=== PATIENT | female | born 1955 | race Caucasian/White ===

== ENCOUNTER 2024-04-09 08:43 | Outpatient (AMB) | payer OTHER, SELFPAY ==
--- NOTE | 2024-04-09 08:50 | A.OFFPC_ITS ---
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 Is last menstrual period known: No Post menopausal: No Patient : No Allergies No Known Allergies Allergy (Verified 04/09/24 09:08) Medication List - Last Reconciled 04/09/24 by Ghazala Vallecillo CNP No Known Home Meds Tobacco use date assessed: 04/09/24 Fall risk assessment: 1 Fall in past year Last assessed Fall Risk: 04/09/24 Dental Screening Dental Screen Date: 04/09/24 Did you have a dental visit in the last 12 months?: Yes Did you have a dental problem in the last 6 months where you did not have access to dental care?: No Was dental information given to patient?: Patient has dentist HPI HPI Comments History of Present Illness Details 68-year-old female presents to establish care. Prior PCP? - [facility] Last office visit/CPE/labs - About a year ago Acute issue(s) - HTN: currently not on medications. Was on different antihypertensives that caused adverse reactions, including nausea and sweating. She was on HCTZ until 2023. She has been mainlining a low sodium diet. She checks her blood pressure at routinely and average in the 130s/80s. She declines antihypertensives at this time. - Sleep apnea, not on CPAP: diagnosed a year ago at [facility]. However, she was never contacted for CPAP machine as planned. - Heartburn: Takes herbal gum with signi ficant relief; declines PPI. - Dysphagia and esophagitis which she at tributes to radiation treatment in 2012 for stage 3 turmor of right tonsil. She is followed by Dr. Urbina, ENT at [facility] recommended GI follow-up. She is not currently followed by Gastroenterology. - Intermittent right ear pain due to rec urring right ear infection with scar tissues. Followed by ENT. - [place] both ears, right worst than left. Does not wear hearing aid due to high risk of ear infection with hearing aids. Followed by ENT. 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 Does not vape. Drinks 2-3 b eers weekly. Denies recreational drug use - Has been making healthy dietary choice s. Exercises routinely. Generally sleep well Health maintenance - Last eye exam was a year ago. She is due for an eye exam and will schedule an appointment. She will sign a release for her PCP to obtain her eye record - Last dental visit was a week ago. She gets dental cleaning every 6 months - Last tetanus vaccine was in 2019. [address] not available a this time - She notes that she is up-to-date on e shingles and pneumonia vaccines - She notes that she is up-to-date on e influenza vaccine - Last mammogram was over a year ago. Ma mmogram ordered - Last colonoscopy was in 2018 at [facility]. Will request and review record and update colonoscopy as needed - Last pap smear test was at [facility] 10 years ago: Normal. Referred to [facility] cia agent for a pap smear test - Last dexa scan was 2 years. Dexa scan ordered Specialists - Dr. Urbina, ENT at [facility] Medical History (Updated 04/09/24 @ 12:23 by Ghazala Vallecillo CNP) Tonsillar tumor Cleft palate Neuropathy Shingles Hiatal hernia Acid reflux Osteoporosis High blood pressure Sinusitis Surgical History (Updated 04/09/24 @ 09:11 by Milagro Julian) History of salpingectomy Family History (Updated 04/09/24 @ 09:07 by Milagro Julian) Brother Alcohol abuse FH: mental illness Mother High cholesterol Diabetes Cervical cancer Father Diabetes Cardiovascular disease Paternal Grandmother Diabetes Sister Thyroid disorder Maternal Grandfather Stomach cancer Social History Housing: House Patient Tobacco Use Status: Never used Tobacco e-Cigarette/Vaping Use: Never Used Second Hand Smoke Exposure: No service: No Current occupational status: retired Cognitive needs: No Hearing needs: Yes Vision needs: Yes Questionnaire PHQ-9 Over the last 2 weeks, how often have you been bothered by any of the following problems? 1. Little interest or pleasure in doing things: not at all 2. Feeling down, depressed, or hopeless: not at all 3. Trouble falling or staying asleep, or sleeping too much: several days 4. Feeling tired or having little energy: several days 5. Poor appetite or overeating: not at all 6. Feeling bad about yourself - or that you are a failure or have let yourself or your family down: not at all 7. Trouble concentrating on things, such as reading the newspaper or watching television: not at all 8. Moving or speaking so slowly that other people could have noticed. Or the opposite - being so fidgety or restless that you have been moving around a lot more than usual: not at all 9. Thoughts that you would be better off or of hurting yourself in some way: not at all Total score: 2 Depression Screening Interpretation: Negative Depression Screening Done: Yes 03999 - PHQ-9 Billing: Yes Source: Developed by Drs. Josep Rodas, Keiry Abarca, Fernando Lincoln and colleagues, with an educational caprice from [employer] Thrive Questionnaire Date Thrive assessed: 04/09/24 I am a: Patient What is your living situation today?: I have a steady place to live Within the past 12 months, did the food you bought not last and you didn't have the money to get more?: Never true Within the past 12 months, did you worry whether your food would run out before you got money to buy more?: Never true Do you have trouble paying for medicines?: No Do you have trouble getting transportation to medical appointments?: No Do you have trouble paying your heating and electricity bill?: No Do you have trouble taking care of your child, family member or friend?: No Do you have trouble with day-to-day activities such as bathing, preparing meals, shopping, managing finances, etc.?: No Are you currently unemployed and looking for a job?: No Are you interested in more education?: No Please select the resources that you would like help with: None Currently or been in a relationship where the following occur: No concerns reported THRIVE Score: 0 AUDIT C Alcohol Use Questionnaire (AUDIT-C) 1. How often do you have a drink containing alcohol?: Monthly or less 2. How many drinks containing alcohol do you have on a typical day when you are drinking?: 1 or 2 3. How often do you have six or more drinks on one occasion?: Never Total Score: 1 Score Reviewed/Action Taken: Yes PASTOR-7 AMB Questionnaire PASTOR-7 Date PASTOR - 7 assessed: 04/09/24 Feeling nervous, anxious, or on edge: 0 = Not at all Not being able to stop or control worryin = Not at all Worrying too much about different things: 0 = Not at all Trouble relaxin = Not at all Being so restless that it is hard to sit still: 0 = Not at all Becoming easily annoyed or irritable: 0 = Not at all Feeling afraid as if something awful might happen: 0 = Not at all Total PASTOR-7 score (0-4 normal; 5-9 mild; 10-14 moderate; 15-21 severe): 0 Source: Developed by Drs. Josep Rodas, Keiry Abarca, Fernando Lincoln and colleagues, with an educational caprice from [employer] PASTOR-7 Assessment Billing PASTOR-7 Assessment Tool: PASTOR-7 Assessment 76696 Review of Systems Const Details: Denies chills, Denies fatigue, Denies fever(s), Denies headache(s) and Denies weakness HEENT Reports [place], Reports dysphagia, Denies change in vision, Denies dizziness, Denies headache(s), Denies nasal congestion, Denies sinus pain, Denies sinus pressure and Denies sore throat Card Denies chest pain, Denies lightheadedness, Denies dyspnea and Denies other (palpitations) Resp Denies cough, Denies dyspnea and Denies wheezing GI Denies abdominal pain, Denies melena, Denies hematochezia, Denies change in bowel habits, Denies dyspepsia and Denies nausea Denies hematuria and Denies dysuria Musc Denies abnormal gait, Denies myalgias, Denies arthralgias, Denies numbness and Denies tingling Skin/Breast Denies rash, Denies unusual bruising and Denies wounds Neuro Denies abnormal gait, Denies dizziness, Denies headache(s), Denies memory loss, Denies numbness, Denies Sensory deficit (Neuro), Denies tingling and Denies weakness Psych Denies anxiety, Denies depression and Denies memory loss Endo Denies cold intolerance, Denies fatigue, Denies heat intolerance, Denies polydipsia and Denies polyuria Mehdi/Lymph Denies easy bleeding and Denies easy bruising Aller/Immun Denies wheezing Physical exam (Primary Care) Vital Signs: Last Vital Signs Temp 97.9 F 04/09/24 08:57 Pulse 86 04/09/24 08:57 Resp 16 04/09/24 08:57 BP 130/90 H 04/09/24 09:20 Pulse Ox 97 04/09/24 08:57 Oxygen Delivery Method Room Air 04/09/24 08:57 BMI result Body Mass Index 31.4 Tobacco/Smoking Status: Tobacco use Status Tobacco use date assessed 04/09/24 04/09/24 08:57 Patient Tobacco Use Status Never used Tobacco 04/09/24 08:57 e-Cigarette/Vaping Use Never Used 04/09/24 08:57 PHQ-9: PHQ-9 Score PHQ-9: Total score 2 04/09/24 12:07 Depression Screening Interpretation: Negative Thrive Assessment: Date of Thrive Assessment Date Thrive assessed 04/09/24 04/09/24 08:53 Currently or been in a relationship where the following occur: No concerns reported Const Other: General: no acute distress, well developed, alert and awake Nutritional Appearance: well nourished Orientation/consciousness: patient oriented x3 HENMT Head: Yes normocephalic and Yes atraumatic Ears: hearing grossly normal bilaterally and TM's normal bilaterally General nose exam: Normal external nose present and Normal nares present Mouth: Normal oral and palatal mucosa present and moist mucous membranes Teeth and gingiva: dentition normal Throat: Yes oropharynx normal. Uvula not present Eyes Pupils: Equal, round and reactive pupils present and Pupil accommodation reflex normal EOM: EOMs intact bilaterally Neck Neck: Yes normal visual inspection, Yes no lymphadenopathy and Yes trachea midline Thyroid: Thyroid normal Carotids: no bruits Lymphatic: no lymphadenopathy noted Chest Chest palpation & inspection: normal inspection of the chest Resp Effort & Inspection: normal respiratory effort Auscultation: clear to auscultation bilaterally Cardio Rate: regular rate Rhythm: regular rhythm Heart sounds: S1 normal heart sound present, S2 normal heart sound present, no gallops, no murmurs and no rubs Bruits: no abdominal aortic bruits and no carotid bruits GI Palpation (GI): No Abdominal aortic bruit present, Soft to palpation, nontender, No hepatosplenomegaly present and No Rebound tenderness present Auscultation: normal bowel sounds General: Yes no CVA tenderness Back/Spine/Pelvis Back: no CVA tenderness Cervical Spine: cervical ROM normal and No Cervical spine tenderness Thoracic/Lumbar Spine: thoraco-lumbar ROM normal, No pain with thoraco-lumbar ROM, No thoracic spinal tenderness and No lumbar spinal tenderness Skin General: warm and dry. Normal skin color. Normal skin turgor Lesions: no lesions Rashes: no rashes Trauma: no lacerations or abrasions Wounds: no wounds Nails: normal Neuro General: patient oriented x3, gait normal and CN's II-XI intact bilaterally Cranial nerves: Yes Equal, round and reactive pupils present Cognition (Neuro): normal cognition Gait exam (Neuro): Normal gait present Motor exam (neuro): 5/5 motor strength present throughout Sensory Exam: No Sensory deficit (Neuro) Deep tendon reflexes (DTR's): Right patellar reflex intensity grade: 2+ and Left patellar reflex intensity grade: 2+ Extrem General: Yes normal to inspection, No edema and No calf tenderness Psych Appearance: grossly normal Affect: normal affect Attitude: cooperative Thought process: Normal thought process present Coding Level of Care Code New Pt Level 3 (93517) New Pt Prev Care >65yr (08331) Diagnoses Normal physical examination, routine Z00.00 High blood pressure I10 Osteoporosis M81.0 Acid reflux K21.9 Dysphagia R13.10 Esophagitis K20.90 Hiatal hernia K44.9 Pap smear for cervical cancer screening Z12.4 Breast cancer screening by mammogram Z12.31 Sleep apnea G47.30 Hard of hearing H91.90 Obesity (BMI 30-39.9) E66.9 Laboratory tests ordered as part of a complete physical exam (CPE) Z00.00 Additional Codes PASTOR-7 Assessment Billing - PASTOR-7 Assessment Tool: PASTOR-7 Assessment 06246 ([id number]) PHQ-9 - 05816 - PHQ-9 Billing: Yes ([id number]) Assessment & Plan Assessment & Plan (1) Normal physical examination, routine: Code(s): Z00.00 - Encounter for general adult medical examination without abnormal findings Category: Medical Plan: No significant functional limitation noted. Advised to get fasting lab work done and follow-up for hypertension and labs review in a month. Return sooner with symptoms or concerns. Verbalized understanding and agreed with treatment plan. (2) High blood pressure: Code(s): I10 - Essential (primary) hypertension Category: Medical Plan: Resting blood pressure is 130/90, above goal of less than 140/90. She experience significant adverse reactions to different antihypertensives. Last time she was on antihypertensives/HCTZ was in the summer of 2023. She has been maintaining low-sodium diet and exercising routinely. She has also been monitoring her blood pressure routinely with average readings 130s/80s. She does not want to start antihypertensive medication at this time and will continue with lifestyle changes. Low-sodium diet and routine exercise encouraged. Follow-up in 1 month or sooner with symptoms or concerns. Verbalized understanding and agreed with treatment plan. (3) Osteoporosis: Code(s): M81.0 - Age-related osteoporosis without current pathological fracture Category: Medical Plan: Last dexa scan was 2 years. Dexa scan ordered. (4) Acid reflux: Code(s): K21.9 - Gastro-esophageal reflux disease without esophagitis Category: Medical Plan: She takes herbal gum with significant relief. Declines PPI. Healthy diet encouraged. Follow-up as needed. (5) Dysphagia: Code(s): R13.10 - Dysphagia, unspecified Category: Medical Plan: Dysphagia and esophagitis related to radiation treatment in 2012 for stage 3 turmor of right tonsil. She also has history of hiatal hernia. She is followed by Dr. rUbina, ENT at [facility] recommended GI follow-up. She is not currently followed by Gastroenterology. Continue follow-up with ENT as planned. Referred to [facility] gastroenterology. (6) Esophagitis: Code(s): K20.90 - Esophagitis, unspecified without bleeding Category: Medical Plan: Plan as above. (7) Hiatal hernia: Code(s): K44.9 - Diaphragmatic hernia without obstruction or gangrene Category: Medical Plan: Plan as above. (8) Pap smear for cervical cancer screening: Code(s): Z12.4 - Encounter for screening for malignant neoplasm of cervix Category: Medical Plan: Last pap smear test was at [facility] 10 years ago: Normal. Referred to [facility] cia agent for a pap smear test. (9) Breast cancer screening by mammogram: Code(s): Z12.31 - Encounter for screening mammogram for malignant neoplasm of breast Category: Medical Plan: Last mammogram was over a year ago. Mammogram ordered, (10) Sleep apnea: Code(s): G47.30 - Sleep apnea, unspecified Category: Medical Plan: Seep apnea, not on CPAP: diagnosed a year ago at [facility]. However, she was never contacted for CPAP machine as planned. Referred to [facility] sleep medicine. (11) Hard of hearing: Code(s): H91.90 - Unspecified hearing loss, unspecified ear Category: Medical Plan: [place] both ears, right worst than left. Does not wear hearing aid due to high risk of ear infection with hearing aids. Followed by ENT. (12) Obesity (BMI 30-39.9): Code(s): E66.9 - Obesity, unspecified Category: Medical Plan: She currently weighs 166 lb, BMI is 31.4. Healthy diet and routine exercise encouraged. 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 Verbalized understanding and agreed with the plan. (13) Laboratory tests ordered as part of a complete physical exam (CPE): Code(s): Z00.00 - Encounter for general adult medical examination without abnormal findings Category: Medical Plan: Fasting labs ordered as part of a complete physical exam. Advised to fast for at least 10 hours before getting labs drawn. May drink water Verbalized understanding and agreed with treatment plan. Orders: Orders XR DEXA axial skeleton Today M81.0 - Age-related osteoporosis without current pathological fracture Comprehensive [place]. Panel Fast Today Z00.00 - Encounter for general adult medical examination without abnormal findings Lipid Panel Today Z00.00 - Encounter for general adult medical examination without abnormal findings UA CC w/rflx Micro + Cult Today Z00.00 - Encounter for general adult medical examination without abnormal findings MM screening mammo BI Today Z12.31 - Encounter for screening mammogram for malignant neoplasm of breast Complete Blood Count Auto Diff Today Z00.00 - Encounter for general adult medical examination without abnormal findings TSH reflex Free T4 Today Z00.00 - Encounter for general adult medical ex amination without abnormal findings Microalbumin, Random (w Creat) Today Z00.00 - Encounter for general adult medical examination without abnormal findings Vitamin D 25-OH Total Today Z00.00 - Encounter for general adult medical examination without abnormal findings Referrals Sleep Medicine Referral G47.30 - Sleep apnea, unspecified [employer]IT[employer] Referral Z12.4 - Encounter for screening for malignant neoplasm of cervix Gastroenterology Referral K20.90 - Esophagitis, unspecified without bleeding, K44.9 - Diaphragmatic hernia without obstruction or gangrene, R13.10 - Dysphagia, unspecified Patient Instructions: Fasting labs ordered as part of a complete physical exam. Advised to fast for at least 10 hours before getting labs drawn. May drink water Verbalized understanding and agreed with treatment plan.
[2024-04-09 08:57] VITALS: BP 134/93; PULSE 86; RESP 16; TEMP 36.6; O2SAT 97; BMI 31.4
--- OUTSIDE RECORDS SUMMARY | 2024-04-09 09:16 | XMS_ITS | Data Portability ---
Author Organization [place] - [facility], Allergy Address [address] [place] [address] Care Team Providers Care Laundry Housekeeper Name Role Phone ARIADNA ALEMAN Primary Care Provider Assessment Encounter Date Assessment Date Assessment LastModified by Organization Details LastModified Time 12/04/2023 12/04/2023 No evidence of disease on examination today. Fiberoptic examination of nasopharynx, hypopharynx and larynx was stable. Patient does have left TM perforation with some granulation tissue and significant retraction of the right TM. She feels like she is having allergy flareup. She also has history of esophageal dysmotility, hiatal hernia and reflux. Instead of taking calcium carbonate tablets have suggested reflux Gourmet after meals and at bedtime for 1 month. She will contact me after that to discuss her progress. Cancer surveillance in 6 months was recommended. [email or web address] Not available 12/04/2023 10:26:36 03/05/2024 03/05/2024 68-year-old female presents for evaluation of sinus infection. On examination she does have thick purulent discharge with congested mucosa. Recommended an extended course of antibiotic. Offered oral steroid but she declined. Will continue Flonase. History of squamous cell carcinoma of the tonsil in 2013. Continues routine surveillance and has an appointment in May with Dr. Hendricks. If she has any persistent sinus symptoms will call for sooner evaluation. Otherwise follow-up as scheduled. Not available 03/05/2024 09:55:29 Plan of Treatment Reminders Order Date Submit Date Provider Last Modified By Organization Details Last Modified Time Details Appointments Establish ed 30 2024 03:00P Ventura RHODES MD Not available Not available Not available Lab TSH + free T4, serum 2023 024 FLOWOOD [facility] (Centralized Electronic Ordering - All Locations), Patient Can Go To The Location Of Their Choice, [address] 12/05/2023 08:18:28 Referral None recorded. Procedures None recorded. Surgeries None recorded. Imaging None recorded. Medication Orders doxycycli ne hyclate 100 mg tablet 2024 025 [email or web address] [id number], [address] [place], [address], 03/05/2024 09:56:03 ciproflox acin 0.3 %-dexamet hasone 0.1 % ear drops,rola pension 2023 025 [id number], [address] [place], [address], 03/05/2024 09:08:13 Patient TargetsNo targets recorded. Patient InstructionsNo instructions recorded. Reason for Referral None Reported. Results Created Date Observation Date Name Description Value Unit Range Abnormal Flag Note LastModifiedBy Organization Detail LastModifiedTime 12/04/1912/05/2023 TSH+F REE T4 TSH 3.880 uIU/m L 0.450- 4.500 normal Not Available [facility] ([facility]) [address] [place], [address], 12/05/2023 08:18:27 12/04/19 24 12/05/2023 TSH+F REE T4 T4,free(dire ct) 1.25 NG/dL 0.82-1 .77 normal Not Available [facility] ([facility]) [address] [place], [address], 12/05/2023 08:18:27 Result Notes None recorded. Problems Name Problem SNOMED Code Status Onset Date Resolution Date Notes Provider Name and Address Organization Details Recorded Time Impacted cerumen in right ear 05270992609 65299 Active 2022 Impacted cerumen, right ear; Note: Date Diagnose d: 10/31/20 23 1:16 PM (H61.21) Not Available [facility] 4 02:42:54 Acute recurren t sialoade nitis 15256022105 30224 Active 2022 Acute recurren t sialoade nitis; Note: Date Diagnose d: 06/20/2022 1:26 PM (K11.22) Not Available [facility] 4 02:42:49 Neck pain 75089375 Active 2014 Other disorder s of cervical region: Cervical eitan; Note: Date Diagnose d: 5 4:18 PM (723.1) ; Start Date : 09/11/19 15 Cervi calgia; Note: Date Diagnose d: 5 3:18 PM (M54.2) [mapped from ICD9 code: 723.1] Not Available [facility] 4 02:42:45 Oral cyst 87936228157 25646 Active 2018 Other cysts of oral region, not elsewher e classifi ed; Note: Date Diagnose d: 06/20/2018 2:59 PM (K09.8) Not Available [facility] 4 02:42:50 Chronic rhinitis 35725366 Active 2015 Chronic rhinitis ; Note: Date Diagnose d: 04/17/2015 3:09 PM (J31.0) Not Available [facility] 4 02:42:51 Conducti ve hearing loss, bilatera l 485959797 Active 2014 Conducti ve hearing loss, bilatera l; Note: Date Diagnose d: 5 5:06 PM (389.06) Not Available [facility] 4 02:42:49 Headache 37396260 Active 2018 Headache , unspecif ied; Note: Changed from R51 to R51.9 (08/13/19 10:51 AM) , Date Diagnose d: 03/21/2018 12:03 PM (R51) Not Available [facility] 4 02:42:50 Pain of right temporom andibula r joint 07756967603 963282 Active 2017 Arthralg ia of right temporom andibula r joint; Note: Date Diagnose d: 03/16/2017 3:31 PM (M26.621 ) Not Available [facility] 4 02:42:52 History of malignan t neoplasm of pharynx 02499797624 107 Active 2014 Personal history of malignan t neoplasm : Other and unspecif ied oral cavity and pharynx; Note: Date Diagnose d: 5 5:06 PM (V10.02) Not Available [facility] 4 02:42:45 Bilatera l disorder of Eustachi an tubes 28963824245 76024 Active 2018 Other specifie d disorder s of Eustachi an tube, bilatera l; Note: Date Diagnose d: 09/21/2018 1:53 PM (H69.83) Not Available [facility] 4 02:42:51 Otorrhea of bilatera l ears 64138980310 92699 Active 2020 Otorrhea , bilatera l; Note: Date Diagnose d: 12/31/19 21 3:10 PM (H92.13) Not Available [facility] 4 02:42:48 Orophary ngeal dysphagi a 01001325 Active 2022 Dysphagi a, orophary ngeal phase; Note: Date Diagnose d: 3 12:23 PM (R13.12) Not Available [facility] 4 02:42:54 Otalgia of right ear 9878629554 Active 2017 Otalgia, right ear; Note: Date Diagnose d: 03/16/2017 3:31 PM (H92.01) Not Available [facility] 4 02:42:48 Spasm 93655745 Active 2022 Cramp and spasm; Note: Date Diagnose d: 3 12:47 PM (R25.2) Not Available [facility] 4 02:42:55 Total perforat ion of bilatera l tympanic membrane s 20339032486 93585 Active 2018 Total perforat ions of tympanic membrane , bilatera l; Note: Date Diagnose d: 09/21/2018 1:53 PM (H72.823 ) Not Available [facility] 4 02:42:47 History of malignan t neoplasm of oral cavity 241943008 Active 2014 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, oral cavity, and pharynx; Note: Date Diagnose d: 5 3:18 PM (Z85.818 ) [mapped from ICD9 code: V10.02] Not Available [facility] 4 02:42:46 Acute upper respirat ory infectio n 49994735 Active 2018 Acute upper respirat ory infectio n, unspecif ied; Note: Date Diagnose d: 06/20/2018 2:59 PM (J06.9) Not Available [facility] 4 02:42:54 Mixed conducti ve and sensorin eural hearing loss, bilatera l 446141830 Active 2014 Mixed HL, bilatera l; Note: Date Diagnose d: 5 4:52 PM (389.22) ; Start Date : 09/11/19 15 Mixed conducti ve and sensorin eural hearing loss, bilatera l; Note: Date Diagnose d: 5 3:18 PM (H90.6) [mapped from ICD9 code: 389.22] Not Available [facility] 4 02:42:50 Acute sialoade nitis 367339272 Active 2017 Acute sialoade nitis; Location : left Not e: Changed from K11.2 to K11.21 ( 9 12:00 PM) , Date Diagnose d: 8 11:32 AM (K11.2) Not Available [facility] 4 02:42:45 Disturba nce of salivary secretio n 18506594 Active 2018 Xerostom ia; Note: Date Diagnose d: 06/20/2018 3:00 PM (K11.7) Not Available [facility] 4 02:42:53 Posterio r rhinorrh ea 00161874 Active 2017 Postnasa l drip; Note: Date Diagnose d: 8 2:30 PM (R09.82) Not Available [facility] 4 02:42:51 Disorder of right tympanic membrane 90841910613 15420 Active 2018 Other specifie d disorder s of tympanic membrane , right ear; Note: Date Diagnose d: 06/20/2018 3:01 PM (H73.891 ) Not Available [facility] 4 02:42:49 Bilatera l temporom andibula r joint pain 53858339349 410959 Active 2017 Arthralg ia of bilatera l temporom andibula r joint; Note: Date Diagnose d: 8 2:30 PM (M26.623 ) Not Available [facility] 4 02:42:52 Pharynge al dysphagi a 88652150059 105 Active 2022 Dysphagi a, pharynge al phase; Note: Date Diagnose d: 06/20/2022 1:26 PM (R13.13) Not Available [facility] 4 02:42:55 Otorrhea of right ear 40845654805 35056 Active 2021 Otorrhea , right ear; Note: Date Diagnose d: 03/18/2021 2:44 PM (H92.11) Not Available [facility] 4 02:42:51 Chronic nasophar yngitis 95481738 Active 2014 Nasophar yngitis, chronic; Note: Date Diagnose d: 5 5:06 PM (472.2) ; Start Date : 03/05/19 15 Chron ic nasophar yngitis; Note: Date Diagnose d: 5 3:18 PM (J31.1) [mapped from ICD9 code: 472.2] Not Available [facility] 4 02:42:54 Central perforat ion of left tympanic membrane 44723755369 68166 Active 2021 Central perforat ion of tympanic membrane , left ear; Note: Date Diagnose d: 06/21/2021 9:07 AM (H72.02) Not Available [facility] 4 02:42:45 Perforat ion of left tympanic membrane 40821687568 25921 Active 2017 Unspecif ied perforat ion of tympanic membrane , left ear; Note: Date Diagnose d: 8 1:49 PM (H72.92) Not Available [facility] 4 02:42:52 Otorrhea of left ear 27233756628 37494 Completed 202009/15/2023 Otorrhea , left ear; Note: Date Diagnose d: 1 2:55 PM (H92.12) Otorrh ea, left ear; Note: Date Diagnose d: 01/01/20 15 2:47 PM (H92.12) ; Start Date : 01/01/20 Not Available [facility] 4 02:42:46 Acute maxillar y sinusiti s 75134163 Active 2023 Acute maxillar y sinusiti s, unspecif ied; Note: Date Diagnose d: 4 1:35 PM (J01.00) Not Available [facility] 4 02:42:53 Gastroes ophageal reflux disease without esophagi tis 734468167 Active 2023 AMY CARREON MD [address] [place] [address],[place] [address], [place], [address] , [facility] 4 10:25:31 Acute myringit is of left ear 47137218533 07600 Active 2023 AMY CARREON MD [address] [place] [address],[place] [address], [place], [address] , [facility] 4 10:27:39 Problem Notes None recorded. Procedures Surgical History Date Name Laterality Status Provider Name and Address Organization Details Recorded Time 12/04/19 Fiberoptic Laryngoscopy (Comprehensive) completed AMY HENDRICKS MD [address] [place] [address],[address], [address], [facility] 12/04/2023 10:27:59 repair of cleft lip completed AMY HENDRICKS MD [address] [place] [address],[place] [address], [place], [address], [facility] 12/03/2023 20:05:01 repair of cleft palate completed AMY HENDRICKS MD [address] [address], [place], [address], [facility] 12/03/2023 20:05:13 Imaging Results None recorded. Procedure Notes None recorded. Medical Equipment None Reported. Allergies Allergen ID Allergen Name Allergen Category Reaction Reaction Severity Criticality Documentation Date Start Date Code Code System Note Provider Name and Address Organization Details Recorded Time 893204 tree and shrub pollen environme nt,medica tion eye redness Not available Not available 03/05/20242009 56612 UNK Mari cisse [facility] 09:07:54 Medications Name Sig Start Date Stop Date Status Note LastModified by Organization Details LastModified Time clotrimaz ole 10 mg yonas 1 yonas five times a day 12/30 completed Medicati on ID: [id number] D uration Value: 7 Brand Name: clotrima zole Sen d Method: E-Prescr ibed Sub s Allowed: subs OK Medic ationGen ericName : clotrima zole Not Available Not Available Not Available Augmentin 875 mg-125 mg tablet 1 tablet by mouth 12/03 completed Medicati on ID: [id number] D uration Value: 10 Prescri bed By Name: CHARITO Leon nd Name: Augmenti n Send Method: E-Prescr ibed Sub s Allowed: subs OK Speci al Instruct ion: 1 po bid for 10 days Med icationG enericNa me: Augmenti n Not Available Not Available Not Available hydralazi ne 10 mg tablet TAKE 1 TABLET BY MOUTH FOUR TIMES A DAY 12/03 completed Not Available Not Available Not Available nystatin 100,000 unit/mL oral suspensio n TAKE 5 ML BY MOUTH 4 TIMES A DAY 12/03 completed Not Available Not Available Not Available prednison e 10 mg tablet TAKE 3 TABS ORALLY DAILY FOR 3 DAYS, THEN 2 TABS DAILY FOR 3 DAYS, THEN 1 TAB DAILY FOR 6 DAYS 12/03 completed Not Available Not Available Not Available doxycycli ne hyclate 100 mg capsule TAKE 1 CAPSULE BY MOUTH TWICE A DAY FOR 2 WEEKS 12/03 completed Not Available Not Available Not Available valsartan 80 mg tablet 10/11 completed Medicati on ID: [id number] B rand Name: heathersarta n Send Method: E-Prescr ibed Sub s Allowed: subs OK Speci al Instruct ion: TAKE 1 TABLET BY MOUTH EVERYDAY AT BEDTIME Medicati onGeneri cName: valsarta n Not Available Not Available Not Available nifedipin e ER 30 mg tablet,ex tended release TAKE 1 TABLET BY MOUTH EVERY DAY 12/03 completed Not Available Not Available Not Available doxycycli ne monohydra te 100 mg tablet 01/25 completed Medicati on ID: [id number] D uration Value: 7 Reason: () Brand Name: doxycycl ine monohydr ate Send Method: E-Prescr ibed Sub s Allowed: subs OK Medic ationGen ericName : doxycycl ine monohydr ate Not Available Not Available Not Available spironola ctone 25 mg tablet TAKE 1 TABLET BY MOUTH EVERY MORNING AND 2 TABLETS EVERY EVENING 12/03 completed Not Available Not Available Not Available ofloxacin 0.3 % ear drops USE 5 DROP OTIC TWICE A DAY BOTH EARS 12/03 completed Not Available Not Available Not Available amoxicill in 875 mg tablet 03/05 completed Not Available Not Available Not Available doxycycli ne monohydra te 100 mg capsule 1 capsule by mouth twice a day 10/11 completed Medicati on ID: [id number] D uration Value: 10 Prescri bed By Name: Danuta Martínez nd Name: doxycycl ine monohydr ate Send Method: E-Prescr ibed Sub s Allowed: subs OK Medic ationGen ericName : doxycycl ine monohydr ate Not Available Not Available Not Available clotrimaz ole 1 % topical solution 12/03 completed Medicati on ID: [id number] D uration Value: 14 Brand Name: denise [place] Method: E-Prescr ibed Sub s Allowed: subs OK Speci al Instruct ion: 5 drops to the affected ear twice a day X 14 days [facility] me: clotrima zole Not Available Not Available Not Available amoxicill in 250 mg capsule TAKE 1 CAPSULE BY MOUTH THREE TIMES A DAY 12/03 completed Not Available Not Available Not Available Ativan 0.5 mg tablet 1 tablet by mouth 12/03 completed Medicati on ID: [id number] D uration Value: 1 Prescri bed By Name: Danuta Martínez nd Name: Ativan S end Method: E-Prescr ibed Sub s Allowed: subs OK Speci al Instruct ion: take prior to imaging. .may repeat in 30 min if no improvem ent Medi cationGe nericNam e: Ativan Not Available Not Available Not Available fluticaso ne propionat e 50 mcg/actua tion nasal spray,rola pension 2 puff into both nostrils 2016 active Medicati on ID: [id number] D uration Value: 120 Prescri bed By Name: Danuta Martínez nd Name: fluticas one Send Method: E-Prescr ibed Sub s Allowed: subs OK Medic ationGen ericName : fluticas one Not Available Not Available Not Available doxycycli ne hyclate 100 mg tablet TAKE 1 TABLET BY MOUTH TWICE A DAY FOR 14 DAYS active Not Available Not Available No t Available naproxen 500 mg tablet 10/11 completed Medicati on ID: [id number] Br and Name: naproxen Send Method: E-Prescr ibed Sub s Allowed: subs OK Medic ationGen ericName : naproxen Not Available Not Available Not Available tobramyci n 0.3 %-dexamet hasone 0.1 % eye drops,rola pension INSTILL 4 DROPS IN THE LEFT EAR TWICE A DAY FOR 7 DAYS 12/03 completed Not Available Not Available Not Available ciproflox acin 0.3 %-dexamet hasone 0.1 % ear drops,rola pension INSTILL 4 DROP INTO LEFT EAR TWICE A DAY DIRECTED FOR 7 DAYS 03/05 completed Not Available Not Available Not Available Vitamin D 2015 active Medicati on ID: [id number] B rand Name: Vitamin D Send Method: E-Prescr ibed Sub s Allowed: subs OK Medic ationGen ericName : Vitamin D Not Available Not Available Not Available melatonin 10 mg tablet 12/03 completed Medicati on ID: [id number] Br and Name: surya bettencourt Send Method: E-Prescr ibed Sub s Allowed: subs OK Medic ationGen ericName : melatoni n Not Available Not Available Not Available Vitals Date Recorded Body height Body mass index (BMI) Body weight Provider Name and Address Organization Details Last Updated DateTime 12/04/2023 154.94 cm 30.8 kg/m2 29277.56 g Catrachita Bridges [place] - [facility] 12/04/2023 10:11:21 Date Recorded Body height Body weight Provider Name and Address Organization Details Last Updated DateTime 03/05/2024 154.94 cm 42582.56 g Mari Garcia [place] - [facility] 03/05/2024 09:07:36 Social History None recorded. Functional Status None recorded. Mental Status None recorded. Family History Nothing Reported. Medical History Condition Response Allergies/Hayfever Y Heart Problems N Anxiety N Tonsil Infections N Emphysema N Migraines N Thyroid Problems N Glaucoma N Depression N COPD N Developmental Delay N Nasal or Sinus Problems Y Anemia N Immune System Disorder N Anesthesia Complications N Heart Attack ([place]) N Other Skin Condition N Diabetes N Rhinitis N Bleeding Disorder N Food Allergy N Arthritis Y Hearing Loss Y Hyperlipidemia N Cancer Y Stroke N Dementia N Nasal polyps N Asthma N Sleep Disorder N GERD/Reflux Y High Cholesterol N Liver Disease N Headaches Y Fibromyalgia N Hypertension Y Speech Delay N Kidney Disease N Gynecological HistoryNo gynecological history recorded. Obstetrics History GPAL:G 0 P 0 0 0 0 Past Encounters Encounter ID Performer Location Encounter Start Date Encounter Closed Date Diagnosis/Indication Diagnosis SNOMED-CT Code Diagnosis ICD10 Code Diagnosis Note [id number] AMY CARREON MD [facility] [address] [place] [address] 12/04/2023 09:56:12 12/04/2023 10:39:47 History of malignant neoplasm of digestive organ [id number] 3346610 Z85.00 Gastroesop hageal reflux disease without esophagitis 265201752 K21.9 Consider GI eval. She will discuss with PCP Central pe rforation of left tympanic membrane 9301645302 182766 H72.02 Acute myri ngitis of left ear 8442627468 912048 H73.002 [id number] AMY CARREON MD [facility] [address] [place] [address] 03/05/2024 09:02:35 03/05/2024 09:35:07 Acute maxillary sinusitis 17283557 J01.00 Health Concerns Section Related Observation LastModified by Organization Detai ls LastModified Time None Recorded Concern Status LastModified by Organization Details LastModified Time None Recorded Advance Directives Directive None Recorded Payers Encounter Date Sequence Insurance Name Policy Number Policy Cervantes Covered Member ID Cervantes Member ID Guarantor Name 12/04/2023 1 [facility] (MEDICARE REPLACEMENT/ ADVANTAGE - PPO) [id number] 1 Rashida Owusu [place] [id number] Rashida Whitmore 03/05/2024 1 [facility] (MEDICARE REPLACEMENT/ ADVANTAGE - PPO) [id number] Rashida G G [place] [id number] Rashida Owusu [place] Notes Date Note Type Note Provider Name and Address Organization Details Recorded Time 12/04/2023 text/html 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 Completed therapy {{ 2013#}}T2N1M0 right tonsilHx of ETD with cleft lip and palate as child. Mild allergy sx and right ear discomfort with left otorrheaOff balance for a couple of weeks {{Denies* Notes}} weight loss, {{Denies Notes*}} sore throat only in the AM, {{Denies Notes*}} ear pain, {{Denies* Notes}} voice change {{Presently Presen tly not*}} smoking cigarettes. If smoking, {{1/4, 1/2, 1}} ppd {{Presently* Prese ntly not}} drinking alcohol 2 beer per week Last imaging {{6* 12}} months ago. Chest CT negative History of esophageal dysmotility and reflux with globus sensation. Still getting reflux with bending over. Taking TUMS every other day AMY HENDRICKS MD [address], [address], [place] - [facility] 12/04/2023 10:33:22 03/05/2024 text/html 68-year-old reid chau presents for reevaluation of sinus infection. She was recently treated for a sinus infection at the beginning of the year with Augmentin for 10 days. She felt better for about 2 weeks but symptoms returned. Currently having frontal facial pain and pressure and thick discolored drainage with nasal congestion. She has seasonal allergies and takes Flonase daily. Did trial Afrin as recommended but it did not relieve symptoms. AMY HENDRICKS MD [address],[facility] [address], [place], [address], [facility] - [facility] 03/05/2024 12:20:10 OBGyn Episode No OBEpisode recorded.
--- OUTSIDE RECORDS SUMMARY | 2024-04-09 09:16 | XMS_ITS | Clinical Summary ---
Author Organization [facility] Address [address] [place] [address] Care Team Providers Care Electroplater Helper Name Role Phone Jonny Llanes MD Primary Care Provider + Allergies No known active allergies Medications Medication Sig Dispensed Refills Start Date End Date Status Multiple Vitamin (MULTI VITAMIN PO) Take by mouth. 0 Ac tive Echtzay-Bbjgpbbgm-Vamb min D (CALCIUM 500 PO) Take by mouth. 0 Active aspirin EC 81 MG tablet Take 81 mg by mouth daily. 0 Active cholecalciferol (VITAMIN D3) 1000 UNITS tablet Take 1,000 Units by mouth daily. 0 Active fluticasone (FLONASE) 50 MCG/ACT nasal spray spray/apply 1 spray in each nostril daily. 0 Active Probiotic Product (PROBIOTIC DAILY PO) Take by mouth daily. 0 Active Clotrimazole (MYCELEX) 10 MG yonsa Take 10 mg by mouth 5 (five) times a day. 0 Active Hydrocodone-Ibuprofen (IBUDONE PO) Take by mouth. 0 Active MELATONIN ER PO Take by mouth. 0 Activ e ibuprofen (ADVIL,MOTRIN) 200 MG tablet Take 200 mg by mouth every 6 (six) hours as needed for pain. 0 Active nystatin (MYCOSTATIN) 346602 UNIT/ML suspension Take 5 mL (500,000 Units total) by mouth 4 (four) times a day. 200 mL 0 03/06/2018 Active Active Problems Problem Noted Date Diagnosed Date Head and neck cancer 11/30/2016 Family History Medical History Relation Name Comments Cancer Sister thyroid Relation Name Status Comments Sister Social History Tobacco Use Types Packs/Day Years Used Date Smoking Tobacco: Former Smokeless Tobacco: Never Alcohol Use Standard Drinks/Week Comments Yes 0 (1 standard drink = 0.6 oz pur e alcohol) 1 a week Sex and Gender Information Value Date Recorded Sex Assigned at Not on file Gender Identity Not on file Sexual Orientation Not on file Last Filed Vital Signs Vital Sign Reading Time Taken Comments Blood Pressure 150/89 09/25/2018 2:04 PM EDT Pulse 67 09/25/2018 2:04 PM EDT Temperature 37.4 ??C (99.3 ??F) 03/27/2018 2:30 PM ES T Respiratory Rate - - Oxygen Saturation - - Inhaled Oxygen Concentration - - Weight 68 kg (150 lb) 09/25/2018 2:04 PM EDT Height 154.9 cm (5' 1 ) 09/25/2018 2:04 PM EDT Body Mass Index 28.34 09/25/2018 2:04 PM EDT Plan of Treatment Health Maintenance Due Date Last Done Comments Hepatitis C Screening 1955 COVID-19 Vaccine (#1) 1961 Pneumococcal Vaccine (1 of 2 - PCV) 1962 Depression Screening 1968 Preventative Health Evaluation 1974 Shingrix-Zoster Vaccine (1 of 2) 07/20/1975 Colon Cancer Screening (Colonoscopy) 2001 Breast Cancer Screening (Mammogram) 2006 Fall Risk Assessment 2021 Osteoporosis Screening (DEXA Scan) 2021 Influenza Vaccine (#1) 2023 11/02/2017 DTap / Tdap / Td (2 - Td or Tdap) 03/23/2028 019 RSV Adult > 60+ Yrs or Pregn ant (1 - 1-dose 75+ series) 07/20/2031 Hepatitis B Vaccines Aged Out No long er eligible based on patient's age to complete this topic RSV Ped < 20 months Aged Out No longe r eligible based on patient's age to complete this topic Care Teams Electroplater Helper Relationship Specialty Start Date End Date Jonny Llanes MD [address] [place] [address] PCP - General Otolaryngology 10/02/18
[2024-04-09 09:20] VITALS: BP 130/90
== END 2024-04-09 09:52 | disposition home or self-care (01) ==
PROVIDERS: PCP Nurse Practitioner Family; Visit Provider Nurse Practitioner Family
DX: Z00.00 Encounter for general adult medical examination without abnormal findings (principal); I10 Essential (primary) hypertension; E66.9 Obesity, unspecified; Z68.31 Body mass index [BMI] 31.0-31.9, adult; M81.0 Age-related osteoporosis without current pathological fracture; K21.9 Gastro-esophageal reflux disease without esophagitis; R13.10 Dysphagia, unspecified; K20.90 Esophagitis, unspecified without bleeding; K44.9 Diaphragmatic hernia without obstruction or gangrene; Z12.31 Encounter for screening mammogram for malignant neoplasm of breast; G47.30 Sleep apnea, unspecified; H91.93 Unspecified hearing loss, bilateral

== ENCOUNTER → 2024-04-09 08:43 | Outpatient (BNVA) | payer OTHER, SELFPAY | PROVIDERS: PCP Nurse Practitioner Family; Visit Provider Nurse Practitioner Family | DX: Z00.00 Encounter for general adult medical examination without abnormal findings (principal); I10 Essential (primary) hypertension; M81.0 Age-related osteoporosis without current pathological fracture; K21.9 Gastro-esophageal reflux disease without esophagitis; R13.10 Dysphagia, unspecified; K20.90 Esophagitis, unspecified without bleeding; K44.9 Diaphragmatic hernia without obstruction or gangrene; G47.30 Sleep apnea, unspecified; H91.93 Unspecified hearing loss, bilateral; E66.9 Obesity, unspecified; Z68.31 Body mass index [BMI] 31.0-31.9, adult | CPT/HCPCS: 96127 ==

== ENCOUNTER 2024-04-10 07:40 | Outpatient (REF) | payer OTHER, SELFPAY ==
--- OUTSIDE RECORDS SUMMARY | 2024-04-10 07:45 | XMS_ITS | Clinical Summary ---
Author Organization [facility] Address [address] [place] [address] Care Team Providers Care Technical Director Name Role Phone Jonny Llanes MD Primary Care Provider + Allergies No known active allergies Medications Medication Sig Dispensed Refills Start Date End Date Status Multiple Vitamin (MULTI VITAMIN PO) Take by mouth. 0 Ac tive Lflwcup-Ykpsuprdo-Lkwe min D (CALCIUM 500 PO) Take by [...] daily. 0 Active Clotrimazole (MYCELEX) 10 MG yonas Take 10 mg by mouth 5 (five) times a day. 0 Active Hydrocodone-Ibuprofen (IBUDONE PO) Take by mouth. 0 Active MELATONIN ER PO Take by mouth. 0 Activ e ibuprofen (ADVIL,MOTRIN) 200 MG tablet Take 200 mg by mouth every 6 (six) hours as needed for pain. 0 Active nystatin (MYCOSTATIN) 988422 UNIT/ML suspension Take 5 mL (500,000 Units [...] age to complete this topic Care Teams Technical Director Relationship Specialty Start Date End Date Jonny Llanes MD [address] [place] [address] PCP - General Otolaryngology 10/02/18
[2024-04-10 11:10] LABS: MANUAL DIFF FLAG NO
[2024-04-10 11:15] LABS: Appearance Urine Clear; Color Urine Yellow; Glucose Urine UA Negative (Negative); Leukocyte Esterase Urine Negative (Negative); Nitrite Urine Negative (Negative); UMIC TRIGGER UACC YES; Urine Blood Moderate (2+) (Negative); Urine Ketones Negative (Negative); Urine Protein Negative (Neg-Trace)
[2024-04-10 11:18] LABS: Bacteria Urine None Seen (None Seen); Basophils Percent Auto 0.9 % (0-2); Eosinophils Absolute Auto 0.2 X10*3/uL (0.0-0.4); Eosinophils Percent Auto 4.4 % (0-4); Hematocrit 43.2 % (37.0-47.0); Hemoglobin 14.1 g/dl (12.0-16.0); Hyaline Casts Urine 0-2 /LPF (0-2); Imm Gran Abs Auto 0.02 X10*3/uL (0.00-0.03); Imm Gran Pct Auto 0.4 % (0.0-0.4); Lymphocytes Absolute Auto 1.3 X10*3/uL (1.2-4.9); Lymphocytes Percent Auto 27.8 % (20-40); Mean Corpuscular HGB Conc 32.6 g/dl (31.0-35.0); Mean Corpuscular Hemoglobin 30.5 pg (27.0-33.0); Mean Corpuscular Volume 93.3 fL (80.0-98.0); Monocytes Absolute Auto 0.4 X10*3/uL (0.1-1.2); Monocytes Percent Auto 9.4 % (2-11); Neutrophils Absolute Auto 2.6 x10*3/uL (2.0-8.3); Neutrophils Percent Auto 57.1 % (45-73); Platelet Count 203 X10*3/uL (160-400); Red Blood Count 4.63 X10*6/uL (4.20-5.50); Red Cell Distribution Width 12.4 % (11.0-16.0); Squamous Epithelial Cell Urine 0-2 /HPF (0-2); WBC Urine 0-5 /HPF (0-5); White Blood Count 4.6 X10*3/uL (4.8-10.8)
[2024-04-10 11:33] LABS: Alanine Aminotransferase 24 U/L (0-31); Alkaline Phosphatase 123 U/L (39-117); Anion Gap 12 (12-20); Aspartate Amino Transferase 24 U/L (5-31); Bilirubin Total 0.7 mg/dL (0.0-1.0); Blood Urea Nitrogen 12 mg/dL (9-16); Calcium 9.1 mg/dL (8.4-10.2); Carbon Dioxide 28 mmol/L (22-29); Chloride 105 mmol/L (96-108); Cholesterol 182 mg/dL (<200); Estimated Glomerular Filt Rate > 60; Glucose Fasting 87 mg/dL (60-99); HDL Cholesterol 73 mg/dL (>40); LDL Cholesterol Calculated 92 mg/dL (<100); Sodium 141 mmol/L (135-145); Total Protein 7.3 g/dL (6.5-8.0); Triglycerides 85 mg/dL (<150)
[2024-04-10 11:43] LABS: Creatinine Urine 127.89 mg/dL; Microalbum/Creatinine Ratio Ur 10.1 ug/mg cr (<30)
[2024-04-10 12:18] LABS: Vitamin D 25-OH Total 38.9 ng/mL (>30)
== END 2024-04-10 07:41 | disposition home or self-care (01) ==
LOC: HO.WFDLDS 07:40
PROVIDERS: Visit Provider Nurse Practitioner Family
DX: Z00.00 Encounter for general adult medical examination without abnormal findings (principal)
CPT/HCPCS: 36415; 80053; 80061; 81001; 82043; 82306; 82570; 84443; 85025

== ENCOUNTER 2024-04-26 12:58 | Outpatient (AMB) | payer OTHER, SELFPAY ==
--- NOTE | 2024-04-26 12:59 | A.OFFVIS_ITS ---
Vital Signs 04/26/24 13:00 Height 5 ft 1 in Weight 164 lb 4 oz BMI 31.0 BP 130/88 Blood Pressure Location Lt brachial Position Sitting Pulse 94 Pulse Source Pulse Oximeter Pulse Oximetry (%) 96 Oxygen Delivery Method Room Air Intake Visit Reasons: INP-ALICIA Intake Note: Inpatient referral for sleep apnea.Sleep apnea, not on CPAP: diagnosed a year ago at [facility]. However, she was never contacted for CPAP machine as planned. Patient referred by Ghazala Vallecillo. Allergies No Known Allergies Allergy (Verified 04/26/24 13:06) HPI Comments Details: 68 year old visit for sleep apnea evaluation. 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 She had an evaluation at [facility] diagnosed with mild sleep apnea, and could not tolerate the mask. Her mouth gets dried and she has to wake up several times a night for sips of water then she feels exhausted most days after breakfast, moves sluggishly. She is has chronic Ear infections and sees ENT, Dr. Ruvalcaba every 6 months, her l. ear bleeds d/t perforated ear drum, and r. one gets infected but tympanostomy tubes aren't an option for her. She has headaches only when she goes to the dentist or with temperature and weat her changes. She does vestibular PT as she notices tremors and numbness in her RUE and RLE with gait imbalance and dizziness. She has seasonal allergies uses flonase and ear drops with steroids as needed. She will f/u with GI for a hiatal hernia, has dysphagia and does PT/OT for esophageal strengthening exercise. She has Gerd and takes Reflux Gourmet Sucralafate. BP is high in the morning and normalizes at around 9-10am. She has osteopenia and joint pain in her metacarpal joints digits 2-3-4-5, bilaterally, will complete DEXA next month. She is doing cardio and weight training 2 x a week. Her diet is mainly soups, and soft foods. \ Her memory is stable, mood is generally good. She is not a smoker, and doesn't drink alcohol. [facility] Medical History Tonsillar tumor Cleft palate Neuropathy Shingles Hiatal hernia Acid reflux Osteoporosis High blood pressure Sinusitis Surgical History History of salpingectomy Family History Brother Alcohol abuse FH: mental illness Mother High cholesterol Diabetes Cervical cancer Father Diabetes Cardiovascular disease Paternal Grandmother Diabetes Sister Thyroid disorder Maternal Grandfather Stomach cancer Social History Housing: House Patient Tobacco Use Status: Never used Tobacco e-Cigarette/Vaping Use: Never Used Second Hand Smoke Exposure: No service: No Current occupational status: retired Cognitive needs: No Hearing needs: Yes Vision needs: Yes Physical Exam Vital Signs: Last Vital Signs Pulse 94 04/26/24 13:00 BP 130/88 04/26/24 13:00 Pulse Ox 96 04/26/24 13:00 Oxygen Delivery Method Room Air 04/26/24 13:00 BMI result Body Mass Index 31.0 Const General: cooperative, comfortable and no acute distress Orientation/consciousness: patient oriented x3 HEENT Face and sinus: Yes normal facial exam and Yes face symmetric Teeth and gingiva: other (Mallamti score of 2) Eyes Pupils: Equal, round and reactive pupils present Neck Neck: Yes full ROM and Yes supple Resp Effort & Inspection: normal respiratory effort and able to speak in complete sentences Neuro General: patient oriented x3 and moves all extremities Cranial nerves: Yes CN's II-XII intact bilaterally, Yes Facial sensation intact/muscles of mastication intact, Yes Equal, round and reactive pupils present, Yes Normal accommodation reflex present, Yes Bilaterally intact EOM present, Yes Normal facial strength present, Yes Midline tongue present, Yes Ability to bilaterally rotate head present and Yes Ability to bilaterally elevate shoulders present Gait exam (Neuro): Normal gait present Motor exam (neuro): 5/5 motor strength present throughout, Normal motor muscle tone present throughout and Tremors during motor activity present (RUE / r hand and head) Deep tendon reflexes (DTR's): Right triceps reflex intensity grade: 2+, Left triceps reflex intensity grade: 2+, Rt Biceps (C5, C6): 2+, Left biceps reflex intensity grade: 2+, Right brachioradialis reflex intensity grade: 2+, Left brachioradialis reflex intensity grade: 2+, Right patellar reflex intensity grade: 2+ and Left patellar reflex intensity grade: 2+ Psych Appearance: grossly normal Thought process: Normal thought process present Thought content: Normal thought content present Assessment & Plan Assessment & Plan (1) Fatigue due to sleep pattern disturbance: Code(s): R53.83 - Other fatigue; G47.9 - Sleep disorder, unspecified Category: Medical (2) Loud snoring: Code(s): R06.83 - Snoring Category: Medical (3) Tremor of right hand: Code(s): R25.1 - Tremor, unspecified Category: Medical (4) Benign head tremor: Code(s): G25.0 - Essential tremor Category: Medical Plan HST Fatigue and sleep disturbances Labs to r/o nutritional deficiencies. Tremors Magnesium 400mg PO daily at bedtime and B6 200 mg PO at bedtime Snoring, using a mouth guard and dental referral for somnoguard, nose strips as needed or taping of the mouth. BP monitor and f/u with PCP Orders: Orders RT home sleep study Today G47.19 - Other hypersomnia Patient Instructions: Sleep Hygiene: Sleep in a dark room, no devices in bed, temperatures should be 68 degrees or below. Limit fluids 2-4 hours prior to bed. Gentle night time yoga, and play soft music or may diffuse essential oils. Glucosamine, chondritin, Bone Broth, Vitamin D with K2, Turmeric, Magnesium and B6 along with Dexa f/u. Labs to f/u Ferritin, Iron, folate B12, Homocysteine as needed in the future, as her labs from Apr 10, 2024 look fine. Tremors will evaluate RUE and RLE and Head tremors at next visit. Will f/u in 3months. Coding Level of Care Code New Pt Level 4 (57585) Diagnoses Fatigue due to sleep pattern disturbance R53.83; G47.9 Loud snoring R06.83 Tremor of right hand R25.1 Benign head tremor G25.0 Time Spent (min) 45 Comment Evaluation Sleep Questionnaire Difficulty falling asleep: No Difficulty staying asleep?: Yes Number of arousals: 1-2 Snoring: Yes Witnessed apneas: No Gasping arousals: No Nocturia: No GERD: Yes Vivid dreams: No Acting out dreams: No Abnormal behavior in sleep: No Abnormal movements in sleep: No Morning headaches: No Excessive daytime sleepiness: Yes Daytime naps: Yes Restless legs: No Hallucinations: No Sleep paralysis: No Drop attacks: No Sleep Study: No CPAP: No
[2024-04-26 13:00] VITALS: BP 130/88; PULSE 94; O2SAT 96; BMI 31.0
--- OUTSIDE RECORDS SUMMARY | 2024-04-26 14:31 | XMS_ITS | Data Portability ---
Author Organization [place] - [facility], Allergy Address [address] [place] [address] Care Team Providers Care Chemical Production Technician Name Role Phone ARIADNA ALEMAN Primary Care [...] for sooner evaluation. Otherwise follow-up as scheduled. [email or web address] Not available 03/05/2024 09:55:29 Plan of Treatment Reminders Order Date Submit Date Provider Last Modified By Organization Details Last Modified Time Details Appointments Establish ed 30 2024 03:00P Ventura RHODES MD Not available Not available Not available Lab TSH + free T4, serum 2023 024 [facility] (Centralized Electronic Ordering - All Locations), Patient Can Go To The Location Of Their Choice, [address] 12/05/2023 08:18:28 Referral None recorded. Procedures None recorded. Surgeries None recorded. Imaging None recorded. Medication Orders doxycycli ne hyclate 100 mg tablet 2024 025 [email or web address] [id number], [address] [place], [address], 03/05/2024 09:56:03 ciproflox acin 0.3 %-dexamet hasone 0.1 % ear drops,rola pension 2023 025 [id number], [address] [place], [address], 03/05/2024 09:08:13 Patient TargetsNo targets recorded. Patient InstructionsNo instructions recorded. Reason for Referral None Reported. Results Created Date Observation Date Name Description Value Unit Range Abnormal Flag Note LastModifiedBy Organization Detail LastModifiedTime 12/04/1912/05/2023 TSH+F REE T4 TSH 3.880 uIU/m L 0.450- 4.500 normal Not Available [facility] ([facility]) [address] [place], [address], 12/05/2023 08:18:27 12/04/19 24 12/05/2023 TSH+F REE T4 T4,free(dire ct) 1.25 NG/dL 0.82-1 .77 normal Not Available [facility] ([facility]) [address] [place], [address], 12/05/2023 08:18:27 Result Notes None recorded. Problems Name Problem SNOMED Code Status Onset Date Resolution Date Notes Provider Name and Address Organization Details Recorded Time Impacted cerumen in right ear 88697385481 23708 Active 2022 Impacted cerumen, right ear; Note: Date Diagnose d: 10/31/20 23 1:16 PM (H61.21) Not Available [facility] 4 02:42:54 Acute recurren t sialoade nitis 48096745847 66213 Active 2022 Acute recurren t sialoade nitis; Note: Date Diagnose d: 06/20/2022 1:26 PM (K11.22) Not Available [facility] 4 02:42:49 Neck pain 68680178 Active 2014 Other disorder s of cervical region: Cervical eitan; Note: Date Diagnose d: 5 4:18 PM (723.1) ; Start Date : 09/11/19 15 Cervi calgia; Note: Date Diagnose d: 5 3:18 PM (M54.2) [mapped from ICD9 code: 723.1] Not Available [facility] 4 02:42:45 Oral cyst 85528381892 12126 Active 2018 Other cysts of oral region, not elsewher e classifi ed; Note: Date Diagnose d: 06/20/2018 2:59 PM (K09.8) Not Available [facility] 4 02:42:50 Chronic rhinitis 76851700 Active 2015 Chronic rhinitis ; Note: Date Diagnose d: 04/17/2015 3:09 PM (J31.0) Not Available [facility] 4 02:42:51 Conducti ve hearing loss, bilatera l 836021854 Active 2014 Conducti ve hearing loss, bilatera l; Note: Date Diagnose d: 5 5:06 PM (389.06) Not Available [facility] 4 02:42:49 Headache 51613193 Active 2018 Headache , unspecif ied; Note: Changed from R51 to R51.9 (08/13/19 10:51 AM) , Date Diagnose d: 03/21/2018 12:03 PM (R51) Not Available [facility] 4 02:42:50 Pain of right temporom andibula r joint 82154274368 030040 Active 2017 Arthralg ia of right temporom andibula r joint; Note: Date Diagnose d: 03/16/2017 3:31 PM (M26.621 ) Not Available [facility] 4 02:42:52 History of malignan t neoplasm of pharynx 55952676744 107 Active 2014 Personal history of malignan t neoplasm : Other and unspecif ied oral cavity and pharynx; Note: Date Diagnose d: 5 5:06 PM (V10.02) Not Available [facility] 4 02:42:45 Bilatera l disorder of Eustachi an tubes 52245795910 81357 Active 2018 Other specifie d disorder s of Eustachi an tube, bilatera l; Note: Date Diagnose d: 09/21/2018 1:53 PM (H69.83) Not Available [facility] 4 02:42:51 Otorrhea of bilatera l ears 21299446905 06451 Active 2020 Otorrhea , bilatera l; Note: Date Diagnose d: 12/31/19 21 3:10 PM (H92.13) Not Available [facility] 4 02:42:48 Orophary ngeal dysphagi a 24092105 Active 2022 Dysphagi a, orophary ngeal phase; Note: Date Diagnose d: 3 12:23 PM (R13.12) Not Available [facility] 4 02:42:54 Otalgia of right ear 2605006163 Active 2017 Otalgia, right ear; Note: Date Diagnose d: 03/16/2017 3:31 PM (H92.01) Not Available [facility] 4 02:42:48 Spasm 19923463 Active 2022 Cramp and spasm; Note: Date Diagnose d: 3 12:47 PM (R25.2) Not Available [facility] 4 02:42:55 Total perforat ion of bilatera l tympanic membrane s 07473298917 98591 Active 2018 Total perforat ions of tympanic membrane , bilatera l; Note: Date Diagnose d: 09/21/2018 1:53 PM (H72.823 ) Not Available [facility] 4 02:42:47 History of malignan t neoplasm of oral cavity 841903231 Active 2014 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, oral cavity, and pharynx; Note: Date Diagnose d: 5 3:18 PM (Z85.818 ) [mapped from ICD9 code: V10.02] Not Available [facility] 4 02:42:46 Acute upper respirat ory infectio n 81091895 Active 2018 Acute upper respirat ory infectio n, unspecif ied; Note: Date Diagnose d: 06/20/2018 2:59 PM (J06.9) Not Available [facility] 4 02:42:54 Mixed conducti ve and sensorin eural hearing loss, bilatera l 898411751 Active 2014 Mixed HL, bilatera l; Note: Date Diagnose d: 5 4:52 PM (389.22) ; Start Date : 09/11/19 15 Mixed conducti ve and sensorin eural hearing loss, bilatera l; Note: Date Diagnose d: 5 3:18 PM (H90.6) [mapped from ICD9 code: 389.22] Not Available [facility] 4 02:42:50 Acute sialoade nitis 765963264 Active 2017 Acute sialoade nitis; Location : left Not e: Changed from K11.2 to K11.21 ( 9 12:00 PM) , Date Diagnose d: 8 11:32 AM (K11.2) Not Available [facility] 4 02:42:45 Disturba nce of salivary secretio n 00135354 Active 2018 Xerostom ia; Note: Date Diagnose d: 06/20/2018 3:00 PM (K11.7) Not Available [facility] 4 02:42:53 Posterio r rhinorrh ea 12459626 Active 2017 Postnasa l drip; Note: Date Diagnose d: 8 2:30 PM (R09.82) Not Available [facility] 4 02:42:51 Disorder of right tympanic membrane 87539704640 68238 Active 2018 Other specifie d disorder s of tympanic membrane , right ear; Note: Date Diagnose d: 06/20/2018 3:01 PM (H73.891 ) Not Available [facility] 4 02:42:49 Bilatera l temporom andibula r joint pain 02206191947 787410 Active 2017 Arthralg ia of bilatera l temporom andibula r joint; Note: Date Diagnose d: 8 2:30 PM (M26.623 ) Not Available [facility] 4 02:42:52 Pharynge al dysphagi a 38899789315 105 Active 2022 Dysphagi a, pharynge al phase; Note: Date Diagnose d: 06/20/2022 1:26 PM (R13.13) Not Available [facility] 4 02:42:55 Otorrhea of right ear 51662669633 76067 Active 2021 Otorrhea , right ear; Note: Date Diagnose d: 03/18/2021 2:44 PM (H92.11) Not Available [facility] 4 02:42:51 Chronic nasophar yngitis 58805743 Active 2014 Nasophar yngitis, chronic; Note: Date Diagnose d: 5 5:06 PM (472.2) ; Start Date : 03/05/19 15 Chron ic nasophar yngitis; Note: Date Diagnose d: 5 3:18 PM (J31.1) [mapped from ICD9 code: 472.2] Not Available [facility] 4 02:42:54 Central perforat ion of left tympanic membrane 96042402799 50019 Active 2021 Central perforat ion of tympanic membrane , left ear; Note: Date Diagnose d: 06/21/2021 9:07 AM (H72.02) Not Available [facility] 4 02:42:45 Perforat ion of left tympanic membrane 50961272849 74393 Active 2017 Unspecif ied perforat ion of tympanic membrane , left ear; Note: Date Diagnose d: 8 1:49 PM (H72.92) Not Available [facility] 4 02:42:52 Otorrhea of left ear 73154919554 22776 Completed 202009/15/2023 Otorrhea , left ear; Note: Date Diagnose d: 1 2:55 PM (H92.12) Otorrh ea, left ear; Note: Date Diagnose d: 01/01/20 15 2:47 PM (H92.12) ; Start Date : 01/01/20 Not Available [facility] 4 02:[facility]46 Acute maxillar y sinusiti s 80936424 Active 2023 Acute maxillar y sinusiti s, unspecif ied; Note: Date Diagnose d: 4 1:35 PM (J01.00) Not Available [facility] 4 02:42:53 Gastroes ophageal reflux disease without esophagi tis 693866119 Active 2023 AMY CARREON MD [address] [place] [address],[place] [address], [place], [address] , [facility] 4 10:25:31 Acute myringit is of left ear 05140544142 45307 Active 2023 AMY CARREON MD [address] [place] [address],[place] [address], [place], [address] , [facility] 4 10:27:39 Problem Notes None recorded. Procedures Surgical History Date Name Laterality Status Provider Name and Address Organization Details Recorded Time 12/04/19 Fiberoptic Laryngoscopy (Comprehensive) completed AMY HENDRICKS MD [address] [place] [address],[address], [address], [facility] 12/04/2023 10:27:59 repair of cleft lip completed AMY HENDRICKS MD [address] [place] [address],[place] [address], [place], [address], [facility] 12/03/2023 20:05:01 repair of cleft palate completed AMY HENDRICKS MD [address] [address], [place], [address], [facility] 12/03/2023 20:05:13 Imaging Results None recorded. Procedure Notes None recorded. Medical Equipment None Reported. Allergies Allergen ID Allergen Name Allergen Category Reaction Reaction Severity Criticality Documentation Date Start Date Code Code System Note Provider Name and Address Organization Details Recorded Time 868162 tree and shrub pollen environme nt,medica tion eye redness Not available Not available 03/05/20242009 80569 UNK Mari cisse [facility] 09:07:54 Medications Name Sig Start Date Stop Date Status Note LastModified by Organization Details LastModified Time clotrimaz ole 10 mg yonas 1 yonas five times a day 12/30 completed Medicati on ID: [id number] D uration Value: 7 Brand Name: clotrima zole Sen d Method: E-Prescr ibed Sub s Allowed: subs OK Medic ationGen ericName : clotrima zole Not Available Not Available Not Available Augmentin 875 mg-125 mg tablet 1 tablet by mouth 12/03 completed Medicati on ID: [id number] D uration Value: 10 Prescri bed By [...] mg tablet 10/11 completed Medicati on ID: [id number] B rand Name: heathersarta n Send Method: [...] mg tablet 01/25 completed Medicati on ID: [id number] D uration Value: 7 Reason: () Brand [...] a day 10/11 completed Medicati on ID: [id number] D uration Value: 10 Prescri bed By Name: Danuta Martínez nd Name: doxycycl ine monohydr ate Send Method: E-Prescr ibed Sub s Allowed: subs OK Medic ationGen ericName : doxycycl ine monohydr ate Not Available Not Available Not Available clotrimaz ole 1 % topical solution 12/03 completed Medicati on ID: [id number] D uration Value: 14 Brand Name: denise cab[place]es Method: E-Prescr ibed Sub s Allowed: subs OK Speci al Instruct ion: 5 drops to the affected ear twice a day X 14 [facility] clotrima zole Not Available Not Available Not Available amoxicill in 250 mg capsule TAKE 1 CAPSULE BY MOUTH THREE TIMES A DAY 12/03 completed Not Available Not Available Not Available Ativan 0.5 mg tablet 1 tablet by mouth 12/03 completed Medicati on ID: [id number] D uration Value: 1 Prescri bed By [...] both nostrils 2016 active Medicati on ID: [id number] D uration Value: 120 Prescri bed By [...] mg tablet 10/11 completed Medicati on ID: [id number] Br and Name: naproxen Send Method: E-Prescr [...] Vitamin D 2015 active Medicati on ID: [id number] B rand Name: Vitamin D Send Method: E-Prescr ibed Sub s Allowed: subs OK Medic ationGen ericName : Vitamin D Not Available Not Available Not Available melatonin 10 mg tablet 12/03 completed Medicati on ID: [id number] Br and Name: surya bettencourt Send Method: E-Prescr ibed Sub s Allowed: subs OK Medic ationGen ericName : melatoni n Not Available Not Available Not Available Vitals Date Recorded Body height Body mass index (BMI) Body weight Provider Name and Address Organization Details Last Updated DateTime 12/04/2023 154.94 cm 30.8 kg/m2 81900.56 g Catrachita Bridges [place] - [facility] 12/04/2023 10:11:21 Date Recorded Body height Body weight Provider Name and Address Organization Details Last Updated DateTime 03/05/2024 154.94 cm 67345.56 g Mari Garcia [place] - [facility] 03/05/2024 09:07:36 Social History None recorded. Functional [...] Disorder N Anesthesia Complications N Heart Attack ([place]) N Other Skin Condition N Diabetes N [...] SNOMED-CT Code Diagnosis ICD10 Code Diagnosis Note [id number] AMY CARREON MD [facility] [address] [place] [address] 12/04/2023 09:56:12 12/04/2023 10:39:47 History of malignant neoplasm of digestive organ [id number] 6446600 Z85.00 Gastroesop hageal reflux disease without esophagitis 095955496 K21.9 Consider GI eval. She will discuss with PCP Central pe rforation of left tympanic membrane 2430229717 689986 H72.02 Acute myri ngitis of left ear 5628711714 188664 H73.002 [id number] AMY CARREON MD [facility] [address] [place] [address] 03/05/2024 09:02:35 03/05/2024 09:35:07 Acute maxillary sinusitis 99226865 J01.00 Health Concerns Section Related Observation LastModified by Organization Detai ls LastModified Time None Recorded Concern Status LastModified by Organization Details LastModified Time None Recorded Advance Directives Directive None Recorded Payers Encounter Date Sequence Insurance Name Policy Number Policy Cervantes Covered Member ID Cervantes Member ID Guarantor Name 12/04/2023 1 [facility] (MEDICARE REPLACEMENT/ ADVANTAGE - PPO) [id number] 1 Rashida Owusu Myranda [id number] Rashida Whitmore 03/05/2024 1 [facility] (MEDICARE REPLACEMENT/ ADVANTAGE - PPO) [id number] 1 Rashida G G [place] [id number] Rashida Owusu Myranda Notes Date Note Type Note Provider Name [...] every other day AMY HENDRICKS MD [address], [address], [place] - [facility] 12/04/2023 10:33:22 03/05/2024 text/html 68-year-old reid chau [...] not relieve symptoms. AMY HENDRICKS MD [address],[facility] [address], [place], [address], [facility] - [facility] 03/05/2024 12:20:10 OBGyn Episode No OBEpisode recorded.
--- OUTSIDE RECORDS SUMMARY | 2024-04-26 14:31 | XMS_ITS | Clinical Summary ---
Author Organization [facility] Address [address] [place] [address] Care Team Providers Care Budget Counselor Name Role Phone Community, Pcp Primary Care Provider Unavailabl e Allergies Active Allergy Reactions Severity Noted Date Comments Hydralazine 04/14/2023 Nifedipine Itching/Pruritus 04/14/2023 Medications Medication Sig Dispensed Refills Start Date End Date Status Multiple Vitamins-Minerals (MULTIVITAMIN OR) Take by mouth. 0 Act brett Diclofenac Sodium 1 % Gel Apply 2 g of 1% gel to affected area 4 times daily (maximum: 8 g per joint per day) 100 g 2 04/23/2019 Active Cholecalciferol (VITAMIN D3) 2000 units Tab Take 1 Tab by mouth daily. 30 Tab 2 04/24/2019 Active ibuprofen (ADVIL,MOTRIN) 400 MG tablet Take 1 tablet by mouth every 6 hours as needed for Pain. 30 tablet 0 05/26/2020 Active ofloxacin (FLOXIN) 0.3 % otic solution as needed. 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 H/O joint problems Anxiety Overview: Prozac (NOVA and nausea), celexa in past, cymbalta, ativan, remeon (confusion) Confusion Immunizations Name Administration Dates Next Due COVID-19 (Moderna) 02/04/2021,03/11/2020, 020 Influenza (> 6 Months) 03/28/2021,11/02/2017 PPD-RBMG 12/18/2019 PREVNAR 20 04/10/2023 Tdap 03/23/2018 Family History Medical History Relation Name Comments Bipolar Disorder Brother x2 Hypertension Father DM Diabetes Maternal Grandfather Rheumatoid Arthritis Maternal Grandmother Cholesterol Level Mother OA No Known Problems Paternal Grandfather Diabetes Paternal Grandmother Other Sister thyroid ca, OA Relation Name Status Comments Brother x2 Alive Father (Age 90) Maternal Grandfather Maternal Grandmother Mother Alive Paternal Grandfather Paternal Grandmother Sister Alive Social History Tobacco Use Types Packs/Day Years Used Date Smoking Tobacco: Former Cigarettes Smokeless Tobacco: Never Tobacco Cessation:Counseling Given: Not Answered Comments:quit 8 years ago Alcohol Use Standard Drinks/Week Comments Not Currently 0 (1 standard drink = 0.6 oz pur e alcohol) occ, 2/week Alcohol Habits Answer Date Recorded How often do you have a drink containing alcohol ? Monthly or less 04/10/2023 How many drinks containing a lcohol do you have on a typical day when you are drinking? 1 or 2 04/10/2023 How often do you have six or more drinks on one occasion? Never 04/10/2023 Social Isolation Answer Date Recorded In a typical week, how many times do you talk on the phone with family, friends, or neighbors? Three times a week 04/10/2023 How often do you get togethe r with friends or relatives? Three times a week 04/10/2023 How often do you attend [facility] or hoahaoism services? Not asked Do you belong to any clubs o r organizations such as anabaptist groups, unions, fraternal or athletic groups, or school groups? No 04/10/2023 How often do you attend meet ings of the clubs or organizations you belong to? Never 04/10/2023 Are you now , , , , never or living with a partner? 04/10/2023 Physical Activity Answer Date Recorded On average, how many days pe r week do you engage in moderate to strenuous exercise (like walking fast, running, jogging, dancing, swimming, biking, or other activities that cause a light or heavy sweat)? 3 days 04/10/2023 On average, how many minutes do you engage in exercise at this level? 40 min 04/10/2023 Stress Answer Date Recorded Do you feel stress - tense, restless, nervous, or anxious, or unable to sleep at night because your mind is troubled all the time - these days? To some extent 04/10/2023 Financial Resource Strain Answer Date R ecorded How hard is it for you to pa y for the very basics like food, housing, medical care, and heating? Not hard at all 04/10/2023 Intimate Partner Violence Answer Date R ecorded Within the last year, have y ou been afraid of your partner or ex-partner? No 04/10/2023 Within the last year, have y ou been humiliated or emotionally abused in other ways by your partner or ex-partner? No Within the last year, have y ou been kicked, hit, slapped, or otherwise physically hurt by your partner or ex-partner? No 04/10/2023 Within the last year, have y ou been raped or forced to have any kind of sexual activity by your partner or ex-partner? No 04/10/2023 Food Insecurity Answer Date Recorded Within the past 12 months, y ou worried that your food would run out before you got money to buy more. Never true 04/10/2023 Within the past 12 months, t he food you bought just didn't last and you didn't have money to get more. Never true 04/10/2023 Transportation Needs Answer Date Record ed In the past 12 months, has l ack of transportation kept you from medical appointments or from getting medications? No 03/17 In the past 12 months, has l ack of transportation kept you from meetings, work, or getting things needed for daily living? No 04/10/2023 Housing Stability Answer Date Recorded In the last 12 months, was t here a time when you were not able to pay the mortgage or rent on time? No 04/10/2023 In the last 12 months, how many places have you lived? Not asked In the last 12 months, was t here a time when you did not have a steady place to sleep or slept in a prison (including now)? No 04/10/2023 Sex Assigned at Date Recorded Female 05/24/2021 12:24 PM EDT Job Start Date Occupation Industry Not on file Not on file Not on file Last Filed Vital Signs Vital Sign Reading Time Taken Comments Blood Pressure 139/93 05/10/2023 9:15 AM EDT a Pulse 73 05/10/2023 9:15 AM EDT Temperature 36.4 ??C (97.6 ??F) 04/10/2023 11:[address] Respiratory Rate 12 08/20/2020 1:17 PM EDT Oxygen Saturation 97% 06/27/2018 9:58 AM EDT Inhaled Oxygen Concentration - - Weight 71.7 kg (158 lb) 06/22/2023 1:59 PM EDT Height 154.9 cm (5' 1 ) 06/22/2023 1:59 PM EDT Body Mass Index 29.85 06/22/2023 1:59 PM EDT Plan of Treatment Health Maintenance Due Date Last Done Comments SHINGLES VACCINE (1 of 2) 2006 COLON CANCER SCREENING 04/08/2021 2 (External Completion) BONE DENSITY SCREENING 2021 9, 08/31/2018, 03/01/2016 Covid-19 Vaccine (4 - 2022-2 4 season) 2023 02/04/2021, 03/11/2020, 02/12/2020 INFLUENZA (#1) 2023 03/28/2021, 10/15, 11/02/2017 (Completed) MAMMOGRAM 11/22/2023 11/21/2022, 0808/2021, 08/31/2018, Additional history exists BMI CHECK/ADVISE 02/14/2024 04/10/2023, (Completed), 04/19/2021, Additional history exists DTAP/TDAP/TD (2 - Td or Tdap) 03/23/2028 03/23/2018 CHOLESTEROL SCREENING 04/10/2028 04/10/2023 , 10/20/2021, 10/20/2021, Additional history exists HEPATITIS C SCREENING Completed 03/23/2018 PNEUMOCOCCAL VACCINE Completed 04/10/2023 Care Teams Budget Counselor Relationship Specialty Start Date End Date Community, Pcp PCP - General Internal Medicine 10/24/23
--- OUTSIDE RECORDS SUMMARY | 2024-04-26 14:31 | XMS_ITS | Encounter Summary ---
Author Organization [facility] Address [address] [place] [address] Care Team Providers Care Master Hearth Technician Name Role Phone Barak Blevins MD Primary Care Provider [phone] [phone] [facility], Pcp Primary Care Provider Unavailabl e Encounter Details Date Type Department Care Team Description 05/22/2021 Pt. Non Urgent Medic al Question Adult Medicine - [address] [address] Darwin Thornton PA-C [address] [place] [address] Social History Tobacco Use Types Packs/Day Years Used Date Smoking Tobacco: Former Cigarettes Smokeless Tobacco: Never Comments:quit 8 years ago Alcohol Use Standard [...] week 04/10/2023 How often do you attend [facility] or faith services? Not asked Do you belong to any clubs o r organizations such as methodist groups, unions, fraternal or athletic groups, or [...] place to sleep or slept in a halfway (including now)? No 04/10/2023 Sex Assigned at Date Recorded Female 05/24/2021 12:24 PM EDT Job Start Date Occupation Industry Not on file Not on file Not on file documented as of this encounter Miscellaneous Notes * Telephone Encounter - Lolis Rain M.A. - 05/24/2021 9:08 AM EDTFrom: Rashida Whitmore To: Ventura Thornton Sent: 05/22/2021 6:45 AM EDT Subject: joint pain worsens Hello I am experiencing all over joint pain with buzzing and tingling , numbness in my feet this has increased greatly in the last month. Could this be medication related? BP is 129/99 this AM Thank you Rashida Whitmore documented in this encounter Plan of Treatment Not on file documented as of this encounter Visit Diagnoses Not on filedocumented in this encounter Care Teams Master Hearth Technician Relationship Specialty Start Date End Date Barak Blevins MD [address] [place] [address] PCP - General Internal Medicine 07/15/20 10/23/23 [facility], Pcp [address] [place] [address] PCP - General Internal Medicine 10/24/23 documented as of this encounter
--- OUTSIDE RECORDS SUMMARY | 2024-04-26 14:31 | XMS_ITS | Encounter Summary ---
Author Organization [facility] Address [address] [place] [address] Care Team Providers Care Respiratory Care Assistant Name Role Phone Marilynn-Angelica Altamirano MD Primary Care Provider Unavailable Barak Blevins MD Primary Care Provider [phone] [phone] [facility], Pcp Primary Care Provider [facility] Reason for Visit * Reason Onset Date Comments TEST RESULTS 09/09/2018 Encounter Details Date Type Department Care Team Description 09/09/2018 Telephone Adult [facility] [address] [place] [address] Laly Miller PA-C [address] [place] [address] TEST RESULTS Social History Tobacco Use Types Packs/Day Years Used Date Smoking Tobacco: Former Cigarettes Smokeless Tobacco: Never Comments:quit 8 years ago Alcohol Habits Answer Date Recorded How often [...] week 04/10/2023 How often do you attend [facility] or rastafari services? Not asked Do you belong to any clubs o r organizations such as sikh groups, unions, fraternal or athletic groups, or [...] place to sleep or slept in a [facility] (including now)? No 04/10/2023 Sex Assigned at Date Recorded Female 05/24/2021 12:24 PM EDT Job Start Date Occupation Industry Not on file Not on file Not on file documented as of this encounter Miscellaneous Notes * Telephone Encounter - Marissa Arroyo M.A. - 09/09/2018 4:18 PM EDT Left voicemail asking to return call regarding message below. * Telephone Encounter - Marissa Arroyo M.A. - 09/09/2018 4:17 PM EDT ----- Message from Laly Miller PA-C sent at 09/07/2018 4:20 PM EDT ----- Please call patient with normal results documented in this encounter Plan of Treatment Not on file documented as of this encounter Visit Diagnoses Not on filedocumented in this encounter Care Teams Respiratory Care Assistant Relationship Specialty Start Date End Date Marilynn-Angelica Altamirano MD PCP - General Internal Medicine 01/19/1707/14/20 Barak Blevins MD [address] [place] [address] PCP - General Internal Medicine 07/15/20 10/23/23 [facility], [facility] [address] [place] [address] PCP - General Internal Medicine 10/24/23 documented as of this encounter
--- OUTSIDE RECORDS SUMMARY | 2024-04-26 14:31 | XMS_ITS | Encounter Summary ---
Author Organization [facility] Address [address] [place] [address] Care Team Providers Care Multimedia Specialist Name Role Phone Marilynn-Angelica Altamirano MD Primary Care Provider Unavailable Barak Blevins MD Primary Care Provider [phone] [phone] [facility], Pcp [facility] Encounter Details Date Type Department Care Team Description 03/06/2018 Funeral Director/Embalmer Report Medical Records [address] [place] [address] Gerry Monahan MD Social History Tobacco Use Types Packs/Day Years [...] week 04/10/2023 How often do you attend chur ch or temple services? Not asked Do you belong to any clubs o r organizations such as mosque groups, unions, fraternal or athletic groups, or [...] place to sleep or slept in a detention (including now)? No 04/10/2023 Sex Assigned at Date Recorded Female 05/24/2021 12:24 PM EDT Job Start Date Occupation Industry Not on file Not on file Not on file documented as of this encounter Plan of Treatment Not on file documented as of this encounter Visit Diagnoses Not on filedocumented in this encounter Care Teams Multimedia Specialist Relationship Specialty Start Date End Date Marilynn-Angelica Altamirano MD PCP - General Internal Medicine 01/19/1707/14/20 Barak Blevins MD [address] [place] [address] PCP - General Internal Medicine 07/15/20 10/23/23 [facility], [facility] [address] [place] [address] PCP - General Internal Medicine 10/24/23 documented as of this encounter
--- OUTSIDE RECORDS SUMMARY | 2024-04-26 14:31 | XMS_ITS | Encounter Summary ---
Author Organization [facility] Address [address] [place] [address] Care Team Providers Care Camera Person Name Role Phone Grabiel Cook Primary Care Provider Angelica Moran MD Primary Care Provider Unavailable Barak Blevins MD Primary Care Provider [phone] [phone] [facility], Pcp [facility] Care [facility] Encounter Details Date Type Department Care Team Description 04/12/2011 Hospital Medical Records [address] [place] [address] Ranjit Parham MD Social History Tobacco Use Types Packs/Day [...] week 04/10/2023 How often do you attend [facility] or lutheran services? Not asked Do you belong to any clubs o r organizations such as shinto groups, unions, fraternal or athletic groups, or [...] place to sleep or slept in a jail (including now)? No 04/10/2023 Sex Assigned at Date Recorded Female 05/24/2021 12:24 PM EDT Job Start Date Occupation Industry Not on file Not on file Not on file documented as of this encounter Plan of Treatment Not on file documented as of this encounter Visit Diagnoses Not on filedocumented in this encounter Care Teams Camera Person Relationship Specialty Start Date End Date Grabiel Cook PCP - General Internal Medicine 04/12/12 01/18/17 Angelica Estevez MD PCP - General Internal Medicine 01/19/1707/14/20 Barak Blevins MD [address] [place] [address] PCP - General Internal Medicine 07/15/20 10/23/23 [facility] [address] [place] [address] PCP - General Internal Medicine 10/24/23 documented as of this encounter
--- OUTSIDE RECORDS SUMMARY | 2024-04-26 14:31 | XMS_ITS | Encounter Summary ---
Author Organization [facility] Address [address] [place] [address] Care Team Providers Care Fur Finisher Name Role Phone Marilynn-Angelica Altamirano MD Primary Care Provider Unavailable Barak Blevins MD Primary Care Provider [phone] [facility], Pcp Primary Care [facility] Encounter Details Date Type Department Care Team Description 08/01/2018 Telephone Adult [facility] [address] [place] [address] Laly Miller PA-C [address] [place] [address] Social History Tobacco Use Types Packs/Day Years [...] week 04/10/2023 How often do you attend [facility] or congregational services? Not asked Do you belong to any clubs o r organizations such as muslim groups, unions, fraternal or athletic groups, or [...] place to sleep or slept in a [place] [facility] (including now)? No 04/10/2023 Sex Assigned at Date Recorded Female 05/24/2021 12:24 PM EDT Job Start Date Occupation Industry Not on file Not on file Not on file documented as of this encounter Miscellaneous Notes * Telephone Encounter - Arielle Pryor M.A. - 08/02/2018 9:26 AM EDT Pt called and advised of message below. * Telephone Encounter - Arielle Pryor M.A. - 08/01/2018 4:13 PM EDT Called and left message for pt to return call. * Telephone Encounter - Laly Miller PA-C - 08/01/2018 3:58 PM EDT Please call patietn and advise that thyroid was in normal range. Still waiting on results for BMP documented in this encounter Plan of Treatment Not on file documented as of this encounter Visit Diagnoses Not on filedocumented in this encounter Care Teams Fur Finisher Relationship Specialty Start Date End Date [place]ulk[place]-Angelica Altamirano MD PCP - General Internal Medicine 01/19/1707/14/20 Barak Blevins MD [address] [place] [address] PCP - General Internal Medicine 07/15/20 10/23/23 [facility], [facility] [address] [place] [address] PCP - General Internal Medicine 10/24/23 documented as of this encounter
--- OUTSIDE RECORDS SUMMARY | 2024-04-26 14:31 | XMS_ITS | Encounter Summary ---
Author Organization [facility] Address [address] [place] [address] Care Team Providers Care Salesperson [employer] Name Role Phone Barak Blevins MD Primary Care Provider [phone] [phone] [facility], Pcp Primary Care Provider Unavailabl e Encounter Details Date Type Department Care Team Description 07/12/2022 Pt. Non Urgent Medical Question Hypertension - [place] [address] [place] [address] Velma Okeefe, Pharm.D Social History Tobacco Use Types Packs/Day Years [...] often do you attend chur ch or confucianist services? Not asked Do you belong to any clubs o r organizations such as buddhist groups, unions, fraternal or athletic groups, or [...] place to sleep or slept in a care home (including now)? No 04/10/2023 Sex Assigned at Date Recorded Female 05/24/2021 12:24 PM EDT Job Start Date Occupation Industry Not on file Not on file Not on file COVID-19 Exposure Response Date Recorded In the last 10 days, have yo u been in contact with someone who was confirmed or suspected to have Coronavirus/COVID-19? No / Unsure 07/08/2022 9:49 AM EDT documented as of this encounter Plan of Treatment Not on file documented as of this encounter Visit Diagnoses Not on filedocumented in this encounter Care Teams Salesperson [employer] Relationship Specialty Start Date End Date Barak Blevins MD [address] [place] [address] PCP - General Internal Medicine 07/15/20 10/23/23 [facility], Pcp [address] [place] [address] PCP - General Internal Medicine 10/24/23 documented as of this encounter
--- OUTSIDE RECORDS SUMMARY | 2024-04-26 14:31 | XMS_ITS | Encounter Summary ---
Author Organization [facility] Address [address] [place] [address] Care Team Providers Care Lacrosse Player Name Role Phone Marilynn-Angelica Altamirano MD Primary Care Provider Unavailable Barak Blevins MD Primary Care Provider [phone] [facility], Pcp Primary Care Provider [facility] e Encounter Details Date Type Department Care Team Description 02/09/2017 Release of Information Medical Records [address] [place] [address] Abstract, Provider Social History Tobacco Use Types Packs/Day Years Used Date Smoking Tobacco: Former Alcohol Habits Answer Date Recorded How often [...] often do you attend chur ch or denominational services? Not asked Do you belong to any clubs o r organizations such as rastafari groups, unions, fraternal or athletic groups, or [...] place to sleep or slept in a senior care (including now)? No 04/10/2023 Sex Assigned at Date Recorded Female 05/24/2021 12:24 PM EDT Job Start Date Occupation Industry Not on file Not on file Not on file documented as of this encounter Plan of Treatment Not on file documented as of this encounter Visit Diagnoses Not on filedocumented in this encounter Care Teams Lacrosse Player Relationship Specialty Start Date End Date Marilynn-Angelica Altamirano MD PCP - General Internal Medicine 01/19/1707/14/20 Barak Blevins MD [address] [place] [address] PCP - General Internal Medicine 07/15/20 10/23/23 [facility], [address] [address] PCP - General Internal Medicine 10/24/23 documented as of this encounter
--- OUTSIDE RECORDS SUMMARY | 2024-04-26 14:31 | XMS_ITS | Encounter Summary ---
Author Organization [facility] Address [address] [place] [address] Care Team Providers Care Thermal Engineer Name Role Phone Marilynn-Angelica Altamirano MD Primary Care Provider Unavailable Barak Blevins MD Primary Care Provider [phone] [facility], Pcp Primary Care Provider [facility] e Reason for Visit * Reason Onset Date Comments Orders Call 06/07/2018 Encounter Details Date Type Department Care Team Description 06/07/2018 Telephone Adult [facility] [address] [place] [address] Layl Miller PA-C [address] [place] [address] Orders Call Social History Tobacco Use Types Packs/Day Years [...] week 04/10/2023 How often do you attend [facility] or advent services? Not asked Do you belong to any clubs o r organizations such as yarsanism groups, unions, fraternal or athletic groups, or [...] place to sleep or slept in a long term (including now)? No 04/10/2023 Sex Assigned at Date Recorded Female 05/24/2021 12:24 PM EDT Job Start Date Occupation Industry Not on file Not on file Not on file documented as of this encounter Miscellaneous Notes * Telephone Encounter - Laly Miller PA-C - 06/07/2018 10:02 AM EDT Signed will fax to [facility] * Telephone Encounter - Zo Smith - 06/07/2018 10:00 AM EDT Pt would like to have her Bone Density done at [facility]. Please place an external order. Thank you. documented in this encounter Plan of Treatment Not on file documented as of this encounter Visit Diagnoses Diagnosis Osteopenia, unspecified location- Primary documented in this encounter Care Teams Thermal Engineer Relationship Specialty Start Date End Date [place]-Angelica Altamirano MD PCP - General Internal Medicine 01/19/1707/14/20 Barak Blevins MD [address] [place] [address] PCP - General Internal Medicine 07/15/20 10/23/23 [facility], [facility] [address] [place] [address] PCP - General Internal Medicine 10/24/23 documented as of this encounter
--- OUTSIDE RECORDS SUMMARY | 2024-04-26 14:31 | XMS_ITS | Encounter Summary ---
Author Organization [facility] Address [address] [place] [address] Care Team Providers Care Gui Developer Name Role Phone Barak Blevins MD Primary Care Provider [phone] [phone] [facility], Pcp Primary Care Provider Unavailabl e Encounter Details Date Type Department Care Team Description 10/04/2021 Pt. Non Urgent Medic al Question Adult Medicine - [place] [address] [place] [address] Darwin Thornton PA-C [address] [place] [address] Social History Tobacco Use Types Packs/Day Years [...] week 04/10/2023 How often do you attend [facility] or restoration services? Not asked Do you belong to any clubs o r organizations such as faith groups, unions, fraternal or athletic groups, or [...] place to sleep or slept in a half-way (including now)? No 04/10/2023 Sex Assigned at Date Recorded Female 05/24/2021 12:24 PM EDT Job Start Date Occupation Industry Not on file Not on file Not on file documented as of this encounter Miscellaneous Notes * Telephone Encounter - Sophia Simms L.P.N. - 10/04/2021 12:58 PM EDT From: Rashida Whitmore To: Ventura Thornton Sent: 10/04/2021 12:17 PM EDT Subject: shingles Hello I was diagnosed wth shingles on Sat at [facility]. I have the rash on my nose but also right eye. There is a bag of fluid collecting under my right eye. It goes down with a cool cloth but comes right back. I also have much sensiticity to light. Do I need to be seen? or is there something else I can do currently taking valacy clovir 1gm 3x daily, tylenol prn. Thank you Rashida Whitmore documented in this encounter Plan of Treatment Not on file documented as of this encounter Visit Diagnoses Not on filedocumented in this encounter Care Teams Gui Developer Relationship Specialty Start Date End Date Barak Blevins MD [address] [place] [address] PCP - General Internal Medicine 07/15/20 10/23/23 [facility], Pcp [address] [place] [address] PCP - General Internal Medicine 10/24/23 documented as of this encounter
--- OUTSIDE RECORDS SUMMARY | 2024-04-26 14:31 | XMS_ITS | Clinical Summary ---
Author Organization [facility] Address [address] [place] [address] Care Team Providers Care Green Chainer Name Role Phone Jonny Llanes MD Primary Care Provider + Allergies No known active allergies Medications Medication Sig Dispensed Refills Start Date End Date Status Multiple Vitamin (MULTI VITAMIN PO) Take by mouth. 0 Ac tive Ltzjkeo-Hgymfcblw-Cusd min D (CALCIUM 500 PO) Take by [...] needed for pain. 0 Active nystatin (MYCOSTATIN) 539342 UNIT/ML suspension Take 5 mL (500,000 Units [...] age to complete this topic Care Teams Green Chainer Relationship Specialty Start Date End Date Jonny Llanes MD [address] [place] [address] PCP - General Otolaryngology 10/02/18
--- OUTSIDE RECORDS SUMMARY | 2024-04-26 14:31 | XMS_ITS | Encounter Summary ---
Author Organization [facility] Address [address] [place] [address] Care Team Providers Care Pie Filler Name Role Phone Barak Blevins MD Primary Care Provider [phone] [phone] [facility], Pcp Primary Care Provider Unavailabl e Encounter Details Date Type Department Care Team Description 07/02/2021 Orders Only Adult Medicine - [place] [address] [place] [address] Darwin Thornton PA-C [address] [place] [address] Hypokalemia (Primary Dx) Social History Tobacco Use Types Packs/Day Years [...] week 04/10/2023 How often do you attend [facility] or nondenominational services? Not asked Do you belong to any clubs o r organizations such as holiness groups, unions, fraternal or athletic groups, or [...] suspected to have Coronavirus/COVID-19? No / Unsure 07/01/2021 2:14 PM EDT documented as of this encounter Plan of Treatment Not on file documented as of this encounter Results * (ABNORMAL) RENAL FUNCTION PANEL (07/08/2021 3:15 PM EDT) Pathologist [facility] GLUCOSE 111(H) 70 - 100 mg/dL 07/08/2021 5:58 PM EDT [facility] Comment:Reference range appl icable to fasting specimens only Blood Urea Nitrogen 13 5 - 25 mg/dL 07/08/2021 5:58 PM EDT [facility] CREAT 0.60 0.5 - 1.1 mg/dL 07/08/2021 5:58 PM EDT [facility] GLOMERULAR FILTRATION RATE > 60 07/08/2021 5:58 PM EDT [facility] Comment: If patient is -Northern Irish, multiply result by 1.21 Chronic Kidney Disease: < 60 ml/min/1.73 square meters Kidney Failure: < 15 ml/min/1.73 square meters NA 137 135 - 145 mEq/L 07/08/2021 5:58 PM EDT [facility] K 3.7 3.5 - 5.5 mmol/L 07/08/2021 5:58 PM EDT [facility] CL 101 96 - 110 mmol/L 07/08/2021 5:58 PM EDT [facility] CARBON DIOXIDE (CO2) 29 21 - 32 mmol/L 07/08/2021 5:58 PM EDT [facility] ANION GAP 7 3 - 11 07/08/2021 5:58 PM EDT [facility] CALCIUM 9.1 8.5 - 10.5 mg/dL 07/08/2021 5:58 PM EDT [facility] Phosphorus 2.6 2.5 - 4.5 mg/dL 07/08/2021 5:58 PM EDT [facility] Albumin 3.7 3.2 - 5.0 G/dL 07/08/2021 5:58 PM EDT [facility] 07/08/2021 3:15 PM EDT 07/08/2021 3:15 PM EDT Narrative [facility] - 07/08/2021 5:58 PM EDT Release to patient->Immediate Darwin Thornton PA-C LAB Performing Organization Address City/State/[facility] Co de Phone Number [facility] documented in this encounter Visit Diagnoses Diagnosis Hypokalemia- Primary Hypopotassemia Hypokalemia Hypopotassemia documented in this encounter Care Teams Pie Filler Relationship Specialty Start Date End Date Barak Blevins MD [address] [place] [address] PCP - General Internal Medicine 07/15/20 10/23/23 [facility], Pcp [address] [place] [address] PCP - General Internal Medicine 10/24/23 documented as of this encounter
--- OUTSIDE RECORDS SUMMARY | 2024-04-26 14:31 | XMS_ITS | Encounter Summary ---
Author Organization [facility] Address [address] [place] [address] Care Team Providers Care Preparation Department Supervisor Name Role Phone Marilynn-Angelica Altamirano MD Primary Care Provider Unavailable Barak Blevins MD Primary Care Provider [phone] [phone] [facility], Pcp Primary Care Provider [facility] Reason for Visit * Reason Onset Date Comments TEST RESULTS 08/31/2018 Encounter Details Date Type Department Care Team Description 08/31/2018 Telephone Adult Medicine [facility] [address] [place] [address] Laly Miller PA-C [address] [place] [address] TEST RESULTS Social History Tobacco Use Types [...] week 04/10/2023 How often do you attend [facility] or sabianism services? Not asked Do you belong to any clubs o r organizations such as amish groups, unions, fraternal or athletic groups, or [...] place to sleep or slept in a snf (including now)? No 04/10/2023 Sex Assigned at Date Recorded Female 05/24/2021 12:24 PM EDT Job Start Date Occupation Industry Not on file Not on file Not on file documented as of this encounter Miscellaneous Notes * Telephone Encounter - Lolis Rain M.A. - 08/31/2018 4:27 PM EDT Called pt back, advised of message below. * Telephone Encounter - Alisa Lara - 08/31/2018 4:23 PM EDT Pateint returning call please advise * Telephone Encounter - Bladimir Kennedy M.A. - 08/31/2018 3:42 PM EDT Images from the original note were not included. CHARITO Denson [place] [facility] Floor Nurse ? Please call patient and advise bone density showed osteopenia Message left for patient to call office back. documented in this encounter Plan of Treatment Not on file documented as of this encounter Visit Diagnoses Not on filedocumented in this encounter Care Teams Preparation Department Supervisor Relationship Specialty Start Date End Date [place]-Angelica Altamirano MD PCP - General Internal Medicine 01/19/1707/14/20 Barak Blevins MD [address] [place] [address] PCP - General Internal Medicine 07/15/20 10/23/23 [facility], Pcp [address] [place] [address] PCP - General Internal Medicine 10/24/23 documented as of this encounter
--- OUTSIDE RECORDS SUMMARY | 2024-04-26 14:31 | XMS_ITS | Encounter Summary ---
Author Organization [facility] Address [address] [place] [address] Care Team Providers Care Child Care Associate Teacher Name Role Phone Barak Blevins MD Primary Care Provider [phone] [facility], Pcp Primary Care Provider Unavailabl e Reason for Visit * Reason Comments E-prescribe Rx Request Encounter Details Date Type Department Care Team Description 09/05/2020 Refill Adult Medicine [address] [address] Sobeida Sanders PA-C E-prescribe Rx Request Social History Tobacco Use Types Packs/Day Years [...] week 04/10/2023 How often do you attend [facility] or spiritism services? Not asked Do you belong to any clubs o r organizations such as buddhism groups, unions, fraternal or athletic groups, or [...] Exposure Response Date Recorded In the last month, have you been in contact with someone who was confirmed or suspected to have Coronavirus / COVID-19? No / Unsure 08/20/2020 1:11 PM EDT documented as of this encounter Miscellaneous Notes * Telephone Encounter - Sweta Mccarty - 09/07/2020 1:48 PM EDT Patient would like script to be: E-PRESCRIBED/FAXED TO PHARMACY WHEN WAS THE PATIENT'S LAST APPOINTMENT IN ADULT MEDICINE? 08/20/2020 WHEN WAS THE LAST TIME THE PATIENT SAW THEIR PCP? Same as above Does patient have an upcoming appointment? No-unable to reach [facility] to call for appointment due to refill request. Appt due 02/20/2021 (THE MEDICATION REQUESTED IS ON THE MED LIST ABOVE) All of the medications requested were on the CURRENT MEDS list Did you check the Pharmacy information above?: YES Patient wants: 30 -day supply Is this a mail order prescription request ? NO If the refill is from a FAXED refill request what is the RX # listed on the fax? N/A Patients current insurance carrier is: Payor: [employer] / Plan: PPO $25 [place] [id number] / ProductType: PPO [id number] documented in this encounter Plan of Treatment Not on file documented as of this encounter Visit Diagnoses Not on filedocumented in this encounter Care Teams Child Care Associate Teacher Relationship Specialty Start Date End Date Barak Blevins MD [address] [place] [address] PCP - General Internal Medicine 07/15/20 10/23/23 [facility], Pcp [address] [place] [address] PCP - General Internal Medicine 10/24/23 documented as of this encounter
--- OUTSIDE RECORDS SUMMARY | 2024-04-26 14:31 | XMS_ITS | Encounter Summary ---
Author Organization [facility] Address [address] [place] [address] Care Team Providers Care Key Operator Name Role Phone Barak Blevins MD Primary Care Provider [phone] [facility], Pcp Primary Care Provider Unavailabl e Encounter Details Date Type Department Care Team Description 09/15/2022 Orders Only Medical Records [address] [place] [address] Abstract, Provider Social History Tobacco Use Types [...] often do you attend chur ch or scientology services? Not asked Do you belong to [...] place to sleep or slept in a fci (including now)? No 04/10/2023 Sex Assigned at Date Recorded Female 05/24/2021 12:24 PM EDT Job Start Date Occupation Industry Not on file Not on file Not on file COVID-19 Exposure Response Date Recorded In the last 10 days, have yo u been in contact with someone who was confirmed or suspected to have Coronavirus/COVID-19? No / Unsure 08/26/2022 1:24 PM EDT documented as of this encounter Plan of Treatment Not on file documented as of this encounter Procedures Procedure Name Priority Date/Time Associated Diagnosis Comments OUTSIDE BARIUM SWALLOW Routine 09/15/2022 documented in this encounter Results * OUTSIDE BARIUM SWALLOW (09/15/2022) Provider Abstract RADIOLOGY documented in this encounter Visit Diagnoses Not on filedocumented in this encounter Care Teams Key Operator Relationship Specialty Start Date End Date Barak Blevins MD [address] [place] [address] PCP - General Internal Medicine 07/15/20 10/23/23 [facility], [facility] [address] [place] [address] PCP - General Internal Medicine 10/24/23 documented as of this encounter
--- OUTSIDE RECORDS SUMMARY | 2024-04-26 14:31 | XMS_ITS | Encounter Summary ---
Author Organization [facility] Address [address] [place] [address] Care Team Providers Care Official Court Reporter Name Role Phone Barak Blevins MD Primary Care Provider [phone] [facility], Pcp Primary Care Provider Unavailabl e Encounter Details Date Type Department Care Team Description 06/24/2022 Orders Only Adult Medicine - [place] [address] [place] [address] Darwin Thornton PA-C [address] [place] [address] Social History Tobacco Use Types Packs/Day Years [...] 04/10/2023 How often do you attend [facility] or amish services? Not asked Do you belong to any clubs o r organizations such as alevism groups, unions, fraternal or athletic groups, or [...] place to sleep or slept in a nursing home (including now)? No 04/10/2023 Sex Assigned at Date Recorded Female 05/24/2021 12:24 PM EDT Job Start Date Occupation Industry Not on file Not on file Not on file COVID-19 Exposure Response Date Recorded In the last 10 days, have yo u been in contact with someone who was confirmed or suspected to have Coronavirus/COVID-19? No / Unsure 06/23/2022 2:13 PM EDT documented as of this encounter Plan of Treatment Not on file documented as of this encounter Visit Diagnoses Not on filedocumented in this encounter Care Teams Official Court Reporter Relationship Specialty Start Date End Date Barak Blevins MD [address] [place] [address] PCP - General Internal Medicine 07/15/20 10/23/23 [facility], [place] [address] [place] [address] PCP - General Internal Medicine 10/24/23 documented as of this encounter
--- OUTSIDE RECORDS SUMMARY | 2024-04-26 14:32 | XMS_ITS | Encounter Summary ---
Author Organization [facility] Address [address] [place] [address] Care Team Providers Care Captain Fire Prevention [employer] Name Role Phone Barak Blevins MD Primary Care Provider [phone] [facility], Pcp Primary Care Provider Unavailabl e Encounter Details Date Type Department Care Team Description 11/02/2020 Pt. Non Urgent Medic al Question Adult Medicine - [address] [address] Sobeida Sanders PA-C Social History Tobacco Use Types Packs/Day Years [...] often do you attend chur ch or lutheran services? Not asked Do you belong to any clubs o r organizations such as christian groups, unions, fraternal or athletic groups, or [...] place to sleep or slept in a penitentiary (including now)? No 04/10/2023 Sex Assigned at Date Recorded Female 05/24/2021 12:24 PM EDT Job Start Date Occupation Industry Not on file Not on file Not on file documented as of this encounter Miscellaneous Notes * Telephone Encounter - Lolis Rain M.A. - 11/02/2020 8:52 AM EDTFrom: Rashida Whitmore To: Chaya Sanders Sent: 11/02/2020 6:18 AM EDT Subject: lisinopril Hi I am having some problems with taking 10 mg of Lisinopril and have gone back to 5 mg. Symptoms ongoing are fatigue, heartburn, and malaise. Is there another blood pressure med? Thank you Rashida Whitmore documented in this encounter Plan of Treatment Not on file documented as of this encounter Visit Diagnoses Not on filedocumented in this encounter Care Teams Captain Fire Prevention [employer] Relationship Specialty Start Date End Date Barak Blevins MD [address] [place] [address] PCP - General Internal Medicine 07/15/20 10/23/23 [facility], Pcp [address] [place] [address] PCP - General Internal Medicine 10/24/23 documented as of this encounter
== END 2024-04-26 14:06 | disposition home or self-care (01) ==
LOC: HO.HSMS 12:59
PROVIDERS: PCP Nurse Practitioner Family; Visit Provider Physician Assistant Medical
DX: R53.83 Other fatigue (principal); G47.9 Sleep disorder, unspecified; R06.83 Snoring; G25.0 Essential tremor
CPT/HCPCS: 99204

== ENCOUNTER → 2024-04-26 12:58 | Outpatient (BNVA) | payer OTHER, SELFPAY | PROVIDERS: PCP Nurse Practitioner Family; Visit Provider Physician Assistant Medical ==

== ENCOUNTER 2024-05-08 08:27 | Outpatient (AMB) | payer OTHER, SELFPAY ==
--- NOTE | 2024-05-08 08:32 | A.OFFPC_ITS ---
Vital Signs 05/08/24 08:36 05/08/24 08:50 Height 5 ft 1 in Weight 166 lb BMI 31.4 BP 154/94 H 160/100 H Blood Pressure Location Lt brachial Rt brachial Position Sitting Sitting Respiration 16 Pulse 71 76 Pulse Source Pulse Oximeter Auscultation Temp 97.9 F Temp Source Oral Pulse Oximetry (%) 95 Oxygen Delivery Method Room Air Intake Visit Reasons: 1 mos HTN, labs review Intake Note: patient here for follow up on HTN and lab review Fish Roe Processor Required: No Is last menstrual period known: No Post menopausal: No Patient : No Allergies No Known Allergies Allergy (Verified 05/08/24 08:46) Medication List - Last Reconciled 05/08/24 by Ghazala Vallecillo CNP magnesium oxide 400 mg PO DAILY MDD 400mg pyridoxine (vitamin B6) 50 mg PO DAILY MDD 50mg PO turmeric root extract (Curica Turmeric) 300 mg PO DAILY MDD 300mg Tobacco use date assessed: 05/08/24 Fall risk assessment: No Falls in past year Last assessed Fall Risk: 05/08/24 Dental Screening Dental Screen Date: 05/08/24 Did you have a dental visit in the last 12 months?: Yes Did you have a dental problem in the last 6 months where you did not have access to dental care?: No Was dental information given to patient?: Patient has dentist HPI HPI Comments History of Present Illness Details 68-year-old female presents for hyperten shannan and review of recent lab results. She notes that she has been making healthy lifestyle changes, including low- sodium diet. She reports generalized joint pain recently for 3 consecutive days but has resolved. She takes ibuprofen and apply diclofenac cream as needed. No acute symptoms at this time. [facility] Medical History Tonsillar tumor Cleft palate Neuropathy Shingles Hiatal hernia Acid reflux Osteoporosis High blood pressure Sinusitis Surgical History History of salpingectomy Family History Brother Alcohol abuse FH: mental illness Mother High cholesterol Diabetes Cervical cancer Father Diabetes Cardiovascular disease Paternal Grandmother Diabetes Sister Thyroid disorder Maternal Grandfather Stomach cancer Social History Housing: House Patient Tobacco Use Status: Never used Tobacco e-Cigarette/Vaping Use: Never Used Second Hand Smoke Exposure: No service: No Current occupational status: retired Cognitive needs: No Hearing needs: Yes Vision needs: Yes Questionnaire Thrive Questionnaire Date Thrive assessed: 04/02/24 I am a: Patient What is your living situation today?: I have a steady place to live Within the past 12 months, did the food you bought not last and you didn't have the money to get more?: Never true Within the past 12 months, did you worry whether your food would run out before you got money to buy more?: Never true Do you have trouble paying for medicines?: No Do you have trouble getting transportation to medical appointments?: No Do you have trouble paying your heating and electricity bill?: No Do you have trouble taking care of your child, family member or friend?: No Do you have trouble with day-to-day activities such as bathing, preparing meals, shopping, managing finances, etc.?: No Are you currently unemployed and looking for a job?: No Are you interested in more education?: No Please select the resources that you would like help with: None Currently or been in a relationship where the following occur: No concerns reported THRIVE Score: 0 PASTOR-7 AMB Questionnaire PASTOR-7 Date PASTOR - 7 assessed: 04/09/24 Source: Developed by Drs. Josep Rodas, Keiry Abarca, Fernando Lincoln and colleagues, with an educational caprice from [employer]. Review of Systems Const Details: Const Denies chills, Denies fatigue, Denies fever(s), Denies headache(s) and Denies weakness ENT Denies dizziness and Denies headache(s) Card Denies chest pain, Denies lightheadedness, Denies dyspnea and Denies other (Palpitations) Resp Denies cough, Denies dyspnea, Denies wheezing and Denies other ( shortness of breath) GI Denies abdominal pain, Denies melena, Denies hematochezia, Denies change in bowel habits, Denies dyspepsia and Denies nausea Denies hematuria and Denies dysuria Musc Denies abnormal gait, Denies myalgias, Denies arthralgias, Denies numbness and Denies tingling Skin/Breast Denies rash, Denies unusual bruising and Denies wounds Neuro Denies abnormal gait, Denies dizziness, Denies headache(s), Denies memory loss, Denies numbness, Denies Sensory deficit (Neuro), Denies tingling and Denies weakness Psych Denies anxiety, Denies depression, Denies memory loss Endo Denies cold intolerance, Denies fatigue, Denies heat intolerance, Denies polydipsia and Denies polyuria Aller/Immun Denies wheezing Physical exam (Primary Care) Vital Signs: Last Vital Signs Temp 97.9 F 05/08/24 08:36 Pulse 71 05/08/24 08:36 Resp 16 05/08/24 08:36 BP 154/94 H 05/08/24 08:36 Pulse Ox 95 05/08/24 08:36 Oxygen Delivery Method Room Air 05/08/24 08:36 BMI result Body Mass Index 31.4 Tobacco/Smoking Status: Tobacco use Status Tobacco use date assessed 05/08/24 05/08/24 08:41 Patient Tobacco Use Status Never used Tobacco 05/08/24 08:34 e-Cigarette/Vaping Use Never Used 05/08/24 08:34 Thrive Assessment: Date of Thrive Assessment Date Thrive assessed 04/02/24 05/08/24 08:34 Currently or been in a relationship where the following occur: No concerns reported Const Other: General: no acute distress and well developed Nutritional Appearance: well nourished Orientation/consciousness: patient oriented x3 HENMT Head: Yes normocephalic and Yes atraumatic Eyes General: appearance normal, both eyes and all related structures Pupils: Equal, round and reactive pupils present EOM: EOMs intact bilaterally Resp Effort & Inspection: normal respiratory effort Auscultation: clear to auscultation bilaterally Cardio Rate: regular rate Rhythm: regular rhythm Heart sounds: S1 normal heart sound present, S2 normal heart sound present, no gallops, no murmurs and no rubs GI Palpation (GI): No Abdominal aortic bruit present, Soft to palpation, nontender, No hepatosplenomegaly present and No Rebound tenderness present Auscultation: normal bowel sounds General: Yes no CVA tenderness Back/Spine/Pelvis Back: no CVA tenderness Cervical Spine: cervical ROM normal and No Cervical spine tenderness Thoracic/Lumbar Spine: thoraco-lumbar ROM normal, No pain with thoraco-lumbar ROM, No thoracic spinal tenderness and No lumbar spinal tenderness Extrem General: Yes normal to inspection, No edema and No calf tenderness Skin General: warm and dry. Normal skin color. Normal skin turgor Neuro General: patient oriented x3, gait normal and no focal neuro deficit Cranial nerves: Yes Equal, round and reactive pupils present Cognition (Neuro): normal cognition Gait exam (Neuro): Normal gait present Sensory Exam: No Sensory deficit (Neuro) Psych Appearance: grossly normal Affect: normal affect Attitude: cooperative Thought process: Normal thought process present Coding Level of Care Code Tele New Pt Level 4 (75667) Diagnoses High blood pressure I10 Generalized joint pain M25.50 Assessment & Plan Assessment & Plan (1) High blood pressure: Code(s): I10 - Essential (primary) hypertension Category: Medical Plan: Resting blood pressure is 160/100, above goal of less than 140/90. Will start lisinopril 20 mg daily; advised to take as prescribed. Instructed on the risks, benefits, and potential adverse reactions of the medication. Low-sodium diet encouraged. Follow-up in 2 weeks or sooner with symptoms or concerns. Verbalized understanding and agreed with treatment plan. (2) Generalized joint pain: Code(s): M25.50 - Pain in unspecified joint Category: Medical Plan: She experienced generalized joint pain recently for 3 consecutive days but has resolved. No acute symptoms at this time. May take ibuprofen and apply diclofenac cream as needed. Warm/cool compresses encouraged. Follow-up with worsening or new symptoms. Verbalized understanding and agreed with treatment plan. Medications: New lisinopril 20 mg PO DAILY 30 days 30 tabs 3RF Patient Instructions: Recent labs reviewed with the patient; unremarkable findings.
[2024-05-08 08:36] VITALS: BP 154/94; PULSE 71; RESP 16; TEMP 36.6; O2SAT 95; BMI 31.4
[2024-05-08 08:50] VITALS: BP 160/100; PULSE 76
== END 2024-05-08 08:59 | disposition home or self-care (01) ==
LOC: HO.HMCFM 08:28
PROVIDERS: PCP Nurse Practitioner Family; Visit Provider Nurse Practitioner Family
DX: I10 Essential (primary) hypertension (principal); M25.50 Pain in unspecified joint

== ENCOUNTER → 2024-05-08 08:27 | Outpatient (BNVA) | payer OTHER, SELFPAY | PROVIDERS: PCP Nurse Practitioner Family; Visit Provider Nurse Practitioner Family ==

== ENCOUNTER 2024-05-24 13:41 | Outpatient (AMB) | payer OTHER, SELFPAY ==
--- NOTE | 2024-05-24 13:44 | MHC.PC.OV ---
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 Is last menstrual period known: No Post menopausal: No Patient : No Allergies No Known Allergies Allergy (Verified 05/24/24 14:03) Medication List - Last Reconciled 05/24/24 by Ghazala Vallecillo CNP lisinopril 20 mg PO DAILY 30 days magnesium oxide 400 mg PO DAILY MDD 400mg pyridoxine (vitamin B6) 50 mg PO DAILY MDD 50mg PO turmeric root extract (Curica Turmeric) 300 mg PO DAILY MDD 300mg Tobacco use date assessed: 05/24/24 Fall risk assessment: No Falls in past year Last assessed Fall Risk: 05/24/24 Dental Screening Dental Screen Date: 05/24/24 Did you have a dental visit in the last 12 months?: Yes Did you have a dental problem in the last 6 months where you did not have access to dental care?: No Was dental information given to patient?: Patient has dentist HPI HPI Comments History of Present Illness Details 68-year-old female presents for hypertension follow-up. She admits to taking lisinopril as prescribed without adverse reactions. She has been making healthy dietary choices and exercising routinely. She offers no complaints and denies acute symptoms at this time. [facility] Medical History Tonsillar tumor Cleft palate Neuropathy Shingles Hiatal hernia Acid reflux Osteoporosis High blood pressure Sinusitis Surgical History History of salpingectomy Family History Brother Alcohol abuse FH: mental illness Mother High cholesterol Diabetes Cervical cancer Father Diabetes Cardiovascular disease Paternal Grandmother Diabetes Sister Thyroid disorder Maternal Grandfather Stomach cancer Social History Housing: House Patient Tobacco Use Status: Never used Tobacco e-Cigarette/Vaping Use: Never Used Second Hand Smoke Exposure: No Patient : No service: No Current occupational status: retired Cognitive needs: No Hearing needs: Yes Vision needs: Yes Questionnaire Thrive Questionnaire Date Thrive assessed: 04/02/24 I am a: Patient What is your living situation today?: I have a steady place to live Within the past 12 months, did the food you bought not last and you didn't have the money to get more?: Never true Within the past 12 months, did you worry whether your food would run out before you got money to buy more?: Never true Do you have trouble paying for medicines?: No Do you have trouble getting transportation to medical appointments?: No Do you have trouble paying your heating and electricity bill?: No Do you have trouble taking care of your child, family member or friend?: No Do you have trouble with day-to-day activities such as bathing, preparing meals, shopping, managing finances, etc.?: No Are you currently unemployed and looking for a job?: No Are you interested in more education?: No Please select the resources that you would like help with: None Currently or been in a relationship where the following occur: No concerns reported THRIVE Score: 0 PASTOR-7 AMB Questionnaire PASTOR-7 Date PASTOR - 7 assessed: 04/09/24 Source: Developed by Drs. Josep Rodas, Keiry Abarca, Fernando Lincoln and colleagues, with an educational caprice from [employer]. Review of Systems Const Details: Const Denies chills, Denies fatigue, Denies fever(s), Denies headache(s) and Denies weakness ENT Denies dizziness and Denies headache(s) Card Denies chest pain, Denies lightheadedness, Denies dyspnea and Denies other (Palpitations) Resp Denies cough, Denies dyspnea, Denies wheezing and Denies other ( shortness of breath) GI Denies abdominal pain, Denies melena, Denies hematochezia, Denies change in bowel habits, Denies dyspepsia and Denies nausea Denies hematuria and Denies dysuria Musc Denies abnormal gait, Denies myalgias, Denies arthralgias, Denies numbness and Denies tingling Skin/Breast Denies rash, Denies unusual bruising and Denies wounds Neuro Denies abnormal gait, Denies dizziness, Denies headache(s), Denies memory loss, Denies numbness, Denies Sensory deficit (Neuro), Denies tingling and Denies weakness Psych Denies anxiety, Denies depression, Denies memory loss Endo Denies cold intolerance, Denies fatigue, Denies heat intolerance, Denies polydipsia and Denies polyuria Aller/Immun Denies wheezing Physical exam (Primary Care) Vital Signs: Last Vital Signs Temp 97.8 F 05/24/24 13:49 Pulse 74 05/24/24 13:49 Resp 16 05/24/24 13:49 BP 153/85 H 05/24/24 13:49 Pulse Ox 99 05/24/24 13:49 Oxygen Delivery Method Room Air 05/24/24 13:49 BMI result Body Mass Index 31.2 Tobacco/Smoking Status: Tobacco use Status Tobacco use date assessed 05/24/24 05/24/24 13:53 Patient Tobacco Use Status Never used Tobacco 05/24/24 13:53 e-Cigarette/Vaping Use Never Used 05/24/24 13:53 Thrive Assessment: Date of Thrive Assessment Date Thrive assessed 04/02/24 05/24/24 13:53 Currently or been in a relationship where the following occur: No concerns reported Const Other: General: no acute distress and well developed Nutritional Appearance: well nourished Orientation/consciousness: patient oriented x3 HENMT Head: Yes normocephalic and Yes atraumatic Eyes General: appearance normal, both eyes and all related structures Pupils: Equal, round and reactive pupils present EOM: EOMs intact bilaterally Resp Effort & Inspection: normal respiratory effort Auscultation: clear to auscultation bilaterally Cardio Rate: regular rate Rhythm: regular rhythm Heart sounds: S1 normal heart sound present, S2 normal heart sound present, no gallops, no murmurs and no rubs GI Palpation (GI): No Abdominal aortic bruit present, Soft to palpation, nontender, No hepatosplenomegaly present and No Rebound tenderness present Auscultation: normal bowel sounds General: Yes no CVA tenderness Back/Spine/Pelvis Back: no CVA tenderness Cervical Spine: cervical ROM normal and No Cervical spine tenderness Thoracic/Lumbar Spine: thoraco-lumbar ROM normal, No pain with thoraco-lumbar ROM, No thoracic spinal tenderness and No lumbar spinal tenderness Extrem General: Yes normal to inspection, No edema and No calf tenderness Skin General: warm and dry. Normal skin color. Normal skin turgor Neuro General: patient oriented x3, gait normal and no focal neuro deficit Cranial nerves: Yes Equal, round and reactive pupils present Cognition (Neuro): normal cognition Gait exam (Neuro): Normal gait present Sensory Exam: No Sensory deficit (Neuro) Psych Appearance: grossly normal Affect: normal affect Attitude: cooperative Thought process: Normal thought process present Coding Level of Care Code Est Pt Level 3 (41359) Diagnoses High blood pressure I10 Assessment & Plan Assessment & Plan (1) High blood pressure: Code(s): I10 - Essential (primary) hypertension Category: Medical Plan: Resting blood pressure is 130/86, within goal of less than 140/90. Continue current treatment regimen. Follow-up in 1 month or sooner with symptoms or concerns. Verbalized understanding and agreed with treatment plan.
[2024-05-24 13:49] VITALS: BP 153/85; PULSE 74; RESP 16; TEMP 36.6; O2SAT 99; BMI 31.2
--- OUTSIDE RECORDS SUMMARY | 2024-05-24 14:00 | XMS_ITS | Data Portability ---
Author Organization [place] - [facility], Allergy Address [address] [place] [address] Care Team Providers Care Histology Assistant Name Role Phone ARIADNA ALEMAN Primary Care [...] TSH + free T4, serum 2023 024 [place] [facility] (Centralized Electronic Ordering - All Locations), Patient Can Go To The Location Of Their Choice, [address] 12/05/2023 08:18:28 Referral None recorded. Procedures None recorded. Surgeries None recorded. Imaging None recorded. Medication Orders doxycycli ne hyclate 100 mg tablet 2024 025 [id number] [id number], [address] [place], [address], 03/05/2024 09:56:03 ciproflox acin 0.3 %-dexamet hasone 0.1 % ear drops,rola pension 2023 025 [facility], [address] [place], [address], 03/05/2024 09:08:13 Patient TargetsNo targets recorded. Patient InstructionsNo instructions recorded. Reason for Referral None Reported. Results Created Date Observation Date Name Description Value Unit Range Abnormal Flag Note LastModifiedBy Organization Detail LastModifiedTime 12/04/1912/05/2023 TSH+F REE T4 TSH 3.880 uIU/m L 0.450- 4.500 normal Not Available [facility] ([facility]) [address] [place], [address], 12/05/2023 08:18:27 12/04/19 24 12/05/2023 TSH+F REE T4 T4,free(dire ct) 1.25 NG/dL 0.82-1 .77 normal Not Available [facility] ([facility]) [address] [place], [address], 12/05/2023 08:18:27 Result Notes None recorded. Problems Name Problem SNOMED Code Status Onset Date Resolution Date Notes Provider Name and Address Organization Details Recorded Time Impacted cerumen in right ear 15437107613 16138 Active 2022 Impacted cerumen, right ear; Note: Date Diagnose d: 10/31/20 23 1:16 PM (H61.21) Not Available [facility] 4 02:42:54 Acute recurren t sialoade nitis 05080452380 35350 Active 2022 Acute recurren t sialoade nitis; Note: Date Diagnose d: 06/20/2022 1:26 PM (K11.22) Not Available [facility] 4 02:42:49 Neck pain 15141794 Active 2014 Other disorder s of cervical region: Cervical eitan; Note: Date Diagnose d: 5 4:18 PM (723.1) ; Start Date : 09/11/19 15 Cervi calgia; Note: Date Diagnose d: 5 3:18 PM (M54.2) [mapped from ICD9 code: 723.1] Not Available [facility] 4 02:42:45 Oral cyst 86858607149 35461 Active 2018 Other cysts of oral region, not elsewher e classifi ed; Note: Date Diagnose d: 06/20/2018 2:59 PM (K09.8) Not Available [facility] 4 02:42:50 Chronic rhinitis 73471217 Active 2015 Chronic rhinitis ; Note: Date Diagnose d: 04/17/2015 3:09 PM (J31.0) Not Available [facility] 4 02:42:51 Conducti ve hearing loss, bilatera l 950330224 Active 2014 Conducti ve hearing loss, bilatera l; Note: Date Diagnose d: 5 5:06 PM (389.06) Not Available [facility] 4 02:42:49 Headache 52857819 Active 2018 Headache , unspecif ied; Note: Changed from R51 to R51.9 (08/13/19 10:51 AM) , Date Diagnose d: 03/21/2018 12:03 PM (R51) Not Available [facility] 4 02:42:50 Pain of right temporom andibula r joint 43762793245 505380 Active 2017 Arthralg ia of right temporom andibula r joint; Note: Date Diagnose d: 03/16/2017 3:31 PM (M26.621 ) Not Available [facility] 4 02:42:52 History of malignan t neoplasm of pharynx 25558354731 107 Active 2014 Personal history of malignan t neoplasm : Other and unspecif ied oral cavity and pharynx; Note: Date Diagnose d: 5 5:06 PM (V10.02) Not Available [facility] 4 02:42:45 Bilatera l disorder of Eustachi an tubes 94513142870 22580 Active 2018 Other specifie d disorder s of Eustachi an tube, bilatera l; Note: Date Diagnose d: 09/21/2018 1:53 PM (H69.83) Not Available [facility] 4 02:42:51 Otorrhea of bilatera l ears 91030546315 01771 Active 2020 Otorrhea , bilatera l; Note: Date Diagnose d: 12/31/19 21 3:10 PM (H92.13) Not Available [facility] 4 02:42:48 Orophary ngeal dysphagi a 56209644 Active 2022 Dysphagi a, orophary ngeal phase; Note: Date Diagnose d: 3 12:23 PM (R13.12) Not Available [facility] 4 02:42:54 Otalgia of right ear 6506873822 Active 2017 Otalgia, right ear; Note: Date Diagnose d: 03/16/2017 3:31 PM (H92.01) Not Available [facility] 4 02:42:48 Spasm 21864490 Active 2022 Cramp and spasm; Note: Date Diagnose d: 3 12:47 PM (R25.2) Not Available [facility] 4 02:42:55 Total perforat ion of bilatera l tympanic membrane s 73330774856 40649 Active 2018 Total perforat ions of tympanic membrane , bilatera l; Note: Date Diagnose d: 09/21/2018 1:53 PM (H72.823 ) Not Available [facility] 4 02:42:47 History of malignan t neoplasm of oral cavity 325323256 Active 2014 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, oral cavity, and pharynx; Note: Date Diagnose d: 5 3:18 PM (Z85.818 ) [mapped from ICD9 code: V10.02] Not Available [facility] 4 02:42:46 Acute upper respirat ory infectio n 48013352 Active 2018 Acute upper respirat ory infectio n, unspecif ied; Note: Date Diagnose d: 06/20/2018 2:59 PM (J06.9) Not Available [facility] 4 02:42:54 Mixed conducti ve and sensorin eural hearing loss, bilatera l 808899457 Active 2014 Mixed HL, bilatera l; Note: Date Diagnose d: 5 4:52 PM (389.22) ; Start Date : 09/11/19 15 Mixed conducti ve and sensorin eural hearing loss, bilatera l; Note: Date Diagnose d: 5 3:18 PM (H90.6) [mapped from ICD9 code: 389.22] Not Available [facility] 4 02:42:50 Acute sialoade nitis 610692609 Active 2017 Acute sialoade nitis; Location : left Not e: Changed from K11.2 to K11.21 ( 9 12:00 PM) , Date Diagnose d: 8 11:32 AM (K11.2) Not Available [facility] 4 02:42:45 Disturba nce of salivary secretio n 31164581 Active 2018 Xerostom ia; Note: Date Diagnose d: 06/20/2018 3:00 PM (K11.7) Not Available [facility] 4 02:42:53 Posterio r rhinorrh ea 29936643 Active 2017 Postnasa l drip; Note: Date Diagnose d: 8 2:30 PM (R09.82) Not Available [facility] 4 02:42:51 Disorder of right tympanic membrane 40689046691 84891 Active 2018 Other specifie d disorder s of tympanic membrane , right ear; Note: Date Diagnose d: 06/20/2018 3:01 PM (H73.891 ) Not Available [facility] 4 02:42:49 Bilatera l temporom andibula r joint pain 57947720882 245726 Active 2017 Arthralg ia of bilatera l temporom andibula r joint; Note: Date Diagnose d: 8 2:30 PM (M26.623 ) Not Available [facility] 4 02:42:52 Pharynge al dysphagi a 89820671404 105 Active 2022 Dysphagi a, pharynge al phase; Note: Date Diagnose d: 06/20/2022 1:26 PM (R13.13) Not Available [facility] 4 02:42:55 Otorrhea of right ear 93728843818 48988 Active 2021 Otorrhea , right ear; Note: Date Diagnose d: 03/18/2021 2:44 PM (H92.11) Not Available [facility] 4 02:42:51 Chronic nasophar yngitis 98685146 Active 2014 Nasophar yngitis, chronic; Note: Date Diagnose d: 5 5:06 PM (472.2) ; Start Date : 03/05/19 15 Chron ic nasophar yngitis; Note: Date Diagnose d: 5 3:18 PM (J31.1) [mapped from ICD9 code: 472.2] Not Available [facility] 4 02:42:54 Central perforat ion of left tympanic membrane 85921391036 98400 Active 2021 Central perforat ion of tympanic membrane , left ear; Note: Date Diagnose d: 06/21/2021 9:07 AM (H72.02) Not Available [facility] 4 02:42:45 Perforat ion of left tympanic membrane 74143864101 08040 Active 2017 Unspecif ied perforat ion of tympanic membrane , left ear; Note: Date Diagnose d: 8 1:49 PM (H72.92) Not Available [facility] 4 02:42:52 Otorrhea of left ear 21842210359 59572 Completed 202009/15/2023 Otorrhea , left ear; Note: Date Diagnose d: 1 2:55 PM (H92.12) Otorrh ea, left ear; Note: Date Diagnose d: 01/01/20 15 2:47 PM (H92.12) ; Start Date : 01/01/20 Not Available [facility] 4 02[facility]42[facility]46 Acute maxillar y sinusiti s 03873154 Active 2023 Acute maxillar y sinusiti s, unspecif ied; Note: Date Diagnose d: 4 1:35 PM (J01.00) Not Available [facility] 4 02:42:53 Gastroes ophageal reflux disease without esophagi tis 823524702 Active 2023 MAY CARREON MD [address] [place] [address],[place] [address], [place], [address] , [facility] 4 10:25:31 Acute myringit is of left ear 06847402259 67431 Active 2023 AMY CARREON MD [address] [place] [address],[place] [address], [place], [address] , [facility] 4 10:27:39 Problem Notes None recorded. Procedures Surgical History Date Name Laterality Status Provider Name and Address Organization Details Recorded Time 12/04/19 Fiberoptic Laryngoscopy (Comprehensive) completed AMY HENDRICKS MD [address] [place] [address],[address], [address], [facility] 12/04/2023 10:27:59 repair of cleft lip completed AMY HENDRICKS MD [address] [place] [address],[place] [address], [place], [address], [facility] 12/03/2023 20:05:01 repair of cleft palate completed AMY HENDRICKS MD [address] [address], [place], [address], [facility] 12/03/2023 20:05:13 Imaging Results None recorded. Procedure Notes None recorded. Medical Equipment None Reported. Allergies Allergen ID Allergen Name Allergen Category Reaction Reaction Severity Criticality Documentation Date Start Date Code Code System Note Provider Name and Address Organization Details Recorded Time 633647 tree and shrub pollen environme nt,medica tion eye redness Not available Not available 03/05/20242009 89386 UNK Mari cisse [facility] 09:07:54 Medications Name Sig Start Date Stop Date Status Note LastModified by Organization Details LastModified Time clotrimaz ole 10 mg yonas 1 yonas five times a day 12/30 completed Medicati on ID: [id number] D uration Value: 7 Brand Name: clotrima zole Sen d Method: E-Prescr ibed Sub s Allowed: subs OK Medic ationGen ericName : clotrima zole Not Available Not Available Not Available Augmentin 875 mg-125 mg tablet 1 tablet by mouth 12/03 completed Medicati on ID: 037292 D uration Value: 10 Prescri bed By [...] mg tablet 10/11 completed Medicati on ID: 937705 B rand Name: heathersarta n Send Method: [...] mg tablet 01/25 completed Medicati on ID: 643665 D uration Value: 7 Reason: () Brand [...] a day 10/11 completed Medicati on ID: 613454 D uration Value: 10 Prescri bed By Name: Danuta Martínez nd Name: doxycycl ine monohydr ate Send Method: E-Prescr ibed Sub s Allowed: subs OK Medic ationGen ericName : doxycycl ine monohydr ate Not Available Not Available Not Available clotrimaz ole 1 % topical solution 12/03 completed Medicati on ID: [id number] D uration Value: 14 Brand Name: denise cabrales Method: E-Prescr ibed Sub s Allowed: subs OK Speci al Instruct ion: 5 drops to the affected ear twice a day X 14 days [facility] me: clotrima zole Not Available Not Available Not Available amoxicill in 250 mg capsule TAKE 1 CAPSULE BY MOUTH THREE TIMES A DAY 12/03 completed Not Available Not Available Not Available Ativan 0.5 mg tablet 1 tablet by mouth 12/03 completed Medicati on ID: 209810 D uration Value: 1 Prescri bed By [...] both nostrils 2016 active Medicati on ID: 002366 D uration Value: 120 Prescri bed By [...] mg tablet 10/11 completed Medicati on ID: [id number] Br and Name: naproxen Send Method: E-Prescr [...] Vitamin D 2015 active Medicati on ID: 833958 B rand Name: Vitamin D Send Method: E-Prescr ibed Sub s Allowed: subs OK Medic ationGen ericName : Vitamin D Not Available Not Available Not Available melatonin 10 mg tablet 12/03 completed Medicati on ID: 22510 Br and Name: surya bettencourt Send Method: E-Prescr ibed Sub s Allowed: subs OK Medic ationGen ericName : melatoni n Not Available Not Available Not Available Vitals Date Recorded Body height Body mass index (BMI) Body weight Provider Name and Address Organization Details Last Updated DateTime 12/04/2023 154.94 cm 30.8 kg/m2 16062.56 g Catrachita Bridges [place] - [facility] 12/04/2023 10:11:21 Date Recorded Body height Body weight Provider Name and Address Organization Details Last Updated DateTime 03/05/2024 154.94 cm 58949.56 g Mari Garcia [place] - [facility] 03/05/2024 09:07:36 Social History None recorded. Functional Status None recorded. Mental Status None recorded. Family History Nothing Reported. Medical History Condition Response Allergies/Hayfever Y Heart Problems N Anxiety N Tonsil Infections N Emphysema N Migraines N Thyroid Problems N Depression N COPD N Developmental Delay N Glaucoma N Nasal or Sinus Problems Y Anemia N Immune System Disorder N Anesthesia Complications N Heart Attack (ID) N Other Skin Condition N Diabetes N Rhinitis N Bleeding Disorder N Food Allergy N Hearing Loss Y Arthritis Y Hyperlipidemia N Cancer Y Stroke N Dementia N Nasal polyps N Asthma N Sleep Disorder N High Cholesterol N GERD/Reflux Y Liver Disease N Headaches Y Fibromyalgia N Hypertension Y Speech Delay N Kidney Disease N Gynecological HistoryNo gynecological history recorded. Obstetrics History GPAL:G 0 P 0 0 0 0 Past Encounters Encounter ID Performer Location Encounter Start Date Encounter Closed Date Diagnosis/Indication Diagnosis SNOMED-CT Code Diagnosis ICD10 Code Diagnosis Note [id number] AMY CARREON MD [facility] [address] [place] [address] 12/04/2023 09:56:12 12/04/2023 10:39:47 History of malignant neoplasm of digestive organ 2396173608 3002631 Z85.00 Gastroesop hageal reflux disease without esophagitis 985371483 K21.9 Consider GI eval. She will discuss with PCP Central pe rforation of left tympanic membrane 4739831798 228340 H72.02 Acute myri ngitis of left ear 4623204548 941716 H73.002 [id number] AMY CARREON MD [facility] [address] [place] [address] 03/05/2024 09:02:35 03/05/2024 09:35:07 Acute maxillary sinusitis 82818840 J01.00 Health Concerns Section Related Observation LastModified by Organization Detai ls LastModified Time None Recorded Concern Status LastModified by Organization Details LastModified Time None Recorded Advance Directives Directive None Recorded Payers Encounter Date Sequence Insurance Name Policy Number Policy Cervantes Covered Member ID Cervantes Member ID Guarantor Name 12/04/2023 1 [facility] (MEDICARE REPLACEMENT/ ADVANTAGE - PPO) [id number] 1 Rashida Owusu Myranda [id number] Rashida Whitmore 03/05/2024 1 [facility] (MEDICARE REPLACEMENT/ ADVANTAGE - PPO) [id number] 1 Rashida G G Baird [id number] Rashida Owusu Myranda Notes Date Note Type [...] every other day AMY HENDRICKS MD [address], [address], [place] - [facility] 12/04/2023 10:33:22 03/05/2024 text/html 68-year-old reid [...] not relieve symptoms. AMY HENDRICKS MD [address],[facility] [address], [place], [address], [facility] - [facility] 03/05/2024 12:20:10 OBGyn Episode No OBEpisode recorded.
--- OUTSIDE RECORDS SUMMARY | 2024-05-24 14:01 | XMS_ITS | Clinical Summary ---
Author Organization [facility] Address [address] [place] [address] Care Team Providers Care Pattern Illustrator Name Role Phone Jonny Llanes MD Primary Care Provider + Allergies No known active allergies Medications Medication Sig Dispensed Refills Start Date End Date Status Multiple Vitamin (MULTI VITAMIN PO) Take by mouth. 0 Ac tive Totqxzr-Xgzvtwgss-Vgqz min D (CALCIUM 500 PO) Take by [...] needed for pain. 0 Active nystatin (MYCOSTATIN) 095352 UNIT/ML suspension Take 5 mL (500,000 Units [...] age to complete this topic Care Teams Pattern Illustrator Relationship Specialty Start Date End Date Jonny Llanes MD [address] [place] [address] PCP - General Otolaryngology 10/02/18
[2024-05-24 14:07] VITALS: BP 130/86
== END 2024-05-24 14:12 | disposition home or self-care (01) ==
LOC: HO.HMCFM 13:41
PROVIDERS: PCP Nurse Practitioner Family; Visit Provider Nurse Practitioner Family
DX: I10 Essential (primary) hypertension (principal)

== ENCOUNTER → 2024-05-24 13:41 | Outpatient (BNVA) | payer OTHER, SELFPAY | PROVIDERS: PCP Nurse Practitioner Family; Visit Provider Nurse Practitioner Family | DX: Z13.89 Encounter for screening for other disorder (principal) ==

== ENCOUNTER 2024-05-28 13:33 | Outpatient (REF) | payer OTHER, SELFPAY ==
--- NOTE | ~2024-05-28 | MM_ITS ---
EXAMINATION: DXA BONE DENSITY AXIAL HISTORY: M81.0 - Age-related osteoporosis without current pathological fracture TECHNIQUE: [employer] Dual energy absorptiometry (DEXA) of the lumbar spine, total left hip, and femoral neck was performed. COMPARISON: There are no prior studies for comparison. FINDINGS: The bone mineral density of the lumbar spine is 1.037 with a T-score of 1.1, and a Z-score of 2.5. This is indicative of normal bone mineral density. The bone mineral density of the left total hip is 0.850 with a T-score of -1.2, and a Z-score of -0.1. This is indicative of osteopenia. The bone mineral density of the left femoral neck is 0.751 with a T-score of -2.1, and a Z-score of -0.6. This is indicative of osteopenia. FRACTURE RISK: The FRAX index suggests a risk of major osteoporotic fracture of 11.5%, and of hip fracture 2.0%. MM/XR DEXA axial skeleton IMPRESSION: Based on bone mineral density, and according to World Health Organization (WHO) criteria, the diagnosis is consistent with osteopenia. All bone density values are in grams per centimeter squared (g/cm2). Statistically, 68% of repeat scans fall within 1 SD (+/- 0.010 g/cm2 for AP spine L1-L4) and 1 SD (+/- 0.012 g/cm2 for femur total) FRAX is a trademark of the [employer]'s [place] for Metabolic Bone Disease, a World Health Organization (WHO) Collaborating Center. Electronically signed by: Josep Rios MD 05/28/2024 02:51 PM EDT
--- OUTSIDE RECORDS SUMMARY | 2024-05-28 16:39 | XMS_ITS | Encounter Summary ---
Author Organization [facility] Address [address] [place] [address] Care Team Providers Care Hand Sander Name Role Phone Barak Blevins MD Primary Care Provider [phone] [facility], Pcp Primary Care Provider Unavailabl e Reason for Visit * Reason Comments E-prescribe Rx Request Encounter Details Date Type Department Care Team Description 09/05/2020 Refill Adult Medicine [address] [address] Sobeida Sanders PA-C E-prescribe Rx Request Social [...] do you attend [facility] or mu-ism services? Not asked Do you belong to any clubs o r organizations such as latter-day groups, unions, fraternal or athletic groups, or [...] have an upcoming appointment? No-unable to reach [facility] to call for appointment due to refill [...] Payor: CHOLO/NAYELY POS / Plan: PPO $25 [place] [id number] / ProductType: PPO [id number] documented in this encounter Plan of Treatment Not on file documented as of this encounter Visit Diagnoses Not on filedocumented in this encounter Care Teams Hand Sander Relationship Specialty Start Date End Date Barak Blevins MD [address] [place] [address] PCP - General Internal Medicine 07/15/20 10/23/23 [facility], Pcp [address] [place] [address] PCP - General Internal Medicine 10/24/23 documented as of this encounter
--- OUTSIDE RECORDS SUMMARY | 2024-05-28 16:39 | XMS_ITS | Encounter Summary ---
Author Organization [facility] Address [address] [place] [address] Care Team Providers Care Roping Tender Name Role Phone Marilynn-Angelica Altamirano MD Primary Care Provider Unavailable Barak Blevins MD Primary Care Provider [phone] [facility], Pcp [facility] Reason for Visit * Reason Onset Date Comments TEST RESULTS 08/31/2018 Encounter Details Date Type Department Care Team Description 08/31/2018 Telephone Adult Medicine [facility] [address] [place] [address] Laly Miller PA-C [address] [place] [address] TEST RESULTS Social History Tobacco Use Types [...] week 04/10/2023 How often do you attend [facility] or mormon services? Not asked Do you belong to any clubs o r organizations such as confucianism groups, unions, fraternal or athletic groups, or [...] original note were not included. CHARITO Denson [place] Adult [facility] Floor Nurse ? Please call patient and advise bone density showed osteopenia Message left for patient to call office back. documented in this encounter Plan of Treatment Not on file documented as of this encounter Visit Diagnoses Not on filedocumented in this encounter Care Teams Roping Tender Relationship Specialty Start Date End Date [place]-Angelica Altamirano MD PCP - General Internal Medicine 01/19/1707/14/20 Barak Blevins MD [address] [place] [address] PCP - General Internal Medicine 07/15/20 10/23/23 [facility], Pcp [address] [place] [address] PCP - General Internal Medicine 10/24/23 documented as of this encounter
--- OUTSIDE RECORDS SUMMARY | 2024-05-28 16:39 | XMS_ITS | Data Portability ---
Author Organization [place] - [facility], Allergy Address [address] [place] [address] Care Team Providers Care Starting Gate Driver Name Role Phone ARIADNA ALEMAN Primary Care [...] for sooner evaluation. Otherwise follow-up as scheduled. [email or web address] Not available 03/05/2024 09:55:29 Plan of Treatment Reminders Order Date Submit Date Provider Last Modified By Organization Details Last Modified Time Details Appointments Establish ed 30 2024 03:00P Ventura RHODES MD Not available Not available Not available Lab TSH + free T4, serum 2023 024 LATONIA [facility] (Centralized Electronic Ordering - All Locations), Patient Can Go To The Location Of Their Choice, [address] 12/05/2023 08:18:28 Referral None recorded. Procedures None recorded. Surgeries None recorded. Imaging None recorded. Medication Orders doxycycli ne hyclate 100 mg tablet 2024 025 [email or web address] [id number], [address] [place], [address], 03/05/2024 09:56:03 ciproflox acin 0.3 %-dexamet hasone 0.1 % ear drops,rola pension 2023 025 [id number], [address] [place], [address], 03/05/2024 09:08:13 Patient TargetsNo targets recorded. Patient InstructionsNo instructions recorded. Reason for Referral None Reported. Results Created Date Observation Date Name Description Value Unit Range Abnormal Flag Note LastModifiedBy Organization Detail LastModifiedTime 12/04/1912/05/2023 TSH+F REE T4 TSH 3.880 uIU/m L 0.450- 4.500 normal Not Available [facility] ([facility]) [address] [place], [address], 12/05/2023 08:18:27 12/04/19 24 12/05/2023 TSH+F REE T4 T4,free(dire ct) 1.25 NG/dL 0.82-1 .77 normal Not Available [facility] ([facility]) [address] [place], [address], 12/05/2023 08:18:27 Result Notes None recorded. Problems Name Problem SNOMED Code Status Onset Date Resolution Date Notes Provider Name and Address Organization Details Recorded Time Impacted cerumen in right ear 37890303859 57528 Active 2022 Impacted cerumen, right ear; Note: Date Diagnose d: 10/31/20 23 1:16 PM (H61.21) Not Available [facility] 4 02:42:54 Acute recurren t sialoade nitis 49843620939 82691 Active 2022 Acute recurren t sialoade nitis; Note: Date Diagnose d: 06/20/2022 1:26 PM (K11.22) Not Available [facility] 4 02:42:49 Neck pain 12001278 Active 2014 Other disorder s of cervical region: Cervical eitan; Note: Date Diagnose d: 5 4:18 PM (723.1) ; Start Date : 09/11/19 15 Cervi calgia; Note: Date Diagnose d: 5 3:18 PM (M54.2) [mapped from ICD9 code: 723.1] Not Available [facility] 4 02:42:45 Oral cyst 92099215388 77754 Active 2018 Other cysts of oral region, not elsewher e classifi ed; Note: Date Diagnose d: 06/20/2018 2:59 PM (K09.8) Not Available [facility] 4 02:42:50 Chronic rhinitis 00913220 Active 2015 Chronic rhinitis ; Note: Date Diagnose d: 04/17/2015 3:09 PM (J31.0) Not Available [facility] 4 02:42:51 Conducti ve hearing loss, bilatera l 031106222 Active 2014 Conducti ve hearing loss, bilatera l; Note: Date Diagnose d: 5 5:06 PM (389.06) Not Available [facility] 4 02:42:49 Headache 66298885 Active 2018 Headache , unspecif ied; Note: Changed from R51 to R51.9 (08/13/19 10:51 AM) , Date Diagnose d: 03/21/2018 12:03 PM (R51) Not Available [facility] 4 02:42:50 Pain of right temporom andibula r joint 31880261589 905040 Active 2017 Arthralg ia of right temporom andibula r joint; Note: Date Diagnose d: 03/16/2017 3:31 PM (M26.621 ) Not Available [facility] 4 02:42:52 History of malignan t neoplasm of pharynx 23445722811 107 Active 2014 Personal history of malignan t neoplasm : Other and unspecif ied oral cavity and pharynx; Note: Date Diagnose d: 5 5:06 PM (V10.02) Not Available [facility] 4 02:42:45 Bilatera l disorder of Eustachi an tubes 56717588348 84203 Active 2018 Other specifie d disorder s of Eustachi an tube, bilatera l; Note: Date Diagnose d: 09/21/2018 1:53 PM (H69.83) Not Available [facility] 4 02:42:51 Otorrhea of bilatera l ears 50630006774 06426 Active 2020 Otorrhea , bilatera l; Note: Date Diagnose d: 12/31/19 21 3:10 PM (H92.13) Not Available [facility] 4 02:42:48 Orophary ngeal dysphagi a 09358855 Active 2022 Dysphagi a, orophary ngeal phase; Note: Date Diagnose d: 3 12:23 PM (R13.12) Not Available [facility] 4 02:42:54 Otalgia of right ear 8160851143 Active 2017 Otalgia, right ear; Note: Date Diagnose d: 03/16/2017 3:31 PM (H92.01) Not Available [facility] 4 02:42:48 Spasm 13922089 Active 2022 Cramp and spasm; Note: Date Diagnose d: 3 12:47 PM (R25.2) Not Available [facility] 4 02:42:55 Total perforat ion of bilatera l tympanic membrane s 43745652825 89564 Active 2018 Total perforat ions of tympanic membrane , bilatera l; Note: Date Diagnose d: 09/21/2018 1:53 PM (H72.823 ) Not Available [facility] 4 02:42:47 History of malignan t neoplasm of oral cavity 903240191 Active 2014 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, oral cavity, and pharynx; Note: Date Diagnose d: 5 3:18 PM (Z85.818 ) [mapped from ICD9 code: V10.02] Not Available [facility] 4 02:42:46 Acute upper respirat ory infectio n 15480823 Active 2018 Acute upper respirat ory infectio n, unspecif ied; Note: Date Diagnose d: 06/20/2018 2:59 PM (J06.9) Not Available [facility] 4 02:42:54 Mixed conducti ve and sensorin eural hearing loss, bilatera l 796452744 Active 2014 Mixed HL, bilatera l; Note: Date Diagnose d: 5 4:52 PM (389.22) ; Start Date : 09/11/19 15 Mixed conducti ve and sensorin eural hearing loss, bilatera l; Note: Date Diagnose d: 5 3:18 PM (H90.6) [mapped from ICD9 code: 389.22] Not Available [facility] 4 02:42:50 Acute sialoade nitis 364117107 Active 2017 Acute sialoade nitis; Location : left Not e: Changed from K11.2 to K11.21 ( 9 12:00 PM) , Date Diagnose d: 8 11:32 AM (K11.2) Not Available [facility] 4 02:42:45 Disturba nce of salivary secretio n 52629843 Active 2018 Xerostom ia; Note: Date Diagnose d: 06/20/2018 3:00 PM (K11.7) Not Available [facility] 4 02:42:53 Posterio r rhinorrh ea 38477630 Active 2017 Postnasa l drip; Note: Date Diagnose d: 8 2:30 PM (R09.82) Not Available [facility] 4 02:42:51 Disorder of right tympanic membrane 22536786200 50760 Active 2018 Other specifie d disorder s of tympanic membrane , right ear; Note: Date Diagnose d: 06/20/2018 3:01 PM (H73.891 ) Not Available [facility] 4 02:42:49 Bilatera l temporom andibula r joint pain 10694399537 567742 Active 2017 Arthralg ia of bilatera l temporom andibula r joint; Note: Date Diagnose d: 8 2:30 PM (M26.623 ) Not Available [facility] 4 02:42:52 Pharynge al dysphagi a 11316454417 105 Active 2022 Dysphagi a, pharynge al phase; Note: Date Diagnose d: 06/20/2022 1:26 PM (R13.13) Not Available [facility] 4 02:42:55 Otorrhea of right ear 76927565387 78659 Active 2021 Otorrhea , right ear; Note: Date Diagnose d: 03/18/2021 2:44 PM (H92.11) Not Available [facility] 4 02:42:51 Chronic nasophar yngitis 72311958 Active 2014 Nasophar yngitis, chronic; Note: Date Diagnose d: 5 5:06 PM (472.2) ; Start Date : 03/05/19 15 Chron ic nasophar yngitis; Note: Date Diagnose d: 5 3:18 PM (J31.1) [mapped from ICD9 code: 472.2] Not Available [facility] 4 02:42:54 Central perforat ion of left tympanic membrane 17240159839 94803 Active 2021 Central perforat ion of tympanic membrane , left ear; Note: Date Diagnose d: 06/21/2021 9:07 AM (H72.02) Not Available [facility] 4 02:42:45 Perforat ion of left tympanic membrane 04358918205 32237 Active 2017 Unspecif ied perforat ion of tympanic membrane , left ear; Note: Date Diagnose d: 8 1:49 PM (H72.92) Not Available [facility] 4 02:42:52 Otorrhea of left ear 14511045110 78198 Completed 202009/15/2023 Otorrhea , left ear; Note: Date Diagnose d: 1 2:55 PM (H92.12) Otorrh ea, left ear; Note: Date Diagnose d: 01/01/20 15 2:47 PM (H92.12) ; Start Date : 01/01/20 Not Available [facility] 4 02:42:46 Acute maxillar y sinusiti s 84941964 Active 2023 Acute maxillar y sinusiti s, unspecif ied; Note: Date Diagnose d: 4 1:35 PM (J01.00) Not Available [facility] 4 02:42:53 Gastroes ophageal reflux disease without esophagi tis 902533133 Active 2023 AMY CARREON MD [address] [place] [address],[place] [address], [place], [address] , [facility] 4 10:25:31 Acute myringit is of left ear 52519884583 44897 Active 2023 AMY CARREON MD [address] [place] [address],[place] [address], [place], [address] , [facility] 4 10:27:39 Problem Notes None recorded. Procedures Surgical History Date Name Laterality Status Provider Name and Address Organization Details Recorded Time 12/04/19 Fiberoptic Laryngoscopy (Comprehensive) completed AMY HENDRICKS MD [address] [place] [address],[address], [address], [facility] 12/04/2023 10:27:59 repair of cleft lip completed AMY HENDRICKS MD [address] [place] [address],[place] [address], [place], [address], [facility] 12/03/2023 20:05:01 repair of cleft palate completed AMY HENDRICKS MD [address] [address], [place], [address], [facility] 12/03/2023 20:05:13 Imaging Results None recorded. Procedure Notes None recorded. Medical Equipment None Reported. Allergies Allergen ID Allergen Name Allergen Category Reaction Reaction Severity Criticality Documentation Date Start Date Code Code System Note Provider Name and Address Organization Details Recorded Time 758960 tree and shrub pollen environme nt,medica tion eye redness Not available Not available 03/05/20242009 72165 UNK Mari cisse [facility] 09:07:54 Medications Name Sig Start Date Stop Date Status Note LastModified by Organization Details LastModified Time clotrimaz ole 10 mg yonas 1 yonas five times a day 12/30 completed Medicati on ID: 917669 D uration Value: 7 Brand Name: clotrima zole Sen d Method: E-Prescr ibed Sub s Allowed: subs OK Medic ationGen ericName : clotrima zole Not Available Not Available Not Available Augmentin 875 mg-125 mg tablet 1 tablet by mouth 12/03 completed Medicati on ID: 674369 D uration Value: 10 Prescri bed By [...] mg tablet 10/11 completed Medicati on ID: 713471 B rand Name: heathersarta n Send Method: [...] mg tablet 01/25 completed Medicati on ID: 881995 D uration Value: 7 Reason: () Brand [...] a day 10/11 completed Medicati on ID: 248284 D uration Value: 10 Prescri bed By Name: Danuta Martínez nd Name: doxycycl ine monohydr ate Send Method: E-Prescr ibed Sub s Allowed: subs OK Medic ationGen ericName : doxycycl ine monohydr ate Not Available Not Available Not Available clotrimaz ole 1 % topical solution 12/03 completed Medicati on ID: 711511 D uration Value: 14 Brand Name: denise cabrales Method: E-Prescr ibed Sub s Allowed: subs OK Speci al Instruct ion: 5 drops to the affected ear twice a day X 14 days [facility] me: clotrima zole Not Available Not Available Not Available amoxicill in 250 mg capsule TAKE 1 CAPSULE BY MOUTH THREE TIMES A DAY 12/03 completed Not Available Not Available Not Available Ativan 0.5 mg tablet 1 tablet by mouth 12/03 completed Medicati on ID: 678007 D uration Value: 1 Prescri bed By [...] both nostrils 2016 active Medicati on ID: 375141 D uration Value: 120 Prescri bed By [...] mg tablet 10/11 completed Medicati on ID: 17161 Br and Name: naproxen Send Method: E-Prescr [...] Vitamin D 2015 active Medicati on ID: 351051 B rand Name: Vitamin D Send Method: E-Prescr ibed Sub s Allowed: subs OK Medic ationGen ericName : Vitamin D Not Available Not Available Not Available melatonin 10 mg tablet 12/03 completed Medicati on ID: 14686 Br and Name: surya bettencourt Send Method: E-Prescr ibed Sub s Allowed: subs OK Medic ationGen ericName : melatoni n Not Available Not Available Not Available Vitals Date Recorded Body height Body mass index (BMI) Body weight Provider Name and Address Organization Details Last Updated DateTime 12/04/2023 154.94 cm 30.8 kg/m2 53241.56 g Catrachita Bridges [place] - [facility] 12/04/2023 10:11:21 Date Recorded Body height Body weight Provider Name and Address Organization Details Last Updated DateTime 03/05/2024 154.94 cm 56636.56 g Mari Garcia [place] [facility] 03/05/2024 09:07:36 Social History None recorded. [...] Dementia N Nasal polyps N Asthma N High Cholesterol N Sleep Disorder N GERD/Reflux Y Liver Disease N Headaches Y Fibromyalgia N Hypertension Y Speech Delay N Kidney Disease N Gynecological HistoryNo gynecological history recorded. Obstetrics History GPAL:G 0 P 0 0 0 0 Past Encounters Encounter ID Performer Location Encounter Start Date Encounter Closed Date Diagnosis/Indication Diagnosis SNOMED-CT Code Diagnosis ICD10 Code Diagnosis Note [id number] AMY CARREON MD [facility] [address] [place] [address] 12/04/2023 09:56:12 12/04/2023 10:39:47 History of malignant neoplasm of digestive organ 4929211796 5192317 Z85.00 Gastroesop hageal reflux disease without esophagitis 198624564 K21.9 Consider GI eval. She will discuss with PCP Central pe rforation of left tympanic membrane 3913012601 476426 H72.02 Acute myri ngitis of left ear 4287906931 019998 H73.002 [id number] AMY CARREON MD [facility] [address] [place] [address] 03/05/2024 09:02:35 03/05/2024 09:35:07 Acute maxillary sinusitis 24857756 J01.00 Health Concerns Section Related Observation LastModified by Organization Detai ls LastModified Time None Recorded Concern Status LastModified by Organization Details LastModified Time None Recorded Advance Directives Directive None Recorded Payers Encounter Date Sequence Insurance Name Policy Number Policy Cervantes Covered Member ID Cervantes Member ID Guarantor Name 12/04/2023 1 [facility] (MEDICARE REPLACEMENT/ ADVANTAGE - PPO) [id number] 1 Rashida Owusu Myranda [id number] Rashida Whitmore 03/05/2024 1 [facility] (MEDICARE REPLACEMENT/ ADVANTAGE - PPO) [id number] Rashida G G [place] [id number] Rashida Owusu Myranda Notes Date Note Type [...] every other day AMY HENDRICKS MD [address], [address], [place] - [facility] 12/04/2023 10:33:22 03/05/2024 text/html 68-year-old reid [...] not relieve symptoms. AMY HENDRICKS MD [address],[facility] [address], [place], [address], [facility] - [facility] 03/05/2024 12:20:10 OBGyn Episode No OBEpisode recorded.
--- OUTSIDE RECORDS SUMMARY | 2024-05-28 16:39 | XMS_ITS | Encounter Summary ---
Author Organization [facility] Address [address] [place] [address] Care Team Providers Care Machinist Mechanic Name Role Phone Barak Blevins MD Primary Care Provider [phone] [facility], Pcp Primary Care Provider Unavailabl e Encounter Details Date Type Department Care Team Description 07/02/2021 Orders Only Adult Medicine - [place] [address] [place] [address] Darwin Thornton PA-C [address] [place] [address] Hypokalemia (Primary Dx) Social History Tobacco Use [...] 04/10/2023 How often do you attend [facility] or taoism services? Not asked Do you belong to any clubs o r organizations such as quaker groups, unions, fraternal or athletic groups, or [...] place to sleep or slept in a mcfp (including now)? No 04/10/2023 Sex Assigned at [...] FUNCTION PANEL (07/08/2021 3:15 PM EDT) Pathologist [facility] GLUCOSE 111(H) 70 - 100 mg/dL 07/08/2021 5:58 PM EDT [facility] Comment:Reference range appl icable to fasting specimens only Blood Urea Nitrogen 13 5 - 25 mg/dL 07/08/2021 5:58 PM EDT [facility] CREAT 0.60 0.5 - 1.1 mg/dL 07/08/2021 5:58 PM EDT [facility] GLOMERULAR FILTRATION RATE > 60 07/08/2021 5:58 PM EDT [facility] Comment: If patient is -Niuean, multiply result by 1.21 Chronic Kidney Disease: [...] Darwin Thornton PA-C LAB Performing Organization Address City/State/[facility] Co de Phone Number [facility] documented in this encounter Visit Diagnoses Diagnosis Hypokalemia- Primary Hypopotassemia Hypokalemia Hypopotassemia documented in this encounter Care Teams Machinist Mechanic Relationship Specialty Start Date End Date Barak Blevins MD [address] [place] [address] PCP - General Internal Medicine 07/15/20 10/23/23 [facility], Pcp [address] [place] [address] PCP - General Internal Medicine 10/24/23 documented as of this encounter
--- OUTSIDE RECORDS SUMMARY | 2024-05-28 16:39 | XMS_ITS | Encounter Summary ---
Author Organization [facility] Address [address] [place] [address] Care Team Providers Care Fashion Model Name Role Phone Barak Blevins MD Primary Care Provider [phone] [facility], Pcp Primary Care Provider Unavailabl e Encounter Details Date Type Department Care Team Description 04/29/2021 Release of Information Medical Records [address] [place] [address] [facility] Social History Tobacco Use Types Packs/Day Years [...] week 04/10/2023 How often do you attend [facility] or rastafarian services? Not asked Do you belong to any clubs o r organizations such as orthodox groups, unions, fraternal or athletic groups, or [...] have Coronavirus / COVID-19? No / Unsure 04/19/2021 8:44 AM EST documented as of this encounter Plan of Treatment Not on file documented as of this encounter Visit Diagnoses Not on filedocumented in this encounter Care Teams Fashion Model Relationship Specialty Start Date End Date Barak Blevins, [address] [place] [address] PCP - General Internal Medicine 07/15/20 10/23/23 [facility], Pcp [address] [place] [address] PCP - General Internal Medicine 10/24/23 documented as of this encounter
--- OUTSIDE RECORDS SUMMARY | 2024-05-28 16:39 | XMS_ITS | Encounter Summary ---
Author Organization [facility] Address [address] [place] [address] Care Team Providers Care Field Mechanical Meter Tester Name Role Phone Marilynn-Angelica Altamirano MD Primary Care Provider Unavailable Barak Blevins MD Primary Care Provider [phone] [facility], Pcp [facility] Encounter Details Date Type Department Care Team Description 03/27/2018 Senior Web Designer Report Medical Records [address] [place] [address] Gerry Monahan MD Social History Tobacco Use [...] often do you attend chur ch or anglican services? Not asked Do you belong to any clubs o r organizations such as jain groups, unions, fraternal or athletic groups, or [...] place to sleep or slept in a retirement (including now)? No 04/10/2023 Sex Assigned at Date Recorded Female 05/24/2021 12:24 PM EDT Job Start Date Occupation Industry Not on file Not on file Not on file documented as of this encounter Plan of Treatment Not on file documented as of this encounter Visit Diagnoses Not on filedocumented in this encounter Care Teams Field Mechanical Meter Tester Relationship Specialty Start Date End Date Marilynn-Angelica Altamirano MD PCP - General Internal Medicine 01/19/1707/14/20 Barak Blevins MD [address] [place] [address] PCP - General Internal Medicine 07/15/20 10/23/23 [facility], [facility] [address] [place] [address] PCP - General Internal Medicine 10/24/23 documented as of this encounter
--- OUTSIDE RECORDS SUMMARY | 2024-05-28 16:39 | XMS_ITS | Encounter Summary ---
Author Organization [facility] Address [address] [place] [address] Care Team Providers Care Geospatial Program Management Officer Name Role Phone Marilynn-Angelica Altamirano MD Primary Care Provider Unavailable Barak Blevins MD Primary Care Provider [phone] [phone] [facility], Pcp Primary Care Provider [facility] health e Encounter Details Date Type Department Care Team Description 04/14/2017 Orders Only Medical Records [address] [place] [address] Abstract, Provider Social History Tobacco Use Types Packs/Day Years Used Date Smoking Tobacco: Former Cigarettes Comments:quit 8 years ago Alcohol Habits Answer [...] often do you attend chur ch or zoroastrianism services? Not asked Do you belong to any clubs o r organizations such as rastafarian groups, unions, fraternal or athletic groups, or [...] Name Priority Date/Time Associated Diagnosis Comments OUTSIDE EKG Routine 06/16/2016 documented in this encounter Results * OUTSIDE EKG (06/16/2016) Provider Abstract CARDIOLOGY documented in this encounter Visit Diagnoses Not on filedocumented in this encounter Care Teams Geospatial Program Management Officer Relationship Specialty Start Date End Date Marilynn-Angelica Altamirano MD PCP - General Internal Medicine 01/19/1707/14/20 Barak Blevins MD [address] [place] [address] PCP - General Internal Medicine 07/15/20 10/23/23 [facility], [facility] [address] [place] [address] PCP - General Internal Medicine 10/24/23 documented as of this encounter
--- OUTSIDE RECORDS SUMMARY | 2024-05-28 16:39 | XMS_ITS | Clinical Summary ---
Author Organization [facility] Address [address] [place] [address] Care Team Providers Care Assorter Laundry Name Role Phone Jonny Llanes MD Primary Care Provider + Allergies No known active allergies Medications Medication Sig Dispensed Refills Start Date End Date Status Multiple Vitamin (MULTI VITAMIN PO) Take by mouth. 0 Ac tive Lxktxzk-Qidaphqsf-Cgyk min D (CALCIUM 500 PO) Take by [...] needed for pain. 0 Active nystatin (MYCOSTATIN) 126468 UNIT/ML suspension Take 5 mL (500,000 Units [...] age to complete this topic Care Teams Assorter Laundry Relationship Specialty Start Date End Date Jonny Llanes MD [address] [place] [address] PCP - General Otolaryngology 10/02/18
--- OUTSIDE RECORDS SUMMARY | 2024-05-28 16:39 | XMS_ITS | Encounter Summary ---
Author Organization [facility] Address [address] [place] [address] Care Team Providers Care Billet Recorder Name Role Phone Marilynn-Angelica Altamirano MD Primary Care Provider Unavailable Barak Blevins MD Primary Care Provider [phone] [phone] [facility], Pcp Primary Care Provider [facility] Reason for Visit * Reason Onset Date Comments Orders Call 06/07/2018 Encounter Details Date Type Department Care Team Description 06/07/2018 Telephone Adult [facility] [address] [place] [address] Laly Miller PA-C [address] [place] [address] Orders Call Social History Tobacco Use Types [...] you attend [facility] or jewish services? Not asked Do you belong to any clubs o r organizations such as lutheran groups, unions, fraternal or athletic groups, or [...] 10:02 AM EDT Signed will fax to [facility] * Telephone Encounter - Zo Smith - 06/07/2018 10:00 AM EDT Pt would like to have her Bone Density done at [facility]. Please place an external order. Thank you. documented in this encounter Plan of Treatment Not on file documented as of this encounter Visit Diagnoses Diagnosis Osteopenia, unspecified location- Primary documented in this encounter Care Teams Billet Recorder Relationship Specialty Start Date End Date [place]comb-Angelica Altamirano MD PCP - General Internal Medicine 01/19/1707/14/20 Barak Blevins MD [address] [place] [address] PCP - General Internal Medicine 07/15/20 10/23/23 [facility], [facility] [address] [place] [address] PCP - General Internal Medicine 10/24/23 documented as of this encounter
--- OUTSIDE RECORDS SUMMARY | 2024-05-28 16:39 | XMS_ITS | Encounter Summary ---
Author Organization [facility] Address [address] [place] [address] Care Team Providers Care Lead Enterprise Architect Name Role Phone Barak Blevins MD Primary Care Provider [phone] [phone] [facility], Pcp Primary Care Provider Unavailabl e Reason for Visit * Reason Comments E-prescribe Rx Request Encounter Details Date Type Department Care Team Description 08/29/2021 Refill Adult Medicine - [place] [address] [place] [address] Darwin Thornton PA-C [address] [place] [address] E-prescribe Rx Request Social History Tobacco Use [...] often do you attend [facility] or holiness services? Not asked Do you belong to [...] place to sleep or slept in a fpc (including now)? No 04/10/2023 Sex Assigned at Date Recorded Female 05/24/2021 12:24 PM EDT Job Start Date Occupation Industry Not on file Not on file Not on file COVID-19 Exposure Response Date Recorded In the last 10 days, have yo u been in contact with someone who was confirmed or suspected to have Coronavirus/COVID-19? No / Unsure 08/31/2021 2:46 PM EDT documented as of this encounter Plan of Treatment Not on file documented as of this encounter Visit Diagnoses Diagnosis Essential hypertension Unspecified essential hypertension documented in this encounter Care Teams Lead Enterprise Architect Relationship Specialty Start Date End Date Barak Blevins MD [address] [place] [address] PCP - General Internal Medicine 07/15/20 10/23/23 [facility], Pcp [address] [place] [address] PCP - General Internal Medicine 10/24/23 documented as of this encounter
--- OUTSIDE RECORDS SUMMARY | 2024-05-28 16:39 | XMS_ITS | Encounter Summary ---
Author Organization [facility] Address [address] [place] [address] Care Team Providers Care Realtime Court Reporter Name Role Phone Barak Blevins MD Primary Care Provider [phone] [phone] [facility], Pcp Primary Care Provider Unavailabl e Encounter Details Date Type Department Care Team Description 11/22/2022 Orders Only Medical Records [address] [place] [address] Barak Blevins, [address] [place] [address] Social History Tobacco Use Types Packs/Day Years [...] week 04/10/2023 How often do you attend [facility] or catholic services? Not asked Do you belong to [...] place to sleep or slept in a intermediate (including now)? No 04/10/2023 Sex Assigned at Date Recorded Female 05/24/2021 12:24 PM EDT Job Start Date Occupation Industry Not on file Not on file Not on file documented as of this encounter Plan of Treatment Not on file documented as of this encounter Procedures Procedure Name Priority Date/Time Associated Diagnosis Comments OUTSIDE MAMMO Routine 11/21/2022 documented in this encounter Results * OUTSIDE MAMMO (11/21/2022) Barak Blevins MD RADIOLOGY documented in this encounter Visit Diagnoses Not on filedocumented in this encounter Care Teams Realtime Court Reporter Relationship Specialty Start Date End Date Barak Blevins MD [address] [place], [place] [id number] PCP - General Internal Medicine 07/15/20 10/23/23 [facility], Pcp [address] [place] [address] PCP - General Internal Medicine 10/24/23 documented as of this encounter"
--- OUTSIDE RECORDS SUMMARY | 2024-05-28 16:39 | XMS_ITS | Encounter Summary ---
Author Organization [facility] Address [address] [place] [address] Care Team Providers Care Chute Man Name Role Phone Angelica Estevez MD Primary Care Provider Unavailable Barak Blevins MD Primary Care Provider [phone] [phone] [facility], Pcp Primary Care [facility] Reason for Visit * Reason Onset Date Comments Orders Call 06/06/2017 Encounter Details Date Type Department Care Team Description 06/06/2017 Telephone Adult [address] [address] Agnelica Estevez MD Orders Call Social History Tobacco Use Types [...] 04/10/2023 How often do you attend chur or rastafarian services? Not asked Do you belong to any clubs o r organizations such as congregational groups, unions, fraternal or athletic groups, or [...] place to sleep or slept in a alf (including now)? No 04/10/2023 Sex Assigned at Date Recorded Female 05/24/2021 12:24 PM EDT Job Start Date Occupation Industry Not on file Not on file Not on file documented as of this encounter Miscellaneous Notes * Telephone Encounter - Angelica Estevez MD - 06/06/2017 11:47 AM EDT Signed * Telephone Encounter - Bladimir Kennedy M.A. - 06/06/2017 9:50 AM EDT Mammo pended. * Telephone Encounter - Mayda Ren - 06/06/2017 9:31 AM EDT Pt needs order for mammogram she has on 06/09/17 documented in this encounter Plan of Treatment Not on file documented as of this encounter Visit Diagnoses Diagnosis Screening breast examination- Primary Other screening breast examination documented in this encounter Care Teams Chute Man Relationship Specialty Start Date End Date Angelica Estevez MD PCP - General Internal Medicine 01/19/1707/14/20 Barak Blevins MD [address] [place] [address] PCP - General Internal Medicine 07/15/20 10/23/23 [facility], [facility] [address] [place] [address] PCP - General Internal Medicine 10/24/23 documented as of this encounter
--- OUTSIDE RECORDS SUMMARY | 2024-05-28 16:39 | XMS_ITS | Encounter Summary ---
Author Organization [facility] Address [address] [place] [address] Care Team Providers Care Supercharger Repair Supervisor Name Role Phone Marilynn-Angelica Altamirano MD Primary Care Provider Unavailable Barak Blevins MD Primary Care Provider [phone] [phone] [facility], Pcp [facility] Encounter Details Date Type Department Care Team Description 11/16/2017 Telephone Adult [facility] [address] [place] [address] Laly Miller PA-C [address] [place] [address] Social History Tobacco Use Types Packs/Day Years [...] week 04/10/2023 How often do you attend [facility] or yazidi services? Not asked Do you belong to any clubs o r organizations such as adventist groups, unions, fraternal or athletic groups, or [...] Telephone Encounter - Arielle Pryor M.A. - 11/16/2017 11:14 AM EDT Pt called back was able to see FREDDIE Guevara at the office yesterday. * Telephone Encounter - Arielle Pryor M.A. - 11/16/2017 11:00 AM EDT Called and left message to return call. * Telephone Encounter - Laly Miller PA-C - 11/16/2017 10:10 AM EDT Please call patient and see if she was able to see ENT? documented in this encounter Plan of Treatment Not on file documented as of this encounter Visit Diagnoses Not on filedocumented in this encounter Care Teams Supercharger Repair Supervisor Relationship Specialty Start Date End Date [place]-Angelica Altamirano MD PCP - General Internal Medicine 01/19/1707/14/20 Barak Blevins MD [address] [place] [address] PCP - General Internal Medicine 07/15/20 10/23/23 [facility], [facility] [address] [place] [address] PCP - General Internal Medicine 10/24/23 documented as of this encounter
--- OUTSIDE RECORDS SUMMARY | 2024-05-28 16:39 | XMS_ITS | Encounter Summary ---
Author Organization [facility] Address [address] [place] [address] Care Team Providers Care Clam Dredge Boat Captain Name Role Phone Marilynn-Angelica Altamirano MD Primary Care Provider Unavailable Barak Blevins MD Primary Care Provider [phone] [phone] [facility], Pcp Primary Care [facility] Encounter Details Date Type Department Care Team Description 02/09/2017 Release of Information Medical Records [address] [place] [id number] Abstract, Provider Social History Tobacco Use Types [...] often do you attend chur ch or quaker services? Not asked Do you belong to [...] on filedocumented in this encounter Care Teams Clam Dredge Boat Captain Relationship Specialty Start Date End Date Marilynn-Angelica Altamirano MD PCP - General Internal Medicine 01/19/1707/14/20 Barak Blevins MD [address] [place] [address] PCP - General Internal Medicine 07/15/20 10/23/23 [facility], [address] [address] PCP - General Internal Medicine 10/24/23 documented as of this encounter
--- OUTSIDE RECORDS SUMMARY | 2024-05-28 16:39 | XMS_ITS | Clinical Summary ---
Author Organization [facility] Address [address] [place] [address] Care Team Providers Care Research Development Director Name Role Phone [facility], Pcp Primary Care [...] 02/201604/08/2017 Colon cancer screening 04/08/2017 Overview: Dr aguilar, 03/2011, due in 03/2019 Chronic rhinitis 02/22/2017 [...] week 04/10/2023 How often do you attend [facility] or hinduism services? Not asked Do you belong to [...] 9, 08/31/2018, 03/01/2016 Covid-19 Vaccine (4 - 3-2 4 season) 2023 02/04/2021, 03/11/2020, 02/12/2020 MAMMOGRAM 11/22/2023 11/21/2022, 09/13, 08/31/2018, Additional history exists BMI CHECK/ADVISE 02/14/2024 04/10/2023, (Completed), 04/19/2021, Additional history exists INFLUENZA (Season Ended) 2024 022, 11/02/2017, 11/02/2017 (Completed) DTAP/TDAP/TD (2 - Td or Tdap) 03/23/2028 03/23/2018 CHOLESTEROL SCREENING 04/10/2028 04/10/2023 , 10/20/2021, 10/20/2021, Additional history exists HEPATITIS C SCREENING Completed 03/23/2018 PNEUMOCOCCAL VACCINE Completed 04/10/2023 Care Teams Research Development Director Relationship Specialty Start Date End Date [facility], Pcp PCP - General Internal Medicine 10/24/23
--- OUTSIDE RECORDS SUMMARY | 2024-05-28 16:39 | XMS_ITS | Encounter Summary ---
Author Organization [facility] Address [address] [place] [address] Care Team Providers Care Pl Sql Programmer Name Role Phone Barak Blevins MD Primary Care Provider [phone] [phone] [facility], Pcp Primary Care Provider Unavailabl e Encounter Details Date Type Department Care Team Description 10/04/2021 Pt. Non Urgent Medic al Question Adult Medicine - [place] [address] [place] [address] Darwin Thornton PA-C [address] [place] [address] Social History Tobacco Use Types Packs/Day Years [...] often do you attend [facility] or adventism services? Not asked Do you belong to any clubs o r organizations such as restorationism groups, unions, fraternal or athletic groups, or [...] was diagnosed wth shingles on Sat at [facility]. I have the rash on [...] on filedocumented in this encounter Care Teams Pl Sql Programmer Relationship Specialty Start Date End Date Barak Blevins MD [address] [place] [address] PCP - General Internal Medicine 07/15/20 10/23/23 [facility], Pcp [address] [place] [address] PCP - General Internal Medicine 10/24/23 documented as of this encounter
--- OUTSIDE RECORDS SUMMARY | 2024-05-28 16:39 | XMS_ITS | Encounter Summary ---
Author Organization [facility] Address [address] [place] [address] Care Team Providers Care Pulp Plant Supervisor Name Role Phone Barak Blevins MD Primary Care Provider [phone] [phone] [facility], Pcp Primary Care Provider Unavailabl e Encounter Details Date Type Department Care Team Description 11/02/2020 Pt. Non Urgent Medic al Question Adult Medicine - [address] [address] Sobeida Sanders PA-C Social History Tobacco Use [...] often do you attend chur ch or adventism services? Not asked Do you belong to any clubs o r organizations such as yazidism groups, unions, fraternal or athletic groups, or [...] on filedocumented in this encounter Care Teams Pulp Plant Supervisor Relationship Specialty Start Date End Date Barak Blevins MD [address] [place] [address] PCP - General Internal Medicine 07/15/20 10/23/23 [facility], Pcp [address] [place] [address] PCP - General Internal Medicine 10/24/23 documented as of this encounter
--- OUTSIDE RECORDS SUMMARY | 2024-05-28 16:39 | XMS_ITS | Encounter Summary ---
Author Organization [facility] Address [address] [place] [address] Care Team Providers Care Laryngologist Name Role Phone Barak Blevins MD Primary Care Provider [phone] [phone] [facility], Pcp Primary Care Provider Unavailabl e Encounter Details Date Type Department Care Team Description 03/31/2023 Pt. Non Urgent Medical Question Hypertension - [place] [address] [place] [address] Velma Okeefe, Pharm.D Social History Tobacco Use [...] any clubs o r organizations such as episcopalian groups, unions, fraternal or athletic groups, or [...] encounter Miscellaneous Notes * Telephone Encounter - Velma Okeefe Pharm.D - 04/05/2023 8:32 AM ESTFrom: Rashida Whitmore To: Velma Okeefe Pharm.D Sent: 03/31/2023 10:34 AM EST Subject: Nifedepine Hi i am taking the nefedipine daily for 6 days and am experiencing tingling burnng in feet and hands. My hands swell alot and turn red periodically thoughout the day also some nausea and fatigue. Will the burning pins and needles go away? Dario also taking diuretic 2x daily Thank you Rashida Whitmore documented in this encounter Plan of Treatment Not on file documented as of this encounter Visit Diagnoses Not on filedocumented in this encounter Care Teams Laryngologist Relationship Specialty Start Date End Date Barak Blevins MD [address] [place] [address] PCP - General Internal Medicine 07/15/20 10/23/23 [facility], Pcp [address] [place] [address] PCP - General Internal Medicine 10/24/23 documented as of this encounter
--- OUTSIDE RECORDS SUMMARY | 2024-05-28 16:39 | XMS_ITS | Encounter Summary ---
Author Organization [facility] Address [address] [place] [address] Care Team Providers Care Division Sales Manager Name Role Phone Marilynn-Angelica Altamirano MD Primary Care Provider Unavailable Barak Blevins MD Primary Care Provider [phone] [phone] [facility], Pcp Primary Care Provider Unavailmulticare health e Encounter Details Date Type Department Care Team Description 08/10/2018 Telephone Adult [facility] [address] [place] [address] Laly Miller PA-C [address] [place] [address] Social History Tobacco Use Types Packs/Day Years [...] week 04/10/2023 How often do you attend [facility] or jehovah's witness services? Not asked Do you belong to any clubs o r organizations such as scientologist groups, unions, fraternal or athletic groups, or [...] encounter Miscellaneous Notes * Telephone Encounter - Paty Woods M.A. - 08/13/2018 2:23 PM EDT Awaiting call back from pt * Telephone Encounter - Laly Miller PA-C - 08/10/2018 5:27 PM EDT Patient sent fax to office with message stating she tried calling 2x on Monday and Monday and no answer. She reports having issues with the lisinopril 10mg. States that it is giving her stomach issues and she wants to split the tabs into 5mg and take it like that instead. I did call patient and left a voice mail. It would be better to probably try a different medication instead, however can see how patients blood pressure is. She has appt on August 23. Advised patient to call me back documented in this encounter Plan of Treatment Not on file documented as of this encounter Visit Diagnoses Not on filedocumented in this encounter Care Teams Division Sales Manager Relationship Specialty Start Date End Date [place]-Angelica Altamirano MD PCP - General Internal Medicine 01/19/1707/14/20 Barak Blevins MD [facility] [place] [address] PCP - General Internal Medicine 07/15/20 10/23/23 [facility], Pcp [address] [place] [address] PCP - General Internal Medicine 10/24/23 documented as of this encounter
--- OUTSIDE RECORDS SUMMARY | 2024-05-28 16:39 | XMS_ITS | Encounter Summary ---
Author Organization [facility] Address [address] [place] [address] Care Team Providers Care Ceiling Insulation Blower Name Role Phone Marilynn-Angelica Altamirano MD Primary Care Provider Unavailable Barak Blevins MD Primary Care Provider [phone] [phone] [facility], Pcp Primary Care [facility] Encounter Details Date Type Department Care Team Description 03/06/2018 Crown Perforator Operator Report Medical Records [address] [place] [address] Gerry Monahan MD Social History Tobacco Use [...] often do you attend chur ch or gnosticist services? Not asked Do you belong to [...] place to sleep or slept in a group home (including now)? No 04/10/2023 Sex Assigned at Date Recorded Female 05/24/2021 12:24 PM EDT Job Start Date Occupation Industry Not on file Not on file Not on file documented as of this encounter Plan of Treatment Not on file documented as of this encounter Visit Diagnoses Not on filedocumented in this encounter Care Teams Ceiling Insulation Blower Relationship Specialty Start Date End Date Marilynn-Angelica Altamirano MD PCP - General Internal Medicine 01/19/1707/14/20 Barak Blevins MD [address] [place] [address] PCP - General Internal Medicine 07/15/20 10/23/23 [facility], [facility] [address] [place] [address] PCP - General Internal Medicine 10/24/23 documented as of this encounter
--- OUTSIDE RECORDS SUMMARY | 2024-05-28 16:39 | XMS_ITS | Encounter Summary ---
Author Organization [facility] Address [address] [place] [address] Care Team Providers Care Lanolin Plant Operator Name Role Phone Barak Blevins MD Primary Care Provider [phone] [phone] [facility], Pcp Primary Care Provider Unavailabl e Encounter Details Date Type Department Care Team Description 02/24/2023 Pt. Non Urgent Medical Question Hypertension - [place] [address] [place] [address] Velma Okeefe, Pharm.D Social History Tobacco Use [...] any clubs o r organizations such as sabianism groups, unions, fraternal or athletic groups, or [...] encounter Miscellaneous Notes * Telephone Encounter - Ant Wilson.D - 03/01/2023 8:51 AM ESTFrom: Rashida Whitmore To: Ant Wilson.D Sent: 02/24/2023 8:02 AM EST Subject: medication Hello Dr. Okeefe I have a question regarding medication for to treat my curent sinus/ear infections and sore throat.I called [facility] with symptoms including fever was prescribed Amoxicillin 50mg 3x daily for 10 daysand prednisone 10mg 3xdaily for 3 days, 2x daily for 3 days then 1 for 6 days. I am asking if I should keep taking the diuretic too ? The new bp med you prescibed I did not start yet as of extreme stress all of January , in the family, lost job and caretaking to my mom. Right now been having heart palpitaions and night sweats sinus are beginning to clear lots of coughing. I will jaja scheduling the next visit to have time to rest . Currently my bp is 132/97 81 Please let me know about the diruretic . kaylene ne [phone] thank you Rashida Whitmore documented in this encounter Plan of Treatment Not on file documented as of this encounter Visit Diagnoses Not on filedocumented in this encounter Care Teams Lanolin Plant Operator Relationship Specialty Start Date End Date Barak Blevins MD [address] [place] [address] PCP - General Internal Medicine 07/15/20 10/23/23 [facility], Pcp [address] [place] [address] PCP - General Internal Medicine 10/24/23 documented as of this encounter
--- OUTSIDE RECORDS SUMMARY | 2024-05-28 16:39 | XMS_ITS | Encounter Summary ---
Author Organization [facility] Address [address] [place] [address] Care Team Providers Care Disease Control Inspector Name Role Phone Barak Blevins MD Primary Care Provider [phone] [phone] [facility], Pcp Primary Care Provider Unavailabl e Encounter Details Date Type Department Care Team Description 09/15/2022 Orders Only Medical Records [address] [place] [address] Abstract, Provider Social History Tobacco Use Types [...] often do you attend chur ch or methodist services? Not asked Do you belong to any clubs o r organizations such as oriental orthodox groups, unions, fraternal or athletic groups, [...] on filedocumented in this encounter Care Teams Disease Control Inspector Relationship Specialty Start Date End Date Barak Blevins MD [address] [place] [address] PCP - General Internal Medicine 07/15/20 10/23/23 [facility], [facility] [address] [place] [address] PCP - General Internal Medicine 10/24/23 documented as of this encounter
== END 2024-05-28 13:34 | disposition home or self-care (01) ==
LOC: HO.MAMMO 13:33
PROVIDERS: PCP Nurse Practitioner Family; Visit Provider Nurse Practitioner Family
DX: Z12.31 Encounter for screening mammogram for malignant neoplasm of breast (principal); M81.0 Age-related osteoporosis without current pathological fracture
CPT/HCPCS: 77063; 77067; 77080

== ENCOUNTER → 2024-05-28 14:00 | Outpatient (BNV) | payer OTHER, SELFPAY | PROVIDERS: PCP Nurse Practitioner Family; Visit Provider Radiology Diagnostic Radiology | DX: E28.39 Other primary ovarian failure (principal) | CPT/HCPCS: 77080 ==

== ENCOUNTER 2024-06-24 08:57 | Outpatient (AMB) | payer OTHER, SELFPAY ==
--- NOTE | 2024-06-24 09:00 | A.OFFVIS_ITS ---
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 No complaints. Last Pap/HPV was negative 8 years ago, no records available Last Mammogram was BI-RADS 1 in 06/07 Last Colonoscopy was 8 years ago, no records available, according to the patient next screening colonoscopy is due in 2 years Last DEXA scan was osteopenia/low FRAX risk in 06/07 COUNT INCLUDES THE [facility] Medical History Hx of ectopic Tonsillar tumor Cleft palate Neuropathy Shingles Hiatal hernia Acid reflux Osteoporosis High blood pressure Sinusitis Surgical History History of salpingectomy Family History Brother Alcohol abuse FH: mental illness Mother High cholesterol Diabetes Cervical cancer Father Diabetes Cardiovascular disease Paternal Grandmother Diabetes Sister Thyroid disorder Maternal Grandfather Stomach cancer Social History Housing: House Patient Tobacco Use Status: Never used Tobacco e-Cigarette/Vaping Use: Never Used Second Hand Smoke Exposure: No service: No Current occupational status: retired Cognitive needs: No Hearing needs: Yes Vision needs: Yes Female Reproductive History Menstrual Ab induced: 2 Ectopics: 1 Date of Mammogram: 05/28/24 Date of last Bone Density Screenin05/28/24 Review of Systems Const All systems reviewed & are unremarkable except as noted in HPI and below Card Reports as per HPI Resp Reports as per HPI GI Reports as per HPI and Reports no additional complaints Reports as per HPI Physical Exam Vital Signs: BMI result Body Mass Index 29.9 Const General: cooperative, healthy appearing and comfortable Chest Chest palpation & inspection: normal inspection of the chest and normal palpation of entire chest wall Breast/axilla inspection: normal inspection of the breasts and normal inspection of the axillae Breast/axilla palpation: normal palpation of the breasts, normal palpation of the axillae and no axillary lymphadenopathy Resp Effort & Inspection: normal respiratory effort Auscultation: clear to auscultation bilaterally Percussion: percussion normal Cardio Palpation: normal PMI Rate: regular rate Rhythm: regular rhythm Heart sounds: no murmurs and no rubs Peripheral pulses: Peripheral pulses 2+ throughout GI Inspection: Yes normal to inspection Palpation (GI): Soft to palpation, nontender, no guarding, not rigid and No hepatosplenomegaly present Percussion: Yes normal to percussion Auscultation: normal bowel sounds Rectal Exam - Female: deferred General: Yes bladder normal to palpation External Female Exam: No lesion Speculum Exam - Vagina: normal appearance of the vagina, normal palpation, normal vaginal discharge and not erythematous Speculum Exam - Cervix: normal appearance of the cervix and normal palpation Bimanual exam- vagina & uterus: normal bimanual exam, normal palpation, uterine size normal, bladder normal to palpation, consistency normal and normal palpation Bimanual Exam- Adnexa, other: normal adnexae, no masses and no tenderness Assessment & Plan Assessment & Plan (1) Well woman exam: Code(s): Z01.419 - Encounter for gynecological examination (general) (routine) without abnormal findings Category: Medical Plan: Co testing not indicated since the patient 's age is above 65 with no history of abnormal Pap smears last 25 years, adequately screen for the last 10 years with no history of immunosuppression. Counseled the patient about the recommended dietary allowance of 1200 mg of Calcium & 800 IU of vitamin D. Instructions given the patient to schedule next screening Mammogram in 06/08. The patient was instructed to perform monthly self-breast exams and to schedule an annual exam in a year; All questions answered and the patient verbalized understanding. Coding Level of Care Code New Pt Prev Care >65yr (20582) Diagnoses Well woman exam Z01.419
[2024-06-24 09:02] VITALS: BMI 29.9
--- OUTSIDE RECORDS SUMMARY | 2024-06-24 09:04 | XMS_ITS | Data Portability ---
Author Organization [place] - [facility], Allergy Address [address] [place] [address] Care Team Providers Care Pharmacy Scheduler Name Role Phone ARIADNA ALEMAN Primary Care [...] for sooner evaluation. Otherwise follow-up as scheduled. [email or web address] Not available 03/05/2024 09:55:29 06/10/2024 06/10/2024 No evidence of recurrent cancer or chemical burn due to the B6 tablet. I have suggest she continue the reflux Gourmet, increase her water intake and maybe try some liquid Maalox or Mylanta in case there was a small chemical burn. I do not see any pooling in the hypopharynx. If she has persistent symptoms suggest she contact her gastroenterolog [email or web address] Not available 06/10/2024 15:28:48 Plan of Treatment Reminders Order Date Submit Date Provider Last Modified By Organization Details Last Modified Time Details Appointments Establish ed 30 2024 10:30A M AMY RHODES MD Not available Not available Not available Lab TSH + free T4, serum 2023 024 MARÍA [facility] (Centralized Electronic Ordering - All Locations), Patient Can Go To The Location Of Their Choice, [id number] 12/05/2023 08:18:28 Referral None recorded. Procedures None recorded. Surgeries None recorded. Imaging None recorded. Medication Orders doxycycli ne hyclate 100 mg tablet 2024 025 [facility]/Pharmacy #[id number], [address] [place], [address], 06/10/2024 14:55:36 ciproflox acin 0.3 %-dexamet hasone 0.1 % ear drops,rola pension 2023 025 [facility]/Pharmacy #[id number], [address] [place], [address], 03/05/2024 09:08:13 Patient TargetsNo targets recorded. Patient InstructionsNo instructions recorded. Reason for Referral None Reported. Results Created Date Observation Date Name Description Value Unit Range Abnormal Flag Note LastModifiedBy Organization Detail LastModifiedTime 12/04/1912/05/2023 TSH+F REE T4 TSH 3.880 uIU/m L 0.450- 4.500 normal Not Available [facility] ([facility]) [address], [place], [address], 12/05/2023 08:18:27 12/04/19 24 12/05/2023 TSH+F REE T4 T4,free(dire ct) 1.25 NG/dL 0.82-1 .77 normal Not Available [facility] ([facility]) [address], [place], [address], 12/05/2023 08:18:27 Result Notes None recorded. Problems Name Problem SNOMED Code Status Onset Date Resolution Date Notes Provider Name and Address Organization Details Recorded Time Impacted cerumen in right ear 62540662556 Active 2022 Impacted cerumen, right ear; Note: Date Diagnose d: 12/14/19 23 1:16 PM (H61.21) Not Available [facility] 4 02:42:54 Acute recurren t sialoade nitis 94512946911 Active 2022 Acute recurren t sialoade nitis; Note: Date Diagnose d: 06/20/2022 1:26 PM (K11.22) Not Available [facility] 4 02:42:49 Neck pain 44601538 Active 2014 Other disorder s of cervical region: Cervical eitan; Note: Date Diagnose d: 5 4:18 PM (723.1) ; Start Date : 09/11/19 15 Cervi calgia; Note: Date Diagnose d: 5 3:18 PM (M54.2) [mapped from ICD9 code: 723.1] Not Available [facility] 4 02:42:45 Oral cyst 89558898706 09742 Active 2018 Other cysts of oral region, not elsewher e classifi ed; Note: Date Diagnose d: 06/20/2018 2:59 PM (K09.8) Not Available [facility] 4 02:42:50 Chronic rhinitis 39255868 Active 2015 Chronic rhinitis ; Note: Date Diagnose d: 04/17/2015 3:09 PM (J31.0) Not Available [facility] 4 02:42:51 Conducti ve hearing loss, bilatera l 142250102 Active 2014 Conducti ve hearing loss, bilatera l; Note: Date Diagnose d: 5 5:06 PM (389.06) Not Available [facility] 4 02:42:49 Headache 34729277 Active 2018 Headache , unspecif ied; Note: Changed from R51 to R51.9 (08/13/19 10:51 AM) , Date Diagnose d: 03/21/2018 12:03 PM (R51) Not Available [facility] 4 02:42:50 Pain of right temporom andibula r joint 46068739515 673447 Active 2017 Arthralg ia of right temporom andibula r joint; Note: Date Diagnose d: 03/16/2017 3:31 PM (M26.621 ) Not Available [facility] 4 02:42:52 History of malignan t neoplasm of pharynx 30826585253 107 Active 2014 Personal history of malignan t neoplasm : Other and unspecif ied oral cavity and pharynx; Note: Date Diagnose d: 5 5:06 PM (V10.02) Not Available [facility] 4 02:42:45 Bilatera l disorder of Eustachi an tubes 66952185210 90186 Active 2018 Other specifie d disorder s of Eustachi an tube, bilatera l; Note: Date Diagnose d: 09/21/2018 1:53 PM (H69.83) Not Available [facility] 4 02:42:51 Otorrhea of bilatera l ears 63775086524 70442 Active 2020 Otorrhea , bilatera l; Note: Date Diagnose d: 12/31/19 21 3:10 PM (H92.13) Not Available [facility] 4 02:42:48 Orophary ngeal dysphagi a 65657827 Active 2022 Dysphagi a, orophary ngeal phase; Note: Date Diagnose d: 3 12:23 PM (R13.12) Not Available [facility] 4 02:42:54 Otalgia of right ear 2029847416 Active 2017 Otalgia, right ear; Note: Date Diagnose d: 03/16/2017 3:31 PM (H92.01) Not Available [facility] 4 02:42:48 Spasm 20468304 Active 2022 Cramp and spasm; Note: Date Diagnose d: 3 12:47 PM (R25.2) Not Available [facility] 4 02:42:55 Total perforat ion of bilatera l tympanic membrane s 45298546800 42883 Active 2018 Total perforat ions of tympanic membrane , bilatera l; Note: Date Diagnose d: 09/21/2018 1:53 PM (H72.823 ) Not Available [facility] 4 02:42:47 History of malignan t neoplasm of oral cavity 361930895 Active 2014 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, oral cavity, and pharynx; Note: Date Diagnose d: 5 3:18 PM (Z85.818 ) [mapped from ICD9 code: V10.02] Not Available [facility] 4 02:42:46 Acute upper respirat ory infectio n 83393722 Active 2018 Acute upper respirat ory infectio n, unspecif ied; Note: Date Diagnose d: 06/20/2018 2:59 PM (J06.9) Not Available [facility] 4 02:42:54 Mixed conducti ve and sensorin eural hearing loss, bilatera l 390794695 Active 2014 Mixed HL, bilatera l; Note: Date Diagnose d: 5 4:52 PM (389.22) ; Start Date : 09/11/19 15 Mixed conducti ve and sensorin eural hearing loss, bilatera l; Note: Date Diagnose d: 5 3:18 PM (H90.6) [mapped from ICD9 code: 389.22] Not Available [facility] 4 02:42:50 Acute sialoade nitis 342788259 Active 2017 Acute sialoade nitis; Location : left Not e: Changed from K11.2 to K11.21 ( 9 12:00 PM) , Date Diagnose d: 8 11:32 AM (K11.2) Not Available [facility] 4 02:42:45 Disturba nce of salivary secretio n 29458955 Active 2018 Xerostom ia; Note: Date Diagnose d: 06/20/2018 3:00 PM (K11.7) Not Available [facility] 4 02:42:53 Posterio r rhinorrh ea 31323661 Active 2017 Postnasa l drip; Note: Date Diagnose d: 8 2:30 PM (R09.82) Not Available [facility] 4 02:42:51 Disorder of right tympanic membrane 63393168252 08207 Active 2018 Other specifie d disorder s of tympanic membrane , right ear; Note: Date Diagnose d: 06/20/2018 3:01 PM (H73.891 ) Not Available [facility] 4 02:42:49 Bilatera l temporom andibula r joint pain 28660055474 703717 Active 2017 Arthralg ia of bilatera l temporom andibula r joint; Note: Date Diagnose d: 8 2:30 PM (M26.623 ) Not Available [facility] 4 02:42:52 Pharynge al dysphagi a 47826838760 105 Active 2022 Dysphagi a, pharynge al phase; Note: Date Diagnose d: 06/20/2022 1:26 PM (R13.13) Not Available [facility] 4 02:42:55 Otorrhea of right ear 70425990963 60087 Active 2021 Otorrhea , right ear; Note: Date Diagnose d: 03/18/2021 2:44 PM (H92.11) Not Available [facility] 4 02:42:51 Chronic nasophar yngitis 54959009 Active 2014 Nasophar yngitis, chronic; Note: Date Diagnose d: 5 5:06 PM (472.2) ; Start Date : 03/05/19 15 Chron ic nasophar yngitis; Note: Date Diagnose d: 5 3:18 PM (J31.1) [mapped from ICD9 code: 472.2] Not Available [facility] 4 02:42:54 Central perforat ion of left tympanic membrane 70850013371 33911 Active 2021 Central perforat ion of tympanic membrane , left ear; Note: Date Diagnose d: 06/21/2021 9:07 AM (H72.02) Not Available [facility] 4 02:42:45 Perforat ion of left tympanic membrane 77714047407 90781 Active 2017 Unspecif ied perforat ion of tympanic membrane , left ear; Note: Date Diagnose d: 8 1:49 PM (H72.92) Not Available [facility] 4 02:42:52 Otorrhea of left ear 49413663925 99275 Completed 202009/15/2023 Otorrhea , left ear; Note: Date Diagnose d: 1 2:55 PM (H92.12) Otorrh ea, left ear; Note: Date Diagnose d: 01/01/20 15 2:47 PM (H92.12) ; Start Date : 01/01/20 15 Not Available [facility] 4 02:42:46 Acute maxillar y sinusiti s 61597398 Active 2023 Acute maxillar y sinusiti s, unspecif ied; Note: Date Diagnose d: 4 1:35 PM (J01.00) Not Available [facility] 4 02:42:53 Gastroes ophageal reflux disease without esophagi tis 898156584 Active 2023 AMY CARREON MD [address],[place] [address], [place], [address] , [place] - [facility] 4 10:25:31 Acute myringit is of left ear 84900216526 41889 Active 2023 AMY CARREON MD [address],[facility] [address], [place], [address] , [place] - [facility] 4 10:27:39 Feeling of lump in throat 081187094 Active 2024 AMY CARREON MD [address],[place] [address], [place], [address] , [facility] - [facility] 15:29:01 Allergic rhinitis 01293075 Active 2024 AMY CARREON MD [address],[place] [address], [place], [address] , [facility] - [facility] 15:29:18 Dysfunct ion of eustachi an tube 66355842 Active 2024 AMY CARREON MD [address],[place] [address], [place], [address] , [facility] - [facility] 15:29:24 Problem Notes None recorded. Procedures Surgical History Date Name Laterality Status Provider Name and Address Organization Details Recorded Time 06/11/19 25 Fiberoptic Laryngoscopy (Comprehensive) completed AMY HENDRICKS MD [address], [address], [facility] - [facility] 06/10/2024 15:24:37 12/04/19 24 Fiberoptic Laryngoscopy (Comprehensive) completed AMY HENDRICKS MD [address] [place] [address],[address], [address], [facility] - [facility] 12/04/2023 10:27:59 repair of cleft lip completed AMY HENDRICKS MD [address], [address], [facility] - [facility] 12/03/2023 20:05:01 repair of cleft palate completed AMY HENDRICKS MD [address] [place] [address],[address], [address], [facility] - [facility] 12/03/2023 20:05:13 Imaging Results None recorded. Procedure Notes None recorded. Medical Equipment None Reported. Allergies Allergen ID Allergen Name Allergen Category Reaction Reaction Severity Criticality Documentation Date Start Date Code Code System Note Provider Name and Address Organization Details Recorded Time 704957 tree and shrub pollen environme nt,medica tion eye redness Not available Not available 03/05/20242009 68592 UNK Mari cisse [place] - [facility] 5 09:07:54 Medications Name Sig Start Date Stop Date Status Note LastModified by Organization Details LastModified Time clotrimaz ole 10 mg yonas 1 yonas five times a day 12/30 completed Medicati on ID: [id number] D uration Value: 7 Brand Name: clotrima zole Sen d Method: E-Prescr ibed Sub s Allowed: subs OK Medic ationGen ericName : clotrima zole Not Available Not Available Not Available Augmentin 875 mg-125 mg tablet 1 tablet by mouth 12/03 completed Medicati on ID: [id number] D uration Value: 10 Prescri bed By [...] completed Not Available Not Available Not Available lisinopri l 20 mg tablet TAKE 1 TABLET BY MOUTH EVERY DAY FOR 30 DAYS active Not Available Not Available No t Available valsartan 80 mg tablet 10/11 completed Medicati on ID: [id number] B rand Name: valsarta n Send Method: E-Prescr ibed Sub s [...] mg tablet 01/25 completed Medicati on ID: [id number] D uration Value: 7 Reason: () Brand Name: doxycycl ine monohydr ate Send Method: E-Prescr ibed Sub s Allowed: subs OK [facility] : doxycycl ine monohydr ate Not [...] a day 10/11 completed Medicati on ID: [id number] D uration Value: 10 Prescri bed By Name: Danuta Martínez nd Name: doxycycl ine monohydr ate Send Method: E-Prescr ibed Sub s Allowed: subs OK Medic ationGen ericName : doxycycl ine monohydr ate Not Available Not Available Not Available clotrimaz ole 1 % topical solution 12/03 completed Medicati on ID: [id number] D uration Value: 14 Brand Name: clotrianiyah Carney d Method: E-Prescr ibed Sub s Allowed: subs OK Speci al Instruct ion: 5 drops to the affected ear twice a day X 14 days Med icationG enericNa me: clotrima zolruddy Not Available Not Available Not Available pyridoxin e (vitamin B6) 50 mg tablet TAKE 1 TABLET BY MOUTH EVERY OTHER DAY AT BEDTIME active Not Available Not Available No t Available amoxicill in 250 mg capsule TAKE 1 CAPSULE BY MOUTH THREE TIMES A DAY 12/03 completed Not Available Not Available Not Available Ativan 0.5 mg tablet 1 tablet by mouth 12/03 completed Medicati on ID: [id number] D uration Value: 1 Prescri bed By [...] both nostrils 2016 active Medicati on ID: 119287 D uration Value: 120 Prescri bed By Name: Danuta Martínez nd Name: fluticas one Send Method: E-Prescr ibed Sub s Allowed: subs OK Medic ationGen ericName : fluticas one Not Available Not Available Not Available doxycycli ne hyclate 100 mg tablet TAKE 1 TABLET BY MOUTH TWICE A DAY FOR 14 DAYS 06/10 completed Not Available Not Available Not Available naproxen 500 mg tablet 10/11 completed Medicati on ID: [id number] Br and Name: naproxen Send Method: E-Prescr [...] Vitamin D 2015 active Medicati on ID: [id number] B rand Name: Vitamin D Send Method: E-Prescr ibed Sub s Allowed: subs OK Medic ationGen ericName : Vitamin D Not Available Not Available Not Available magnesium 100 mg (as glycinate ) tablet Take by oral route. active Not Available Not Available No t Available melatonin 10 mg tablet 12/03 completed Medicati on ID: [id number] Br and Name: surya bettencourt Send Method: E-Prescr ibed Sub s Allowed: subs OK Medic atserafinGen ericName : surya bettencourt Not Available Not Available Not Available Vitals Date Recorded Body height Body mass index (BMI) Body weight Provider Name and Address Organization Details Last Updated DateTime 06/10/2024 154.94 cm 29.9 kg/m2 92221.59 g Catrachita Bridges [facility] 06/10/2024 14:55:24 Date Recorded Body height Body mass index (BMI) Body weight Provider Name and Address Organization Details Last Updated DateTime 12/04/2023 154.94 cm 30.8 kg/m2 13743.56 g Catrachita Bridges [facility] 12/04/2023 10:11:21 Date Recorded Body height Body weight Provider Name and Address Organization Details Last Updated DateTime 03/05/2024 154.94 cm 99500.56 g Mari Garcia [facility] 03/05/2024 09:07:36 Social History None recorded. [...] Disorder N Anesthesia Complications N Heart Attack ([place]) N Other Skin Condition N Diabetes N [...] SNOMED-CT Code Diagnosis ICD10 Code Diagnosis Note [id number] AMY CARREON MD [facility] [address] [address] 12/04/2023 09:56:12 12/04/2023 10:39:47 History of malignant neoplasm of digestive organ [id number] 0204028 Z85.00 Gastroesop hageal reflux disease without esophagitis 447363187 K21.9 Consider GI eval. She will discuss with PCP Central pe rforation of left tympanic membrane 1018268042 709065 H72.02 Acute myri ngitis of left ear 5604942291 413637 H73.002 [id number] SILVA SMYTH PA-C [facility] [address] [place] [address] 03/05/2024 09:02:35 03/05/2024 09:35:07 Acute maxillary sinusitis 33931159 J01.00 [id number] AMY CARREON MD [facility] [address] [place] [address] 06/10/2024 14:44:01 06/10/2024 15:30:30 Feeling of lump in throat 304521603 R09.89 History of malignant neoplasm of oropharynx 5932829351 8298408 Z85.818 Dysfunctio n of eustachian tube 87913683 H69.93 Allergic rhinitis 895884 04 J30.9 Health Concerns Section Related Observation LastModified by Organization Detai ls LastModified Time None Recorded Concern Status LastModified by Organization Details LastModified Time None Recorded Advance Directives Directive None Recorded Payers Insurance Date Sequence Insurance Name Policy Number Policy Cervantes Covered Member ID Cervantes Member ID Guarantor Name 12/04/2023 1 [facility] [id number] 1 Rashida Whitmore [id number] Rashida Whitmore 06/10/2024 1 [facility] (MEDICARE REPLACEMENT/ ADVANTAGE - PPO) [id number] 1 Rashida Whitmore [id number] Rashida Whitmore Notes Date Note Type Note Provider Name and Address Organization Details Recorded Time 12/04/2023 text/html 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 Completed therapy {{ 2014#}}T2N1M0 right tonsilHx of ETD with cleft lip [...] every other day AMY HENDRICKS MD [address] [facility],[address], [address], [place] - [facility] 12/04/2023 10:33:22 03/05/2024 text/html 68-year-old reid [...] not relieve symptoms. AMY HENDRICKS MD [address] [facility], [address], [facility] - [facility] 03/05/2024 12:20:10 06/10/2024 text/html History of allergy, chronic sinusitis and combined modality therapy for tonsil cancer. She recently noted some more difficulty swallowing after feeling that a B6 tablet was caught under her tonsil region on the right sidePreviously had swallowing evaluation in December 2022. Symptoms have been stable until this acute episodeSCCA involving right tonsil treated with combined modality chemo with XRT. Completed therapy [id number] right tonsil History of cleft palate and pharyngeal flap.Using Reflux Gourmet and less coffee helped her reflux AMY HENDRICKS MD [address], [place], [address], [place] - [facility] 06/10/2024 15:29:49 OBGyn Episode No OBEpisode recorded.
--- OUTSIDE RECORDS SUMMARY | 2024-06-24 09:04 | XMS_ITS | Clinical Summary ---
Author Organization [facility] Address [address] [place] [address] Care Team Providers Care Focus Puller Name Role Phone Jonny Llanes MD Primary Care Provider + Allergies No known active allergies Medications Medication Sig Dispensed Refills Start Date End Date Status Multiple Vitamin (MULTI VITAMIN PO) Take by mouth. 0 Ac tive Fluxket-Ozgvjnbjp-Alwz min D (CALCIUM 500 PO) Take by [...] needed for pain. 0 Active nystatin (MYCOSTATIN) 441934 UNIT/ML suspension Take 5 mL (500,000 Units [...] age to complete this topic Care Teams Focus Puller Relationship Specialty Start Date End Date Jonny Llanes MD [address] [place] [address] PCP - General Otolaryngology 10/02/18
== END 2024-06-24 09:56 | disposition home or self-care (01) ==
LOC: HO.HWS 08:57
PROVIDERS: PCP Nurse Practitioner Family; Visit Provider Obstetrics & Gynecology
DX: Z01.419 Encounter for gynecological examination (general) (routine) without abnormal findings (principal)
CPT/HCPCS: 99387; 99459

== ENCOUNTER 2024-06-24 08:57 | Outpatient (REF) | payer OTHER, SELFPAY ==
--- OUTSIDE RECORDS SUMMARY | 2024-06-24 10:32 | XMS_ITS | Encounter Summary ---
Author Organization [facility] Address [address] [place] [address] Care Team Providers Care Spare Hand Carding Name Role Phone Marilynn-Angelica Altamirano MD Primary Care Provider Unavailable Barak Blevins MD Primary Care Provider +1 [phone] [facility], Pcp Primary Care Provider [facility] e Encounter Details Date Type Department Care Team Description 08/01/2018 Telephone Adult [facility] [address] [place] [address] Laly Miller PA-C [address] [place] [address] Social History Tobacco Use Types Packs/Day Years [...] week 04/10/2023 How often do you attend [facility] or latter-day services? Not asked Do you belong to any clubs o r organizations such as confucianist groups, unions, fraternal or athletic groups, or [...] on filedocumented in this encounter Care Teams Spare Hand Carding Relationship Specialty Start Date End Date [place]-Angelica Altamirano MD PCP - General Internal Medicine 01/19/1707/14/20 Barak Blevins MD [address] [place] [address] PCP - General Internal Medicine 07/15/20 10/23/23 [facility], [facility] [address] [place] [address] PCP - General Internal Medicine 10/24/23 documented as of this encounter
--- OUTSIDE RECORDS SUMMARY | 2024-06-24 10:32 | XMS_ITS | Encounter Summary ---
Author Organization [facility] Address [address] [place] [address] Care Team Providers Care Warehouse Shipping Clerk Name Role Phone Marilynn-Angelica Altamirano MD Primary Care Provider Unavailable Barak Blevins MD Primary Care Provider [phone] [phone] [facility], Pcp Primary Care Provider [facility] e Reason for Visit * Reason Onset Date Comments TEST RESULTS 09/05/2018 per Laly for mammo Encounter Details Date Type Department Care Team Description 09/05/2018 Telephone Adult Medicine - [address] [address] Laly Miller PA-C [address] [place] [id number] TEST RESULTS (per Laly for mammo ) Social History Tobacco Use Types Packs/Day Years [...] week 04/10/2023 How often do you attend [facility] or gnosticist services? Not asked Do you belong to any clubs o r organizations such as jewish groups, unions, fraternal or athletic groups, or [...] encounter Miscellaneous Notes * Telephone Encounter - Bladimir Kennedy M.A. - 09/05/2018 4:41 PM EDT Spoke with patient and informed message below. * Telephone Encounter - Laly Manriquez - 09/05/2018 4:10 PM EDT Patient returning your call * Telephone Encounter - Rosemarie Franklin M.A. - 09/05/2018 2:32 PM EDT - Telephone Information: [employer] [phone] I left a message for the patient to return my call for mammo results ---- Message from Laly Miller PA-C sent at 09/05/2018 12:56 PM EDT ----- Please call patient with normal results- mammogram was normal and no evidence of malignancy documented in this encounter Plan of Treatment Not on file documented as of this encounter Visit Diagnoses Not on filedocumented in this encounter Care Teams Warehouse Shipping Clerk Relationship Specialty Start Date End Date [place]-Angelica Altamirano MD PCP - General Internal Medicine 01/19/1707/14/20 Barak Blevins MD [address] [place] [address] PCP - General Internal Medicine 07/15/20 10/23/23 [facility], [facility] [address] [place] [address] PCP - General Internal Medicine 10/24/23 documented as of this encounter
--- OUTSIDE RECORDS SUMMARY | 2024-06-24 10:32 | XMS_ITS | Encounter Summary ---
Author Organization [facility] Address [address] [place] [address] Care Team Providers Care Test Tech Name Role Phone Barak Blevins MD Primary Care Provider [phone] [phone] [facility], Pcp Primary Care Provider Unavailabl e Encounter Details Date Type Department Care Team Description 10/04/2021 Pt. Non Urgent Medic al Question Adult Medicine - [place] [address] [place] [address] Darwin Thornton PA-C [address] [place] [address] Social History Tobacco Use Types Packs/Day Years [...] week 04/10/2023 How often do you attend [facility] or confucianist services? Not asked Do you belong to any clubs o r organizations such as baptism groups, unions, fraternal or athletic groups, or [...] place to sleep or slept in a longterm (including now)? No 04/10/2023 Sex Assigned at [...] was diagnosed wth shingles on Sat at [facility]. I have the rash [...] on filedocumented in this encounter Care Teams Test Tech Relationship Specialty Start Date End Date Barak Blevins MD [address] [place] [address] PCP - General Internal Medicine 07/15/20 10/23/23 [facility], Pcp [address] [place] [address] PCP - General Internal Medicine 10/24/23 documented as of this encounter
--- OUTSIDE RECORDS SUMMARY | 2024-06-24 10:32 | XMS_ITS | Encounter Summary ---
Author Organization [facility] Address [address] [place] [address] Care Team Providers Care Senior Analytic Consultant Name Role Phone Marilynn-Angelica Altamirano MD Primary Care Provider Unavailable Barak Blevins MD Primary Care Provider [phone] [phone] [facility], Pcp Primary Care Provider [facility] e Encounter Details Date Type Department Care Team Description 03/06/2018 Operating Table Assembler Report Medical Records [address] [place] [address] Gerry Monahan MD Social History Tobacco Use [...] any clubs o r organizations such as gnosticist groups, unions, fraternal or athletic groups, or [...] on filedocumented in this encounter Care Teams Senior Analytic Consultant Relationship Specialty Start Date End Date Marilynn-Angelica Altamirano MD PCP - General Internal Medicine 01/19/1707/14/20 Barak Blevins MD [address] [place] [address] PCP - General Internal Medicine 07/15/20 10/23/23 [facility], [facility] [address] [place] [address] PCP - General Internal Medicine 10/24/23 documented as of this encounter
--- OUTSIDE RECORDS SUMMARY | 2024-06-24 10:32 | XMS_ITS | Encounter Summary ---
Author Organization [facility] Address [address] [place] [address] Care Team Providers Care Tube Skiver Name Role Phone Marilynn-Angelica Altamirano MD Primary Care Provider Unavailable Barak Blevins MD Primary Care Provider [phone] [phone] [facility], Pcp Primary Care Provider [facility] Reason for Visit * Reason Onset Date Comments TEST RESULTS 09/09/2018 Encounter Details Date Type Department Care Team Description 09/09/2018 Telephone Adult [facility] [address] [place] [address] Laly Miller PA-C [address] [place] [address] TEST RESULTS Social History Tobacco Use Types [...] week 04/10/2023 How often do you attend [facility] or advent services? Not asked Do you [...] place to sleep or slept in a residential (including now)? No 04/10/2023 Sex Assigned at [...] on filedocumented in this encounter Care Teams Tube Skiver Relationship Specialty Start Date End Date Marilynn-Angelica Altamirano MD PCP - General Internal Medicine 01/19/1707/14/20 Barak Blevins MD [address] [place] [address] PCP - General Internal Medicine 07/15/20 10/23/23 [facility], [facility] [address] [place] [address] PCP - General Internal Medicine 10/24/23 documented as of this encounter
--- OUTSIDE RECORDS SUMMARY | 2024-06-24 10:32 | XMS_ITS | Encounter Summary ---
Author Organization [facility] Address [address] [place] [address] Care Team Providers Care Community Arts Worker Name Role Phone Barak Blevins MD Primary Care Provider [phone] [phone] [facility], Pcp Primary Care Provider Unavailabl e Encounter Details Date Type Department Care Team Description 03/31/2023 Pt. Non Urgent Medical Question Hypertension - [place] [address] [place] [address] Velma Okeefe, Pharm.D Social History Tobacco Use [...] often do you attend chur ch or buddhist services? Not asked Do you belong to any clubs o r organizations such as hinduism groups, unions, fraternal or athletic groups, or [...] place to sleep or slept in a fdc (including now)? No 04/10/2023 Sex Assigned at [...] on filedocumented in this encounter Care Teams Community Arts Worker Relationship Specialty Start Date End Date Barak Blevins MD [address] [place] [address] PCP - General Internal Medicine 07/15/20 10/23/23 [facility], Pcp [address] [place] [address] PCP - General Internal Medicine 10/24/23 documented as of this encounter
--- OUTSIDE RECORDS SUMMARY | 2024-06-24 10:32 | XMS_ITS | Encounter Summary ---
Author Organization [facility] Address [address] [place] [address] Care Team Providers Care Data Entry Coordinator Name Role Phone Marilynn-Angelica Altamiarno MD Primary Care Provider Unavailable Barak Blevins MD Primary Care Provider [phone] [phone] [facility], Pcp Primary Care Provider [facility] e Encounter Details Date Type Department Care Team Description 08/10/[address] [facility] [address] [place] [address] Laly Miller PA-C [address] [place] [address] Social History Tobacco Use Types Packs/Day Years [...] do you attend [facility] or cheondoism services? Not asked Do you belong to any clubs o r organizations such as episcopal groups, unions, fraternal or athletic groups, or [...] place to sleep or slept in a long-term (including now)? No 04/10/2023 Sex Assigned at [...] on filedocumented in this encounter Care Teams Data Entry Coordinator Relationship Specialty Start Date End Date [place]-Angelica Altamirano MD PCP - General Internal Medicine 01/19/1707/14/20 Barak Blevins MD [facility] [place] [address] PCP - General Internal Medicine 07/15/20 10/23/23 [facility], Pcp [address] [place] [address] PCP - General Internal Medicine 10/24/23 documented as of this encounter
--- OUTSIDE RECORDS SUMMARY | 2024-06-24 10:32 | XMS_ITS | Clinical Summary ---
Author Organization [facility] Address [address] [place] [address] Care Team Providers Care Grain Blender Name Role Phone Jonny Llanes MD Primary Care Provider + Allergies No known active allergies Medications Medication Sig Dispensed Refills Start Date End Date Status Multiple Vitamin (MULTI VITAMIN PO) Take by mouth. 0 Ac tive Gxnleuh-Xymptooje-Jedq min D (CALCIUM 500 PO) Take by [...] needed for pain. 0 Active nystatin (MYCOSTATIN) 685241 UNIT/ML suspension Take 5 mL (500,000 Units [...] age to complete this topic Care Teams Grain Blender Relationship Specialty Start Date End Date Jonny Llanes MD [address] [place] [address] PCP - General Otolaryngology 10/02/18
--- OUTSIDE RECORDS SUMMARY | 2024-06-24 10:32 | XMS_ITS | Encounter Summary ---
Author Organization [facility] Address [address] [place] [address] Care Team Providers Care Interface Control Officer Name Role Phone Marilynn-Angelica Altamirano MD Primary Care Provider Unavailable Barak Blevins MD Primary Care Provider [phone] [phone] [facility], Pcp Primary Care Provider [facility] Encounter Details Date Type Department Care Team Description 02/28/2018 Orders Only Medical Records [address] [place] [address] Abstract, Provider Social History Tobacco Use Types [...] often do you attend chur ch or islam services? Not asked Do you belong to any clubs o r organizations such as spiritism groups, unions, fraternal or athletic groups, or [...] place to sleep or slept in a custodial (including now)? No 04/10/2023 Sex Assigned at Date Recorded Female 05/24/2021 12:24 PM EDT Job Start Date Occupation Industry Not on file Not on file Not on file documented as of this encounter Plan of Treatment Not on file documented as of this encounter Procedures Procedure Name Priority Date/Time Associated Diagnosis Comments OUTSIDE CT Routine 02/27/2018 documented in this encounter Results * OUTSIDE CT (02/27/2018) Provider Abstract RADIOLOGY documented in this encounter Visit Diagnoses Not on filedocumented in this encounter Care Teams Interface Control Officer Relationship Specialty Start Date End Date [place]-Angelica Altamirano MD PCP - General Internal Medicine 01/19/1707/14/20 Barak Blevins MD [address] [place] [address] PCP - General Internal Medicine 07/15/20 10/23/23 [facility], [facility] [address] [place] [address] PCP - General Internal Medicine 10/24/23 documented as of this encounter
--- OUTSIDE RECORDS SUMMARY | 2024-06-24 10:32 | XMS_ITS | Encounter Summary ---
Author Organization [facility] Address [address] [place] [address] Care Team Providers Care Advanced Manufacturing Vice President Name Role Phone Barak Blevins MD Primary Care Provider [phone] [phone] [facility], Pcp Primary Care Provider Unavailabl e Reason for Visit * Reason Comments E-prescribe Rx Request Encounter Details Date Type Department Care Team Description 08/29/2021 Refill Adult Medicine - [place] [address] [place] [address] Darwin Thornton PA-C [address] [place] [address] E-prescribe Rx Request Social History Tobacco Use [...] week 04/10/2023 How often do you attend [facility] or yazdanism services? Not asked Do you belong to [...] hypertension documented in this encounter Care Teams Advanced Manufacturing Vice President Relationship Specialty Start Date End Date Barak Blevins MD [address] [place] [address] PCP - General Internal Medicine 07/15/20 10/23/23 [facility], Pcp [address] [place] [address] PCP - General Internal Medicine 10/24/23 documented as of this encounter
--- OUTSIDE RECORDS SUMMARY | 2024-06-24 10:32 | XMS_ITS | Encounter Summary ---
Author Organization [facility] Address [address] [place] [address] Care Team Providers Care Remote Sensing Technologist Name Role Phone Grabiel Cook Primary Care Provider Angelica Moran MD Primary Care Provider Unavailable Barak Blevins MD Primary Care Provider [phone] [phone] [facility], Pcp Primary Care Provider [facility] e Encounter Details Date Type Department Care Team Description 04/12/2011 Hospital Medical Records [address] [place] [address] Ranjit Parham MD Social History Tobacco Use [...] How often do you attend [facility] or anabaptism services? Not asked Do you belong to any clubs o r organizations such as yarsani groups, unions, fraternal or athletic groups, or [...] on filedocumented in this encounter Care Teams Remote Sensing Technologist Relationship Specialty Start Date End Date Grabiel Cook PCP - General Internal Medicine 04/12/12 01/18/17 Angelica Estevez MD PCP - General Internal Medicine 01/19/1707/14/20 Barak Blevins MD [address] [place] [address] PCP - General Internal Medicine 07/15/20 10/23/23 [facility] [address] [place] [address] PCP - General Internal Medicine 10/24/23 documented as of this encounter
--- OUTSIDE RECORDS SUMMARY | 2024-06-24 10:32 | XMS_ITS | Clinical Summary ---
Author Organization [facility] Address [address] [place] [address] Care Team Providers Care Blow Molding Machine Operator Name Role Phone Community, Pcp Primary Care [...] week 04/10/2023 How often do you attend [facility] or uatsdin services? Not asked Do you belong to any clubs o r organizations such as nondenominational groups, unions, fraternal or athletic groups, or [...] 03/23/2018 PNEUMOCOCCAL VACCINE Completed 04/10/2023 Care Teams Blow Molding Machine Operator Relationship Specialty Start Date End Date Community, Pcp PCP - General Internal Medicine 10/24/23
--- OUTSIDE RECORDS SUMMARY | 2024-06-24 10:33 | XMS_ITS | Encounter Summary ---
Author Organization [facility] Address [address] [place] [address] Care Team Providers Care Cashier Assistant Name Role Phone Marilynn-Angelica Altamirano MD Primary Care Provider Unavailable Barak Blevins MD Primary Care Provider [phone] [phone] [facility], Pcp Primary Care Provider [facility] e Encounter Details Date Type Department Care Team Description 04/14/2017 Orders Only Medical Records [address] [place] [address] Abstract, Provider Social History Tobacco Use Types [...] often do you attend chur ch or cheondoism services? Not asked Do you belong to any clubs o r organizations such as roman catholic groups, unions, fraternal or athletic groups, or [...] on filedocumented in this encounter Care Teams Cashier Assistant Relationship Specialty Start Date End Date Marilynn-Angelica Altamirano MD PCP - General Internal Medicine 01/19/1707/14/20 Barak Blevins MD [address] [place] [address] PCP - General Internal Medicine 07/15/20 10/23/23 [facility], [facility] [address] [place] [address] PCP - General Internal Medicine 10/24/23 documented as of this encounter
--- OUTSIDE RECORDS SUMMARY | 2024-06-24 10:33 | XMS_ITS | Encounter Summary ---
Author Organization [facility] Address [address] [place] [address] Care Team Providers Care Cushion Installer Name Role Phone Barak Blevins MD Primary Care Provider +1 [phone] [facility], Pcp Primary Care Provider Unavailabl e Encounter Details Date Type Department Care Team Description 05/22/2021 Pt. Non Urgent Medic al Question Adult Medicine - [place] [address] [place] [address] Darwin Thornton PA-C [address] [place] [address] Social History Tobacco Use Types Packs/Day Years [...] week 04/10/2023 How often do you attend [facility] or denominational services? Not asked Do you [...] to sleep or slept in a senior living (including now)? No 04/10/2023 Sex Assigned at [...] on filedocumented in this encounter Care Teams Cushion Installer Relationship Specialty Start Date End Date Barak Blevins MD [address] [place] [address] PCP - General Internal Medicine 07/15/20 10/23/23 [facility], Pcp [address] [place] [address] PCP - General Internal Medicine 10/24/23 documented as of this encounter
--- OUTSIDE RECORDS SUMMARY | 2024-06-24 10:33 | XMS_ITS | Encounter Summary ---
Author Organization [facility] Address [address] [place] [address] Care Team Providers Care Customer Project Manager Name Role Phone Angelica Estevez MD Primary Care Provider Unavailable Barak Blevins MD Primary Care Provider +1 [phone] [facility], Pcp Primary Care Provider [facility] Reason for Visit * Reason Onset Date Comments Orders Call 06/06/2017 Encounter Details Date Type Department Care Team Description 06/06/2017 Telephone Adult [address] [address] Angelica Estevez MD Orders Call Social History Tobacco [...] often do you attend [facility] or oriental orthodox services? Not asked Do you belong to [...] examination documented in this encounter Care Teams Customer Project Manager Relationship Specialty Start Date End Date Angelica Estevez MD PCP - General Internal Medicine 01/19/1707/14/20 Barak Blevins MD [address] [place] [address] PCP - General Internal Medicine 07/15/20 10/23/23 [facility], [facility] [address] [place] [address] PCP - General Internal Medicine 10/24/23 documented as of this encounter
--- OUTSIDE RECORDS SUMMARY | 2024-06-24 10:33 | XMS_ITS | Encounter Summary ---
Author Organization [facility] Address [address] [place] [address] Care Team Providers Care Sales Enablement Lead Name Role Phone Marilynn-Angelica Altamirano MD Primary Care Provider Unavailable Barak Blevins MD Primary Care Provider +1 [phone] [facility], Pcp Primary Care Provider [facility] e Reason for Visit * Reason Onset Date Comments TEST RESULTS 06/22/2020 Encounter Details Date Type Department Care Team Description 06/22/2020 Telephone Adult Medicine - [address] [address] Sobeida Sanders PA-C TEST RESULTS Social History Tobacco Use Types Packs/Day Years Used Date Smoking Tobacco: Former Cigarettes Smokeless Tobacco: Never Comments:quit 8 years ago Alcohol Use Standard Drinks/Week Comments Yes 0 [...] How often do you attend [facility] or druze services? Not asked Do you belong to any clubs o r organizations such as moravian groups, unions, fraternal or athletic groups, or [...] have Coronavirus / COVID-19? No / Unsure 06/22/2020 12:57 PM EDT documented as of this encounter Miscellaneous Notes * Telephone Encounter - Mary Carmen Cuevas M.A. - 06/23/2020 9:26 AM EDT Getting notes * Telephone Encounter - Sobeida Sanders PA-C - 06/22/2020 8:49 PM EDT Saw Rashida in the office today, she states that she got her BMP lab done at [facility] on 05/25. Please obtain these results for my review. Thank you documented in this encounter Plan of Treatment Not on file documented as of this encounter Visit Diagnoses Not on filedocumented in this encounter Care Teams Sales Enablement Lead Relationship Specialty Start Date End Date Marilynn-Angelica Altamirano MD PCP - General Internal Medicine 01/19/1707/14/20 Barak Blevins MD [address] [place] [address] PCP - General Internal Medicine 07/15/20 10/23/23 [facility], Pcp [address] [place] [address] PCP - General Internal Medicine 10/24/23 documented as of this encounter
--- OUTSIDE RECORDS SUMMARY | 2024-06-24 10:33 | XMS_ITS | Encounter Summary ---
Author Organization [facility] Address [address] [place] [address] Care Team Providers Care Senior Cost Estimator Name Role Phone Barak Blevins MD Primary Care Provider [phone] [phone] [facility], Pcp Primary Care Provider Unavailabl e Encounter Details Date Type Department Care Team Description 09/15/2022 Orders Only Medical Records [address] [place] [address] Abstract, Provider Social History Tobacco Use Types [...] often do you attend chur ch or spiritism services? Not asked Do you [...] filedocumented in this encounter Care Teams Senior Cost Estimator Relationship Specialty Start Date End Date Barak Blevins MD [address] [place] [address] PCP - General Internal Medicine 07/15/20 10/23/23 [facility], [facility] [address] [place] [address] PCP - General Internal Medicine 10/24/23 documented as of this encounter
--- OUTSIDE RECORDS SUMMARY | 2024-06-24 10:33 | XMS_ITS | Encounter Summary ---
Author Organization [facility] Address [address] [place] [address] Care Team Providers Care Collision Center Manager Name Role Phone Barak Blevins MD Primary Care Provider [phone] [facility], Pcp Primary Care Provider Unavailabl e Encounter Details Date Type Department Care Team Description 07/12/2022 Pt. Non Urgent Medical Question Hypertension - [place] [address] [place] [address] Velma Okeefe, Pharm.D Social History Tobacco Use [...] often do you attend chur ch or muslim services? Not asked Do you belong to [...] on filedocumented in this encounter Care Teams Collision Center Manager Relationship Specialty Start Date End Date Barak Blevins MD [address] [place] [address] PCP - General Internal Medicine 07/15/20 10/23/23 [facility], Pcp [address] [place] [address] PCP - General Internal Medicine 10/24/23 documented as of this encounter
--- OUTSIDE RECORDS SUMMARY | 2024-06-24 10:33 | XMS_ITS | Encounter Summary ---
Author Organization [facility] Address [address] [place] [address] Care Team Providers Care Shirt Maker Name Role Phone Barak Blevins MD Primary Care Provider [phone] [facility], Pcp Primary Care Provider Unavailabl e Encounter Details Date Type Department Care Team Description 07/12/2022 Pt. Non Urgent Medical Question Hypertension - [place] [address] [place] [address] Velma Okefee, Pharm.D Social History Tobacco Use Types Packs/Day [...] often do you attend chur ch or jain services? Not asked Do you belong to any clubs o r organizations such as voodoo groups, unions, fraternal or athletic groups, or [...] on filedocumented in this encounter Care Teams Shirt Maker Relationship Specialty Start Date End Date Barak Blevins MD [address] [place] [address] PCP - General Internal Medicine 07/15/20 10/23/23 [facility], Pcp [address] [place] [address] PCP - General Internal Medicine 10/24/23 documented as of this encounter
--- OUTSIDE RECORDS SUMMARY | 2024-06-24 10:33 | XMS_ITS | Encounter Summary ---
Author Organization [facility] Address [address] [place] [address] Care Team Providers Care Ballet Dancer Name Role Phone Barak Blevins MD Primary Care Provider [phone] [facility], Pcp Primary Care Provider Unavailabl e Encounter Details Date Type Department Care Team Description 11/02/2020 Pt. Non Urgent Medic al Question Adult Medicine - [address] [address] Sobeida Sanders PA-C Social History Tobacco Use [...] often do you attend chur ch or zoroastrian services? Not asked Do you belong to any clubs o r organizations such as zoroastrian groups, unions, fraternal or athletic groups, or [...] place to sleep or slept in a correction (including now)? No 04/10/2023 Sex Assigned at [...] on filedocumented in this encounter Care Teams Ballet Dancer Relationship Specialty Start Date End Date Barak Blevins MD [address] [place] [address] PCP - General Internal Medicine 07/15/20 10/23/23 [facility], Pcp [address] [place] [address] PCP - General Internal Medicine 10/24/23 documented as of this encounter
[2024-06-27 13:57] LABS: HPV Genotype 16 Negative (Negative); HPV Genotype 18 Negative (Negative); HPV High Risk Negative (Negative)
== END 2024-06-24 08:58 | disposition home or self-care (01) ==
LOC: HO.LNP 08:57
PROVIDERS: PCP Nurse Practitioner Family; Visit Provider Obstetrics & Gynecology
DX: Z01.419 Encounter for gynecological examination (general) (routine) without abnormal findings (principal)
CPT/HCPCS: 87626; 88175

== ENCOUNTER 2024-06-25 13:43 | Outpatient (AMB) | payer OTHER, SELFPAY ==
--- NOTE | 2024-06-25 13:46 | A.OFFPC_ITS ---
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 Required: No Is last menstrual period known: No Post menopausal: No Patient : No Allergies No Known Allergies Allergy (Verified 06/25/24 14:07) Medication List - Last Reconciled 06/25/24 by Ghazala Vallecillo CNP lisinopril 20 mg PO DAILY 30 days magnesium oxide 400 mg PO DAILY MDD 400mg multivitamin 1 tab PO DAILY omega-3 fatty acids (Super [place]-3) 1,000 mg PO DAILY pyridoxine (vitamin B6) 50 mg PO DAILY MDD 50mg PO turmeric root extract (Curica Turmeric) 300 mg PO DAILY MDD 300mg vitamin K2 100 mcg PO DAILY Tobacco use date assessed: 06/25/24 Fall risk assessment: No Falls in past year Last assessed Fall Risk: 06/25/24 Dental Screening Dental Screen Date: 06/25/24 Did you have a dental visit in the last 12 months?: Yes Did you have a dental problem in the last 6 months where you did not have access to dental care?: No Was dental information given to patient?: Patient has dentist HPI HPI Comments History of Present Illness Details 68-year-old female presents for hyperten shannan follow-up. She admits to taking lisinopril as prescribed without adverse reactions. She has been making healthy dietary choices and exercising routinely. She denies acute symptoms at this time. [facility] Medical History Hx of ectopic Tonsillar tumor Cleft palate Neuropathy Shingles Hiatal hernia Acid reflux Osteoporosis High blood pressure Sinusitis Surgical History History of salpingectomy Family History Brother Alcohol abuse FH: mental illness Mother High cholesterol Diabetes Cervical cancer Father Diabetes Cardiovascular disease Paternal Grandmother Diabetes Sister Thyroid disorder Maternal Grandfather Stomach cancer Social History Housing: House Patient Tobacco Use Status: Never used Tobacco e-Cigarette/Vaping Use: Never Used Second Hand Smoke Exposure: No Patient : No service: No Current occupational status: retired Current occupational exposures/hazards: No Cognitive needs: No Hearing needs: Yes Vision needs: Yes Questionnaire Thrive Questionnaire Date Thrive assessed: 04/02/24 I am a: Patient What is your living situation today?: I have a steady place to live Within the past 12 months, did the food you bought not last and you didn't have the money to get more?: Never true Within the past 12 months, did you worry whether your food would run out before you got money to buy more?: Never true Do you have trouble paying for medicines?: No Do you have trouble getting transportation to medical appointments?: No Do you have trouble paying your heating and electricity bill?: No Do you have trouble taking care of your child, family member or friend?: No Do you have trouble with day-to-day activities such as bathing, preparing meals, shopping, managing finances, etc.?: No Are you currently unemployed and looking for a job?: No Are you interested in more education?: No Please select the resources that you would like help with: None Currently or been in a relationship where the following occur: No concerns reported THRIVE Score: 0 PASTOR-7 AMB Questionnaire PASTOR-7 Date PASTOR - 7 assessed: 04/09/24 Source: Developed by Drs. Josep Rodas, Keiry Abarca, Fernando [facility] and colleagues, with an educational caprice from [employer]. Review of Systems Const Details: Const Denies chills, Denies fatigue, Denies fever(s), Denies headache(s) and Denies weakness ENT Denies dizziness and Denies headache(s) Card Denies chest pain, Denies lightheadedness, Denies dyspnea and Denies other (Palpitations) Resp Denies cough, Denies dyspnea, Denies wheezing and Denies other ( shortness of breath) GI Denies abdominal pain, Denies melena, Denies hematochezia, Denies change in bowel habits, Denies dyspepsia and Denies nausea Denies hematuria and Denies dysuria Musc Denies abnormal gait, Denies myalgias, Denies arthralgias, Denies numbness and Denies tingling Skin/Breast Denies rash, Denies unusual bruising and Denies wounds Neuro Denies abnormal gait, Denies dizziness, Denies headache(s), Denies memory loss, Denies numbness, Denies Sensory deficit (Neuro), Denies tingling and Denies weakness Psych Denies anxiety, Denies depression, Denies memory loss Endo Denies cold intolerance, Denies fatigue, Denies heat intolerance, Denies polydipsia and Denies polyuria Aller/Immun Denies wheezing Physical exam (Primary Care) Vital Signs: Last Vital Signs Temp 98.1 F 06/25/24 13:52 Pulse 93 06/25/24 13:52 Resp 16 06/25/24 13:52 BP 119/68 06/25/24 13:52 Pulse Ox 95 06/25/24 13:52 Oxygen Delivery Method Room Air 06/25/24 13:52 BMI result Body Mass Index 30.7 Tobacco/Smoking Status: Tobacco use Status Tobacco use date assessed 06/25/24 06/25/24 13:56 Patient Tobacco Use Status Never used Tobacco 06/25/24 13:49 e-Cigarette/Vaping Use Never Used 06/25/24 13:49 Thrive Assessment: Date of Thrive Assessment Date Thrive assessed 04/02/24 06/25/24 13:49 Currently or been in a relationship where the following occur: No concerns reported Const Other: General: no acute distress and well developed Nutritional Appearance: well nourished Orientation/consciousness: patient oriented x3 HENMT Head: Yes normocephalic and Yes atraumatic Eyes General: appearance normal, both eyes and all related structures Pupils: Equal, round and reactive pupils present EOM: EOMs intact bilaterally Resp Effort & Inspection: normal respiratory effort Auscultation: clear to auscultation bilaterally Cardio Rate: regular rate Rhythm: regular rhythm Heart sounds: S1 normal heart sound present, S2 normal heart sound present, no gallops, no murmurs and no rubs GI Palpation (GI): No Abdominal aortic bruit present, Soft to palpation, nontender, No hepatosplenomegaly present and No Rebound tenderness present Auscultation: normal bowel sounds General: Yes no CVA tenderness Back/Spine/Pelvis Back: no CVA tenderness Cervical Spine: cervical ROM normal and No Cervical spine tenderness Thoracic/Lumbar Spine: thoraco-lumbar ROM normal, No pain with thoraco-lumbar ROM, No thoracic spinal tenderness and No lumbar spinal tenderness Extrem General: Yes normal to inspection, No edema and No calf tenderness Skin General: warm and dry. Normal skin color. Normal skin turgor Neuro General: patient oriented x3, gait normal and no focal neuro deficit Cranial nerves: Yes Equal, round and reactive pupils present Cognition (Neuro): normal cognition Gait exam (Neuro): Normal gait present Sensory Exam: No Sensory deficit (Neuro) Psych Appearance: grossly normal Affect: normal affect Attitude: cooperative Thought process: Normal thought process present Coding Level of Care Code Est Pt Level 3 (96286) Diagnoses High blood pressure I10 Assessment & Plan Assessment & Plan (1) High blood pressure: Code(s): I10 - Essential (primary) hypertension Category: Medical Plan: Blood pressure is 119/68, within goal of less than 140/90. Continue current treatment regimen. Low-sodium diet encouraged. Follow-up in 3 months or sooner with symptoms or concerns. Verbalized understanding and agreed with the plan.
[2024-06-25 13:52] VITALS: BP 119/68; PULSE 93; RESP 16; TEMP 36.7; O2SAT 95; BMI 30.7
--- OUTSIDE RECORDS SUMMARY | 2024-06-25 14:53 | XMS_ITS | Data Portability ---
Author Organization [place] - [facility], Allergy Address [address] [place] [address] Care Team Providers Care Eligibility Specialist Name Role Phone ARIADNA ALEMAN Primary Care [...] for sooner evaluation. Otherwise follow-up as scheduled. [email or web address] Not available 03/05/2024 09:55:29 06/10/2024 06/10/2024 No [...] Go To The Location Of Their Choice, [address] 12/05/2023 08:18:28 Referral None recorded. Procedures None recorded. Surgeries None recorded. Imaging None recorded. Medication Orders doxycycli ne hyclate 100 mg tablet 2024 025 [employer] [facility] #[id number], [address] [place], [address], 06/10/2024 14:55:36 ciproflox acin 0.3 %-dexamet hasone 0.1 % ear drops,rola pension 2023 025 [employer] [facility] #[id number], [address] [place], [address], 03/05/2024 09:08:13 Patient TargetsNo targets recorded. Patient InstructionsNo instructions recorded. Reason for Referral None Reported. Results Created Date Observation Date Name Description Value Unit Range Abnormal Flag Note LastModifiedBy Organization Detail LastModifiedTime 12/04/1912/05/2023 TSH+F REE T4 TSH 3.880 uIU/m L 0.450- 4.500 normal Not Available [facility] ([facility]) [address], [place], [place], [address], 12/05/2023 08:18:27 12/04/19 24 12/05/2023 TSH+F REE T4 T4,free(dire ct) 1.25 NG/dL 0.82-1 .77 normal Not Available [facility] ([facility]) [address], [place], [place], [address], 12/05/2023 08:18:27 Result Notes None recorded. Problems Name Problem SNOMED Code Status Onset Date Resolution Date Notes Provider Name and Address Organization Details Recorded Time Impacted cerumen in right ear 91592396240 Active 2022 Impacted cerumen, right ear; Note: Date Diagnose d: 12/14/19 23 1:16 PM (H61.21) Not Available [facility] 4 02:42:54 Acute recurren t sialoade nitis 96347107113 Active 2022 Acute recurren t sialoade nitis; Note: Date Diagnose d: 06/20/2022 1:26 PM (K11.22) Not Available [facility] 4 02:42:49 Neck pain 49725287 Active 2014 Other disorder s of cervical region: Cervical eitan; Note: Date Diagnose d: 5 4:18 PM (723.1) ; Start Date : 09/11/19 15 Cervi calgia; Note: Date Diagnose d: 5 3:18 PM (M54.2) [mapped from ICD9 code: 723.1] Not Available [facility] 4 02:42:45 Oral cyst 45853555058 00485 Active 2018 Other cysts of oral region, not elsewher e classifi ed; Note: Date Diagnose d: 06/20/2018 2:59 PM (K09.8) Not Available [facility] 4 02:42:50 Chronic rhinitis 01478238 Active 2015 Chronic rhinitis ; Note: Date Diagnose d: 04/17/2015 3:09 PM (J31.0) Not Available [facility] 4 02:42:51 Conducti ve hearing loss, bilatera l 999630579 Active 2014 Conducti ve hearing loss, bilatera l; Note: Date Diagnose d: 5 5:06 PM (389.06) Not Available [facility] 4 02:42:49 Headache 98317295 Active 2018 Headache , unspecif ied; Note: Changed from R51 to R51.9 (08/13/19 10:51 AM) , Date Diagnose d: 03/21/2018 12:03 PM (R51) Not Available [facility] 4 02:42:50 Pain of right temporom andibula r joint 93594652144 921114 Active 2017 Arthralg ia of right temporom andibula r joint; Note: Date Diagnose d: 03/16/2017 3:31 PM (M26.621 ) Not Available [facility] 4 02:42:52 History of malignan t neoplasm of pharynx 38867147339 107 Active 2014 Personal history of malignan t neoplasm : Other and unspecif ied oral cavity and pharynx; Note: Date Diagnose d: 5 5:06 PM (V10.02) Not Available [facility] 4 02:42:45 Bilatera l disorder of Eustachi an tubes 98025460397 85096 Active 2018 Other specifie d disorder s of Eustachi an tube, bilatera l; Note: Date Diagnose d: 09/21/2018 1:53 PM (H69.83) Not Available [facility] 4 02:42:51 Otorrhea of bilatera l ears 31984663642 37296 Active 2020 Otorrhea , bilatera l; Note: Date Diagnose d: 12/31/19 21 3:10 PM (H92.13) Not Available [facility] 4 02:42:48 Orophary ngeal dysphagi a 33317084 Active 2022 Dysphagi a, orophary ngeal phase; Note: Date Diagnose d: 3 12:23 PM (R13.12) Not Available [facility] 4 02:42:54 Otalgia of right ear 4159413717 Active 2017 Otalgia, right ear; Note: Date Diagnose d: 03/16/2017 3:31 PM (H92.01) Not Available [facility] 4 02:42:48 Spasm 80263758 Active 2022 Cramp and spasm; Note: Date Diagnose d: 3 12:47 PM (R25.2) Not Available [facility] 4 02:42:55 Total perforat ion of bilatera l tympanic membrane s 95984972538 85214 Active 2018 Total perforat ions of tympanic membrane , bilatera l; Note: Date Diagnose d: 09/21/2018 1:53 PM (H72.823 ) Not Available [facility] 4 02:42:47 History of malignan t neoplasm of oral cavity 090632957 Active 2014 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, oral cavity, and pharynx; Note: Date Diagnose d: 5 3:18 PM (Z85.818 ) [mapped from ICD9 code: V10.02] Not Available [facility] 4 02:42:46 Acute upper respirat ory infectio n 81845799 Active 2018 Acute upper respirat ory infectio n, unspecif ied; Note: Date Diagnose d: 06/20/2018 2:59 PM (J06.9) Not Available [facility] 4 02:42:54 Mixed conducti ve and sensorin eural hearing loss, bilatera l 848909058 Active 2014 Mixed HL, bilatera l; Note: Date Diagnose d: 5 4:52 PM (389.22) ; Start Date : 09/11/19 15 Mixed conducti ve and sensorin eural hearing loss, bilatera l; Note: Date Diagnose d: 5 3:18 PM (H90.6) [mapped from ICD9 code: 389.22] Not Available [facility] 4 02:42:50 Acute sialoade nitis 442290197 Active 2017 Acute sialoade nitis; Location : left Not e: Changed from K11.2 to K11.21 ( 9 12:00 PM) , Date Diagnose d: 8 11:32 AM (K11.2) Not Available [facility] 4 02:42:45 Disturba nce of salivary secretio n 59751478 Active 2018 Xerostom ia; Note: Date Diagnose d: 06/20/2018 3:00 PM (K11.7) Not Available [facility] 4 02:42:53 Posterio r rhinorrh ea 85269046 Active 2017 Postnasa l drip; Note: Date Diagnose d: 8 2:30 PM (R09.82) Not Available [facility] 4 02:42:51 Disorder of right tympanic membrane 30024304880 17132 Active 2018 Other specifie d disorder s of tympanic membrane , right ear; Note: Date Diagnose d: 06/20/2018 3:01 PM (H73.891 ) Not Available [facility] 4 02:42:49 Bilatera l temporom andibula r joint pain 32686041571 190379 Active 2017 Arthralg ia of bilatera l temporom andibula r joint; Note: Date Diagnose d: 8 2:30 PM (M26.623 ) Not Available [facility] 4 02:42:52 Pharynge al dysphagi a 95432184041 105 Active 2022 Dysphagi a, pharynge al phase; Note: Date Diagnose d: 06/20/2022 1:26 PM (R13.13) Not Available [facility] 4 02:42:55 Otorrhea of right ear 45037680111 73864 Active 2021 Otorrhea , right ear; Note: Date Diagnose d: 03/18/2021 2:44 PM (H92.11) Not Available [facility] 4 02:42:51 Chronic nasophar yngitis 41157320 Active 2014 Nasophar yngitis, chronic; Note: Date Diagnose d: 5 5:06 PM (472.2) ; Start Date : 03/05/19 15 Chron ic nasophar yngitis; Note: Date Diagnose d: 5 3:18 PM (J31.1) [mapped from ICD9 code: 472.2] Not Available [facility] 4 02:42:54 Central perforat ion of left tympanic membrane 98899401671 54534 Active 2021 Central perforat ion of tympanic membrane , left ear; Note: Date Diagnose d: 06/21/2021 9:07 AM (H72.02) Not Available [facility] 4 02:42:45 Perforat ion of left tympanic membrane 08545937890 61827 Active 2017 Unspecif ied perforat ion of tympanic membrane , left ear; Note: Date Diagnose d: 8 1:49 PM (H72.92) Not Available [facility] 4 02:42:52 Otorrhea of left ear 43227485196 28155 Completed 202009/15/2023 Otorrhea , left ear; Note: Date Diagnose d: 1 2:55 PM (H92.12) Otorrh ea, left ear; Note: Date Diagnose d: 01/01/20 15 2:47 PM (H92.12) ; Start Date : 01/01/20 15 Not Available [facility] 4 02:42:46 Acute maxillar y sinusiti s 08819418 Active 2023 Acute maxillar y sinusiti s, unspecif ied; Note: Date Diagnose d: 4 1:35 PM (J01.00) Not Available [facility] 4 02:42:53 Gastroes ophageal reflux disease without esophagi tis 771474134 Active 2023 AMY CARREON MD [address],[place] [address], [place], [address] , [place] - [facility] 4 10:25:31 Acute myringit is of left ear 42500465467 13874 Active 2023 AMY CARREON MD [address],[facility] [address], [place], [address] , [place] - [facility] 4 10:27:39 Feeling of lump in throat 753272367 Active 2024 AMY CARREON MD [address],[place] [address], [place], [address] , [facility] - [facility] 15:29:01 Allergic rhinitis 40665342 Active 2024 AMY CARREON MD [address],[place] [address], [place], [address] , [facility] - [facility] 15:29:18 Dysfunct ion of eustachi an tube 73157193 Active 2024 AMY CARREON MD [address],[place] [address], [place], [address] , [facility] - [facility] 15:29:24 Problem Notes None recorded. Procedures Surgical History Date Name Laterality Status Provider Name and Address Organization Details Recorded Time 06/11/19 25 Fiberoptic Laryngoscopy (Comprehensive) completed AMY HENDRICKS MD [address], [address], [facility] - [facility] 06/10/2024 15:24:37 12/04/19 24 Fiberoptic Laryngoscopy (Comprehensive) completed AMY HENDRICKS MD [address] [place] [address],[address], [address], [facility] - [facility] 12/04/2023 10:27:59 repair of cleft lip completed AMY HENDRICKS MD [address], [address], [facility] - [facility] 12/03/2023 20:05:01 repair of cleft palate completed AMY HENDRICKS MD [address] [place] [address],[address], [address], [facility] - [facility] 12/03/2023 20:05:13 Imaging Results None recorded. Procedure Notes None recorded. Medical Equipment None Reported. Allergies Allergen ID Allergen Name Allergen Category Reaction Reaction Severity Criticality Documentation Date Start Date Code Code System Note Provider Name and Address Organization Details Recorded Time 924193 tree and shrub pollen environme nt,medica tion eye redness Not available Not available 03/05/20242009 22701 UNK Mari cisse [place] - [facility] 5 09:07:54 Medications Name Sig Start Date Stop Date Status Note LastModified by Organization Details LastModified Time clotrimaz ole 10 mg yonas 1 yonas five times a day 12/30 completed Medicati on ID: [id number] D uration Value: 7 Brand Name: clotrima zole Sen d Method: E-Prescr ibed Sub s Allowed: subs [place] Medic ationGen ericName : clotrima zole Not Available Not Available Not Available Augmentin 875 mg-125 mg tablet 1 tablet by mouth 12/03 completed Medicati on ID: 346040 D uration Value: 10 Prescri bed By [...] mg tablet 10/11 completed Medicati on ID: 460480 B rand Name: valsarta n Send Method: [...] mg tablet 01/25 completed Medicati on ID: 570163 D uration Value: 7 Reason: () Brand Name: doxycycl ine monohydr ate Send Method: E-Prescr ibed Sub s Allowed: subs [place] [facility] doxycycl ine monohydr ate [...] a day 10/11 completed Medicati on ID: 455047 D uration Value: 10 Prescri bed By Name: Danuta Martínez nd Name: doxycycl ine monohydr ate Send Method: E-Prescr ibed Sub s Allowed: subs OK Medic ationGen ericName : doxycycl ine monohydr ate Not Available Not Available Not Available clotrimaz ole 1 % topical solution 12/03 completed Medicati on ID: 188574 D uration Value: 14 Brand Name: clotrianiyah [...] by mouth 12/03 completed Medicati on ID: 438243 D uration Value: 1 Prescri bed By [...] both nostrils 2016 active Medicati on ID: 566300 D uration Value: 120 Prescri bed By [...] mg tablet 10/11 completed Medicati on ID: 17212 Br and Name: naproxen Send Method: E-Prescr [...] Vitamin D 2015 active Medicati on ID: 790970 B rand Name: Vitamin D Send Method: E-Prescr ibed Sub s Allowed: subs OK Medic ationGen ericName : Vitamin D Not Available Not Available Not Available magnesium 100 mg (as glycinate ) tablet Take by oral route. active Not Available Not Available No t Available melatonin 10 mg tablet 12/03 completed Medicati on ID: 02278 Br and Name: surya bettencourt Send Method: E-Prescr ibed Sub s Allowed: subs OK Medic atserafinGen ericName : surya bettencourt Not Available Not Available Not Available Vitals Date Recorded Body height Body mass index (BMI) Body weight Provider Name and Address Organization Details Last Updated DateTime 06/10/2024 154.94 cm 29.9 kg/m2 70703.59 g Catrachita Bridges [facility] 06/10/2024 14:55:24 Date Recorded Body height Body mass index (BMI) Body weight Provider Name and Address Organization Details Last Updated DateTime 12/04/2023 154.94 cm 30.8 kg/m2 54023.56 g Catrachita Bridges [facility] 12/04/2023 10:11:21 Date Recorded Body height Body weight Provider Name and Address Organization Details Last Updated DateTime 03/05/2024 154.94 cm 20757.56 g Mari Garcia [facility] 03/05/2024 09:07:36 Social History None [...] Disorder N Anesthesia Complications N Heart Attack ([place]) N Other Skin Condition N Diabetes N [...] SNOMED-CT Code Diagnosis ICD10 Code Diagnosis Note [id number] AMY CARREON MD [facility] [address] [address] 12/04/2023 09:56:12 12/04/2023 10:39:47 History of malignant neoplasm of digestive organ 7413182031 2444042 Z85.00 Gastroesop hageal reflux disease without esophagitis 788266065 K21.9 Consider GI eval. She will discuss with PCP Central pe rforation of left tympanic membrane 1916724398 579357 H72.02 Acute myri ngitis of left ear 5762656153 047608 H73.002 [id number] SILVA SMYTH PA-C [facility] [address] [place] [address] 03/05/2024 09:02:35 03/05/2024 09:35:07 Acute maxillary sinusitis 35397175 J01.00 [id number] AMY CARREON MD [facility] [address] [place] [address] 06/10/2024 14:44:01 06/10/2024 15:30:30 Feeling of lump in throat 785835562 R09.89 History of malignant neoplasm of oropharynx 7856789292 4503215 Z85.818 Dysfunctio n of eustachian tube 05961006 H69.93 Allergic rhinitis 769848 04 J30.9 Health Concerns Section Related Observation LastModified by Organization Detai ls LastModified Time None Recorded Concern Status LastModified by Organization Details LastModified Time None Recorded Advance Directives Directive None Recorded Payers Insurance Date Sequence Insurance Name Policy Number Policy Cervantes Covered Member ID Cervantes Member ID Guarantor Name 12/04/2023 1 [facility] [id number] 1 Rashida Whitmore [id number] Rashida Whitmore 06/10/2024 1 [facility] (MEDICARE REPLACEMENT/ ADVANTAGE - PPO) [id number] Rashida Whitmore [id number] Rashida Whitmore Notes Date Note Type Note [...] every other day AMY HENDRICKS MD [address] [facility], [address], [place] - [facility] 12/04/2023 10:33:22 03/05/2024 text/html 68-year-old [...] not relieve symptoms. AMY HENDRICKS MD [address], [address], [facility] - [facility] 03/05/2024 12:20:10 06/10/2024 text/html History of allergy, [...] combined modality chemo with XRT. Completed therapy [id number] right tonsil History of cleft palate and pharyngeal flap.Using [employer] and less coffee helped her reflux AMY HENDRICKS MD [address], [place], [address], [place] - [facility] 06/10/2024 15:29:49 OBGyn Episode No OBEpisode recorded.
--- OUTSIDE RECORDS SUMMARY | 2024-06-25 14:53 | XMS_ITS | Clinical Summary ---
Author Organization [facility] Address [address] [place] [address] Care Team Providers Care Interlocker Maintainer Name Role Phone Jonny Llanes MD Primary Care Provider + Allergies No known active allergies Medications Medication Sig Dispensed Refills Start Date End Date Status Multiple Vitamin (MULTI VITAMIN PO) Take by mouth. 0 Ac tive Vdnyqcf-Zkenripgz-Tkii min D (CALCIUM 500 PO) Take by [...] needed for pain. 0 Active nystatin (MYCOSTATIN) 416696 UNIT/ML suspension Take 5 mL (500,000 Units [...] age to complete this topic Care Teams Interlocker Maintainer Relationship Specialty Start Date End Date Jonny Llanes MD [address] [place] [address] PCP - General Otolaryngology 10/02/18
== END 2024-06-25 14:18 | disposition home or self-care (01) ==
LOC: HO.HMCFM 13:44
PROVIDERS: PCP Nurse Practitioner Family; Visit Provider Nurse Practitioner Family
DX: I10 Essential (primary) hypertension (principal)

== ENCOUNTER → 2024-06-25 13:43 | Outpatient (BNVA) | payer OTHER, SELFPAY | PROVIDERS: PCP Nurse Practitioner Family; Visit Provider Nurse Practitioner Family ==

== ENCOUNTER → 2024-07-16 13:42 | Outpatient (REF) | payer OTHER, SELFPAY ==
--- OUTSIDE RECORDS SUMMARY | 2024-07-16 15:22 | XMS_ITS | Data Portability ---
Author Organization [place] - [facility], Allergy Address [address] [place] [address] Care Team Providers Care Client Support Analyst Name Role Phone ARIADNA ALEMAN Primary Care [...] for sooner evaluation. Otherwise follow-up as scheduled. [email or web address] Not available 03/05/2024 09:55:29 06/10/2024 06/10/2024 No [...] Go To The Location Of Their Choice, [address] 12/05/2023 08:18:28 Referral None recorded. Procedures None recorded. Surgeries None recorded. Imaging None recorded. Medication Orders doxycycli ne hyclate 100 mg tablet 2024 025 [employer] [facility] #[id number], [address] [place], [address], 06/10/2024 14:55:36 ciproflox acin 0.3 %-dexamet hasone 0.1 % ear drops,rola pension 2023 025 [employer] [facility] #[id number], [address] [place], [address], 03/05/2024 09:08:13 Patient TargetsNo targets recorded. Patient InstructionsNo instructions recorded. Reason for Referral None Reported. Results Created Date Observation Date Name Description Value Unit Range Abnormal Flag Note LastModifiedBy Organization Detail LastModifiedTime 12/04/1912/05/2023 TSH+F REE T4 TSH 3.880 uIU/m L 0.450- 4.500 normal Not Available [facility] ([facility]) [address] [facility], [place], [address], 12/05/2023 08:18:27 12/04/19 24 12/05/2023 TSH+F REE T4 T4,free(dire ct) 1.25 NG/dL 0.82-1 .77 normal Not Available [facility] ([facility]) [address] [facility], [place], [address], 12/05/2023 08:18:27 Result Notes None recorded. Problems Name Problem SNOMED Code Status Onset Date Resolution Date Notes Provider Name and Address Organization Details Recorded Time Impacted cerumen in right ear 80958434255 Active 2022 Impacted cerumen, right ear; Note: Date Diagnose d: 12/14/19 23 1:16 PM (H61.21) Not Available [facility] 4 02:42:54 Acute recurren t sialoade nitis 68578953363 Active 2022 Acute recurren t sialoade nitis; Note: Date Diagnose d: 06/20/2022 1:26 PM (K11.22) Not Available [facility] 4 02:42:49 Neck pain 33774166 Active 2014 Other disorder s of cervical region: Cervical eitan; Note: Date Diagnose d: 5 4:18 PM (723.1) ; Start Date : 09/11/19 15 Cervi calgia; Note: Date Diagnose d: 5 3:18 PM (M54.2) [mapped from ICD9 code: 723.1] Not Available [facility] 4 02:42:45 Oral cyst 72397719664 29689 Active 2018 Other cysts of oral region, not elsewher e classifi ed; Note: Date Diagnose d: 06/20/2018 2:59 PM (K09.8) Not Available [facility] 4 02:42:50 Chronic rhinitis 08241835 Active 2015 Chronic rhinitis ; Note: Date Diagnose d: 04/17/2015 3:09 PM (J31.0) Not Available [facility] 4 02:42:51 Conducti ve hearing loss, bilatera l 556084419 Active 2014 Conducti ve hearing loss, bilatera l; Note: Date Diagnose d: 5 5:06 PM (389.06) Not Available [facility] 4 02:42:49 Headache 48665669 Active 2018 Headache , unspecif ied; Note: Changed from R51 to R51.9 (08/13/19 10:51 AM) , Date Diagnose d: 03/21/2018 12:03 PM (R51) Not Available [facility] 4 02:42:50 Pain of right temporom andibula r joint 19733923133 590908 Active 2017 Arthralg ia of right temporom andibula r joint; Note: Date Diagnose d: 03/16/2017 3:31 PM (M26.621 ) Not Available [facility] 4 02:42:52 History of malignan t neoplasm of pharynx 33714182533 107 Active 2014 Personal history of malignan t neoplasm : Other and unspecif ied oral cavity and pharynx; Note: Date Diagnose d: 5 5:06 PM (V10.02) Not Available [facility] 4 02:42:45 Bilatera l disorder of Eustachi an tubes 89839051386 82407 Active 2018 Other specifie d disorder s of Eustachi an tube, bilatera l; Note: Date Diagnose d: 09/21/2018 1:53 PM (H69.83) Not Available [facility] 4 02:42:51 Otorrhea of bilatera l ears 82500860641 49425 Active 2020 Otorrhea , bilatera l; Note: Date Diagnose d: 12/31/19 21 3:10 PM (H92.13) Not Available [facility] 4 02:42:48 Orophary ngeal dysphagi a 04353399 Active 2022 Dysphagi a, orophary ngeal phase; Note: Date Diagnose d: 3 12:23 PM (R13.12) Not Available [facility] 4 02:42:54 Otalgia of right ear 7749608758 Active 2017 Otalgia, right ear; Note: Date Diagnose d: 03/16/2017 3:31 PM (H92.01) Not Available [facility] 4 02:42:48 Spasm 50208350 Active 2022 Cramp and spasm; Note: Date Diagnose d: 3 12:47 PM (R25.2) Not Available [facility] 4 02:42:55 Total perforat ion of bilatera l tympanic membrane s 81599770223 88109 Active 2018 Total perforat ions of tympanic membrane , bilatera l; Note: Date Diagnose d: 09/21/2018 1:53 PM (H72.823 ) Not Available [facility] 4 02:42:47 History of malignan t neoplasm of oral cavity 584528127 Active 2014 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, oral cavity, and pharynx; Note: Date Diagnose d: 5 3:18 PM (Z85.818 ) [mapped from ICD9 code: V10.02] Not Available [facility] 4 02:42:46 Acute upper respirat ory infectio n 66104634 Active 2018 Acute upper respirat ory infectio n, unspecif ied; Note: Date Diagnose d: 06/20/2018 2:59 PM (J06.9) Not Available [facility] 4 02:42:54 Mixed conducti ve and sensorin eural hearing loss, bilatera l 079109764 Active 2014 Mixed HL, bilatera l; Note: Date Diagnose d: 5 4:52 PM (389.22) ; Start Date : 09/11/19 15 Mixed conducti ve and sensorin eural hearing loss, bilatera l; Note: Date Diagnose d: 5 3:18 PM (H90.6) [mapped from ICD9 code: 389.22] Not Available [facility] 4 02:42:50 Acute sialoade nitis 240519897 Active 2017 Acute sialoade nitis; Location : left Not e: Changed from K11.2 to K11.21 ( 9 12:00 PM) , Date Diagnose d: 8 11:32 AM (K11.2) Not Available [facility] 4 02:42:45 Disturba nce of salivary secretio n 49278105 Active 2018 Xerostom ia; Note: Date Diagnose d: 06/20/2018 3:00 PM (K11.7) Not Available [facility] 4 02:42:53 Posterio r rhinorrh ea 72206715 Active 2017 Postnasa l drip; Note: Date Diagnose d: 8 2:30 PM (R09.82) Not Available [facility] 4 02:42:51 Disorder of right tympanic membrane 23594403263 94683 Active 2018 Other specifie d disorder s of tympanic membrane , right ear; Note: Date Diagnose d: 06/20/2018 3:01 PM (H73.891 ) Not Available [facility] 4 02:42:49 Bilatera l temporom andibula r joint pain 79199506732 566378 Active 2017 Arthralg ia of bilatera l temporom andibula r joint; Note: Date Diagnose d: 8 2:30 PM (M26.623 ) Not Available [facility] 4 02:42:52 Pharynge al dysphagi a 53124281756 105 Active 2022 Dysphagi a, pharynge al phase; Note: Date Diagnose d: 06/20/2022 1:26 PM (R13.13) Not Available [facility] 4 02:42:55 Otorrhea of right ear 34443463505 64460 Active 2021 Otorrhea , right ear; Note: Date Diagnose d: 03/18/2021 2:44 PM (H92.11) Not Available [facility] 4 02:42:51 Chronic nasophar yngitis 94756962 Active 2014 Nasophar yngitis, chronic; Note: Date Diagnose d: 5 5:06 PM (472.2) ; Start Date : 03/05/19 15 Chron ic nasophar yngitis; Note: Date Diagnose d: 5 3:18 PM (J31.1) [mapped from ICD9 code: 472.2] Not Available [facility] 4 02:42:54 Central perforat ion of left tympanic membrane 13406803282 39971 Active 2021 Central perforat ion of tympanic membrane , left ear; Note: Date Diagnose d: 06/21/2021 9:07 AM (H72.02) Not Available [facility] 4 02:42:45 Perforat ion of left tympanic membrane 53415975777 76562 Active 2017 Unspecif ied perforat ion of tympanic membrane , left ear; Note: Date Diagnose d: 8 1:49 PM (H72.92) Not Available [facility] 4 02:42:52 Otorrhea of left ear 79612657824 32090 Completed 202009/15/2023 Otorrhea , left ear; Note: Date Diagnose d: 1 2:55 PM (H92.12) Otorrh ea, left ear; Note: Date Diagnose d: 01/01/20 15 2:47 PM (H92.12) ; Start Date : 01/01/20 15 Not Available [facility] 4 02:42:46 Acute maxillar y sinusiti s 65103526 Active 2023 Acute maxillar y sinusiti s, unspecif ied; Note: Date Diagnose d: 4 1:35 PM (J01.00) Not Available [facility] 4 02:42:53 Gastroes ophageal reflux disease without esophagi tis 408411838 Active 2023 AMY CARREON MD [address] [facility],[place] [address], [place], [address] , [place] - [facility] 4 10:25:31 Acute myringit is of left ear 86776240330 87046 Active 2023 AMY CARREON MD [address],[facility] [address], [place], [address] , [place] - [facility] 4 10:27:39 Feeling of lump in throat 874590767 Active 2024 AMY CARREON MD [address] [facility],[place] [address], [place], [address] , [facility] - [facility] 15:29:01 Allergic rhinitis 89063332 Active 2024 AMY CARREON MD [address] [facility],[place] [address], [place], [address] , [facility] - [facility] 15:29:18 Dysfunct ion of eustachi an tube 83645332 Active 2024 AMY CARREON MD [address] [facility],[place] [address], [place], [address] , [facility] - [facility] 15:29:24 Problem Notes None recorded. Procedures Surgical History Date Name Laterality Status Provider Name and Address Organization Details Recorded Time 06/11/19 25 Fiberoptic Laryngoscopy (Comprehensive) completed AMY HENDRICKS MD [address] [facility] [facility],[address], [address], [facility] - [facility] 06/10/2024 15:24:37 12/04/19 24 Fiberoptic Laryngoscopy (Comprehensive) completed AMY HENDRICKS MD [address] [place] [address],[address], [address], [facility] - [facility] 12/04/2023 10:27:59 repair of cleft lip completed AMY HENDRICKS MD [address] [facility],[address], [address], [facility] - [facility] 12/03/2023 20:05:01 repair of cleft palate completed AMY HENDRICKS MD [address] [place] [address],[address], [address], [facility] - [facility] 12/03/2023 20:05:13 Imaging Results None recorded. Procedure Notes None recorded. Medical Equipment None Reported. Allergies Allergen ID Allergen Name Allergen Category Reaction Reaction Severity Criticality Documentation Date Start Date Code Code System Note Provider Name and Address Organization Details Recorded Time 555365 tree and shrub pollen environme nt,medica tion eye redness Not available Not available 03/05/20242009 80039 UNK Mari cisse [place] - [facility] 5 09:07:54 Medications Name Sig Start Date Stop Date Status Note LastModified by Organization Details LastModified Time clotrimaz ole 10 mg yonas 1 yonas five times a day 12/30 completed Medicati on ID: [id number] D uration Value: 7 Brand Name: clotrima zole Sen d Method: E-Prescr ibed Sub s Allowed: subs OK Medic ationGen ericName : clotrima zole Not Available Not Available Not Available Augmentin 875 mg-125 mg tablet 1 tablet by mouth 12/03 completed Medicati on ID: [id number] D uration Value: 10 Prescri bed By [...] mg tablet 10/11 completed Medicati on ID: [id number] B rand Name: valsarta n Send Method: [...] mg tablet 01/25 completed Medicati on ID: 299307 D uration Value: 7 Reason: () Brand Name: doxycycl ine monohydr ate Send Method: E-Prescr ibed Sub s Allowed: subs [place] [facility] doxycycl ine monohydr ate [...] a day 10/11 completed Medicati on ID: [id number] D uration Value: 10 Prescri bed By Name: Danuta Martínez nd Name: doxycycl ine monohydr ate Send Method: E-Prescr ibed Sub s Allowed: subs OK Medic ationGen ericName : doxycycl ine monohydr ate Not Available Not Available Not Available clotrimaz ole 1 % topical solution 12/03 completed Medicati on ID: 666105 D uration Value: 14 Brand Name: clotrianiyah [...] by mouth 12/03 completed Medicati on ID: [id number] D uration Value: 1 Prescri bed By [...] both nostrils 2016 active Medicati on ID: 216334 D uration Value: 120 Prescri bed By [...] mg tablet 10/11 completed Medicati on ID: [id number] Br and Name: naproxen Send Method: E-Prescr [...] Vitamin D 2015 active Medicati on ID: [id number] B rand Name: Vitamin D Send Method: E-Prescr ibed Sub s Allowed: subs OK Medic ationGen ericName : Vitamin D Not Available Not Available Not Available magnesium 100 mg (as glycinate ) tablet Take by oral route. active Not Available Not Available No t Available melatonin 10 mg tablet 12/03 completed Medicati on ID: [id number] Br and Name: surya bettencourt Send Method: E-Prescr ibed Sub s Allowed: subs OK Medic atserafinGen ericName : surya bettencourt Not Available Not Available Not Available Vitals Date Recorded Body height Body weight Provider Name and Address Organization Details Last Updated DateTime 03/05/2024 154.94 cm 40118.[address] - [facility] 03/05/2024 09:07:36 Date Recorded Body height Body mass index (BMI) Body weight Provider Name and Address Organization Details Last Updated DateTime 06/10/2024 154.94 cm 29.9 kg/m2 27794.59 g Catrachita Bridges [facility] 06/10/2024 14:55:24 Date Recorded Body height Body mass index (BMI) Body weight Provider Name and Address Organization Details Last Updated DateTime 12/04/2023 154.94 cm 30.8 kg/m2 36690.56 g Catrachita Bridges [facility] 12/04/2023 10:11:21 Social History None recorded. Functional Status None recorded. Mental Status None recorded. Family History Nothing Reported. Medical History Condition Response Allergies/Hayfever Y Heart Problems N Anxiety N Tonsil Infections N Emphysema N Migraines N Thyroid Problems N Developmental Delay N COPD N Depression N Glaucoma N Nasal or Sinus Problems Y Anemia N Immune System Disorder N Anesthesia Complications N Heart Attack ([place]) N Other Skin Condition N Diabetes N [...] SNOMED-CT Code Diagnosis ICD10 Code Diagnosis Note [id number] AMY CARREON MD [facility] [address] [address] 12/04/2023 09:56:12 12/04/2023 10:39:47 History of malignant neoplasm of digestive organ [id number] 5205467 Z85.00 Gastroesop hageal reflux disease without esophagitis 105654346 K21.9 Consider GI eval. She will discuss with PCP Central pe rforation of left tympanic membrane 4974312637 161338 H72.02 Acute myri ngitis of left ear 1831176728 798240 H73.002 [id number] SILVA SMYTH PA-C [facility] [address] [place] [address] 03/05/2024 09:02:35 03/05/2024 09:35:07 Acute maxillary sinusitis 92905438 J01.00 [id number] AMY CARREON MD [facility] [address] [place] [address] 06/10/2024 14:44:01 06/10/2024 15:30:30 Feeling of lump in throat 537098909 R09.89 History of malignant neoplasm of oropharynx 6347807985 7867933 Z85.818 Dysfunctio n of eustachian tube 42236382 H69.93 Allergic rhinitis 631849 04 J30.9 Health Concerns Section Related Observation LastModified by Organization Detai ls LastModified Time None Recorded Concern Status LastModified by Organization Details LastModified Time None Recorded Advance Directives Directive None Recorded Payers Insurance Date Sequence Insurance Name Policy Number Policy Cervantes Covered Member ID Cervantes Member ID Guarantor Name 12/04/2023 1 [facility] [id number] 1 Rashida Whitmore [id number] Rashida Whitmore 06/10/2024 1 [facility] (MEDICARE REPLACEMENT/ ADVANTAGE - PPO) [id number] Rashida Whitmore [id number] Rashida Whitmore Notes Date Note Type Note Provider Name and Address Organization Details Recorded Time 12/04/2023 text/html 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 Completed therapy [id number] right tonsilHx of ETD with cleft lip and palate as child. Mild allergy sx and right ear discomfort with left otorrheaOff balance for a couple of weeks Denies weight loss, Notes sore throat only in the AM, Notes ear pain, Denies voice change Presently not smoking cigarettes. If smoking, ppd Presently drinking alcohol 2 beer per week Last imaging [address] negative History of esophageal dysmotility and reflux with globus sensation. Still getting reflux with bending over. Taking TUMS every other day AMY HENDRICKS MD [address] [place] [address] [place] [address], [address], [place] - [facility] 12/04/2023 10:33:22 03/05/2024 text/html 68-year-old reid [...] not relieve symptoms. AMY HENDRICKS MD [address] [facility] [place],[address], [address], [facility] - [facility] 03/05/2024 12:20:10 06/10/2024 text/html History of [...] combined modality chemo with XRT. Completed therapy [id number] right tonsil History of cleft palate and pharyngeal flap.Using Reflux Gourmet and less coffee helped her reflux AMY HENDRICKS MD [address], [place], [address], [facility] - [facility] 06/10/2024 15:29:49 OBGyn Episode No OBEpisode recorded.
== END ==
LOC: HO.SL 13:42
PROVIDERS: PCP Nurse Practitioner Family; Visit Provider Physician Assistant Medical
DX: G47.19 Other hypersomnia (principal)
CPT/HCPCS: 95806

== ENCOUNTER → 2024-07-16 13:50 | Outpatient (BNV) | payer OTHER, SELFPAY | PROVIDERS: PCP Nurse Practitioner Family; Visit Provider Psychiatry & Neurology Neurology | DX: G47.33 Obstructive sleep apnea (adult) (pediatric) (principal) | CPT/HCPCS: 95806 ==

== ENCOUNTER 2024-07-26 12:55 | Outpatient (AMB) | payer OTHER, SELFPAY ==
[2024-07-26 13:05] VITALS: BP 132/90; PULSE 77; O2SAT 97; BMI 30.5
--- NOTE | 2024-07-26 13:05 | A.OFFVIS_ITS ---
Vital Signs 07/26/24 13:05 Height 5 ft 1 in Weight 161 lb 4 oz BMI 30.5 BP 132/90 H Blood Pressure Location Lt brachial Position Sitting Pulse 77 Pulse Source Pulse Oximeter Pulse Oximetry (%) 97 Oxygen Delivery Method Room Air Intake Visit Reasons: 3 mnts f/u appt Intake Note: Patient presents follow up Sleep/Tremor. HST done 07/16. Report not ready. Accompanied by: Self / Same As Patient Allergies No Known Allergies Allergy (Verified 07/26/24 13:09) HPI Comments Details: 68 year old r. hand dominant visit for sleep apnea evaluation and tremors. July 16 HST completed and is pending, BP 132/90 Reviewed Labs with patient today. She has a + L, hermittes sign + denies MS like symptoms of foot drop, the left leg is not kick as high as right during her cardio workout. She has a h/o cleft palette and r. tonsil cancer radiation/chemo in Jan 2013 for 6wks then 9wks of cysplatin and 5-FU therapy. Continues to get thrush especially in the isaac, she rinses with salt water. She had an evaluation at [facility] diagnosed with mild sleep apnea, and could not tolerate the mask. Her mouth gets dried and she has to wake up several times a night for sips of water then she feels exhausted most days and moves sluggishly. She is has chronic Ear infections and sees ENT, Dr. Ruvalcaba every 6 months. She has headaches after dentist visits or triggered by hot weather, and can last from hours to day, they start behind the eyes migrate to base of skull, with dull pain 8/10. She has photophobia, gait and balance difficulty but denies triggers due to sounds and smells. RLS symptoms: She does vestibular PT as she notices tremors and numbness, now notices swelling bilaterally in hands. She also has pins and needles in r. feet with an uncomfortable sensation. She has osteopenia and joint pain in her metacarpal joints digits 2-3-4-5, bilaterally. Gourmet Sucralafate and cutting back on caffeine, helps to manage acid reflux. She has dysphagia with spaghetti and red meat, but not with liquids. Her diet is mainly soups, and soft foods. GI f/u pending. Her memory is stable, mood is generally good. She is a former smoker, quit 25 years ago. 1-2 drinks of beer on the weekends. [facility] Medical History Hx of ectopic Tonsillar tumor Cleft palate Neuropathy Shingles Hiatal hernia Acid reflux Osteoporosis High blood pressure Sinusitis Surgical History History of salpingectomy Family History Brother Alcohol abuse FH: mental illness Mother High cholesterol Diabetes Cervical cancer Father Diabetes Cardiovascular disease Paternal Grandmother Diabetes Sister Thyroid disorder Maternal Grandfather Stomach cancer Social History Housing: House Patient Tobacco Use Status: Never used Tobacco e-Cigarette/Vaping Use: Never Used Second Hand Smoke Exposure: No service: No Current occupational status: retired Current occupational exposures/hazards: No Cognitive needs: No Hearing needs: Yes Vision needs: Yes Physical Exam Vital Signs: Last Vital Signs Pulse 77 07/26/24 13:05 BP 132/90 H 07/26/24 13:05 Pulse Ox 97 07/26/24 13:05 Oxygen Delivery Method Room Air 07/26/24 13:05 BMI result Body Mass Index 30.5 Const General: cooperative, comfortable and no acute distress Orientation/consciousness: patient oriented x3 Eyes Pupils: Equal, round and reactive pupils present Neck Neck: Yes full ROM and Yes supple Resp Effort & Inspection: normal respiratory effort and able to speak in complete sentences Neuro General: patient oriented x3 and moves all extremities Cranial nerves: Yes CN's II-XII intact bilaterally, Yes Facial sensation intact/muscles of mastication intact, Yes Equal, round and reactive pupils present, Yes Normal accommodation reflex present, Yes Bilaterally intact EOM present, Yes Normal facial strength present, Yes Midline tongue present, Yes Ability to bilaterally rotate head present and Yes Ability to bilaterally elevate shoulders present Gait exam (Neuro): Normal gait present Motor exam (neuro): 5/5 motor strength present throughout, Normal motor muscle tone present throughout and Tremors during motor activity present (RUE / r hand and head) Psych Appearance: grossly normal Thought process: Normal thought process present Thought content: Normal thought content present Assessment & Plan Assessment & Plan (1) Excessive daytime sleepiness: Code(s): G47.19 - Other hypersomnia Category: Medical (2) Tremor of right hand: Code(s): R25.1 - Tremor, unspecified Category: Medical (3) Loud snoring: Code(s): R06.83 - Snoring Category: Medical (4) Fatigue due to sleep pattern disturbance: Code(s): R53.83 - Other fatigue; G47.9 - Sleep disorder, unspecified Category: Medical (5) Benign head tremor: Code(s): G25.0 - Essential tremor Category: Medical Plan HST is pending Rheumatology referral? RLS - declines meds today. Labs to r/o nutritional deficiencies. Tremors Magnesium 400mg PO daily at bedtime and B6 200 mg PO at bedtime Snoring, using a mouth guard and dental referral for somnoguard, nose strips as needed or taping of the mouth. BP monitor and f/u with PCP Orders: Orders Homocysteine 07/26/24 G47.19 - Other hypersomnia, G47.9 - Sleep disorder, unspecified, R53.83 - Other fatigue Methylmalonic Acid 07/26/24 G47.19 - Other hypersomnia, G47.9 - Sleep disorder, unspecified, R53.83 - Other fatigue Vitamin B12 and Folate 07/26/24 G47.19 - Other hypersomnia Ferritin 07/26/24 G47.19 - Other hypersomnia Vitamin D 25-OH Total 07/26/24 G47.19 - Other hypersomnia Patient Instructions: Sleep Hygiene provided: set a scheduled bedtime and wake time to help regulate the circadian rhythm and balance the release of pituitary hormones. Sleep in a dark room, temperatures below 68 degrees, and no devices n bed. Limit caffeinated products 6 hours prior to bed, and limit fluids 2-4 hours prior to bed. Gentle night yoga, diffusing essential oils, and playing soft music can be relaxing. Coding Level of Care Code Est Pt Level 4 (04741) Diagnoses Excessive daytime sleepiness G47.19 Tremor of right hand R25.1 Loud snoring R06.83 Fatigue due to sleep pattern disturbance R53.83; G47.9 Benign head tremor G25.0 Time Spent (min) 25 Comment improving
== END 2024-07-26 14:47 | disposition home or self-care (01) ==
LOC: HO.HSMS 12:56
PROVIDERS: PCP Nurse Practitioner Family; Visit Provider Physician Assistant Medical
DX: G47.19 Other hypersomnia (principal); R25.1 Tremor, unspecified; R06.83 Snoring; R53.83 Other fatigue; G47.9 Sleep disorder, unspecified; G25.0 Essential tremor
CPT/HCPCS: 99214

== ENCOUNTER → 2024-07-26 12:55 | Outpatient (BNVA) | payer OTHER, SELFPAY | PROVIDERS: PCP Nurse Practitioner Family; Visit Provider Physician Assistant Medical ==

== ENCOUNTER 2024-07-31 08:35 | Outpatient (REF) | payer OTHER, SELFPAY ==
[2024-07-31 12:27] LABS: Ferritin 67 ng/mL (10-250); Vitamin D 25-OH Total 55.7 ng/mL (>30)
[2024-07-31 12:40] LABS: Folate 12.9 ng/mL (> or = 4.0); Vitamin B12 692 pg/mL (200-900)
[2024-08-03 20:35] LABS: Methylmalonic Acid 145 nmol/L (69-390)
== END 2024-07-31 08:36 | disposition home or self-care (01) ==
LOC: HO.WFDLDS 08:35
PROVIDERS: Visit Provider Physician Assistant Medical
DX: G47.19 Other hypersomnia (principal); G47.9 Sleep disorder, unspecified; R53.83 Other fatigue
CPT/HCPCS: 36415; 82306; 82607; 82728; 82746; 83921

== ENCOUNTER 2024-08-02 08:05 | Outpatient (REF) | payer OTHER, SELFPAY ==
--- OUTSIDE RECORDS SUMMARY | 2024-08-02 08:10 | XMS_ITS | Data Portability ---
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 Otherwise follow-up as scheduled. [email or web address] Not available 03/05/2024 09:55:29 06/10/2024 06/10/2024 No [...] TSH + free T4, serum 2023 024 [employer] [facility] (Centralized Electronic Ordering - All Locations), Patient Can Go To The Location Of Their Choice, [address] 12/05/2023 08:18:28 Referral None recorded. Procedures None recorded. Surgeries None recorded. Imaging None recorded. Medication Orders doxycycli ne hyclate 100 mg tablet 2024 025 [facility]acy #[id number], [address] [place], [address], 06/10/2024 14:55:36 ciproflox acin 0.3 %-dexamet hasone 0.1 % ear drops,rola pension 2023 025 [employer] [facility]/Pharmacy #[id number], [address] [place], [address], 03/05/2024 09:08:13 Patient TargetsNo targets recorded. Patient InstructionsNo instructions recorded. Reason for Referral None Reported. Results Created Date Observation Date Name Description Value Unit Range Abnormal Flag Note LastModifiedBy Organization Detail LastModifiedTime 12/04/1912/05/2023 TSH+F REE T4 TSH 3.880 uIU/m L 0.450- 4.500 normal Not Available [facility] ([facility]) [address] [facility], [place], [address], 12/05/2023 08:18:27 12/04/19 24 12/05/2023 TSH+F REE T4 T4,free(dire ct) 1.25 NG/dL 0.82-1 .77 normal Not Available [facility] ([facility]) [address] [facility], [place], [address], 12/05/2023 08:18:27 Result Notes None recorded. Problems Name Problem SNOMED Code Status Onset Date Resolution Date Notes Provider Name and Address Organization Details Recorded Time Impacted cerumen in right ear 86732441745 Active 2022 Impacted cerumen, right ear; Note: Date Diagnose d: 12/14/19 23 1:16 PM (H61.21) Not Available [facility] 4 02:42:54 Acute recurren t sialoade nitis 30570743509 Active 2022 Acute recurren t sialoade nitis; Note: Date Diagnose d: 06/20/2022 1:26 PM (K11.22) Not Available [facility] 4 02:42:49 Neck pain 18655931 Active 2014 Other disorder s of cervical region: Cervical eitan; Note: Date Diagnose d: 5 4:18 PM (723.1) ; Start Date : 09/11/19 15 Cervi calgia; Note: Date Diagnose d: 5 3:18 PM (M54.2) [mapped from ICD9 code: 723.1] Not Available [facility] 4 02:42:45 Oral cyst 31721742100 45837 Active 2018 Other cysts of oral region, not elsewher e classifi ed; Note: Date Diagnose d: 06/20/2018 2:59 PM (K09.8) Not Available [facility] 4 02:42:50 Chronic rhinitis 72950265 Active 2015 Chronic rhinitis ; Note: Date Diagnose d: 04/17/2015 3:09 PM (J31.0) Not Available [facility] 4 02:42:51 Conducti ve hearing loss, bilatera l 473173188 Active 2014 Conducti ve hearing loss, bilatera l; Note: Date Diagnose d: 5 5:06 PM (389.06) Not Available [facility] 4 02:42:49 Headache 65756245 Active 2018 Headache , unspecif ied; Note: Changed from R51 to R51.9 (08/13/19 10:51 AM) , Date Diagnose d: 03/21/2018 12:03 PM (R51) Not Available [facility] 4 02:42:50 Pain of right temporom andibula r joint 19054784530 104829 Active 2017 Arthralg ia of right temporom andibula r joint; Note: Date Diagnose d: 03/16/2017 3:31 PM (M26.621 ) Not Available [facility] 4 02:42:52 History of malignan t neoplasm of pharynx 86124955591 107 Active 2014 Personal history of malignan t neoplasm : Other and unspecif ied oral cavity and pharynx; Note: Date Diagnose d: 5 5:06 PM (V10.02) Not Available [facility] 4 02:42:45 Bilatera l disorder of Eustachi an tubes 55170545532 67812 Active 2018 Other specifie d disorder s of Eustachi an tube, bilatera l; Note: Date Diagnose d: 09/21/2018 1:53 PM (H69.83) Not Available [facility] 4 02:42:51 Otorrhea of bilatera l ears 14318804725 81695 Active 2020 Otorrhea , bilatera l; Note: Date Diagnose d: 12/31/19 21 3:10 PM (H92.13) Not Available [facility] 4 02:42:48 Orophary ngeal dysphagi a 42448714 Active 2022 Dysphagi a, orophary ngeal phase; Note: Date Diagnose d: 3 12:23 PM (R13.12) Not Available [facility] 4 02:42:54 Otalgia of right ear 4148438659 Active 2017 Otalgia, right ear; Note: Date Diagnose d: 03/16/2017 3:31 PM (H92.01) Not Available [facility] 4 02:42:48 Spasm 38854777 Active 2022 Cramp and spasm; Note: Date Diagnose d: 3 12:47 PM (R25.2) Not Available [facility] 4 02:42:55 Total perforat ion of bilatera l tympanic membrane s 00224245247 10233 Active 2018 Total perforat ions of tympanic membrane , bilatera l; Note: Date Diagnose d: 09/21/2018 1:53 PM (H72.823 ) Not Available [facility] 4 02:42:47 History of malignan t neoplasm of oral cavity 885216227 Active 2014 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, oral cavity, and pharynx; Note: Date Diagnose d: 5 3:18 PM (Z85.818 ) [mapped from ICD9 code: V10.02] Not Available [facility] 4 02:42:46 Acute upper respirat ory infectio n 32027310 Active 2018 Acute upper respirat ory infectio n, unspecif ied; Note: Date Diagnose d: 06/20/2018 2:59 PM (J06.9) Not Available [facility] 4 02:42:54 Mixed conducti ve and sensorin eural hearing loss, bilatera l 545864067 Active 2014 Mixed HL, bilatera l; Note: Date Diagnose d: 5 4:52 PM (389.22) ; Start Date : 09/11/19 15 Mixed conducti ve and sensorin eural hearing loss, bilatera l; Note: Date Diagnose d: 5 3:18 PM (H90.6) [mapped from ICD9 code: 389.22] Not Available [facility] 4 02:42:50 Acute sialoade nitis 766844862 Active 2017 Acute sialoade nitis; Location : left Not e: Changed from K11.2 to K11.21 ( 9 12:00 PM) , Date Diagnose d: 8 11:32 AM (K11.2) Not Available [facility] 4 02:42:45 Disturba nce of salivary secretio n 46950751 Active 2018 Xerostom ia; Note: Date Diagnose d: 06/20/2018 3:00 PM (K11.7) Not Available [facility] 4 02:42:53 Posterio r rhinorrh ea 33953574 Active 2017 Postnasa l drip; Note: Date Diagnose d: 8 2:30 PM (R09.82) Not Available [facility] 4 02:42:51 Disorder of right tympanic membrane 60866652233 83542 Active 2018 Other specifie d disorder s of tympanic membrane , right ear; Note: Date Diagnose d: 06/20/2018 3:01 PM (H73.891 ) Not Available [facility] 4 02:42:49 Bilatera l temporom andibula r joint pain 38894955348 627288 Active 2017 Arthralg ia of bilatera l temporom andibula r joint; Note: Date Diagnose d: 8 2:30 PM (M26.623 ) Not Available [facility] 4 02:42:52 Pharynge al dysphagi a 95663987373 105 Active 2022 Dysphagi a, pharynge al phase; Note: Date Diagnose d: 06/20/2022 1:26 PM (R13.13) Not Available [facility] 4 02:42:55 Otorrhea of right ear 97770179808 14726 Active 2021 Otorrhea , right ear; Note: Date Diagnose d: 03/18/2021 2:44 PM (H92.11) Not Available [facility] 4 02:42:51 Chronic nasophar yngitis 50086856 Active 2014 Nasophar yngitis, chronic; Note: Date Diagnose d: 5 5:06 PM (472.2) ; Start Date : 03/05/19 15 Chron ic nasophar yngitis; Note: Date Diagnose d: 5 3:18 PM (J31.1) [mapped from ICD9 code: 472.2] Not Available [facility] 4 02:42:54 Central perforat ion of left tympanic membrane 20070230083 91680 Active 2021 Central perforat ion of tympanic membrane , left ear; Note: Date Diagnose d: 06/21/2021 9:07 AM (H72.02) Not Available [facility] 4 02:42:45 Perforat ion of left tympanic membrane 97543619666 93692 Active 2017 Unspecif ied perforat ion of tympanic membrane , left ear; Note: Date Diagnose d: 8 1:49 PM (H72.92) Not Available [facility] 4 02:42:52 Otorrhea of left ear 90609247425 13856 Completed 202009/15/2023 Otorrhea , left ear; Note: Date Diagnose d: 1 2:55 PM (H92.12) Otorrh ea, left ear; Note: Date Diagnose d: 01/01/20 15 2:47 PM (H92.12) ; Start Date : 01/01/20 15 Not Available [facility] 4 02:42:46 Acute maxillar y sinusiti s 50296358 Active 2023 Acute maxillar y sinusiti s, unspecif ied; Note: Date Diagnose d: 4 1:35 PM (J01.00) Not Available [facility] 4 02:42:53 Gastroes ophageal reflux disease without esophagi tis 546596911 Active 2023 AMY CARREON MD [address],[place] [address], [place], [address] , [place] - [facility] 4 10:25:31 Acute myringit is of left ear 32126815012 36856 Active 2023 AMY CARREON MD [address],[facility] [address], [place], [address] , [place] - [facility] 4 10:27:39 Feeling of lump in throat 809664768 Active 2024 AMY CARREON MD [address],[place] [address], [place], [address] , [facility] - [facility] 15:29:01 Allergic rhinitis 31770189 Active 2024 AMY CARREON MD [address],[place] [address], [place], [address] , [facility] - [facility] 15:29:18 Dysfunct ion of eustachi an tube 71490646 Active 2024 AMY CARREON MD [address],[place] [address], [place], [address] , [facility] - [facility] 15:29:24 Problem Notes None recorded. Procedures Surgical History Date Name Laterality Status Provider Name and Address Organization Details Recorded Time 06/11/19 25 Fiberoptic Laryngoscopy (Comprehensive) completed AMY HENDRICKS MD [address], [address], [facility] - [facility] 06/10/2024 15:24:37 12/04/19 24 Fiberoptic Laryngoscopy (Comprehensive) completed AMY HENDRICKS MD [address] [place] [address],[address], [address], [facility] - [facility] 12/04/2023 10:27:59 repair of cleft lip completed AMY HENDRICKS MD [address], [address], [facility] - [facility] 12/03/2023 20:05:01 repair of cleft palate completed AMY HENDRICKS MD [address] [place] [address],[address], [address], [facility] - [facility] 12/03/2023 20:05:13 Imaging Results None recorded. Procedure Notes None recorded. Medical Equipment None Reported. Allergies Allergen ID Allergen Name Allergen Category Reaction Reaction Severity Criticality Documentation Date Start Date Code Code System Note Provider Name and Address Organization Details Recorded Time 361022 tree and shrub pollen environme nt,medica tion eye redness Not available Not available 03/05/20242009 70043 UNK Mari cisse [place] - [facility] 5 09:07:54 Medications Name Sig Start Date Stop Date Status Note LastModified by Organization Details LastModified Time clotrimaz ole 10 mg yonas 1 yonas five times a day 12/30 completed Medicati on ID: [id number] D uration Value: 7 Brand Name: clotrima zole Sen d Method: E-Prescr ibed Sub s Allowed: subs OK Medic ationGen ericName : clotrima zole Not Available Not Available Not Available Augmentin 875 mg-125 mg tablet 1 tablet by mouth 12/03 completed Medicati on ID: 166365 D uration Value: 10 Prescri bed By [...] mg tablet 10/11 completed Medicati on ID: 574769 B rand Name: valsarta n Send Method: [...] mg tablet 01/25 completed Medicati on ID: 541507 D uration Value: 7 Reason: () Brand Name: doxycycl ine monohydr ate Send Method: E-Prescr ibed Sub s Allowed: subs [place] [facility] doxycycl ine monohydr ate [...] a day 10/11 completed Medicati on ID: 168961 D uration Value: 10 Prescri bed By Name: Danuta Martínez nd Name: doxycycl ine monohydr ate Send Method: E-Prescr ibed Sub s Allowed: subs OK Medic ationGen ericName : doxycycl ine monohydr ate Not Available Not Available Not Available clotrimaz ole 1 % topical solution 12/03 completed Medicati on ID: 318019 D uration Value: 14 Brand Name: clotrianiyah [...] by mouth 12/03 completed Medicati on ID: 584120 D uration Value: 1 Prescri bed By [...] both nostrils 2016 active Medicati on ID: 626184 D uration Value: 120 Prescri bed By [...] mg tablet 10/11 completed Medicati on ID: 82395 Br and Name: naproxen Send Method: E-Prescr [...] Vitamin D 2015 active Medicati on ID: 360102 B rand Name: Vitamin D Send Method: E-Prescr ibed Sub s Allowed: subs OK Medic ationGen ericName : Vitamin D Not Available Not Available Not Available magnesium 100 mg (as glycinate ) tablet Take by oral route. active Not Available Not Available No t Available melatonin 10 mg tablet 12/03 completed Medicati on ID: 55908 Br and Name: surya bettencourt Send Method: E-Prescr ibed Sub s Allowed: subs OK Medic atserafinGen ericName : surya bettencourt Not Available Not Available Not Available Vitals Date Recorded Body height Body weight Provider Name and Address Organization Details Last Updated DateTime 03/05/2024 154.94 cm 25380.56 g Mari Garcia [place] - [facility] 03/05/2024 09:07:36 Date Recorded Body height Body mass index (BMI) Body weight Provider Name and Address Organization Details Last Updated DateTime 06/10/2024 154.94 cm 29.9 kg/m2 08227.59 g Catrachita Bridges [facility] 06/10/2024 14:55:24 Date Recorded Body height Body mass index (BMI) Body weight Provider Name and Address Organization Details Last Updated DateTime 12/04/2023 154.94 cm 30.8 kg/m2 43767.56 g Catrachita Bridges [facility] 12/04/2023 10:11:21 Social History None recorded. [...] Disorder N Anesthesia Complications N Heart Attack ([place]) N Other Skin Condition N Diabetes N [...] SNOMED-CT Code Diagnosis ICD10 Code Diagnosis Note [id number] AMY CARREON MD [facility] [address] [address] 12/04/2023 09:56:12 12/04/2023 10:39:47 History of malignant neoplasm of digestive organ [id number] 6786877 Z85.00 Gastroesop hageal reflux disease without esophagitis 005975340 K21.9 Consider GI eval. She will discuss with PCP Central pe rforation of left tympanic membrane 7605902975 477563 H72.02 Acute myri ngitis of left ear 4174527984 081192 H73.002 44375 SILVA SMYTH PA-C [facility] [address] [place] [address] 03/05/2024 09:02:35 03/05/2024 09:35:07 Acute maxillary sinusitis 93375787 J01.00 10219 AMY CARREON MD [facility] [address] [place] [address] 06/10/2024 14:44:01 06/10/2024 15:30:30 Feeling of lump in throat 196409632 R09.89 History of malignant neoplasm of oropharynx 2752543745 6385353 Z85.818 Dysfunctio n of eustachian tube 65179320 H69.93 Allergic rhinitis 629555 04 J30.9 Health Concerns Section Related Observation LastModified by Organization Detai ls LastModified Time None Recorded Concern Status LastModified by Organization Details LastModified Time None Recorded Advance Directives Directive None Recorded Payers Insurance Date Sequence Insurance Name Policy Number Policy Cervantes Covered Member ID Cervantes Member ID Guarantor Name 12/04/2023 1 [facility] [id number] 1 Rashida Whitmore [id number] Rashida Whitmore 06/10/2024 1 [facility] (MEDICARE REPLACEMENT/ ADVANTAGE - PPO) [id number] 1 Rashida Whitmore [id number] Rashida Whitmore Notes Date Note Type Note Provider Name and Address Organization Details Recorded Time 12/04/2023 text/html 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 Completed therapy [id number] right tonsilHx of ETD with cleft lip [...] every other day AMY HENDRICKS MD [address] [facility] [place],[address], [address], [place] - [facility] 12/04/2023 10:33:22 03/05/2024 text/html 68-year-old reid [...] not relieve symptoms. AMY HENDRICKS MD [address] [facility] [place],[address], [address], [facility] - [facility] 03/05/2024 12:20:10 06/10/2024 text/html History of [...] combined modality chemo with XRT. Completed therapy [id number] right tonsil History of cleft palate and pharyngeal flap.Using [employer] and less coffee helped her reflux AMY HENDRICKS MD [address] [facility] [facility] [place] [address], [place], [address], [facility] - [facility] 06/10/2024 15:29:49 OBGyn Episode No OBEpisode recorded.
[2024-08-05 17:38] LABS: Homocysteine 7.2 umol/L (< or = 13.4)
== END 2024-08-02 08:06 | disposition home or self-care (01) ==
LOC: HO.LAB 08:05
PROVIDERS: PCP Nurse Practitioner Family; Visit Provider Physician Assistant Medical
DX: G47.9 Sleep disorder, unspecified (principal); R53.83 Other fatigue; G47.19 Other hypersomnia
CPT/HCPCS: 36415; 83090

== ENCOUNTER 2024-08-28 15:44 | Outpatient (AMB) | payer OTHER, SELFPAY ==
--- NOTE | 2024-08-28 15:48 | A.OFFVIS_ITS ---
Vital Signs 08/28/24 15:50 Height 5 ft 1 in Weight 156 lb 8.451 oz BMI 29.6 BP 143/72 H Blood Pressure Location Lt brachial Position Sitting Pulse 84 Intake Visit Reasons: Dysphagia, Esophagitis Intake Note: Rashida presents in the office as a new patient for dysphagia and esophagitis. CC: Swallowing has been an issue for a few years now. 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 Referred by PCP for further evaluation of dysphagia. Rashida's dysphagia symptoms began around 2022 and have progressively worsened. 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 She describes difficulty swallowing certain foods, especially thick sandwiches, chunky bread, and pasta, with episodes of food impaction at the throat and a sensation of food sitting in the laryngeal area. She has had near-choking incidents, notably with linguine, but is able to breathe during these episodes. She avoids problematic foods and modifies her diet to manage symptoms. No significant regurgitation, but she endorses occasional heartburn, which is partially relieved by [id number] gum (Reflux G[employer]met). She also reports bloating without abdominal pain, and constipation when consuming excess cheese. Bowel habits otherwise normal, no blood in stool. Nausea occurs when her stomach is empty, and she notes decreased hunger cues. Barium swallow in September 2022 showed mild-moderate esophageal dysmotility, small hiatal hernia, and evidence of food stasis at the larynx; no reflux observed. She attended physical therapy post-barium swallow and has had a live swallow study in ENT office. She has chronic thrush, worse in summer, presenting as dry mouth and irritation, especially after heat exposure. No current management for thrush except saltw ater rinses. She is remains connected with ENT for continued surveillance tumor management. Shares last colonoscopy eight years ago with reports of normal findings performed at [facility] Medical Reports recent diagnosis of moderate sleep apnea. Shares CPAP is pending. Patient denies: fever/chills, vomiting, regurgitation, unintentional wt loss, ab pain or melena/hematochezia. Social hx: -beers on weekends -denies recreational drug use -former smoker, cessation 25 years ago - family hx as below -tolerated anesthesia in the past without difficulty. [facility] Medical History (Updated 08/28/24 @ 17:30 by Yaima Dao CNP) Colon cancer screening declined Thrush, oral Hx of ectopic Tonsillar tumor Cleft palate Neuropathy Shingles Hiatal hernia Acid reflux Osteoporosis High blood pressure Sinusitis Surgical History (Updated 08/28/24 @ 15:51 by KEO Yu) Hx of colonoscopy History of salpingectomy Family History (Updated 08/28/24 @ 16:14 by Yaima Dao CNP) Brother Alcohol abuse FH: mental illness Mother High cholesterol Diabetes Cervical cancer Father Diabetes Cardiovascular disease Paternal Grandmother Diabetes Sister Thyroid disorder Maternal Grandfather Stomach cancer Maternal Aunt Uterine cancer Social History Housing: House Patient Tobacco Use Status: Never used Tobacco e-Cigarette/Vaping Use: Never Used Second Hand Smoke Exposure: No service: No Current occupational status: retired Current occupational exposures/hazards: No Cognitive needs: No Hearing needs: Yes Vision needs: Yes Review of Systems Const Reports as per HPI ENT Reports as per HPI Card Reports as per HPI Resp Reports as per HPI GI Reports as per HPI Reports as per HPI Physical Exam Vital Signs: Last Vital Signs Pulse 84 08/28/24 15:50 BP 143/72 H 08/28/24 15:50 BMI result Body Mass Index 29.6 Const General: healthy appearing, no acute distress and well developed Nutritional Appearance: well nourished Orientation/consciousness: patient oriented x3 HEENT Head: Yes normal to inspection, Yes normocephalic and Yes atraumatic Face and sinus: Yes normal facial exam Teeth and gingiva: other (Thrush observed to mid-posterior tongue ) Eyes General: appearance normal, both eyes and all related structures Neck Neck: Yes normal visual inspection Resp Effort & Inspection: normal respiratory effort, able to speak in complete sentences, no tracheal deviation and symmetric chest movement Auscultation: clear to auscultation bilaterally Cardio Jugular venous distension: no JVD Rate: regular rate Rhythm: regular rhythm Heart sounds: S1 normal heart sound present, S2 normal heart sound present, no gallops and no murmurs GI Inspection: Yes normal to inspection, No distended and Yes obesity Palpation (GI): Soft to palpation, not firm, nontender and No hepatosplenomegaly present Auscultation: normal bowel sounds Neuro General: patient oriented x3 Gait exam (Neuro): Normal gait present Psych Appearance: grossly normal Mental Status: mental status grossly normal Speech and movement: Normal speech and movement present Affect: normal affect Attitude: cooperative Thought process: Normal thought process present Thought content: Normal thought content present Insight: Good insight present (Psych) Judgement: Good judgement present (Psych) Assessment & Plan Assessment & Plan (1) Dysphagia: Code(s): R13.10 - Dysphagia, unspecified Category: Medical Qualifiers: Dysphagia type: esophageal phase Qualified Code(s): R13.19 - Other dysphagia Plan: Order upper endoscopy to further evaluate esophageal and gastric mucosa for structural lesions, inflammation, or tissue changes given progressive symptoms and history of prior head/neck radiation. Reviewed prior barium swallow (Sep 2022): mild-moderate esophageal dysmotility, small hiatal hernia, food stasis at larynx, no reflux. Await ENT records before proceeding with additional referrals. Medications: Continue current regimen; no new meds initiated for dysphagia at this time. Lifestyle Modifications: Continue avoidance of trigger foods (thick breads, pasta, chunky foods). Encourage thorough chewing and slow eating. Maintain current dietary modifications (increased salads, vegetarian focus). Specialist Referral: Consider referral to speech and swallow therapy for evaluation and management after review of ENT/speech records. Follow-Up:Advised to report any worsening dysphagia, new regurgitation, weight loss, or signs of aspiration. (2) Thrush, oral: Code(s): B37.0 - Candidal stomatitis Category: Medical Plan: Intermittent with active episode. Medications: Nystatin oral suspension 4mL swish and swallow QID x 7 days. Rx se nt to preferred pharmacy. Lifestyle Modifications: Maintain oral hygiene, continue saltwater rinses. (3) Colon cancer screening declined: Code(s): Z53.20 - Procedure and treatment not carried out because of patient's decision for unspecified reasons Category: Medical Plan: Last colonoscopy approximately 8 years ago reported as normal. Records not available at time of visit She declined colonoscopy screening at time of upper endoscopy. Risks reviewed. Plan Follow-up after endoscopy or sooner as needed Time: I spent a total of 40 minutes on the date of encounter which includes: Preparing to see the patient (reviewed previous documentation, test results and medical history) Performing a medically appropriate exam and/or evaluation Ordering medications, tests, and procedures Documenting clinical information in the health record Medications: New nystatin 4mL;swish in the mouth and retain for as long as possible (several minutes) before swallowing X 7 days 400,000 units (4 mL) PO QID 473 mL 0RF Coding Level of Care Code New Pt Est Pt Level 5 (38408) Patient Type New Diagnoses Esophageal dysphagia R13.19 Dysphagia type: esophageal phase Thrush, oral B37.0 Colon cancer screening declined Z53.20
--- OUTSIDE RECORDS SUMMARY | 2024-08-28 15:48 | XMS_ITS | Data Portability ---
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 Otherwise follow-up as scheduled. marcos Not available 03/05/2024 09:55:29 06/10/2024 06/10/2024 No [...] persistent symptoms suggest she contact her gastroenterolog ist. [email or web address] Not available 06/10/2024 15:28:48 Plan of Treatment Reminders Order Date Submit Date Provider Last Modified By Organization Details Last Modified Time Details Appointments Establish ed 30 2024 10:30A M AMY RHODES MD Not available Not available Not available Lab TSH + free T4, serum 2023 024 [place] [facility] (Centralized Electronic Ordering - All Locations), Patient Can Go To The Location Of Their Choice, [address] 12/05/2023 08:18:28 Referral None recorded. Procedures None recorded. Surgeries None recorded. Imaging None recorded. Medication Orders doxycycli ne hyclate 100 mg tablet 2024 025 [facility]/Pharmacy #[id number], [address] [place], [address], 06/10/2024 14:55:36 ciproflox acin 0.3 %-dexamet hasone 0.1 % ear drops,rola pension 2023 025 [facility]/Pharmacy #[id number], [address] [facility], [place], [address], 03/05/2024 09:08:13 Patient TargetsNo targets recorded. Patient InstructionsNo instructions recorded. Reason for Referral None Reported. Results Created Date Observation Date Name Description Value Unit Range Abnormal Flag Note LastModifiedBy Organization Detail LastModifiedTime 12/04/1912/05/2023 TSH+F REE T4 TSH 3.880 uIU/m L 0.450- 4.500 normal Not Available [facility] ([facility]) [address] [facility], [place], [address], 12/05/2023 08:18:27 12/04/1912/05/2023 TSH+F REE T4 T4,free(dire ct) 1.25 NG/dL 0.82-1 .77 normal Not Available [facility] ([facility]) [address] [facility], [place], [address], 12/05/2023 08:18:27 Result Notes None recorded. Problems Name Problem SNOMED Code Status Onset Date Resolution Date Notes Provider Name and Address Organization Details Recorded Time Impacted cerumen in right ear 69040031604 Active 2022 Impacted cerumen, right ear; Note: Date Diagnose d: 12/14/19 23 1:16 PM (H61.21) Not Available [facility] 4 02:42:54 Acute recurren t sialoade nitis 95383605647 Active 2022 Acute recurren t sialoade nitis; Note: Date Diagnose d: 06/20/2022 1:26 PM (K11.22) Not Available [facility] 4 02:42:49 Neck pain 55044450 Active 2014 Other disorder s of cervical region: Cervical eitan; Note: Date Diagnose d: 5 4:18 PM (723.1) ; Start Date : 09/11/19 15 Cervi calgia; Note: Date Diagnose d: 5 3:18 PM (M54.2) [mapped from ICD9 code: 723.1] Not Available [facility] 4 02:42:45 Oral cyst 77535640325 66221 Active 2018 Other cysts of oral region, not elsewher e classifi ed; Note: Date Diagnose d: 06/20/2018 2:59 PM (K09.8) Not Available [facility] 4 02:42:50 Chronic rhinitis 39750255 Active 2015 Chronic rhinitis ; Note: Date Diagnose d: 04/17/2015 3:09 PM (J31.0) Not Available [facility] 4 02:42:51 Conducti ve hearing loss, bilatera l 803310704 Active 2014 Conducti ve hearing loss, bilatera l; Note: Date Diagnose d: 5 5:06 PM (389.06) Not Available [facility] 4 02:42:49 Headache 29369335 Active 2018 Headache , unspecif ied; Note: Changed from R51 to R51.9 (08/13/19 10:51 AM) , Date Diagnose d: 03/21/2018 12:03 PM (R51) Not Available [facility] 4 02:42:50 Pain of right temporom andibula r joint 89553248030 695486 Active 2017 Arthralg ia of right temporom andibula r joint; Note: Date Diagnose d: 03/16/2017 3:31 PM (M26.621 ) Not Available [facility] 4 02:42:52 History of malignan t neoplasm of pharynx 25512231687 107 Active 2014 Personal history of malignan t neoplasm : Other and unspecif ied oral cavity and pharynx; Note: Date Diagnose d: 5 5:06 PM (V10.02) Not Available [facility] 4 02:42:45 Bilatera l disorder of Eustachi an tubes 59399592251 58849 Active 2018 Other specifie d disorder s of Eustachi an tube, bilatera l; Note: Date Diagnose d: 09/21/2018 1:53 PM (H69.83) Not Available Pending sale to [facility] 4 02:42:51 Otorrhea of bilatera l ears 58892361599 11052 Active 2020 Otorrhea , bilatera l; Note: Date Diagnose d: 12/31/19 21 3:10 PM (H92.13) Not Available [facility] 4 02:42:48 Orophary ngeal dysphagi a 89203942 Active 2022 Dysphagi a, orophary ngeal phase; Note: Date Diagnose d: 3 12:23 PM (R13.12) Not Available [facility] 4 02:42:54 Otalgia of right ear 2461520248 Active 2017 Otalgia, right ear; Note: Date Diagnose d: 03/16/2017 3:31 PM (H92.01) Not Available [facility] 4 02:42:48 Spasm 87804080 Active 2022 Cramp and spasm; Note: Date Diagnose d: 3 12:47 PM (R25.2) Not Available [facility] 4 02:42:55 Total perforat ion of bilatera l tympanic membrane s 42676887656 85494 Active 2018 Total perforat ions of tympanic membrane , bilatera l; Note: Date Diagnose d: 09/21/2018 1:53 PM (H72.823 ) Not Available [facility] 4 02:42:47 History of malignan t neoplasm of oral cavity 114301595 Active 2014 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, oral cavity, and pharynx; Note: Date Diagnose d: 5 3:18 PM (Z85.818 ) [mapped from ICD9 code: V10.02] Not Available [facility] 4 02:42:46 Acute upper respirat ory infectio n 48162998 Active 2018 Acute upper respirat ory infectio n, unspecif ied; Note: Date Diagnose d: 06/20/2018 2:59 PM (J06.9) Not Available [facility] 4 02:42:54 Mixed conducti ve and sensorin eural hearing loss, bilatera l 470634141 Active 2014 Mixed HL, bilatera l; Note: Date Diagnose d: 5 4:52 PM (389.22) ; Start Date : 09/11/19 15 Mixed conducti ve and sensorin eural hearing loss, bilatera l; Note: Date Diagnose d: 5 3:18 PM (H90.6) [mapped from ICD9 code: 389.22] Not Available [facility] 4 02:42:50 Acute sialoade nitis 364697119 Active 2017 Acute sialoade nitis; Location : left Not e: Changed from K11.2 to K11.21 ( 9 12:00 PM) , Date Diagnose d: 8 11:32 AM (K11.2) Not Available [facility] 4 02:42:45 Disturba nce of salivary secretio n 93747749 Active 2018 Xerostom ia; Note: Date Diagnose d: 06/20/2018 3:00 PM (K11.7) Not Available [facility] 4 02:42:53 Posterio r rhinorrh ea 37492922 Active 2017 Postnasa l drip; Note: Date Diagnose d: 8 2:30 PM (R09.82) Not Available [facility] 4 02:42:51 Disorder of right tympanic membrane 68299782925 00725 Active 2018 Other specifie d disorder s of tympanic membrane , right ear; Note: Date Diagnose d: 06/20/2018 3:01 PM (H73.891 ) Not Available [facility] 4 02:42:49 Bilatera l temporom andibula r joint pain 25360843634 098821 Active 2017 Arthralg ia of bilatera l temporom andibula r joint; Note: Date Diagnose d: 8 2:30 PM (M26.623 ) Not Available [facility] 4 02:42:52 Pharynge al dysphagi a 67977892545 105 Active 2022 Dysphagi a, pharynge al phase; Note: Date Diagnose d: 06/20/2022 1:26 PM (R13.13) Not Available [facility] 4 02:42:55 Otorrhea of right ear 09405586846 62019 Active 2021 Otorrhea , right ear; Note: Date Diagnose d: 03/18/2021 2:44 PM (H92.11) Not Available [facility] 4 02:42:51 Chronic nasophar yngitis 00191859 Active 2014 Nasophar yngitis, chronic; Note: Date Diagnose d: 5 5:06 PM (472.2) ; Start Date : 03/05/19 15 Chron ic nasophar yngitis; Note: Date Diagnose d: 5 3:18 PM (J31.1) [mapped from ICD9 code: 472.2] Not Available [facility] 4 02:42:54 Central perforat ion of left tympanic membrane 27678507114 49524 Active 2021 Central perforat ion of tympanic membrane , left ear; Note: Date Diagnose d: 06/21/2021 9:07 AM (H72.02) Not Available [facility] 4 02:42:45 Perforat ion of left tympanic membrane 46763600344 01024 Active 2017 Unspecif ied perforat ion of tympanic membrane , left ear; Note: Date Diagnose d: 8 1:49 PM (H72.92) Not Available [facility] 4 02:42:52 Otorrhea of left ear 09342179970 96602 Completed 202009/15/2023 Otorrhea , left ear; Note: Date Diagnose d: 1 2:55 PM (H92.12) Otorrh ea, left ear; Note: Date Diagnose d: 01/01/20 15 2:47 PM (H92.12) ; Start Date : 01/01/20 15 Not Available [facility]ending [facility] to [facility] 4 02:42:46 Acute maxillar y sinusiti s 33804230 Active 2023 Acute maxillar y sinusiti s, unspecif ied; Note: Date Diagnose d: 4 1:35 PM (J01.00) Not Available [facility]ending [facility] to [facility] 4 02:42:53 Gastroes ophageal reflux disease without esophagi tis 281043996 Active 2023 AMY CARREON MD [address] [facility] [address], [place], [address] , [place] [facility] 4 10:25:31 Acute myringit is of left ear 30407333933 18401 Active 2023 AMY CARREON MD [address] [facility] [address], [place], [address] , [facility] - [facility] 4 10:27:39 Feeling of lump in throat 306654655 Active 2024 AMY CARREON MD [address] [facility],[place] [address], [place], [address] , [facility] - [facility] 15:29:01 Allergic rhinitis 29562742 Active 2024 AMY CARREON MD [address] [facility],[place] [address], [place], [place], [address] , [facility] - [facility] [place] 15:29:18 Dysfunct ion of eustachi an tube 22901788 Active 2024 AMY CARREON MD [address] [facility],[place] [address], [place], [address] , [facility] - [facility] 15:29:24 Problem Notes None recorded. Procedures Surgical History Date Name Laterality Status Provider Name and Address Organization Details Recorded Time 06/11/19 25 Fiberoptic Laryngoscopy (Comprehensive) completed AMY HENDRICKS MD [address] [facility],[address], [address], [facility] - [facility] 06/10/2024 15:24:37 12/04/19 24 Fiberoptic Laryngoscopy (Comprehensive) completed AMY HENDRICKS MD [address] [facility],[address], [address], [facility] - [facility] 12/04/2023 10:27:59 repair of cleft lip completed AMY HENDRICKS MD [address] [facility],[address], [address], [facility] - [facility] 12/03/2023 20:05:01 repair of cleft palate completed AMY HENDRICKS MD [address] [facility],[address], [address], [facility] - [facility] 12/03/2023 20:05:13 Imaging Results None recorded. Procedure Notes None recorded. Medical Equipment None Reported. Allergies Allergen ID Allergen Name Allergen Category Reaction Reaction Severity Criticality Documentation Date Start Date Code Code System Note Provider Name and Address Organization Details Recorded Time [id number] tree and shrub pollen environme nt,medica tion eye redness Not available Not available 03/05/20242009 71604 UNK Mari cisse [place] - [facility] 5 09:07:54 Medications Name Sig Start Date Stop Date Status Note LastModified by Organization Details LastModified Time clotrimaz ole 10 mg yonas 1 yonas five times a day 12/30 completed Medicati on ID: [id number] D uration Value: 7 Brand Name: clotrima zole Sen d Method: E-Prescr ibed Sub s Allowed: subs OK Medic ationGen ericName : clotrima zole Not Available Not Available Not Available Augmentin 875 mg-125 mg tablet 1 tablet by mouth 12/03 completed Medicati on ID: 027173 D uration Value: 10 Prescri bed By [...] mg tablet 10/11 completed Medicati on ID: 088110 B rand Name: valsarta n Send Method: [...] mg tablet 01/25 completed Medicati on ID: 049763 D uration Value: 7 Reason: () Brand Name: doxycycl ine monohydr ate Send Method: E-Prescr ibed Sub s Allowed: subs OK [facility] : doxycycl ine monohydr ate Not [...] a day 10/11 completed Medicati on ID: 411874 D uration Value: 10 Prescri bed By Name: Danuta Martínez nd Name: doxycycl ine monohydr ate Send Method: E-Prescr ibed Sub s Allowed: subs OK Medic ationGen ericName : doxycycl ine monohydr ate Not Available Not Available Not Available clotrimaz ole 1 % topical solution 12/03 completed Medicati on ID: 477094 D uration Value: 14 Brand Name: denise Carney d Method: E-Prescr ibed Sub s Allowed: subs OK Speci al Instruct ion: 5 drops to the affected ear twice a day X 14 days Med icationG enericNa me: clotrima zole Not Available Not Available Not Available pyridoxin [...] by mouth 12/03 completed Medicati on ID: 120149 D uration Value: 1 Prescri bed By [...] both nostrils 2016 active Medicati on ID: 535316 D uration Value: 120 Prescri bed By [...] mg tablet 10/11 completed Medicati on ID: 88754 Br and Name: naproxen Send Method: E-Prescr [...] Vitamin D 2015 active Medicati on ID: 259735 Osiris rand Name: Vitamin D Send Method: E-Prescr ibed Sub s Allowed: subs OK Medic ationGen ericName : Vitamin D Not Available Not Available Not Available magnesium 100 mg (as glycinate ) tablet Take by oral route. active Not Available Not Available No t Available melatonin 10 mg tablet 12/03 [place]ati [place] ID: 82720 Br and Name: surya bettencourt Send Method: E-Prescr ibed Sub s Allowed: subs OK Medic ationGen ericName : surya bettencourt Not Available Not Available Not Available Vitals Date Recorded Body height Body weight Provider Name and Address Organization Details Last Updated DateTime 03/05/2024 154.94 cm 96489.56 g Mari Garcia [place] - [facility] 03/05/2024 09:07:36 Date Recorded Body height Body mass index (BMI) Body weight Provider Name and Address Organization Details Last Updated DateTime 06/10/2024 154.94 cm 29.9 kg/m2 29157.59 g Catrachita Bridges [facility] 06/10/2024 14:55:24 Date Recorded Body height Body mass index (BMI) Body weight Provider Name and Address Organization Details Last Updated DateTime 12/04/2023 154.94 cm 30.8 kg/m2 94356.56 g Catrachita Bridges [facility] 12/04/2023 10:11:21 Social History None recorded. Functional [...] Disorder N Anesthesia Complications N Heart Attack (NH) N Other Skin Condition N Diabetes N [...] SNOMED-CT Code Diagnosis ICD10 Code Diagnosis Note [id number] AMY CARREON MD [facility] [address] [address] 12/04/2023 09:56:12 12/04/2023 10:39:47 History of malignant neoplasm of digestive organ 9413238683 4363001 Z85.00 Gastroesop hageal reflux disease without esophagitis 934782476 K21.9 Consider GI eval. She will discuss with PCP Central pe rforation of left tympanic membrane 3569288057 416317 H72.02 Acute myri ngitis of left ear 4226015771 911775 H73.002 [id number] SILVA SMYTH PA-C [facility] [address] [place] [address] 03/05/2024 09:02:35 03/05/2024 09:35:07 Acute maxillary sinusitis 79703559 J01.00 [id number] AMY CARREON MD [facility] [address] [place] [address] 06/10/2024 14:44:01 06/10/2024 15:30:30 Feeling of lump in throat 577210214 R09.89 History of malignant neoplasm of oropharynx 3966179742 4707835 Z85.818 Dysfunctio n of eustachian tube 53112452 H69.93 Allergic rhinitis 347384 04 J30.9 Health Concerns Section Related Observation LastModified by Organization Detai ls LastModified Time None Recorded Concern Status LastModified by Organization Details LastModified Time None Recorded Advance Directives Directive None Recorded Payers Insurance Date Sequence Insurance Name Policy Number Policy Cervantes Covered Member ID Cervantes Member ID Guarantor Name 12/04/2023 1 [facility] [id number] 1 Rashida Whitmore [id number] Rashida Whitmore 06/10/2024 1 [facility] (MEDICARE REPLACEMENT/ ADVANTAGE - PPO) [id number] 1 Rashida Whitmore [id number] Rashida Whitmore Notes Date Note Type Note Provider Name and Address Organization Details Recorded Time 12/04/2023 text/html 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 Completed therapy [id number] right tonsilHx of ETD with cleft lip [...] every other day AMY HENDRICKS MD [address],[place] [address] [place] [address], [address], [facility] - [facility] 12/04/2023 10:33:22 03/05/2024 text/html 68-year-old femsamson chau presents for reevaluation of sinus infection. [...] not relieve symptoms. AMY HENDRICKS MD [address] [facility],[address], [address], [facility] - [facility] 03/05/2024 12:20:10 06/10/2024 text/html History of [...] combined modality chemo with XRT. Completed therapy [id number] right tonsil History of cleft palate and pharyngeal flap.Using Reflux [employer]met and less coffee helped her reflux AMY HENDRICKS MD [address], [place], [address], [facility] 06/10/2024 15:29:49 OBGyn Episode No OBEpisode recorded.
--- OUTSIDE RECORDS SUMMARY | 2024-08-28 15:48 | XMS_ITS | Clinical Summary ---
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 0 Ac tive Jbskkxq-Oenisikpg-Ndvj min D (CALCIUM 500 PO) Take by [...] needed for pain. 0 Active nystatin (MYCOSTATIN) 517037 UNIT/ML suspension Take 5 mL (500,000 Units [...] 68 09/25/2018 2:04 PM EDT Temperature 37.4 C (99.3 F) 03/27/2018 2:30 PM EST Respiratory Rate - - Oxygen Saturation - [...] Screening (DEXA Scan) 2021 Influenza Vaccine (#1) 2024 11/02/2017 DTap / Tdap / Td (2 [...] age to complete this topic Care Teams Able Bodied Seaman Relationship Specialty Start Date End Date Jonny Llanes MD [address] [place] [address] PCP - General Otolaryngology 10/02/18
[2024-08-28 15:50] VITALS: BP 143/72; PULSE 84; BMI 29.6
== END 2024-08-28 16:40 | disposition home or self-care (01) ==
LOC: HO.HGI 15:45
PROVIDERS: PCP Nurse Practitioner Family; Visit Provider Nurse Practitioner Family
DX: R13.19 Other dysphagia (principal); B37.0 Candidal stomatitis; Z53.20 Procedure and treatment not carried out because of patient's decision for unspecified reasons
CPT/HCPCS: 99215

== ENCOUNTER 2024-09-27 10:45 | Outpatient (AMB) | payer OTHER, SELFPAY ==
--- NOTE | 2024-09-27 10:48 | MHC.PC.OV ---
Vital Signs 09/27/24 10:52 Height 5 ft 1 in Weight 158 lb 8 oz BMI 29.9 BP 141/88 H Blood Pressure Location Lt brachial Position Sitting Respiration 16 Pulse 72 Pulse Source Pulse Oximeter Temp 97.6 F Temp Source Oral Pulse Oximetry (%) 96 Oxygen Delivery Method Room Air Intake Visit Reasons: 3 mos HTN Intake Note: patient here for 3 month follow up for HTN Director Learning And Development Required: No Is last menstrual period known: No Post menopausal: No Patient : No Allergies No Known Allergies Allergy (Verified 09/27/24 10:57) Medication List - Last Reconciled 09/27/24 by Ghazala Vallecillo CNP lisinopril 20 mg PO DAILY 30 days magnesium oxide 400 mg PO DAILY MDD 400mg multivitamin 1 tab PO DAILY nystatin 400,000 units (4 mL) PO QID turmeric root extract (Curica Turmeric) 300 mg PO DAILY MDD 300mg vitamin K2 100 mcg PO DAILY Tobacco use date assessed: 09/27/24 Fall risk assessment: No Falls in past year Last assessed Fall Risk: 09/27/24 Dental Screening Dental Screen Date: 09/27/24 Did you have a dental visit in the last 12 months?: Yes Did you have a dental problem in the last 6 months where you did not have access to dental care?: No Was dental information given to patient?: Patient has dentist HPI HPI Comments History of Present Illness Details 69-year-old female presents for hypertension follow-up. She admits to taking lisinopril as prescribed without adverse reactions. She has been making healthy dietary choices and exercising routinely. She denies acute symptoms at this time. [facility] Medical History (Updated 08/28/24 @ 17:30 by Yaima Dao CNP) Colon cancer screening declined Thrush, oral Hx of ectopic Tonsillar tumor Cleft palate Neuropathy Shingles Hiatal hernia Acid reflux Osteoporosis High blood pressure Sinusitis Surgical History (Updated 08/28/24 @ 15:51 by KEO Yu) Hx of colonoscopy History of salpingectomy Family History (Updated 08/28/24 @ 16:14 by Yaima Dao CNP) Brother Alcohol abuse FH: mental illness Mother High cholesterol Diabetes Cervical cancer Father Diabetes Cardiovascular disease Paternal Grandmother Diabetes Sister Thyroid disorder Maternal Grandfather Stomach cancer Maternal Aunt Uterine cancer Social History Housing: House Patient Tobacco Use Status: Never used Tobacco e-Cigarette/Vaping Use: Never Used Second Hand Smoke Exposure: No service: No Current occupational status: retired Current occupational exposures/hazards: No Cognitive needs: No Hearing needs: Yes Vision needs: Yes Questionnaire Thrive Questionnaire Date Thrive assessed: 04/02/24 I am a: Patient What is your living situation today?: I have a steady place to live Within the past 12 months, did the food you bought not last and you didn't have the money to get more?: Never true Within the past 12 months, did you worry whether your food would run out before you got money to buy more?: Never true Do you have trouble paying for medicines?: No Do you have trouble getting transportation to medical appointments?: No Do you have trouble paying your heating and electricity bill?: No Do you have trouble taking care of your child, family member or friend?: No Do you have trouble with day-to-day activities such as bathing, preparing meals, shopping, managing finances, etc.?: No Are you currently unemployed and looking for a job?: No Are you interested in more education?: No Please select the resources that you would like help with: None Currently or been in a relationship where the following occur: No concerns reported THRIVE Score: 0 PASTOR-7 AMB Questionnaire PASTOR-7 Date PASTOR - 7 assessed: 04/09/24 Source: Developed by Drs. Josep Rodas, Keiry Abarca, Fernando Lincoln and colleagues, with an educational caprice from [employer]. Review of Systems Const Details: Const Denies chills, Denies fatigue, Denies fever(s), Denies headache(s) and Denies weakness ENT Denies dizziness and Denies headache(s) Card Denies chest pain, Denies lightheadedness, Denies dyspnea and Denies other (Palpitations) Resp Denies cough, Denies dyspnea, Denies wheezing and Denies other ( shortness of breath) GI Denies abdominal pain, Denies melena, Denies hematochezia, Denies change in bowel habits, Denies dyspepsia and Denies nausea Denies hematuria and Denies dysuria Musc Denies abnormal gait, Denies myalgias, Denies arthralgias, Denies numbness and Denies tingling Skin/Breast Denies rash, Denies unusual bruising and Denies wounds Neuro Denies abnormal gait, Denies dizziness, Denies headache(s), Denies memory loss, Denies numbness, Denies Sensory deficit (Neuro), Denies tingling and Denies weakness Psych Denies anxiety, Denies depression, Denies memory loss Endo Denies cold intolerance, Denies fatigue, Denies heat intolerance, Denies polydipsia and Denies polyuria Aller/Immun Denies wheezing Physical exam (Primary Care) Vital Signs: Last Vital Signs Temp 97.6 F 09/27/24 10:52 Pulse 72 09/27/24 10:52 Resp 16 09/27/24 10:52 BP 141/88 H 09/27/24 10:52 Pulse Ox 96 09/27/24 10:52 Oxygen Delivery Method Room Air 09/27/24 10:52 BMI result Body Mass Index 29.9 Tobacco/Smoking Status: Tobacco use Status Tobacco use date assessed 09/27/24 09/27/24 10:55 Patient Tobacco Use Status Never used Tobacco 09/27/24 10:55 e-Cigarette/Vaping Use Never Used 09/27/24 10:55 Thrive Assessment: Date of Thrive Assessment Date Thrive assessed 04/02/24 09/27/24 10:55 Currently or been in a relationship where the following occur: No concerns reported Const Other: General: no acute distress and well developed Nutritional Appearance: well nourished Orientation/consciousness: patient oriented x3 HENMT Head: Yes normocephalic and Yes atraumatic Eyes General: appearance normal, both eyes and all related structures Pupils: Equal, round and reactive pupils present EOM: EOMs intact bilaterally Resp Effort & Inspection: normal respiratory effort Auscultation: clear to auscultation bilaterally Cardio Rate: regular rate Rhythm: regular rhythm Heart sounds: S1 normal heart sound present, S2 normal heart sound present, no gallops, no murmurs and no rubs GI Palpation (GI): No Abdominal aortic bruit present, Soft to palpation, nontender, No hepatosplenomegaly present and No Rebound tenderness present Auscultation: normal bowel sounds General: Yes no CVA tenderness Back/Spine/Pelvis Back: no CVA tenderness Cervical Spine: cervical ROM normal and No Cervical spine tenderness Thoracic/Lumbar Spine: thoraco-lumbar ROM normal, No pain with thoraco-lumbar ROM, No thoracic spinal tenderness and No lumbar spinal tenderness Extrem General: Yes normal to inspection, No edema and No calf tenderness Skin General: warm and dry. Normal skin color. Normal skin turgor Neuro General: patient oriented x3, gait normal and no focal neuro deficit Cranial nerves: Yes Equal, round and reactive pupils present Cognition (Neuro): normal cognition Gait exam (Neuro): Normal gait present Sensory Exam: No Sensory deficit (Neuro) Psych Appearance: grossly normal Affect: normal affect Attitude: cooperative Thought process: Normal thought process present Coding Level of Care Code Est Pt Level 4 (95815) Diagnoses High blood pressure I10 Assessment & Plan Assessment & Plan (1) High blood pressure: Code(s): I10 - Essential (primary) hypertension Category: Medical Plan: Resting blood pressure is 141/88, above goal of less than 140/90. Lisinopril increased to 30 mg daily; advised to take as prescribed. Low-sodium diet encouraged. Follow-up in 1 month or sooner with symptoms or concerns. Verbalized understanding and agreed with the plan. Medications: New lisinopril 30 mg PO DAILY 30 tabs 3RF 30 days Discontinued lisinopril Discontinued Reason: Doctor's Order 20 mg PO DAILY 30 days 30 tabs 3RF
[2024-09-27 10:52] VITALS: BP 141/88; PULSE 72; RESP 16; TEMP 36.4; O2SAT 96; BMI 29.9
--- OUTSIDE RECORDS SUMMARY | 2024-09-27 10:54 | XMS_ITS ---
Author Name [facility] Organization Unknown Care Team Organization Name Specialty Phone Email Start Date End Da te [facility] JOSEPHINE ALEMAN Primary Care 12/21/2021 10/02/2023
--- OUTSIDE RECORDS SUMMARY | 2024-09-27 10:54 | XMS_ITS | Clinical Summary ---
Author Organization [facility] Address [address] [place] [address] Care Team Providers Care Employee Relations Specialist Name Role Phone Jonny Llanes MD Primary Care Provider + Allergies No known active allergies Medications Medication Sig Dispensed Refills Start Date End Date Status Multiple Vitamin (MULTI VITAMIN PO) Take by mouth. 0 Ac tive Skunycj-Zzhzugszv-Pjte min D (CALCIUM 500 PO) Take by [...] needed for pain. 0 Active nystatin (MYCOSTATIN) 542105 UNIT/ML suspension Take 5 mL (500,000 Units [...] age to complete this topic Care Teams Employee Relations Specialist Relationship Specialty Start Date End Date Jonny Llanes MD [address] [place] [address] PCP - General Otolaryngology 10/02/18
== END 2024-09-27 11:08 | disposition home or self-care (01) ==
LOC: HO.HMCFM 10:45
PROVIDERS: PCP Nurse Practitioner Family; Visit Provider Nurse Practitioner Family
DX: I10 Essential (primary) hypertension (principal)

== ENCOUNTER 2024-10-29 13:30 | Outpatient (AMB) | payer OTHER, SELFPAY ==
--- NOTE | 2024-10-29 13:33 | MHC.PC.OV ---
Vital Signs 10/29/24 13:39 10/29/24 13:55 Height 5 ft 1 in Weight 159 lb 6 oz BMI 30.1 BP 130/90 H 126/74 Blood Pressure Location Lt brachial Lt brachial Position Sitting Sitting Respiration 16 Pulse 80 Pulse Source Pulse Oximeter Temp 97.9 F Temp Source Oral Pulse Oximetry (%) 98 Oxygen Delivery Method Room Air Intake Visit Reasons: 1 mos HTN Intake Note: patient here for 1 month follow up on HTN Certified Prosthetist Required: No Is last menstrual period known: No Post menopausal: No Patient : No Allergies dog hair Allergy (Mild, Uncoded 10/29/24 13:43) Runny Nose tree pollen Allergy (Mild, Uncoded 10/29/24 13:43) Runny Nose Medication List - Last Reconciled 10/29/24 by Ghazala Vallecillo CNP lisinopril 30 mg PO DAILY 30 days multivitamin 1 tab PO DAILY nystatin 400,000 units (4 mL) PO QID vitamin K2 100 mcg PO DAILY Tobacco use date assessed: 10/29/24 Fall risk assessment: No Falls in past year Last assessed Fall Risk: 10/29/24 Dental Screening Dental Screen Date: 10/29/24 Did you have a dental visit in the last 12 months?: Yes Did you have a dental problem in the last 6 months where you did not have access to dental care?: No Was dental information given to patient?: Patient has dentist HPI HPI Comments History of Present Illness Details 69-year-old female presents for hypertension follow-up. She admits to taking lisinopril as prescribed without adverse reactions. She has been making healthy dietary choices and exercising routinely. She reports intermittent runny nose, sneezing, nonproductive cough, and sore throat since the start of summer. She thinks her symptoms may be related to allergies. She has not been taking medication for her symtoms. FOR[facility]LY [facility], [facility] Medical History (Updated 10/29/24 @ 13:57 by Ghazala Vallecillo CNP) Colon cancer screening declined Thrush, oral Hx of ectopic Tonsillar tumor Cleft palate Neuropathy Shingles Hiatal hernia Acid reflux Osteoporosis High blood pressure Sinusitis Surgical History (Updated 08/28/24 @ 15:51 by KEO Yu) Hx of colonoscopy History of salpingectomy Family History (Updated 08/28/24 @ 16:14 by Yaima Dao CNP) Brother Alcohol abuse FH: mental illness Mother High cholesterol Diabetes Cervical cancer Father Diabetes Cardiovascular disease Paternal Grandmother Diabetes Sister Thyroid disorder Maternal Grandfather Stomach cancer Maternal Aunt Uterine cancer Social History Housing: House Patient Tobacco Use Status: Never used Tobacco e-Cigarette/Vaping Use: Never Used Second Hand Smoke Exposure: No Patient : No service: No Current occupational status: retired Current occupational exposures/hazards: No Cognitive needs: No Hearing needs: Yes Vision needs: Yes Questionnaire Thrive Questionnaire Date Thrive assessed: 04/02/24 I am a: Patient What is your living situation today?: I have a steady place to live Within the past 12 months, did the food you bought not last and you didn't have the money to get more?: Never true Within the past 12 months, did you worry whether your food would run out before you got money to buy more?: Never true Do you have trouble paying for medicines?: No Do you have trouble getting transportation to medical appointments?: No Do you have trouble paying your heating and electricity bill?: No Do you have trouble taking care of your child, family member or friend?: No Do you have trouble with day-to-day activities such as bathing, preparing meals, shopping, managing finances, etc.?: No Are you currently unemployed and looking for a job?: No Are you interested in more education?: No Please select the resources that you would like help with: None Currently or been in a relationship where the following occur: No concerns reported THRIVE Score: 0 PASTOR-7 AMB Questionnaire PASTOR-7 Date PASTOR - 7 assessed: 04/09/24 Source: Developed by Drs. Josep Rodas, Keiry Abarca, Fernando Lincoln and colleagues, with an educational caprice from [email or web address]. Review of Systems Const Details: Const Denies chills, Denies fatigue, Denies fever(s), Denies headache(s) and Denies weakness ENT Reports as regimen Card Denies chest pain, Denies lightheadedness, Denies dyspnea and Denies other (Palpitations) Resp Reports cough, Denies dyspnea, Denies wheezing and Denies other ( shortness of breath) GI Denies abdominal pain, Denies melena, Denies hematochezia, Denies change in bowel habits, Denies dyspepsia and Denies nausea Denies hematuria and Denies dysuria Musc Denies abnormal gait, Denies myalgias, Denies arthralgias, Denies numbness and Denies tingling Skin/Breast Denies rash, Denies unusual bruising and Denies wounds Neuro Denies abnormal gait, Denies dizziness, Denies headache(s), Denies memory loss, Denies numbness, Denies Sensory deficit (Neuro), Denies tingling and Denies weakness Psych Denies anxiety, Denies depression, Denies memory loss Endo Denies cold intolerance, Denies fatigue, Denies heat intolerance, Denies polydipsia and Denies polyuria Aller/Immun Denies wheezing Physical exam (Primary Care) Vital Signs: Last Vital Signs Temp 97.9 F 10/29/24 13:39 Pulse 80 10/29/24 13:39 Resp 16 10/29/24 13:39 BP 130/90 H 10/29/24 13:39 Pulse Ox 98 10/29/24 13:39 Oxygen Delivery Method Room Air 10/29/24 13:39 BMI result Body Mass Index 30.1 Tobacco/Smoking Status: Tobacco use Status Tobacco use date assessed 10/29/24 10/29/24 13:41 Patient Tobacco Use Status Never used Tobacco 10/29/24 13:34 e-Cigarette/Vaping Use Never Used 10/29/24 13:34 Thrive Assessment: Date of Thrive Assessment Date Thrive assessed 04/02/24 10/29/24 13:34 Currently or been in a relationship where the following occur: No concerns reported Const Other: General: no acute distress and well developed Nutritional Appearance: well nourished Orientation/consciousness: patient oriented x3 HENMT Head is normocephalic Bilateral ear canal and TM are normal Nasal turbinates and oropharynx are pink and moist Sinuses are nontender with palpation No auricular or cervical lymphadenopathy Eyes General: appearance normal, both eyes and all related structures Pupils: Equal, round and reactive pupils present EOM: EOMs intact bilaterally Resp Effort & Inspection: normal respiratory effort Auscultation: clear to auscultation bilaterally Cardio Rate: regular rate Rhythm: regular rhythm Heart sounds: S1 normal heart sound present, S2 normal heart sound present, no gallops, no murmurs and no rubs GI Palpation (GI): No Abdominal aortic bruit present, Soft to palpation, nontender, No hepatosplenomegaly present and No Rebound tenderness present Auscultation: normal bowel sounds General: Yes no CVA tenderness Back/Spine/Pelvis Back: no CVA tenderness Cervical Spine: cervical ROM normal and No Cervical spine tenderness Thoracic/Lumbar Spine: thoraco-lumbar ROM normal, No pain with thoraco-lumbar ROM, No thoracic spinal tenderness and No lumbar spinal tenderness Extrem General: Yes normal to inspection, No edema and No calf tenderness Skin General: warm and dry. Normal skin color. Normal skin turgor Neuro General: patient oriented x3, gait normal and no focal neuro deficit Cranial nerves: Yes Equal, round and reactive pupils present Cognition (Neuro): normal cognition Gait exam (Neuro): Normal gait present Sensory Exam: No Sensory deficit (Neuro) Psych Appearance: grossly normal Affect: normal affect Attitude: cooperative Thought process: Normal thought process present Coding Level of Care Code Est Pt Level 4 (25498) Diagnoses High blood pressure I10 Seasonal allergies J30.2 Assessment & Plan Assessment & Plan (1) High blood pressure: Code(s): I10 - Essential (primary) hypertension Category: Medical Plan: Resting blood pressure is 126/74, within goal of less than 140/90. Continue current treatment regimen. Low-sodium diet encouraged. Follow-up in 3 months or sooner with symptoms or concerns. Verbalized understanding and agreed with the plan. (2) Seasonal allergies: Code(s): J30.2 - Other seasonal allergic rhinitis Category: Medical Plan: She reports intermittent runny nose, sneezing, nonproductive cough, and sore throat since the start of summer. She thinks her symptoms may be related to allergies. She has not been taking medication for her symtoms. Normal physical exam. Zyrtec 10 mg daily ordered; advised to take as prescribed. Adequate rest and hydration encouraged. Follow-up with worsening or new symptoms. Verbalized understanding and agreed with the plan. Medications: New cetirizine (Zyrtec) 10 mg PO DAILY 90 tabs 1RF 90 days
[2024-10-29 13:39] VITALS: BP 130/90; PULSE 80; RESP 16; TEMP 36.6; O2SAT 98; BMI 30.1
[2024-10-29 13:55] VITALS: BP 126/74
== END 2024-10-29 15:39 | disposition home or self-care (01) ==
LOC: HO.HMCFM 13:31
PROVIDERS: PCP Nurse Practitioner Family; Visit Provider Nurse Practitioner Family
DX: I10 Essential (primary) hypertension (principal); J30.2 Other seasonal allergic rhinitis

== ENCOUNTER 2024-11-04 10:56 | Outpatient (AMB) | payer MEDICARE, SELFPAY ==
--- NOTE | 2024-11-04 11:04 | AM.OFFWIN_ITS ---
Intake Vital Signs 11/04/24 11:09 Height 5 ft 1 in Weight 161 lb BMI 30.4 BP 130/72 Blood Pressure Location Lt brachial Position Sitting Pulse 78 Pulse Source Pulse Oximeter Temp 97.6 F Temp Source Oral Pulse Oximetry (%) 97 Oxygen Delivery Method Room Air Intake Visit Reasons: EP-lt ear infection Intake Note: pt is here for bilateral ear pain, bloody, pt states she gets chronic ear infections Patient Tobacco Use Status: Never used Tobacco Allergies dog hair Allergy (Mild, Uncoded 11/04/24 11:10) Runny Nose tree pollen Allergy (Mild, Uncoded 11/04/24 11:10) Runny Nose Do you need a note to return to daycare/school/sports/work: No HPI HPI Comments History of Present Illness Details History - The patient is a 69-year-old female pr esenting with left ear pain and bleeding. - The patient reports recurrent left ear infections managed with ciprofloxacin ear drops, prescribed by her ENT specialist. - The current episode began acutely this morning with significant pain and a small amount of blood noted in the ear canal. - Associated symptoms include nausea and dizziness. - The patient has a history of Eustachia n tube dysfunction. - Ciprofloxacin ear drops have been effe ctive in resolving past infections, with no oral antibiotics or steroids used. - The patient has undergone chemotherapy and radiation, which may contribute to her current ear condition. - The patient also reports noticing lump s on her tongue, which are being evaluated for potential allergy-related causes. - She denies hearing loss, NOVA, fever, ch ills, CP, SOB, abd pain, or vomiting. Physical Exam General: Cooperative, healthy appearing, comfortable, no acute distress and well developed Head: Normal to inspection Ears: External ears normal bilaterally. No tragus or mastoid tenderness noted. TM's visualized. Left ear blood noted in the canal. Face and sinus: Normal facial exam. No TTP of the sinuses. Neck: Normal visual inspection. Full ROM. No lymphadenopathy noted. Respiratory: Normal respiratory effort and able to speak in complete sentences. Clear to auscultation bilaterally. No w/r/r noted. Cardiac: RRR, no m/r/g noted. Normal S1 and S2 noted. Skin: No rashes or lesions noted Neuro: Patient oriented x3. Patient was informed and verbally consented to the use of an ambient scribe for clinic note documentation during this visit. [facility] Medical History (Updated 10/29/24 @ 13:57 by Ghazala Vallecillo CNP) Colon cancer screening declined Thrush, oral Hx of ectopic Tonsillar tumor Cleft palate Neuropathy Shingles Hiatal hernia Acid reflux Osteoporosis High blood pressure Sinusitis Surgical History (Updated 08/28/24 @ 15:51 by KEO Yu) Hx of colonoscopy History of salpingectomy Family History (Updated 08/28/24 @ 16:14 by Yaima Dao CNP) Brother Alcohol abuse FH: mental illness Mother High cholesterol Diabetes Cervical cancer Father Diabetes Cardiovascular disease Paternal Grandmother Diabetes Sister Thyroid disorder Maternal Grandfather Stomach cancer Maternal Aunt Uterine cancer Social History Housing: House Patient Tobacco Use Status: Never used Tobacco e-Cigarette/Vaping Use: Never Used Second Hand Smoke Exposure: No service: No Current occupational status: retired Current occupational exposures/hazards: No Cognitive needs: No Hearing needs: Yes Vision needs: Yes Review of Systems Const All systems reviewed & are unremarkable except as noted in HPI and below Physical Exam Vital Signs: Last Vital Signs Temp 97.6 F 11/04/24 11:09 Pulse 78 11/04/24 11:09 BP 130/72 11/04/24 11:09 Pulse Ox 97 11/04/24 11:09 Oxygen Delivery Method Room Air 11/04/24 11:09 BMI result Body Mass Index 30.4 Assessment & Plan Assessment & Plan (1) Otitis externa: Code(s): H60.90 - Unspecified otitis externa, unspecified ear Qualifiers: Otitis externa type: hemorrhagic Chronicity: chronic Laterality: left Qualified Code(s): H60.322 - Hemorrhagic otitis externa, left ear Plan Most likely chronic OE vs ET dysfunction vs TM rupture plan - ciprofloxacin ear drops twice daily for seven days to manage the ear infection. - Monitor for any worsening symptoms or lack of improvement, and follow up with ENT if necessary. 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
[2024-11-04 11:09] VITALS: BP 130/72; PULSE 78; TEMP 36.4; O2SAT 97; BMI 30.4
--- OUTSIDE RECORDS SUMMARY | 2024-11-04 13:34 | XMS_ITS | Clinical Summary ---
Author Organization [facility] Address [address] [place] [address] Care Team Providers Care Software Developer Mid Level Name Role Phone Jonny Llanes MD Primary Care Provider + Allergies No known active allergies Medications Medication Sig Dispensed Refills Start Date End Date Status Multiple Vitamin (MULTI VITAMIN PO) Take by mouth. 0 Ac tive Kbntwkf-Zfitszyna-Fnlf min D (CALCIUM 500 PO) Take by [...] needed for pain. 0 Active nystatin (MYCOSTATIN) [id number] UNIT/ML suspension Take 5 mL (500,000 Units [...] age to complete this topic Care Teams Software Developer Mid Level Relationship Specialty Start Date End Date Jonny Llanes MD [address] [place] [address] PCP - General Otolaryngology 10/02/18
== END 2024-11-04 11:48 | disposition home or self-care (01) ==
PROVIDERS: PCP Nurse Practitioner Family; Visit Provider Physician Assistant Medical
DX: H60.322 Hemorrhagic otitis externa, left ear (principal)

== ENCOUNTER → 2024-11-04 10:56 | Outpatient (BNVA) | payer MEDICARE, SELFPAY | PROVIDERS: PCP Nurse Practitioner Family; Visit Provider Physician Assistant Medical | DX: H60.322 Hemorrhagic otitis externa, left ear (principal) | CPT/HCPCS: 99212 ==

== ENCOUNTER 2024-11-20 13:05 | Outpatient (REF) | payer OTHER, SELFPAY ==
[2024-11-20 18:20] LABS: Appearance Urine Clear; Glucose Urine UA Negative (Negative); PH 5.5 (5.0-9.0); Specific Gravity - Urine 1.015 (1.005-1.025); UMIC TRIGGER UACC YES
[2024-11-20 18:26] LABS: MANUAL DIFF FLAG NO
[2024-11-20 18:31] LABS: Hematocrit 39.3 % (37.0-47.0); Hemoglobin 13.7 g/dl (12.0-16.0); Imm Gran Abs Auto 0.01 X10*3/uL (0.00-0.03); Imm Gran Pct Auto 0.2 % (0.0-0.4); Lymphocytes Absolute Auto 1.5 X10*3/uL (1.2-4.9); Mean Corpuscular HGB Conc 34.9 g/dl (31.0-35.0); Mean Corpuscular Hemoglobin 32.1 pg (27.0-33.0); Mean Corpuscular Volume 92.0 fL (80.0-98.0); NRBC Abs Auto 0.000 X10*3/uL (0.0-0.012); NRBC Pct Auto 0.0 /100WBC (0.0-0.2); Platelet Count 195 X10*3/uL (160-400); Red Blood Count 4.27 X10*6/uL (4.20-5.50); White Blood Count 5.2 X10*3/uL (4.8-10.8)
[2024-11-20 18:56] LABS: Alanine Aminotransferase 27 U/L (0-31); Albumin Level 4.3 g/dL (3.5-5.0); Alkaline Phosphatase 127 U/L (39-117); Anion Gap 9 (12-20); Aspartate Amino Transferase 25 U/L (5-31); Blood Urea Nitrogen 14 mg/dL (9-16); Calcium 9.7 mg/dL (8.4-10.2); Carbon Dioxide 30 mmol/L (22-29); Chloride 105 mmol/L (96-108); Estimated Glomerular Filt Rate > 60; Iron 116 mcg/dL (30-160); Magnesium 2.2 mg/dL (1.6-2.6); Percent Iron Saturation 41 % (15-50); Potassium 3.7 mmol/L (3.3-5.1); Sodium 140 mmol/L (135-145); Total Iron Binding Capacity 286 mcg/dL (228-428); Total Protein 6.9 g/dL (6.5-8.0); Unsaturated Iron Binding 170 ug/dL
[2024-11-20 19:12] LABS: Ferritin 73 ng/mL (10-250)
[2024-11-20 19:14] LABS: Microalbum/Creatinine Ratio Ur 9.4 ug/mg cr (<30)
[2024-11-20 19:27] LABS: Folate 14.2 ng/mL (> or = 4.0); Vitamin B12 571 pg/mL (200-900)
[2024-11-21 05:58] LABS: Lyme Abs Screen <0.90 index
== END 2024-11-20 13:06 | disposition home or self-care (01) ==
LOC: HO.WFDLDS 13:05
PROVIDERS: PCP Nurse Practitioner Family; Visit Provider Physician Assistant
DX: R53.83 Other fatigue (principal); M25.50 Pain in unspecified joint; R07.9 Chest pain, unspecified; R30.0 Dysuria
CPT/HCPCS: 36415; 80048; 80076; 81001; 82043; 82570; 82607; 82728; 82746; 83540; 83735; 84443; 85025; 85652; 86617; 86618

== ENCOUNTER 2024-11-20 13:05 | Outpatient (AMB) | payer OTHER, SELFPAY ==
--- NOTE | 2024-11-20 13:16 | A.OFFPC_ITS ---
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 She is transferring internally. She has a significant past medical history of a benign head tremor, hypertension, sleep apnea, hx of SCC tonsilar ca, ALICIA not on cpap HEENT: Dr Martinez was the oncologist around 2012 for treatment of SCC of the right tonsil. She had chemo and radiation. CV: Blood pressure today in the office is elevated at 136/90. She is on lisinopril 20 mg daily. States that last time she increase the dosage to 30 mg it made her feel dizzy so she drop this back down. General: feels very tired. This has been going on since June. More fatigued than her baseline. She says it feels like she has a stop and rest frequently. Sometimes she gets chest pain but it does not seem very exertional. She states that it can occur at anytime. No shortness a breath or wheezing. She sleeps through the night but partway through the day just feels like she can not do anything and does not have the energy. She also just feels achy in her joints. Sometimes they feel stiff. No erythema or swelling. No night sweats or weight changes. No swollen lymph nodes. Bone density: Up-to-date, osteopenia. Mammogram: Up-to-date, 2024 Chief Lock Operator: Up-to-date, 2024 [facility] Medical History (Updated 11/20/24 @ 13:41 by Nely Mora PA-C) Colon cancer screening declined Thrush, oral Hx of ectopic Tonsillar tumor Cleft palate Neuropathy Shingles Hiatal hernia Acid reflux Osteoporosis High blood pressure Sinusitis Surgical History (Updated 08/28/24 @ 15:51 by KEO Yu) Hx of colonoscopy History of salpingectomy Family History (Updated 08/28/24 @ 16:14 by Yaima Dao CNP) Brother Alcohol abuse FH: mental illness Mother High cholesterol Diabetes Cervical cancer Father Diabetes Cardiovascular disease Paternal Grandmother Diabetes Sister Thyroid disorder Maternal Grandfather Stomach cancer Maternal Aunt Uterine cancer Social History Housing: House Patient Tobacco Use Status: Never used Tobacco e-Cigarette/Vaping Use: Never Used Second Hand Smoke Exposure: No service: No Current occupational status: retired Current occupational exposures/hazards: No Cognitive needs: No Hearing needs: Yes Vision needs: Yes Questionnaire Thrive Questionnaire Date Thrive assessed: 04/02/24 I am a: Patient What is your living situation today?: I have a steady place to live Within the past 12 months, did the food you bought not last and you didn't have the money to get more?: Never true Within the past 12 months, did you worry whether your food would run out before you got money to buy more?: Never true Do you have trouble paying for medicines?: No Do you have trouble getting transportation to medical appointments?: No Do you have trouble paying your heating and electricity bill?: No Do you have trouble taking care of your child, family member or friend?: No Do you have trouble with day-to-day activities such as bathing, preparing meals, shopping, managing finances, etc.?: No Are you currently unemployed and looking for a job?: No Are you interested in more education?: No Please select the resources that you would like help with: None Currently or been in a relationship where the following occur: No concerns reported THRIVE Score: 0 AUDIT C Alcohol Use Questionnaire (AUDIT-C) 1. How often do you have a drink containing alcohol?: 2-4 times a month 2. How many drinks containing alcohol do you have on a typical day when you are drinking?: 1 or 2 3. How often do you have six or more drinks on one occasion?: Never Total Score: 2 PASTOR-7 AMB Questionnaire PASTOR-7 Date PASTOR - 7 assessed: 04/09/24 Source: Developed by Drs. Josep Rodas, Keiry Abarca, Fernando Lincoln and colleagues, with an educational caprice from [employer]. Physical exam (Primary Care) Vital Signs: Last Vital Signs Temp 97.8 F 11/20/24 13:18 Pulse 81 11/20/24 13:18 Resp 14 11/20/24 13:18 BP 136/90 H 11/20/24 13:25 Pulse Ox 96 11/20/24 13:18 Oxygen Delivery Method Room Air 11/20/24 13:18 BMI result Body Mass Index 30.3 Tobacco/Smoking Status: Tobacco use Status Tobacco use date assessed 11/20/24 11/20/24 13:22 Patient Tobacco Use Status Never used Tobacco 11/20/24 13:17 e-Cigarette/Vaping Use Never Used 11/20/24 13:17 Thrive Assessment: Date of Thrive Assessment Date Thrive assessed 04/02/24 11/20/24 13:17 Currently or been in a relationship where the following occur: No concerns reported Const Orientation/consciousness: patient oriented x3 HENMT Ears: hearing grossly normal bilaterally Neck Thyroid: Thyroid normal Lymphatic: no lymphadenopathy noted Resp Auscultation: clear to auscultation bilaterally Cardio Rate: regular rate Rhythm: regular rhythm Heart sounds: S1 normal heart sound present and S2 normal heart sound present GI Inspection: Yes normal to inspection Palpation (GI): Soft to palpation and Other GI palpation findings present (nontender, no cva tenderness) Auscultation: normoactive bowel sounds Rectal Exam - Female: deferred Skin General skin exam: no rashes or lesions noted Neuro General: patient oriented x3, gait normal and no focal motor deficits Results Reviewed Results Reviewed: Laboratory Tests 04/10/24 07:45 WBC 4.6 L RBC 4.63 Hgb 14.1 Hct 43.2 Plt Count 203 Sodium 141 Potassium 4.0 Chloride 105 Carbon Dioxide 28 Anion Gap 12 BUN 12 Creatinine 0.73 Estimated GFR > 60 Fasting Glucose 87 AST 24 ALT 24 Urine Creatinine 127.89 Urine Microalbumin 13.0 Microalb/Creat Ratio 10.1 Coding Level of Care Code Est Pt Level 4 (68328) Complex EM visit Add On G2211 Diagnoses Fatigue R53.83 Polyarthralgia M25.50 Chest pain R07.9 Assessment & Plan Assessment & Plan (1) Fatigue: Code(s): R53.83 - Other fatigue Category: Medical Plan: Labs ordered. Encouraged her to do a sleep study but she wants to wait on this. Chest x-ray ordered. Advised to complete cardiac work up as well and we will follow up pending test results. (2) Polyarthralgia: Code(s): M25.50 - Pain in unspecified joint Category: Medical Plan: Labs ordered today. We will follow up pending test results. (3) Chest pain: Code(s): R07.9 - Chest pain, unspecified Category: Medical Plan: EKG today in office normal sinus rhythm. Echo and medicine stress test ordered. She would not be able to exercise on a treadmill. Orders: Orders Lyme IgG/IgM w/reflex to WB 11/20/24 M25.50 - Pain in unspecified joint, R07.9 - Chest pain, unspecified, R53.83 - Other fatigue TSH reflex Free T4 11/20/24 M25.50 - Pain in unspecified joint, R07.9 - Chest pain, unspecified, R53.83 - Other fatigue XR chest 2V 11/20/24 R07.9 - Chest pain, unspecified CA stress test 11/20/24 I10 - Essential (primary) hypertension, M25.50 - Pain in unspecified joint, R07.9 - Chest pain, unspecified, R53.83 - Other fatigue NM cardiolite stress test 11/20/24 R07.9 - Chest pain, unspecified CA echo transthoracic complete 11/20/24 I10 - Essential (primary) hypertension, M25.50 - Pain in unspecified joint, R07.9 - Chest pain, unspecified US soft tiss head and/or neck 11/20/24 M25.50 - Pain in unspecified joint, R07.9 - Chest pain, unspecified, R53.83 - Other fatigue Basic Metabolic Panel 11/20/24 M25.50 - Pain in unspecified joint, R07.9 - Chest pain, unspecified, R53.83 - Other fatigue Complete Blood Count Auto Diff 11/20/24 M25.50 - Pain in unspecified joint, R07.9 - Chest pain, unspecified, R53.83 - Other fatigue Liver Panel 11/20/24 M25.50 - Pain in unspecified joint, R07.9 - Chest pain, unspecified, R53.83 - Other fatigue Magnesium 11/20/24 M25.50 - Pain in unspecified joint, R07.9 - Chest pain, unspecified, R53.83 - Other fatigue Erythrocyte Sedimentation Rate 11/20/24 M25.50 - Pain in unspecified joint, R07.9 - Chest pain, unspecified, R53.83 - Other fatigue Vitamin B12 and Folate 11/20/24 M25.50 - Pain in unspecified joint, R07.9 - Chest pain, unspecified, R53.83 - Other fatigue Microalbumin, Random (w Creat) 11/20/24 M25.50 - Pain in unspecified joint, R07.9 - Chest pain, unspecified, R53.83 - Other fatigue Ferritin 11/20/24 M25.50 - Pain in unspecified joint, R07.9 - Chest pain, unspecified, R53.83 - Other fatigue UA CC w/rflx Micro + Cult 11/20/24 M25.50 - Pain in unspecified joint, R07.9 - Chest pain, unspecified, R30.0 - Dysuria, R53.83 - Other fatigue IRON PROFILE 11/20/24 M25.50 - Pain in unspecified joint, R07.9 - Chest pain, unspecified, R53.83 - Other fatigue Patient Instructions: call GI for endoscopy [phone]
[2024-11-20 13:18] VITALS: BP 142/94; PULSE 81; RESP 14; TEMP 36.6; O2SAT 96; BMI 30.3
[2024-11-20 13:25] VITALS: BP 136/90
== END 2024-11-20 13:59 | disposition home or self-care (01) ==
LOC: HO.HMCFM 13:06
PROVIDERS: PCP Physician Assistant; Visit Provider Physician Assistant
DX: R53.83 Other fatigue (principal); M25.50 Pain in unspecified joint; R07.9 Chest pain, unspecified

== ENCOUNTER 2024-12-03 09:05 | Outpatient (REF) | payer OTHER, SELFPAY ==
--- OUTSIDE RECORDS SUMMARY | 2024-12-03 09:50 | XMS_ITS | Continuity of Care Document ---
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 She does have right parotid tenderness and a severe retracted right eardrum with ceruminous debris that was removed with the operative microscope. No obvious cholesteatoma . The left ear had a recent infection which has resolved there is a dry central perforation. She is undergoing cardiac workup for her fatigue. I have suggested warm compresses soft diet and massage for the parotitis. [email or web address] Not available 12/02/2024 10:45:59 Plan of Treatment Reminders Order Date Submit Date Provider Last Modified By Organization Details Last Modified Time Details Appointments Establish ed 30 2025 10:30A M AMY RHODES MD Not available Not available Not available Lab None recorded. Referral None recorded. Procedures None recorded. Surgeries None recorded. Imaging None recorded. Medication Orders None recorded. Patient TargetsNo targets recorded. Patient InstructionsNo instructions recorded. Reason for Referral None Reported. Problems Name Problem SNOMED Code Status Onset Date Resolution Date Notes Provider Name and Address Organization Details Recorded Time Conducti ve hearing loss, bilatera l 208967336 Active 2014 Conducti ve hearing loss, bilatera l; Note: Date Diagnose d: 5 5:06 PM (389.06) Not Available [facility] 4 02:42:49 History of malignan t neoplasm of pharynx 50173903395 107 Active 2014 Personal history of malignan t neoplasm : Other and unspecif ied oral cavity and pharynx; Note: Date Diagnose d: 5 5:06 PM (V10.02) Not Available [facility] 4 02:42:45 Neck pain 89053779 Active 2014 Other disorder s of cervical region: Cervical eitan; Note: Date Diagnose d: 5 4:18 PM (723.1) ; Start Date : 09/11/19 15 Cervi calgia; Note: Date Diagnose d: 3:18 PM (M54.2) [mapped from ICD9 code: 723.1] Not Available [facility] 4 02:42:45 History of malignan t neoplasm of oral cavity 775632099 Active 2014 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, oral cavity, and pharynx; Note: Date Diagnose d: 5 3:18 PM (Z85.818 ) [mapped from ICD9 code: V10.02] Not Available [facility] 4 02:42:46 Mixed conducti ve and sensorin eural hearing loss, bilatera l 957279935 Active 2014 Mixed HL, bilatera l; Note: Date Diagnose d: 5 4:52 PM (389.22) ; Start Date : 09/11/19 15 Mixed conducti ve and sensorin eural hearing loss, bilatera l; Note: Date Diagnose d: 5 3:18 PM (H90.6) [mapped from ICD9 code: 389.22] Not Available [facility] 4 02:42:50 Chronic nasophar yngitis 28725709 Active 2014 Nasophar yngitis, chronic; Note: Date Diagnose d: 5 5:06 PM (472.2) ; Start Date : 03/05/19 15 Chron ic nasophar yngitis; Note: Date Diagnose d: 5 3:18 PM (J31.1) [mapped from ICD9 code: 472.2] Not Available [facility] 4 02:42:54 Chronic rhinitis 12619368 Active 2015 Chronic rhinitis ; Note: Date Diagnose d: 04/17/2015 3:09 PM (J31.0) Not Available [facility] 4 02:42:51 Pain of right temporom andibula r joint 49701723951 816646 Active 2017 Arthralg ia of right temporom andibula r joint; Note: Date Diagnose d: 03/16/2017 3:31 PM (M26.621 ) Not Available [facility] 4 02:42:52 Otalgia of right ear 2429367917 Active 2017 Otalgia, right ear; Note: Date Diagnose d: 03/16/2017 3:31 PM (H92.01) Not Available [facility] 4 02:42:48 Posterio r rhinorrh ea 36669888 Active 2017 Postnasa l drip; Note: Date Diagnose d: 8 2:30 PM (R09.82) Not Available [facility] 4 02:42:51 Bilatera l temporom andibula r joint pain 59160476332 171664 Active 2017 Arthralg ia of bilatera l temporom andibula r joint; Note: Date Diagnose d: 8 2:30 PM (M26.623 ) Not Available [facility] 4 02:42:52 Perforat ion of left tympanic membrane 93438438315 59638 Active 2017 Unspecif ied perforat ion of tympanic membrane , left ear; Note: Date Diagnose d: 8 1:49 PM (H72.92) Not Available [facility] 4 02:42:52 Acute sialoade nitis 924240526 Active 2017 Acute sialoade nitis; Location : left Not e: Changed from K11.2 to K11.21 ( 9 12:00 PM) , Date Diagnose d: 8 11:32 AM (K11.2) Not Available [facility] 4 02:42:45 Headache 02834785 Active 2018 Headache , unspecif ied; Note: Changed from R51 to R51.9 (08/13/19 10:51 AM) , Date Diagnose d: 03/21/2018 12:03 PM (R51) Not Available [facility] 4 02:42:50 Oral cyst 54703050994 80456 Active 2018 Other cysts of oral region, not elsewher e classifi ed; Note: Date Diagnose d: 06/20/2018 2:59 PM (K09.8) Not Available [facility] 4 02:42:50 Acute upper respirat ory infectio n 85247770 Active 2018 Acute upper respirat ory infectio n, unspecif ied; Note: Date Diagnose d: 06/20/2018 2:59 PM (J06.9) Not Available [facility] 4 02:42:54 Disturba nce of salivary secretio n 48789620 Active 2018 Xerostom ia; Note: Date Diagnose d: 06/20/2018 3:00 PM (K11.7) Not Available [facility] 4 02:42:53 Disorder of right tympanic membrane 72695844170 94199 Active 2018 Other specifie d disorder s of tympanic membrane , right ear; Note: Date Diagnose d: 06/20/2018 3:01 PM (H73.891 ) Not Available [facility] 4 02:42:49 Bilatera l disorder of Eustachi an tubes 29382309359 19413 Active 2018 Other specifie d disorder s of Eustachi an tube, bilatera l; Note: Date Diagnose d: 09/21/2018 1:53 PM (H69.83) Not Available [facility] 4 02:42:51 Total perforat ion of bilatera l tympanic membrane s 45788336508 13814 Active 2018 Total perforat ions of tympanic membrane , bilatera l; Note: Date Diagnose d: 09/21/2018 1:53 PM (H72.823 ) Not Available [facility] 4 02:42:47 Otorrhea of left ear 82634850984 41545 Completed 202009/15/2023 Otorrhea , left ear; Note: Date Diagnose d: 1 2:55 PM (H92.12) Otorrh ea, left ear; Note: Date Diagnose d: 01/01/20 15 2:47 PM (H92.12) ; Start Date : 01/01/20 15 Not Available [facility] 4 02:42:46 Otorrhea of bilatera l ears 35753775295 73377 Active 2020 Otorrhea , bilatera l; Note: Date Diagnose d: 12/31/19 21 3:10 PM (H92.13) Not Available [facility] 4 02:42:48 Otorrhea of right ear 98150948139 95761 Active 2021 Otorrhea , right ear; Note: Date Diagnose d: 03/18/2021 2:44 PM (H92.11) Not Available [facility] 4 02:42:51 Central perforat ion of left tympanic membrane 47388444728 44483 Active 2021 Central perforat ion of tympanic membrane , left ear; Note: Date Diagnose d: 06/21/2021 9:07 AM (H72.02) Not Available [facility] 4 02:42:45 Acute recurren t sialoade nitis 93761899786 49422 Active 2022 Acute recurren t sialoade nitis; Note: Date Diagnose d: 06/20/2022 1:26 PM (K11.22) Not Available [facility] 4 02:42:49 Pharynge al dysphagi a 51940631520 105 Active 2022 Dysphagi a, pharynge al phase; Note: Date Diagnose d: 06/20/2022 1:26 PM (R13.13) Not Available [facility] 4 02:42:55 Orophary ngeal dysphagi a 25874383 Active 2022 Dysphagi a, orophary ngeal phase; Note: Date Diagnose d: 3 12:23 PM (R13.12) Not Available [facility] 4 02:42:54 Spasm 82212357 Active 2022 Cramp and spasm; Note: Date Diagnose d: 3 12:47 PM (R25.2) Not Available [facility] 4 02:42:55 Impacted cerumen in right ear 79278314167 56026 Active 2022 Impacted cerumen, right ear; Note: Date Diagnose d: 12/14/19 23 1:16 PM (H61.21) Not Available [facility] 4 02:42:54 Acute maxillar y sinusiti s 63712584 Active 2023 Acute maxillar y sinusiti s, unspecif ied; Note: Date Diagnose d: 4 1:35 PM (J01.00) Not Available [facility] 4 02:42:53 Gastroes ophageal reflux disease without esophagi tis 158711648 Active 2023 AMY CARREON MD [address] [facility], [address], [place], [address] , [place] - [facility] 4 10:25:31 Acute myringit is of left ear 72574903373 53653 Active 2023 AMY CARREON MD [address] [facility], [address], [place], [address] , [place] - [facility] 4 10:27:39 Feeling of lump in throat 433040452 Active 2024 AMY CARREON MD [address] [facility], [address], [place], [address] , [place] - [facility] 5 15:29:01 Allergic rhinitis 77887514 Active 2024 AMY CARREON MD [address] [facility], [place], [address] , [place] - [facility] 5 15:29:18 Dysfunct ion of eustachi an tube 82952867 Active 2024 AMY CARREON MD [address] [facility],[place] [address], [place], [address] , [facility] 15:29:24 Problem Notes None recorded. Procedures Surgical History Date Name Laterality Status Provider Name and Address Organization Details Recorded Time 12/03/19 25 Fiberoptic Laryngoscopy (Comprehensive) completed AMY HENDRICKS MD [address] [place] [address],[address], [address], [facility] 12/02/2024 10:47:08 06/11/19 25 Fiberoptic Laryngoscopy (Comprehensive) completed AMY HENDRICKS MD [address] [place] [address],[address], [address], [facility] 06/10/2024 15:24:37 12/04/19 24 Fiberoptic Laryngoscopy (Comprehensive) completed AMY HENDRICKS MD [address] [place] [address],[address], [address], [facility] 12/04/2023 10:27:59 repair of cleft lip completed AMY HENDRICKS MD [address] [place] [address],[address], [address], [facility] 12/03/2023 20:05:01 repair of cleft palate completed AMY HENDRICKS MD [address] [place] [address],[address], [address], [facility] 12/03/2023 20:05:13 Imaging Results None recorded. Procedure Notes None recorded. Medical Equipment None Reported. Allergies Allergen ID Allergen Name Allergen Category Reaction Reaction Severity Criticality Documentation Date Start Date Code Code System Note Provider Name and Address Organization Details Recorded Time 600363 tree and shrub pollen environme nt,medica tion eye redness Not available Not available 03/05/20242009 Mari cisse [facility] 09:07:54 Medications Name Sig Start Date Stop Date Status Note LastModified by Organization Details LastModified Time clotrimaz ole 10 mg yonas 1 yonas five times a day 12/30 completed Medicati on ID: [id number] D uration Value: 7 Brand Name: denise ferguson Sen d Method: E-Prescr ibed Sub s Allowed: subs OK Medic ationGen ericName : denise ferguson Not Available Not Available Not Available Augmentin 875 mg-125 mg tablet 1 tablet by mouth 12/03 completed Medicati on ID: [id number] D uration Value: 10 Prescri bed By [...] Available nystatin 100,000 unit/mL oral suspensio n PLEASE SEE ATTACHED FOR DETAILED DIRECTIO NS 11/29 completed Not Available Not Available Not Available [...] completed Not Available Not Available Not Available cetirizin e 10 mg tablet TAKE 1 TABLET BY MOUTH DAILY FOR 90 DAYS 11/29 completed Not Available Not Available Not Available lisinopri l 20 mg tablet TAKE 1 TABLET BY MOUTH DAILY FOR 30 DAYS active Not Available Not Available No t Available valsartan 80 mg tablet 10/11 completed Medicati on ID: [id number] B rand Name: valsarta n Send Method: [...] mg tablet 01/25 completed Medicati on ID: [id number] D uration Value: 7 Reason: () Brand [...] a day 10/11 completed Medicati on ID: [id number] D uration Value: 10 Prescri bed By Name: Danuta Martínez nd Name: doxycycl ine monohydr ate Send Method: E-Prescr ibed Sub s Allowed: subs OK Medic ationGen ericName : doxycycl ine monohydr ate Not Available Not Available Not Available clotrimaz ole 1 % topical solution 12/03 completed Medicati on ID: [id number] D uration Value: 14 Brand Name: clotrima zolruddy Sen d Method: E-Prescr ibed Sub s Allowed: subs OK Speci al Instruct ion: 5 drops to the affected ear twice a day X 14 days Med ication enericNa me: clotrima zole Not Available Not Available Not Available pyridoxin e (vitamin B6) 50 mg tablet TAKE 1 TABLET BY MOUTH EVERY OTHER DAY AT BEDTIME 11/29 completed Not Available Not Available Not Available amoxicill in 250 mg capsule TAKE 1 CAPSULE BY MOUTH THREE TIMES A DAY 12/03 completed Not Available Not Available Not Available Ativan 0.5 mg tablet 1 tablet by mouth 12/03 completed Medicati on ID: [id number] D uration Value: 1 Prescri bed By [...] both nostrils 2016 active Medicati on ID: [id number] D uration Value: 120 Prescri bed By [...] mg tablet 10/11 completed Medicati on ID: [id number] Br and Name: naproxen Send Method: E-Prescr [...] 0.1 % ear drops,rola pension INSTILL 4 DROPS INTO THE LEFT EAR 2 TIMES A DAY FOR 7 DAYS 12/02 completed Not Available Not Available Not Available Vitamin D 12/02 completed Medicati on ID: [id number] B rand Name: Vitamin D Send Method: E-Prescr ibed Sub s Allowed: subs OK Medic ationGen ericName : Vitamin D Not Available Not Available Not Available magnesium 100 mg (as glycinate ) tablet Take by oral route. 11/29 completed Not Available Not Available Not Available melatonin 10 mg tablet 12/03 completed Medicati on ID: [id number] Br and Name: melatoni n Send Method: E-Prescr ibed Sub s Allowed: subs OK Medic ationGen ericName : surya bettencourt Not Available Not Available Not Available Vitals Date Recorded Body height Provider Name an d Address Organization Details Last Updated DateTime 12/02/2024 154.94 cm Mari Garcia [place] - [facility] 12/02/2024 10:07:53 Social History Question Answer Notes LastModified by Organizat ion Details LastModified Time Tobacco Smoking Status Former Smoker Mari cisse [place] - [facility] 12/02/2024 10:08:06 How Many Years Have You Consumed Alcohol? 40 [email or web address] Information not available 12/02/2024 What Type Of Ragman Do You Use? None [email or web address] Information not available 12/02/2024 How Many Alcoholic Drinks Do You Consume Per Day On Average? 2 [email or web address] Information not available 12/02/2024 When Did You Quit Smoking? 16+yearssinc elastcigaret te [email or web address] Information not available 12/02/2024 What Is Your Current Pack Years? 10packyears [email or web address] Information not available 12/02/2024 Do You Have Any Pets? Yes [email or web address] Information not available 12/02/2024 At What Age Did You Start Smoking Tobacco? 16 [email or web address] Information not available 12/02/2024 Are You Passively Exposed To Smoke? No Information not available 12/02/2024 Are There Any Smokers In Your House? No [email or web address] Information not available 12/02/2024 How Much Tobacco Do You Smoke? 0.5 PPD [email or web address] Information not available 12/02/2024 How Many Years Have You Smoked Tobacco? 10 [email or web address] Information not available 12/02/2024 Sex: Unknown Functional Status Question Answer Note LastModified by Organization Details LastModified Time How many times per week do you consume alcohol? 1-2 times per week [email or web address] Information not available 12/02/2024 Do you use any illicit or recreational drugs? No [email or web address] Information not available 12/02/2024 Do you or have you ever used any other forms of tobacco or nicotine? No [email or web address] Information not available 12/02/2024 What is your level of alcohol consumption? Occasional [email or web address] Information not available 12/02/2024 What type of noise exposure are you exposed to? noExposureToExcessiveNoise [email or web address] Infor mation not available 12/02/2024 Mental Status None recorded. Family History Nothing Reported. Medical History Condition Response Allergies/Hayfever Y Heart Problems N Anxiety N Tonsil Infections N Emphysema N Migraines N Thyroid Problems N COPD N Depression N Developmental Delay N Glaucoma N Nasal [...] Diagnosis SNOMED-CT Code Diagnosis ICD10 Code Diagnosis IMO Codes Diagnosis Note [id number] AMY CARREON MD [facility] [address] [address] 12/02/2024 10:00:16 12/02/2024 10:46:17 Acute recurrent sialoadenitis 0415578014 086373 K11.22 Central pe rforation of left tympanic membrane 9481655297 477390 H72.02 History of malignant neoplasm of pharynx 4641587834 9107 Z85.819 Health Concerns Section Related Observation LastModified by Organization Detai ls LastModified Time None Recorded Concern Status LastModified by Organization Details LastModified Time None Recorded Payers Encounter Date Sequence Insurance Name Policy Number Policy Cervantes Covered Member ID Cervantes Member ID Guarantor Name 12/02/2024 1 [facility] (MEDICARE REPLACEMENT/ ADVANTAGE - PPO) [id number] Rashida Whitmore [id number] Rashida Whitmore Notes Date Note Type Note Provider Name and Address Organization Details Recorded Time 12/02/2024 text/html ROS as noted in the HPI History of allergy, chronic sinusitis and combined modality therapy for tonsil cancer. Had another vitamin stuck in throat. 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 Completed therapy [id number] right tonsil History of cleft palate and pharyngeal flap.Using [employer] and less coffee helped her reflux Recent left otorrhea-resolved .Stress test and cardiac work up pending.Having fatigue--thyroid labs ok AMY HENDRICKS MD [address] [place] [address], [place], [address], [place] - [facility] 12/02/2024 10:47:27 OBGyn Episode No OBEpisode recorded.
--- OUTSIDE RECORDS SUMMARY | 2024-12-03 09:51 | XMS_ITS | Data Portability ---
Author Organization [place] - [facility], Allergy Address [address] [address] Care Team Providers Care Sweeper Driver Name Role Phone JESUS WILLIS Primary Care Provider [phone] Assessment Encounter Date Assessment Date Assessment LastModified [...] gastroenterolog ist. [email or web address] Not available 06/10/2024 15:28:48 12/02/2024 12/02/2024 No evidence of recurrent tonsil carcinoma. She does have right parotid tenderness and a severe retracted right eardrum with ceruminous debris that was removed with the operative microscope. No obvious cholesteatoma. The left ear had a recent infection which has resolved there is a dry central perforation. She is undergoing cardiac workup for her fatigue. I have suggested warm compresses soft diet and massage for the parotitis. [email or web address] Not available 12/02/2024 10:45:59 Plan of Treatment Reminders Order Date Submit Date Provider Last Modified By Organization Details Last Modified Time Details Appointments Establish ed 30 2025 10:30A M AMY RHODES MD Not available Not available Not available Lab TSH + free T4, serum 2023 024 MARÍA [facility] (Centralized Electronic Ordering - All Locations), Patient Can Go To The Location Of Their Choice, [address] 12/05/2023 08:18:28 Referral None recorded. Procedures None recorded. Surgeries None recorded. Imaging None recorded. Medication Orders doxycycli ne hyclate 100 mg tablet 2024 025 [facility]/Pharmacy #[id number], [address] [place], [address], 06/10/2024 14:55:36 ciproflox acin 0.3 %-dexamet hasone 0.1 % ear drops,rola pension 2023 025 [email or web address] 32 [facility]/Pharmacy #[id number], [address], [place], [address], 12/02/2024 10:08:19 Patient TargetsNo targets recorded. Patient InstructionsNo instructions recorded. Reason for Referral None Reported. Results Created Date Observation Date Name Description Value Unit Range Abnormal Flag Note LastModifiedBy Organization Detail LastModifiedTime 12/04/19 24 12/05/2023 TSH+F REE T4 TSH 3.880 uIU/m L 0.450- 4.500 normal Not Available [facility] ([facility]) [address] [place], [address], 12/05/2023 08:18:27 12/04/19 24 12/05/2023 TSH+F REE T4 T4,free(dire ct) 1.25 NG/dL 0.82-1 .77 normal Not Available [facility] ([facility]) [address] [facility], [place], [address], 12/05/2023 08:18:27 Result Notes None recorded. Problems Name Problem SNOMED Code Status Onset Date Resolution Date Notes Provider Name and Address Organization Details Recorded Time Conducti ve hearing loss, bilatera l 464843619 Active 2014 Conducti ve hearing loss, bilatera l; Note: Date Diagnose d: 5 5:06 PM (389.06) Not Available [facility] 4 02:42:49 History of malignan t neoplasm of pharynx 73658345552 107 Active 2014 Personal history of malignan t neoplasm : Other and unspecif ied oral cavity and pharynx; Note: Date Diagnose d: 5 5:06 PM (V10.02) Not Available [facility] 4 02:42:45 Neck pain 43268732 Active 2014 Other disorder s of cervical region: Cervical eitan; Note: Date Diagnose d: 5 4:18 PM (723.1) ; Start Date : 09/11/19 15 Cervi calgia; Note: Date Diagnose d: 5 3:18 PM (M54.2) [mapped from ICD9 code: 723.1] Not Available [facility] 4 02:42:45 History of malignan t neoplasm of oral cavity 515130040 Active 2014 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, oral cavity, and pharynx; Note: Date Diagnose d: 5 3:18 PM (Z85.818 ) [mapped from ICD9 code: V10.02] Not Available [facility] 4 02:42:46 Mixed conducti ve and sensorin eural hearing loss, bilatera l 240116302 Active 2014 Mixed HL, bilatera l; Note: Date Diagnose d: 5 4:52 PM (389.22) ; Start Date : 09/11/19 15 Mixed conducti ve and sensorin eural hearing loss, bilatera l; Note: Date Diagnose d: 5 3:18 PM (H90.6) [mapped from ICD9 code: 389.22] Not Available [facility] 4 02:42:50 Chronic nasophar yngitis 03084980 Active 2014 Nasophar yngitis, chronic; Note: Date Diagnose d: 5 5:06 PM (472.2) ; Start Date : 03/05/19 15 Chron ic nasophar yngitis; Note: Date Diagnose d: 5 3:18 PM (J31.1) [mapped from ICD9 code: 472.2] Not Available [facility] 4 02:42:54 Chronic rhinitis 67206747 Active 2015 Chronic rhinitis ; Note: Date Diagnose d: 04/17/2015 3:09 PM (J31.0) Not Available [facility] 4 02:42:51 Pain of right temporom andibula r joint 16647067947 550748 Active 2017 Arthralg ia of right temporom andibula r joint; Note: Date Diagnose d: 03/16/2017 3:31 PM (M26.621 ) Not Available [facility] 4 02:42:52 Otalgia of right ear 7679837375 Active 2017 Otalgia, right ear; Note: Date Diagnose d: 03/16/2017 3:31 PM (H92.01) Not Available [facility] 4 02:42:48 Posterio r rhinorrh ea 79954601 Active 2017 Postnasa l drip; Note: Date Diagnose d: 8 2:30 PM (R09.82) Not Available [facility] 4 02:42:51 Bilatera l temporom andibula r joint pain 87798425442 820340 Active 2017 Arthralg ia of bilatera l temporom andibula r joint; Note: Date Diagnose d: 8 2:30 PM (M26.623 ) Not Available [facility] 4 02:42:52 Perforat ion of left tympanic membrane 56602390806 19972 Active 2017 Unspecif ied perforat ion of tympanic membrane , left ear; Note: Date Diagnose d: 8 1:49 PM (H72.92) Not Available [facility] 4 02:42:52 Acute sialoade nitis 029307079 Active 2017 Acute sialoade nitis; Location : left Not e: Changed from K11.2 to K11.21 ( 9 12:00 PM) , Date Diagnose d: 8 11:32 AM (K11.2) Not Available [facility] 4 02:42:45 Headache 80504951 Active 2018 Headache , unspecif ied; Note: Changed from R51 to R51.9 (08/13/19 21 10:51 AM) , Date Diagnose d: 03/21/2018 12:03 PM (R51) Not Available [facility] 4 02:42:50 Oral cyst 34636567106 47859 Active 2018 Other cysts of oral region, not elsewher e classifi ed; Note: Date Diagnose d: 06/20/2018 2:59 PM (K09.8) Not Available [facility] 4 02:42:50 Acute upper respirat ory infectio n 35921088 Active 2018 Acute upper respirat ory infectio n, unspecif ied; Note: Date Diagnose d: 06/20/2018 2:59 PM (J06.9) Not Available [facility] 4 02:42:54 Disturba nce of salivary secretio n 70492597 Active 2018 Xerostom ia; Note: Date Diagnose d: 06/20/2018 3:00 PM (K11.7) Not Available [facility] 4 02:42:53 Disorder of right tympanic membrane 63505432208 19038 Active 2018 Other specifie d disorder s of tympanic membrane , right ear; Note: Date Diagnose d: 06/20/2018 3:01 PM (H73.891 ) Not Available [facility] 4 02:42:49 Bilatera l disorder of Eustachi an tubes 56916187187 36301 Active 2018 Other specifie d disorder s of Eustachi an tube, bilatera l; Note: Date Diagnose d: 09/21/2018 1:53 PM (H69.83) Not Available [facility] 4 02:42:51 Total perforat ion of bilatera l tympanic membrane s 13523092819 Active 2018 Total perforat ions of tympanic membrane , bilatera l; Note: Date Diagnose d: 09/21/2018 1:53 PM (H72.823 ) Not Available [facility] 4 02:42:47 Otorrhea of left ear 95385652815 62800 Completed 202009/15/2023 Otorrhea , left ear; Note: Date Diagnose d: 1 2:55 PM (H92.12) Otorrh ea, left ear; Note: Date Diagnose d: 01/01/20 15 2:47 PM (H92.12) ; Start Date : 01/01/20 15 Not Available [facility] 4 02:42:46 Otorrhea of bilatera l ears 67487053363 98047 Active 2020 Otorrhea , bilatera l; Note: Date Diagnose d: 12/31/19 21 3:10 PM (H92.13) Not Available [facility] 4 02:42:48 Otorrhea of right ear 01018406144 20927 Active 2021 Otorrhea , right ear; Note: Date Diagnose d: 03/18/2021 2:44 PM (H92.11) Not Available [facility] 4 02:42:51 Central perforat ion of left tympanic membrane 90315440351 60905 Active 2021 Central perforat ion of tympanic membrane , left ear; Note: Date Diagnose d: 06/21/2021 9:07 AM (H72.02) Not Available [facility] 4 02:42:45 Acute recurren t sialoade nitis 96373909545 Active 2022 Acute recurren t sialoade nitis; Note: Date Diagnose d: 06/20/2022 1:26 PM (K11.22) Not Available [facility] 4 02:42:49 Pharynge al dysphagi a 26865285178 105 Active 2022 Dysphagi a, pharynge al phase; Note: Date Diagnose d: 06/20/2022 1:26 PM (R13.13) Not Available [facility] 4 02:42:55 Orophary ngeal dysphagi a 62311726 Active 2022 Dysphagi a, orophary ngeal phase; Note: Date Diagnose d: 3 12:23 PM (R13.12) Not Available [facility] 4 02:42:54 Spasm 94580796 Active 2022 Cramp and spasm; Note: Date Diagnose d: 3 12:47 PM (R25.2) Not Available [facility] 4 02:42:55 Impacted cerumen in right ear 05275799001 51239 Active 2022 Impacted cerumen, right ear; Note: Date Diagnose d: 12/14/19 23 1:16 PM (H61.21) Not Available [facility] 4 02:42:54 Acute maxillar y sinusiti s 06930256 Active 2023 Acute maxillar y sinusiti s, unspecif ied; Note: Date Diagnose d: 4 1:35 PM (J01.00) Not Available [facility] 4 02:42:53 Gastroes ophageal reflux disease without esophagi tis 664342318 Active 2023 AMY CARREON MD [address], [place], [address] , [place] - [facility] 4 10:25:31 Acute myringit is of left ear 69551853997 76139 Active 2023 AMY CARREON MD [address] [facility],[address], [place], [address] , [place] [facility] 4 10:27:39 Feeling of lump in throat 783640513 Active 2024 AMY CARREON MD [address] [facility],[address], [place], [address] , [place] - [facility] 5 15:29:01 Allergic rhinitis 15021271 Active 2024 AMY CARREON MD [address] [facility],[place] [address], [place], [address] , [place] [facility] 5 15:29:18 Dysfunct ion of eustachi an tube 82170834 Active 2024 AMY CARREON MD [address] [facility],[place] [address], [place], [address] , [place] [facility] 5 15:29:24 Problem Notes None recorded. Procedures Surgical History Date Name Laterality Status Provider Name and Address Organization Details Recorded Time 12/03/19 25 Fiberoptic Laryngoscopy (Comprehensive) completed AMY HENDRICKS MD [address] [facility],[address] [facility], , [address], [facility] - [facility] 12/02/2024 10:47:08 06/11/19 25 Fiberoptic Laryngoscopy (Comprehensive) completed AMY HENDRICKS MD [address] [facility],[place] [facility], , [address], [place] - [facility] 06/10/2024 15:24:37 12/04/19 24 Fiberoptic Laryngoscopy (Comprehensive) completed AMY HENDRICKS MD [address] [facility],[place] [facility], , [address], [facility] - [facility] 12/04/2023 10:27:59 repair of cleft lip completed AMY HENDRICKS MD [address], [address], [facility] 12/03/2023 20:05:01 repair of cleft palate completed AMY HENDRICKS MD [address] [place] [address], [address], [facility] 12/03/2023 20:05:13 Imaging Results None recorded. Procedure Notes None recorded. Medical Equipment None Reported. Allergies Allergen ID Allergen Name Allergen Category Reaction Reaction Severity Criticality Documentation Date Start Date Code Code System Note Provider Name and Address Organization Details Recorded Time 898184 tree and shrub pollen environme nt,medica tion eye redness Not available Not available 03/05/20242009 Mari cisse [facility] 09:07:54 Medications Name Sig Start Date Stop Date Status Note LastModified by Organization Details LastModified Time clotrimaz ole 10 mg yonas 1 yonas five times a day 12/30 completed Medicati on ID: [id number] D uration Value: 7 Brand Name: clotrima zole Sen d Method: E-Prescr ibed Sub s Allowed: subs OK Medic ationGen ericName : clotrima zole Not Available Not Available Not Available Augmentin 875 mg-125 mg tablet 1 tablet by mouth 12/03 completed Medicati on ID: 122750 D uration Value: 10 Prescri bed By [...] mg tablet 10/11 completed Medicati on ID: 825385 B rand Name: valsarta n Send Method: [...] mg tablet 01/25 completed Medicati on ID: [id number] D uration Value: 7 Reason: () Brand [...] a day 10/11 completed Medicati on ID: [id number] D uration Value: 10 Prescri bed By Name: Danuta Martínez nd Name: doxycycl ine monohydr ate Send Method: E-Prescr ibed Sub s Allowed: subs OK Medic ationGen ericName : doxycycl ine monohydr ate Not Available Not Available Not Available clotrimaz ole 1 % topical solution 12/03 completed Medicati on ID: [id number] D uration Value: 14 Brand Name: denise ferguson Sen d Method: E-Prescr ibed Sub s Allowed: subs OK Speci al Instruct ion: 5 drops to the affected ear twice a day X 14 days Med icationG enericNa me: starlarianiyah ferguson Not Available Not Available Not Available pyridoxin [...] by mouth 12/03 completed Medicati on ID: 253611 D uration Value: 1 Prescri bed By [...] both nostrils 2016 active Medicati on ID: 045671 D uration Value: 120 Prescri bed By [...] mg tablet 10/11 completed Medicati on ID: [id number] Br and Name: naproxen Send Method: E-Prescr [...] Vitamin D 12/02 completed Medicati on ID: [id number] B rand Name: Vitamin D Send Method: E-Prescr ibed Sub s Allowed: subs OK Medic ationGen ericName : Vitamin D Not Available Not Available Not Available magnesium 100 mg (as glycinate ) tablet Take by oral route. 11/29 completed Not Available Not Available Not Available melatonin 10 mg tablet 12/03 completed Medicati on ID: 04067 Br and Name: melatoni n Send Method: E-Prescr ibed Sub s Allowed: subs OK Medic ationGen ericName : melatoni n Not Available Not Available Not Available Vitals Date Recorded Body height Body weight Provider Name and Address Organization Details Last Updated DateTime 03/05/2024 154.94 cm 54651.56 g Mari Garcia [place] - [facility] 03/05/2024 09:07:36 Date Recorded Body height Body mass index (BMI) Body weight Provider Name and Address Organization Details Last Updated DateTime 06/10/2024 154.94 cm 29.9 kg/m2 38651.59 g Catrachita Bridges [place] - [facility] 06/10/2024 14:55:24 Date Recorded Body height Provider Name an d Address Organization Details Last Updated DateTime 12/02/2024 154.94 cm Mari Garcia [place] - [facility] 12/02/2024 10:07:53 Date Recorded Body height Body mass index (BMI) Body weight Provider Name and Address Organization Details Last Updated DateTime 12/04/2023 154.94 cm 30.8 kg/m2 12351.56 g Catrachita Bridges [place] - [facility] 12/04/2023 10:11:21 Social History Question Answer Notes LastModified by Organizat ion Details LastModified Time Tobacco Smoking Status Former Smoker Mari cisse [place] - [facility] 12/02/2024 10:08:06 How Many Years Have You Consumed Alcohol? 40 [email or web address] Information not available 12/02/2024 What Type Of Pre K Lead Teacher Do You Use? None [email or web address] Information not available 12/02/2024 How Many Alcoholic Drinks Do You Consume Per Day On Average? 2 [email or web address] Information not available 12/02/2024 When Did You Quit Smoking? 16+yearssinc elastcigaret te [email or web address] Information not available 12/02/2024 What Is Your Current Pack Years? 10packyears [email or web address] Information not available 12/02/2024 Do You Have Any Pets? Yes [email or web address] Information not available 12/02/2024 At What Age Did You Start Smoking Tobacco? 16 [email or web address] Information not available 12/02/2024 Are You Passively Exposed To Smoke? No [email or web address] Information not available 12/02/2024 Are There Any Smokers In Your House? No [email or web address] Information not available 12/02/2024 How Much Tobacco Do You Smoke? 0.5 PPD Information not available 12/02/2024 How Many Years Have You Smoked Tobacco? 10 [email or web address] Information not available 12/02/2024 Sex: Unknown Functional Status Question Answer Note LastModified by Organization Details LastModified Time How many times per week do you consume alcohol? 1-2 times per week [email or web address] Information not available 12/02/2024 Do you use any illicit or recreational drugs? No Information not available 12/02/2024 Do you or have you ever used any other forms of tobacco or nicotine? No [email or web address] Information not available 12/02/2024 What is your level of alcohol consumption? Occasional [email or web address] Information not available 12/02/2024 What type of noise exposure are you exposed to? noExposureToExcessiveNoise [email or web address] Infor mation not available 12/02/2024 Mental Status None recorded. Family History Nothing Reported. Medical History Condition Response Allergies/Hayfever Y Heart Problems N Anxiety N Tonsil Infections N Emphysema N Migraines N Thyroid Problems N COPD N Depression N Developmental Delay N Glaucoma N Nasal or Sinus Problems Y Anemia N Immune System Disorder N Anesthesia Complications N Heart Attack ([place]) N Other Skin Condition N Diabetes N [...] ICD10 Code Diagnosis IMO Codes Diagnosis Note [id number] AMY CARREON MD [facility] [address] [address] 12/04/2023 09:56:12 12/04/2023 10:39:47 History of malignant neoplasm of digestive organ 8302965098 3091135 Z85.00 Gastroesop hageal reflux disease without esophagitis 459365195 K21.9 Consider GI eval. She will discuss with PCP Central pe rforation of left tympanic membrane 5690776706 871456 H72.02 Acute myri ngitis of left ear 1023446444 351220 H73.002 [id number] SILVA SMYTH PA-C [facility] [address] [address] 03/05/2024 09:02:35 03/05/2024 09:35:07 Acute maxillary sinusitis 84414530 J01.00 [id number] AMY CARREON MD [facility] [address] [address] 06/10/2024 14:44:01 06/10/2024 15:30:30 Feeling of lump in throat 901170766 R09.89 History of malignant neoplasm of oropharynx 1237342020 9540845 Z85.818 Dysfunctio n of eustachian tube 69814494 H69.93 Allergic rhinitis 425264 04 J30.9 [id number] AMY CARREON MD [facility] [address] [place] [address] 12/02/2024 10:00:16 12/02/2024 10:46:17 Acute recurrent sialoadenitis 9288046055 764847 K11.22 Central pe rforation of left tympanic membrane 1101831196 357685 H72.02 History of malignant neoplasm of pharynx 2656503461 9107 Z85.819 Health Concerns Section Related Observation LastModified by Organization Detai ls LastModified Time None Recorded Concern Status LastModified by Organization Details LastModified Time None Recorded Advance Directives Directive None Recorded Payers Insurance Date Sequence Insurance Name Policy Number Policy Cervantes Covered Member ID Cervantes Member ID Guarantor Name 12/04/2023 1 [facility] [id number] 1 Rashidaadal Owusu Myranda [id number] Rashida Whitmore 12/02/2024 1 [facility] (MEDICARE REPLACEMENT/ ADVANTAGE - PPO) [id number] 1 Rashida Owusu [place] [id number] Rashida Francoise Myranda Notes Date Note Type Note Provider Name and Address Organization Details Recorded Time 12/04/2023 text/html 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 Completed therapy [id number] right tonsilHx of ETD with cleft lip [...] every other day AMY HENDRICKS MD [address] [place] [address], , [address], [facility] - [facility] 12/04/2023 10:33:22 03/05/2024 text/html ROS as noted in the HPI 68-year-old female presents for reevaluation of sinus infection. She [...] not relieve symptoms. AMY HENDRICKS MD 100 [facility],[address], [address], [facility] - [facility] 03/05/2024 12:20:10 06/10/2024 text/html History of allergy, [...] combined modality chemo with XRT. Completed therapy [id number] right tonsil History of cleft palate and pharyngeal flap.Using Reflux Gourmet and less coffee helped her reflux AMY HENDRICKS MD 100 [facility],[address], [address], [facility] 06/10/2024 15:29:49 12/02/2024 text/html ROS as noted in the HPI History of allergy, chronic sinusitis and combined modality therapy for tonsil cancer. Had another vitamin stuck in throat. 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 Completed therapy [id number] right tonsil History of cleft palate and pharyngeal flap.Using Reflux Gourmet and less coffee helped her reflux Recent left otorrhea-resolved. Stress test and cardiac work up pending.Having fatigue--thyroid labs ok AMY HENDRICKS MD [address] [facility],[place] [address], , [address], [facility] 12/02/2024 10:47:27 OBGyn Episode No OBEpisode recorded.
[2024-12-03 11:57] LABS: Appearance Urine Clear; Glucose Urine UA Negative (Negative); PH 6.5 (5.0-9.0); Specific Gravity - Urine 1.015 (1.005-1.025); UMIC TRIGGER UACC YES
[2024-12-03 12:48] LABS: Alanine Aminotransferase 24 U/L (0-31); Albumin Level 4.1 g/dL (3.5-5.0); Alkaline Phosphatase 119 U/L (39-117); Aspartate Amino Transferase 26 U/L (5-31); Total Protein 6.6 g/dL (6.5-8.0)
[2024-12-03 13:08] LABS: Gamma Glutamyl Transpeptidase 27 U/L (7-33)
[2024-12-03 14:01] LABS: Parathyroid Hormone Intact 56.9 pg/mL (8.7-77.1)
== END 2024-12-03 09:06 | disposition home or self-care (01) ==
LOC: HO.WFDLDS 09:05
PROVIDERS: Visit Provider Physician Assistant
DX: R74.8 Abnormal levels of other serum enzymes (principal); R31.9 Hematuria, unspecified
CPT/HCPCS: 36415; 80076; 81001; 82306; 82977; 83970

== ENCOUNTER 2024-12-25 12:54 | Outpatient (AMB) | payer OTHER, SELFPAY ==
--- NOTE | 2024-12-25 12:58 | MHC.PC.OV ---
Vital Signs 12/25/24 13:04 Height 5 ft 1 in Weight 158 lb 6 oz BMI 29.9 BP 122/74 Blood Pressure Location Rt brachial Position Sitting Respiration 14 Pulse 80 Pulse Source Pulse Oximeter Temp 97.6 F Temp Source Temporal Artery Scan Pulse Oximetry (%) 97 Oxygen Delivery Method Room Air Intake Visit Reasons: med check, bp check Intake Note: Rashida presents in the office today for medication check in and a BP check. Equipment Engineering Technician Required: No Allergies dog hair Allergy (Mild, Uncoded 12/25/24 13:01) Runny Nose tree pollen Allergy (Mild, Uncoded 12/25/24 13:01) Runny Nose Tobacco use date assessed: 12/25/24 Fall risk assessment: No Falls in past year Last assessed Fall Risk: 12/25/24 Dental Screening Dental Screen Date: 12/25/24 Did you have a dental visit in the last 12 months?: Yes Did you have a dental problem in the last 6 months where you did not have access to dental care?: No Was dental information given to patient?: Patient has dentist HPI med check, bp check HPI Details Patient is a 69-year-old female who presents today for a follow up. She is relatively new to me. She has a significant past medical history of a benign head tremor, hypertension, sleep apnea, hx of SCC tonsilar ca, ALICIA not on cpap HEENT: Dr Martinez was the oncologist around 2012 for treatment of SCC of the right tonsil. She had chemo and radiation. GI: Booked to see GI next week for dysphagia and esophagitis. No change in weight. CV: Blood pressure today in the office is elevated at 122/74. She is on lisinopril 20 mg daily. States that last time she increase the dosage to 30 mg it made her feel dizzy so she drop this back down. states her chest pain has been better. It feels to her like her left ribs. It is only painful to touch. She states her insurance company is not paying for the testing fully due to her plan and she does not want to pay for this yet. She states it does not feel like her heart and is aware women can present differently. In agreement to get cxr. General: feels very tired. This has been going on since June. More fatigued than her baseline. She states that it can occur at anytime. No shortness a breath or wheezing. She sleeps through the night but partway through the day just feels like she can not do anything and does not have the energy. She also just feels achy in her joints. Sometimes they feel stiff. No erythema or swelling. No night sweats or weight changes. No swollen lymph nodes. Msk: does report generalized joint pains. labs neg. She wraps up her joints and keeps warm. Urology: has persistent hematuria and was referred to urology. Booked in February. Bone density: Up-to-date, osteopenia. 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 [facility] Medical History (Updated 12/09/24 @ 15:22 by Nely Mora PA-C) Colon cancer screening declined Thrush, oral Hx of ectopic Tonsillar tumor Cleft palate Neuropathy Shingles Hiatal hernia Acid reflux Osteoporosis High blood pressure Sinusitis Surgical History (Updated 08/28/24 @ 15:51 by KEO Yu) Hx of colonoscopy History of salpingectomy Family History (Updated 08/28/24 @ 16:14 by Yaima Dao CNP) Brother Alcohol abuse FH: mental illness Mother High cholesterol Diabetes Cervical cancer Father Diabetes Cardiovascular disease Paternal Grandmother Diabetes Sister Thyroid disorder Maternal Grandfather Stomach cancer Maternal Aunt Uterine cancer Social History Housing: House Alcohol intake: current Patient Tobacco Use Status: Former Tobacco user Cigarette Packs Per Day: 1 Cigarettes Per Day: 10 Years Smoked: 20 e-Cigarette/Vaping Use: Never Used Second Hand Smoke Exposure: No service: No Current occupational status: retired Current occupational exposures/hazards: No Cognitive needs: No Hearing needs: Yes Vision needs: Yes Questionnaire Thrive Questionnaire Date Thrive assessed: 04/02/24 I am a: Patient What is your living situation today?: I have a steady place to live Within the past 12 months, did the food you bought not last and you didn't have the money to get more?: Never true Within the past 12 months, did you worry whether your food would run out before you got money to buy more?: Never true Do you have trouble paying for medicines?: No Do you have trouble getting transportation to medical appointments?: No Do you have trouble paying your heating and electricity bill?: No Do you have trouble taking care of your child, family member or friend?: No Do you have trouble with day-to-day activities such as bathing, preparing meals, shopping, managing finances, etc.?: No Are you currently unemployed and looking for a job?: No Are you interested in more education?: No Please select the resources that you would like help with: None Currently or been in a relationship where the following occur: No concerns reported THRIVE Score: 0 PASTOR-7 AMB Questionnaire PASTOR-7 Date PASTOR - 7 assessed: 04/09/24 Source: Developed by Drs. Josep Rodas, Keiry Abarca, Fernando Lincoln and colleagues, with an educational caprice from [employer]. Physical exam (Primary Care) Tobacco/Smoking Status: Tobacco use Status Tobacco use date assessed 11/20/24 11/21/24 10:27 Patient Tobacco Use Status Never used Tobacco 11/21/24 10:27 e-Cigarette/Vaping Use Never Used 11/21/24 10:27 Thrive Assessment: Date of Thrive Assessment Date Thrive assessed 04/02/24 11/21/24 10:27 Currently or been in a relationship where the following occur: No concerns reported Const Orientation/consciousness: patient oriented x3 HENMT Ears: hearing grossly normal bilaterally Neck Thyroid: Thyroid normal Lymphatic: no lymphadenopathy noted Resp Auscultation: clear to auscultation bilaterally Cardio Rate: regular rate Rhythm: regular rhythm Heart sounds: S1 normal heart sound present and S2 normal heart sound present GI Inspection: Yes normal to inspection Palpation (GI): Soft to palpation and Other GI palpation findings present (nontender, no cva tenderness) Auscultation: normoactive bowel sounds Rectal Exam - Female: deferred Skin General skin exam: no rashes or lesions noted Neuro General: patient oriented x3, gait normal and no focal motor deficits Results Reviewed Results Reviewed: Laboratory Tests 04/10/24 07/31/24 08/02/24 07:45 08:37 08:18 WBC RBC Hgb Hct Plt Count Creatinine Estimated GFR Random Glucose Magnesium Iron TIBC % Saturation Ferritin Total Bilirubin Direct Bilirubin GGT AST ALT Alkaline Phosphatase Total Protein Albumin Triglycerides 85 Cholesterol 182 LDL Cholesterol, Calc 92 HDL Cholesterol 73 Vitamin B12 692 25-OH Vitamin D Total 55.7 Folate Homocysteine 7.2 TSH 3.70 PTH Intact Urine Blood Moderate (2+) H 11/20/24 11/20/24 12/03/24 14:07 14:15 09:07 WBC 5.2 RBC 4.27 Hgb 13.7 Hct 39.3 Plt Count 195 Creatinine 0.59 Estimated GFR > 60 Random Glucose 92 Magnesium 2.2 Iron 116 TIBC 286 % Saturation 41 Ferritin 73 Total Bilirubin 0.7 Direct Bilirubin 0.2 GGT 27 AST 26 ALT 24 Alkaline Phosphatase 119 H Total Protein 6.6 Albumin 4.1 Triglycerides Cholesterol LDL Cholesterol, Calc HDL Cholesterol Vitamin B12 571 25-OH Vitamin D Total 54.0 Folate 14.2 Homocysteine TSH 2.03 PTH Intact 56.9 Urine Blood Trace H 12/03/24 09:14 WBC RBC Hgb Hct Plt Count Creatinine Estimated GFR Random Glucose Magnesium Iron TIBC % Saturation Ferritin Total Bilirubin Direct Bilirubin GGT AST ALT Alkaline Phosphatase Total Protein Albumin Triglycerides Cholesterol LDL Cholesterol, Calc HDL Cholesterol Vitamin B12 25-OH Vitamin D Total Folate Homocysteine TSH PTH Intact Urine Blood Small (1+) H Coding Level of Care Code Est Pt Level 4 (91932) Complex EM visit Add On G2211 Diagnoses Fatigue R53.83 Polyarthralgia M25.50 Chest pain R07.9 Assessment & Plan Assessment & Plan (1) Fatigue: Code(s): R53.83 - Other fatigue Category: Medical Plan: Labs ordered reassuring. Encouraged her to do a sleep study but she wants to wait on this. Chest x-ray ordered but will get this done. cancelled cardiac work up. (2) Polyarthralgia: Code(s): M25.50 - Pain in unspecified joint Category: Medical Plan: Labs reassuring advised to try otc medications (3) Chest pain: Code(s): R07.9 - Chest pain, unspecified Category: Medical Plan: improved. cxr ordered Echo and medicine stress test ordered but cancelled by pt. She is not interested in doing this at this time and understands the risks. States her cp does not feel cardiac. Aware that women can present atypical.
[2024-12-25 13:04] VITALS: BP 122/74; PULSE 80; RESP 14; TEMP 36.4; O2SAT 97; BMI 29.9
--- OUTSIDE RECORDS SUMMARY | 2024-12-25 15:30 | XMS_ITS | Clinical Summary ---
Author Organization Formerly [facility] Address [address] [place] [address] Care Team Providers Care Telegraph Equipment Maintainer Name Role Phone Jonny Llanes MD Primary Care Provider + Allergies No known active allergies Medications Medication Sig Dispensed Refills Start Date End Date Status Multiple Vitamin (MULTI VITAMIN PO) Take by mouth. 0 Ac tive Haubmvk-Rbmzengzt-Wnzo min D (CALCIUM 500 PO) Take by [...] needed for pain. 0 Active nystatin (MYCOSTATIN) [id number] UNIT/ML suspension Take 5 mL (500,000 Units [...] age to complete this topic Care Teams Telegraph Equipment Maintainer Relationship Specialty Start Date End Date Jonny Llanes MD [address] [place] [address] PCP - General Otolaryngology 10/02/18
--- OUTSIDE RECORDS SUMMARY | 2024-12-25 15:30 | XMS_ITS | Data Portability ---
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 Procedures None recorded. Surgeries None recorded. Imaging None recorded. Medication Orders doxycycli ne hyclate 100 mg tablet 2024 025 [id number], [address] [place], [address], 06/10/2024 14:55:36 ciproflox acin 0.3 %-dexamet hasone 0.1 % ear drops,rola pension 2023 025 [email or web address] 32 [facility]/Pharmacy #[id number], [address], [place], [address], 12/02/2024 10:08:19 Patient TargetsNo targets recorded. Patient InstructionsNo instructions recorded. Reason for Referral None Reported. Results Created Date Observation Date Name Description Value Unit Range Abnormal Flag Note LastModifiedBy Organization Detail LastModifiedTime 12/04/19 24 12/05/2023 TSH+F REE T4 TSH 3.880 uIU/m L 0.450- 4.500 normal Not Available [facility] ([facility]) [address] [place], [address], 12/05/2023 08:18:27 12/04/19 24 12/05/2023 TSH+F REE T4 T4,free(dire ct) 1.25 NG/dL 0.82-1 .77 normal Not Available [facility] ([facility]) [address] [facility], [place], [address], 12/05/2023 08:18:27 Result Notes None recorded. Problems Name Problem SNOMED Code Status Onset Date Resolution Date Notes Provider Name and Address Organization Details Recorded Time Conducti ve hearing loss, bilatera l 032932202 Active 2014 Conducti ve hearing loss, bilatera l; Note: Date Diagnose d: 5 5:06 PM (389.06) Not Available [facility] 4 02:42:49 History of malignan t neoplasm of pharynx 70856967800 107 Active 2014 Personal history of malignan t neoplasm : Other and unspecif ied oral cavity and pharynx; Note: Date Diagnose d: 5 5:06 PM (V10.02) Not Available [facility] 4 02:42:45 Neck pain 37512087 Active 2014 Other disorder s of cervical region: Cervical eitan; Note: Date Diagnose d: 5 4:18 PM (723.1) ; Start Date : 09/11/19 15 Cervi calgia; Note: Date Diagnose d: 5 3:18 PM (M54.2) [mapped from ICD9 code: 723.1] Not Available [facility] 4 02:42:45 History of malignan t neoplasm of oral cavity 866385000 Active 2014 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, oral cavity, and pharynx; Note: Date Diagnose d: 5 3:18 PM (Z85.818 ) [mapped from ICD9 code: V10.02] Not Available [facility] 4 02:42:46 Mixed conducti ve and sensorin eural hearing loss, bilatera l 029219040 Active 2014 Mixed HL, bilatera l; Note: Date Diagnose d: 5 4:52 PM (389.22) ; Start Date : 09/11/19 15 Mixed conducti ve and sensorin eural hearing loss, bilatera l; Note: Date Diagnose d: 5 3:18 PM (H90.6) [mapped from ICD9 code: 389.22] Not Available [facility] 4 02:42:50 Chronic nasophar yngitis 83842483 Active 2014 Nasophar yngitis, chronic; Note: Date Diagnose d: 5 5:06 PM (472.2) ; Start Date : 03/05/19 15 Chron ic nasophar yngitis; Note: Date Diagnose d: 5 3:18 PM (J31.1) [mapped from ICD9 code: 472.2] Not Available [facility] 4 02:42:54 Chronic rhinitis 72699796 Active 2015 Chronic rhinitis ; Note: Date Diagnose d: 04/17/2015 3:09 PM (J31.0) Not Available [facility] 4 02:42:51 Pain of right temporom andibula r joint 15131593905 119544 Active 2017 Arthralg ia of right temporom andibula r joint; Note: Date Diagnose d: 03/16/2017 3:31 PM (M26.621 ) Not Available [facility] 4 02:42:52 Otalgia of right ear 9118964984 Active 2017 Otalgia, right ear; Note: Date Diagnose d: 03/16/2017 3:31 PM (H92.01) Not Available [facility] 4 02:42:48 Posterio r rhinorrh ea 22798763 Active 2017 Postnasa l drip; Note: Date Diagnose d: 8 2:30 PM (R09.82) Not Available [facility] 4 02:42:51 Bilatera l temporom andibula r joint pain 54186553726 500351 Active 2017 Arthralg ia of bilatera l temporom andibula r joint; Note: Date Diagnose d: 8 2:30 PM (M26.623 ) Not Available [facility] 4 02:42:52 Perforat ion of left tympanic membrane 33409996202 07696 Active 2017 Unspecif ied perforat ion of tympanic membrane , left ear; Note: Date Diagnose d: 8 1:49 PM (H72.92) Not Available [facility] 4 02:42:52 Acute sialoade nitis 074432642 Active 2017 Acute sialoade nitis; Location : left Not e: Changed from K11.2 to K11.21 ( 9 12:00 PM) , Date Diagnose d: 8 11:32 AM (K11.2) Not Available [facility] 4 02:42:45 Headache 58767067 Active 2018 Headache , unspecif ied; Note: Changed from R51 to R51.9 (08/13/19 21 10:51 AM) , Date Diagnose d: 03/21/2018 12:03 PM (R51) Not Available [facility] 4 02:42:50 Oral cyst 48117836623 77965 Active 2018 Other cysts of oral region, not elsewher e classifi ed; Note: Date Diagnose d: 06/20/2018 2:59 PM (K09.8) Not Available [facility] 4 02:42:50 Acute upper respirat ory infectio n 58721735 Active 2018 Acute upper respirat ory infectio n, unspecif ied; Note: Date Diagnose d: 06/20/2018 2:59 PM (J06.9) Not Available [facility] 4 02:42:54 Disturba nce of salivary secretio n 66982129 Active 2018 Xerostom ia; Note: Date Diagnose d: 06/20/2018 3:00 PM (K11.7) Not Available [facility] 4 02:42:53 Disorder of right tympanic membrane 12885308606 19105 Active 2018 Other specifie d disorder s of tympanic membrane , right ear; Note: Date Diagnose d: 06/20/2018 3:01 PM (H73.891 ) Not Available [facility] 4 02:42:49 Bilatera l disorder of Eustachi an tubes 64946762635 88501 Active 2018 Other specifie d disorder s of Eustachi an tube, bilatera l; Note: Date Diagnose d: 09/21/2018 1:53 PM (H69.83) Not Available [facility] 4 02:42:51 Total perforat ion of bilatera l tympanic membrane s 30740715973 Active 2018 Total perforat ions of tympanic membrane , bilatera l; Note: Date Diagnose d: 09/21/2018 1:53 PM (H72.823 ) Not Available [facility] 4 02:42:47 Otorrhea of left ear 11838819488 67612 Completed 202009/15/2023 Otorrhea , left ear; Note: Date Diagnose d: 1 2:55 PM (H92.12) Otorrh ea, left ear; Note: Date Diagnose d: 01/01/20 15 2:47 PM (H92.12) ; Start Date : 01/01/20 15 Not Available [facility] 4 02:42:46 Otorrhea of bilatera l ears 36285018017 14990 Active 2020 Otorrhea , bilatera l; Note: Date Diagnose d: 12/31/19 21 3:10 PM (H92.13) Not Available [facility] 4 02:42:48 Otorrhea of right ear 62765540168 96922 Active 2021 Otorrhea , right ear; Note: Date Diagnose d: 03/18/2021 2:44 PM (H92.11) Not Available [facility] 4 02:42:51 Central perforat ion of left tympanic membrane 88437735278 86764 Active 2021 Central perforat ion of tympanic membrane , left ear; Note: Date Diagnose d: 06/21/2021 9:07 AM (H72.02) Not Available [facility] 4 02:42:45 Acute recurren t sialoade nitis 99976897072 Active 2022 Acute recurren t sialoade nitis; Note: Date Diagnose d: 06/20/2022 1:26 PM (K11.22) Not Available [facility] 4 02:42:49 Pharynge al dysphagi a 48435041110 105 Active 2022 Dysphagi a, pharynge al phase; Note: Date Diagnose d: 06/20/2022 1:26 PM (R13.13) Not Available [facility] 4 02:42:55 Orophary ngeal dysphagi a 44404042 Active 2022 Dysphagi a, orophary ngeal phase; Note: Date Diagnose d: 3 12:23 PM (R13.12) Not Available [facility] 4 02:42:54 Spasm 24826804 Active 2022 Cramp and spasm; Note: Date Diagnose d: 3 12:47 PM (R25.2) Not Available [facility] 4 02:42:55 Impacted cerumen in right ear 29076102733 79027 Active 2022 Impacted cerumen, right ear; Note: Date Diagnose d: 12/14/19 23 1:16 PM (H61.21) Not Available [facility] 4 02:42:54 Acute maxillar y sinusiti s 70017284 Active 2023 Acute maxillar y sinusiti s, unspecif ied; Note: Date Diagnose d: 4 1:35 PM (J01.00) Not Available [facility] 4 02:42:53 Gastroes ophageal reflux disease without esophagi tis 378718326 Active 2023 AMY CARREON MD [address], [place], [address] , [place] - [facility] 4 10:25:31 Acute myringit is of left ear 86714468979 53927 Active 2023 AMY CARREON MD [address] [facility] [place], [place], [address] , [place] - [facility] 4 10:27:39 Feeling of lump in throat 394291224 Active 2024 AMY CARREON MD [address] [facility] [place],[address], [place], [address] , [place] - [facility] 5 15:29:01 Allergic rhinitis 58266352 Active 2024 AMY CARREON MD [address] [facility] [place] [address], [place], [address] , [place] - [facility] 5 15:29:18 Dysfunct ion of eustachi an tube 66212863 Active 2024 AMY CARREON MD [address] [facility],[address] [address], [place], [address] , [place] - [facility] 5 15:29:24 Problem Notes None recorded. Procedures Surgical History Date Name Laterality Status Provider Name and Address Organization Details Recorded Time 12/03/19 25 Fiberoptic Laryngoscopy (Comprehensive) completed AMY HENDRICKS MD [address] [facility] [place],[address] [facility], [place], [address], [facility] - [facility] 12/02/2024 10:47:08 06/11/19 25 Fiberoptic Laryngoscopy (Comprehensive) completed AMY HENDRICKS MD [address] [facility] [place],[address] [facility], [place], [address], [place] - [facility] 06/10/2024 15:24:37 12/04/19 24 Fiberoptic Laryngoscopy (Comprehensive) completed AMY HENDRICKS MD [address] [facility] [place],[address] [facility], [place], [address], [facility] - [facility] 12/04/2023 10:27:59 repair of cleft lip completed AMY HENDRICKS MD [address], [address], [facility] 12/03/2023 20:05:01 repair of cleft palate completed AMY HENDRICKS MD [address] [place] [address], [address], [facility] 12/03/2023 20:05:13 Imaging Results None recorded. Procedure Notes None recorded. Medical Equipment None Reported. Allergies Allergen ID Allergen Name Allergen Category Reaction Reaction Severity Criticality Documentation Date Start Date Code Code System Note Provider Name and Address Organization Details Recorded Time 353764 tree and shrub pollen environme nt,medica tion eye redness Not available Not available 03/05/20242009 Mari cisse [facility] 09:07:54 Medications Name Sig Start Date Stop Date Status Note LastModified by Organization Details LastModified Time clotrimaz ole 10 mg yonas 1 yonas five times a day 12/30 completed Medicati on ID: [id number] D uration Value: 7 Brand Name: clotrima zole Sen d Method: E-Prescr ibed Sub s Allowed: subs OK Medic ationGen ericName : clotrima zole Not Available Not Available Not Available Augmentin 875 mg-125 mg tablet 1 tablet by mouth 12/03 completed Medicati on ID: [id number] D uration Value: 10 Prescri bed By [...] mg tablet 10/11 completed Medicati on ID: [id number] B rand Name: valsarta n Send Method: [...] mg tablet 01/25 completed Medicati on ID: [id number] D uration Value: 7 Reason: () Brand [...] a day 10/11 completed Medicati on ID: [id number] D uration Value: 10 Prescri bed By Name: Danuta Martínez nd Name: doxycycl ine monohydr ate Send Method: E-Prescr ibed Sub s Allowed: subs OK Medic ationGen ericName : doxycycl ine monohydr ate Not Available Not Available Not Available clotrimaz ole 1 % topical solution 12/03 completed Medicati on ID: [id number] D uration Value: 14 Brand Name: denise [...] by mouth 12/03 completed Medicati on ID: [id number] D uration Value: 1 Prescri bed By [...] both nostrils 2016 active Medicati on ID: [id number] D uration Value: 120 Prescri bed By [...] mg tablet 10/11 completed Medicati on ID: [id number] Br and Name: naproxen Send Method: E-Prescr [...] Vitamin D 12/02 completed Medicati on ID: [id number] B rand Name: Vitamin D Send Method: E-Prescr ibed Sub s Allowed: subs OK Medic ationGen ericName : Vitamin D Not Available Not Available Not Available magnesium 100 mg (as glycinate ) tablet Take by oral route. 11/29 completed Not Available Not Available Not Available melatonin 10 mg tablet 12/03 [place]ati on ID: [id number] Br and Name: melatoni n Send Method: E-Prescr ibed Sub s Allowed: subs OK Medic ationGen ericName : melatoni n Not Available Not Available Not Available Vitals Date Recorded Body height Body weight Provider Name and Address Organization Details Last Updated DateTime 03/05/2024 154.94 cm 63754.56 g Mari Garcia [place] - [facility] 03/05/2024 09:07:36 Date Recorded Body height Body mass index (BMI) Body weight Provider Name and Address Organization Details Last Updated DateTime 06/10/2024 154.94 cm 29.9 kg/m2 00473.59 g Catrachita Bridges [place] - [facility] 06/10/2024 14:55:24 Date Recorded Body height Provider Name an d Address Organization Details Last Updated DateTime 12/02/2024 154.94 cm Mari Garcia [place] - [facility] 12/02/2024 10:07:53 Date Recorded Body height Body mass index (BMI) Body weight Provider Name and Address Organization Details Last Updated DateTime 12/04/2023 154.94 cm 30.8 kg/m2 59550.56 g Catrachita Bridges [place] - [facility] 12/04/2023 10:11:21 Social History Question Answer Notes LastModified by Organizat ion Details LastModified Time Tobacco Smoking Status Former Smoker Mari cisse [place] - [facility] 12/02/2024 10:08:06 How Many Years Have You Consumed Alcohol? 40 [email or web address] Information not available 12/02/2024 What Type Of Geomagnetist Do You Use? None [email or web address] Information not available 12/02/2024 How Many Alcoholic Drinks Do You Consume Per Day On Average? 2 [email or web address] Information not available 12/02/2024 When Did You Quit Smoking? 16+yearssinc elastcigaret te [email or web address] Information not available 12/02/2024 What Is Your Current Pack Years? 10packyears [email or web address] Information not available 12/02/2024 Do You Have Any Pets? Yes [email or web address] Information not available 12/02/2024 At What Age Did You Start Smoking Tobacco? 16 [email or web address] Information not available 12/02/2024 Are You Passively Exposed To Smoke? No Information not available 12/02/2024 Are There Any Smokers In Your House? No [email or web address] Information not available 12/02/2024 How Much Tobacco Do You Smoke? 0.5 PPD [email or web address] Information not available 12/02/2024 How Many Years Have You Smoked Tobacco? 10 [email or web address] Information not available 12/02/2024 Sex: Unknown Functional Status Question Answer Note LastModified by Organization Details LastModified Time How many times per week do you consume alcohol? 1-2 times per week [email or web address] Information not available 12/02/2024 Do you use any illicit or recreational drugs? No [email or web address] Information not available 12/02/2024 Do you or have you ever used any other forms of tobacco or nicotine? No [email or web address] Information not available 12/02/2024 What is your level of alcohol consumption? Occasional [email or web address] Information not available 12/02/2024 What type of noise exposure are you exposed to? noExposureToExcessiveNoise [email or web address] Infor mation not available 12/02/2024 Mental Status None recorded. Family History Nothing Reported. Medical History Condition Response Tonsil Infections N Emphysema N Depression N COPD N Arthritis Y Cancer Y Stroke N Headaches Y Fibromyalgia N Kidney Disease N Heart Problems N Anxiety N Migraines N Other Skin Condition N Rhinitis N Bleeding Disorder N Food Allergy N Nasal polyps N Asthma N Sleep Disorder N GERD/Reflux Y Glaucoma N Nasal or Sinus Problems Y Anesthesia Complications N Hearing Loss Y High Cholesterol N Liver Disease N Speech Delay N Allergies/Hayfever Y Thyroid Problems N Developmental Delay N Anemia N Immune System Disorder N Heart Attack (ND) N Diabetes N Hyperlipidemia N Dementia N Hypertension Y Gynecological HistoryNo gynecological history recorded. Obstetrics History GPAL:G 0 P 0 0 0 0 Past Encounters Encounter ID Performer Location Encounter Start Date Encounter Closed Date Diagnosis/Indication Diagnosis SNOMED-CT Code Diagnosis ICD10 Code Diagnosis IMO Codes Diagnosis Note [id number] AMY CARREON MD [facility] [address] [address] 12/04/2023 09:56:12 12/04/2023 10:39:47 History of malignant neoplasm of digestive organ 8217523019 8198441 Z85.00 Gastroesop hageal reflux disease without esophagitis 190269063 K21.9 Consider GI eval. She will discuss with PCP Central pe rforation of left tympanic membrane 1572146173 760550 H72.02 Acute myri ngitis of left ear 7586383803 477463 H73.002 [id number] SILVA SMYTH PA-C [facility] [address] [address] 03/05/2024 09:02:35 03/05/2024 09:35:07 Acute maxillary sinusitis 50047019 J01.00 [id number] AMY CARREON MD [facility] [address] [address] 06/10/2024 14:44:01 06/10/2024 15:30:30 Feeling of lump in throat 425739484 R09.89 History of malignant neoplasm of oropharynx 1747116863 9702404 Z85.818 Dysfunctio n of eustachian tube 68670219 H69.93 Allergic rhinitis 651474 04 J30.9 [id number] AMY CARREON MD [facility] [address] [place] [address] 12/02/2024 10:00:16 12/02/2024 10:46:17 Acute recurrent sialoadenitis 2622645195 759247 K11.22 Central pe rforation of left tympanic membrane 3639532464 463153 H72.02 History of malignant neoplasm of pharynx 1072530334 9107 Z85.819 Health Concerns Section Related Observation LastModified by Organization Detai ls LastModified Time None Recorded Concern Status LastModified by Organization Details LastModified Time None Recorded Advance Directives Directive None Recorded Payers Insurance Date Sequence Insurance Name Policy Number Policy Cervantes Covered Member ID Cervantes Member ID Guarantor Name 12/04/2023 1 [facility] [id number] 1 Rashidaadal Owusu Myranda [id number] Rashida Whitmore 12/02/2024 1 [facility] (MEDICARE REPLACEMENT/ ADVANTAGE - PPO) [id number] 1 Rashida Owusu [place] [id number] Rashida Francoise Myranda Notes Date Note Type Note Provider Name and Address Organization Details Recorded Time 12/04/2023 text/html 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 Completed therapy [id number] right tonsilHx of ETD with cleft lip [...] every other day AMY HENDRICKS MD [address] [address], [place], [address], [facility] - [facility] 12/04/2023 10:33:22 03/05/2024 text/html ROS as noted [...] not relieve symptoms. AMY HENDRICKS MD 100 [facility],[address], [address], [facility] - [facility] 03/05/2024 12:20:10 06/10/2024 text/html History of [...] combined modality chemo with XRT. Completed therapy [id number] right tonsil History of cleft palate and pharyngeal flap.Using Reflux Gourmet and less coffee helped her reflux AMY HENDRICKS MD 100 [facility],[address], [address], [facility] 06/10/2024 15:29:49 12/02/2024 text/html ROS as noted in the HPI History of allergy, chronic sinusitis and combined modality therapy for tonsil cancer. Had another vitamin stuck in throat. 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 Completed therapy [id number] right tonsil History of cleft palate and pharyngeal flap.Using Reflux Gourmet and less coffee helped her reflux Recent left otorrhea-resolved. Stress test and cardiac work up pending.Having fatigue--thyroid labs ok AMY HENDRICKS MD [address] [facility] [place] [address], [place], [address], [facility] 12/02/2024 10:47:27 OBGyn Episode No OBEpisode recorded.
--- OUTSIDE RECORDS SUMMARY | 2024-12-25 15:30 | XMS_ITS | Continuity of Care Document ---
Author Organization [place] - [facility], [facility] Address [address] [place] [address] Care Team Providers Care Floor Sander Name Role Phone JESUS WILLIS Primary Care [...] Time Conducti ve hearing loss, bilatera l [id number] Active 2014 Conducti ve hearing loss, bilatera l; Note: Date Diagnose d: 5 5:06 PM (389.06) Not Available [facility] 4 02:42:49 History of malignan t neoplasm of pharynx [id number] 107 Active 2014 Personal history of malignan t neoplasm : Other and unspecif ied oral cavity and pharynx; Note: Date Diagnose d: 5 5:06 PM (V10.02) Not Available [facility] 4 02:42:45 Neck pain 05974294 Active 2014 Other disorder s of cervical region: Cervical eitan; Note: Date Diagnose d: 5 4:18 PM (723.1) ; Start Date : 09/11/19 15 Cervi calgia; Note: Date Diagnose d: 3:18 PM (M54.2) [mapped from ICD9 code: 723.1] Not Available [facility] 4 02:42:45 History of malignan t neoplasm of oral cavity 322117722 Active 2014 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, oral cavity, and pharynx; Note: Date Diagnose d: 5 3:18 PM (Z85.818 ) [mapped from ICD9 code: V10.02] Not Available [facility] 4 02:42:46 Mixed conducti ve and sensorin eural hearing loss, bilatera l 502975534 Active 2014 Mixed HL, bilatera l; Note: Date Diagnose d: 5 4:52 PM (389.22) ; Start Date : 09/11/19 15 Mixed conducti ve and sensorin eural hearing loss, bilatera l; Note: Date Diagnose d: 5 3:18 PM (H90.6) [mapped from ICD9 code: 389.22] Not Available [facility] 4 02:42:50 Chronic nasophar yngitis 75081015 Active 2014 Nasophar yngitis, chronic; Note: Date Diagnose d: 5 5:06 PM (472.2) ; Start Date : 03/05/19 15 Chron ic nasophar yngitis; Note: Date Diagnose d: 5 3:18 PM (J31.1) [mapped from ICD9 code: 472.2] Not Available [facility] 4 02:42:54 Chronic rhinitis 78776292 Active 2015 Chronic rhinitis ; Note: Date Diagnose d: 04/17/2015 3:09 PM (J31.0) Not Available [facility] 4 02:42:51 Pain of right temporom andibula r joint 97505103076 607240 Active 2017 Arthralg ia of right temporom andibula r joint; Note: Date Diagnose d: 03/16/2017 3:31 PM (M26.621 ) Not Available [facility] 4 02:42:52 Otalgia of right ear 4157622898 Active 2017 Otalgia, right ear; Note: Date Diagnose d: 03/16/2017 3:31 PM (H92.01) Not Available [facility] 4 02:42:48 Posterio r rhinorrh ea 85490163 Active 2017 Postnasa l drip; Note: Date Diagnose d: 8 2:30 PM (R09.82) Not Available [facility] 4 02:42:51 Bilatera l temporom andibula r joint pain 85458125106 114006 Active 2017 Arthralg ia of bilatera l temporom andibula r joint; Note: Date Diagnose d: 8 2:30 PM (M26.623 ) Not Available [facility] 4 02:42:52 Perforat ion of left tympanic membrane 96773124214 34315 Active 2017 Unspecif ied perforat ion of tympanic membrane , left ear; Note: Date Diagnose d: 8 1:49 PM (H72.92) Not Available [facility] 4 02:42:52 Acute sialoade nitis 697337479 Active 2017 Acute sialoade nitis; Location : left Not e: Changed from K11.2 to K11.21 ( 9 12:00 PM) , Date Diagnose d: 8 11:32 AM (K11.2) Not Available [facility] 4 02:42:45 Headache 15945498 Active 2018 Headache , unspecif ied; Note: Changed from R51 to R51.9 (08/13/19 10:51 AM) , Date Diagnose d: 03/21/2018 12:03 PM (R51) Not Available [facility] 4 02:42:50 Oral cyst 09042593428 73503 Active 2018 Other cysts of oral region, not elsewher e classifi ed; Note: Date Diagnose d: 06/20/2018 2:59 PM (K09.8) Not Available [facility] 4 02:42:50 Acute upper respirat ory infectio n 21761457 Active 2018 Acute upper respirat ory infectio n, unspecif ied; Note: Date Diagnose d: 06/20/2018 2:59 PM (J06.9) Not Available [facility] 4 02:42:54 Disturba nce of salivary secretio n 30963828 Active 2018 Xerostom ia; Note: Date Diagnose d: 06/20/2018 3:00 PM (K11.7) Not Available [facility] 4 02:42:53 Disorder of right tympanic membrane 92612781770 81126 Active 2018 Other specifie d disorder s of tympanic membrane , right ear; Note: Date Diagnose d: 06/20/2018 3:01 PM (H73.891 ) Not Available [facility] 4 02:42:49 Bilatera l disorder of Eustachi an tubes 49561205343 94723 Active 2018 Other specifie d disorder s of Eustachi an tube, bilatera l; Note: Date Diagnose d: 09/21/2018 1:53 PM (H69.83) Not Available [facility] 4 02:42:51 Total perforat ion of bilatera l tympanic membrane s 11360015817 12541 Active 2018 Total perforat ions of tympanic membrane , bilatera l; Note: Date Diagnose d: 09/21/2018 1:53 PM (H72.823 ) Not Available [facility] 4 02:42:47 Otorrhea of left ear 32860993458 20974 Completed 202009/15/2023 Otorrhea , left ear; Note: Date Diagnose d: 1 2:55 PM (H92.12) Otorrh ea, left ear; Note: Date Diagnose d: 01/01/20 15 2:47 PM (H92.12) ; Start Date : 01/01/20 15 Not Available [facility] 4 02:42:46 Otorrhea of bilatera l ears 08817118282 58136 Active 2020 Otorrhea , bilatera l; Note: Date Diagnose d: 12/31/19 21 3:10 PM (H92.13) Not Available [facility] 4 02:42:48 Otorrhea of right ear 08571797680 68467 Active 2021 Otorrhea , right ear; Note: Date Diagnose d: 03/18/2021 2:44 PM (H92.11) Not Available [facility] 4 02:42:51 Central perforat ion of left tympanic membrane 11434294011 45694 Active 2021 Central perforat ion of tympanic membrane , left ear; Note: Date Diagnose d: 06/21/2021 9:07 AM (H72.02) Not Available [facility] 4 02:42:45 Acute recurren t sialoade nitis 28226895109 84881 Active 2022 Acute recurren t sialoade nitis; Note: Date Diagnose d: 06/20/2022 1:26 PM (K11.22) Not Available [facility] 4 02:42:49 Pharynge al dysphagi a 58933196152 105 Active 2022 Dysphagi a, pharynge al phase; Note: Date Diagnose d: 06/20/2022 1:26 PM (R13.13) Not Available [facility] 4 02:42:55 Orophary ngeal dysphagi a 48459459 Active 2022 Dysphagi a, orophary ngeal phase; Note: Date Diagnose d: 3 12:23 PM (R13.12) Not Available [facility] 4 02:42:54 Spasm 63983527 Active 2022 Cramp and spasm; Note: Date Diagnose d: 3 12:47 PM (R25.2) Not Available [facility] 4 02:42:55 Impacted cerumen in right ear 78253372973 10766 Active 2022 Impacted cerumen, right ear; Note: Date Diagnose d: 12/14/19 23 1:16 PM (H61.21) Not Available [facility] 4 02:42:54 Acute maxillar y sinusiti s 56033528 Active 2023 Acute maxillar y sinusiti s, unspecif ied; Note: Date Diagnose d: 4 1:35 PM (J01.00) Not Available [facility] 4 02:42:53 Gastroes ophageal reflux disease without esophagi tis 701171385 Active 2023 AMY CARREON MD [address] [facility] [place], [place], [address] , [place] - [facility] 4 10:25:31 Acute myringit is of left ear 56906069319 17389 Active 2023 AMY CARREON MD [address] [facility] [place], [place], [address] , [place] [facility] 4 10:27:39 Feeling of lump in throat 814789635 Active 2024 AMY CARREON MD [address] [facility] [place], [place], [address] , [place] - [facility] 5 15:29:01 Allergic rhinitis 57841267 Active 2024 AMY CARREON MD [address], [place], [address] , [place] [facility] 5 15:29:18 Dysfunct ion of eustachi an tube 41231101 Active 2024 AMY CARREON MD [address] [facility],[place] [address], [place], [address] , [facility] 15:29:24 Problem Notes None recorded. Procedures Surgical History Date Name Laterality Status Provider Name and Address Organization Details Recorded Time 12/03/19 25 Fiberoptic Laryngoscopy (Comprehensive) completed AMY HENDRICKS MD [address] [place] [address],[address], [address], [facility] 12/02/2024 10:47:08 06/11/19 25 Fiberoptic Laryngoscopy (Comprehensive) completed AMY HENDRICKS MD [address] [place] [address],[address], [address], [facility] 06/10/2024 15:24:37 12/04/19 24 Fiberoptic Laryngoscopy (Comprehensive) completed AMY HENDRICKS MD [address] [place] [address],[address], [address], [facility] 12/04/2023 10:27:59 repair of cleft lip completed AMY HENDRICKS MD [address] [place] [address],[address], [address], [facility] 12/03/2023 20:05:01 repair of cleft palate completed AMY HENDRICKS MD [address] [place] [address],[address], [address], [facility] 12/03/2023 20:05:13 Imaging Results None recorded. Procedure Notes None recorded. Medical Equipment None Reported. Allergies Allergen ID Allergen Name Allergen Category Reaction Reaction Severity Criticality Documentation Date Start Date Code Code System Note Provider Name and Address Organization Details Recorded Time 895285 tree and shrub pollen environme nt,medica tion eye redness Not available Not available 03/05/20242009 Mari cisse [facility] 09:07:54 Medications Name Sig Start Date Stop Date Status Note LastModified by Organization Details LastModified Time clotrimaz ole 10 mg yonas 1 yonas five times a day 12/30 completed Medicati on ID: [id number] D uration Value: 7 Brand Name: denise ferguson Sen d Method: E-Prescr ibed Sub s Allowed: subs OK Medic ationGen ericName : denise ferguson Not Available Not Available Not Available Augmentin 875 mg-125 mg tablet 1 tablet by mouth 12/03 completed Medicati on ID: [id number] D uration Value: 10 Prescri bed By [...] mg tablet 10/11 completed Medicati on ID: [id number] B rand Name: valsarta n Send Method: [...] mg tablet 01/25 completed Medicati on ID: [id number] D uration Value: 7 Reason: () Brand [...] a day 10/11 completed Medicati on ID: [id number] D uration Value: 10 Prescri bed By Name: Danuta Martínez nd Name: doxycycl ine monohydr ate Send Method: E-Prescr ibed Sub s Allowed: subs OK Medic ationGen ericName : doxycycl ine monohydr ate Not Available Not Available Not Available clotrimaz ole 1 % topical solution 12/03 completed Medicati on ID: [id number] D uration Value: 14 Brand Name: clotrima [...] by mouth 12/03 completed Medicati on ID: [id number] D uration Value: 1 Prescri bed By [...] both nostrils 2016 active Medicati on ID: [id number] D uration Value: 120 Prescri bed By [...] mg tablet 10/11 completed Medicati on ID: [id number] Br and Name: naproxen Send Method: E-Prescr [...] Vitamin D 12/02 completed Medicati on ID: [id number] B rand Name: Vitamin D Send Method: E-Prescr ibed Sub s Allowed: subs OK Medic ationGen ericName : Vitamin D Not Available Not Available Not Available magnesium 100 mg (as glycinate ) tablet Take by oral route. 11/29 completed Not Available Not Available Not Available melatonin 10 mg tablet 12/03 [place] Medicati on ID: [id number] Br and Name: melatoni n Send Method: E-Prescr ibed Sub s Allowed: subs OK Medic ationGen ericName : surya bettencourt Not Available Not Available Not Available Vitals Date Recorded Body height Provider Name an d Address Organization Details Last Updated DateTime 12/02/2024 154.94 cm Mari Garcia [place] [facility] 12/02/2024 10:07:53 Social History Question Answer Notes LastModified by Organizat ion Details LastModified Time Tobacco Smoking Status Former Smoker Mari cisse [place] - [facility] 12/02/2024 10:08:06 How Many Years Have You Consumed Alcohol? 40 [email or web address] Information not available 12/02/2024 What Type Of Roll Capper Do You Use? None [email or web address] Information not available 12/02/2024 How Many Alcoholic Drinks Do You Consume Per Day On Average? 2 [email or web address] Information not available 12/02/2024 When Did You Quit Smoking? 16+yearssinc elastcigaret te [email or web address] Information not available 12/02/2024 What Is Your Current Pack Years? 10packyears [email or web address] Information not available 12/02/2024 Do You Have Any Pets? Yes [email or web address] Information not available 12/02/2024 At What Age Did You Start Smoking Tobacco? 16 [email or web address] Information not available 12/02/2024 Are You Passively Exposed To Smoke? No [email or web address] Information not available 12/02/2024 Are There Any Smokers In Your House? No [email or web address] Information not available 12/02/2024 How Much Tobacco Do You Smoke? 0.5 PPD [email or web address] Information not available 12/02/2024 How Many Years Have You Smoked Tobacco? 10 [email or web address] Information not available 12/02/2024 Sex: Unknown Functional Status Question Answer Note LastModified by Organization Details LastModified Time How many times per week do you consume alcohol? 1-2 times per week [email or web address] Information not available 12/02/2024 Do you use any illicit or recreational drugs? No Information not available 12/02/2024 Do you or have you ever used any other forms of tobacco or nicotine? No [email or web address] Information not available 12/02/2024 What is your level of alcohol consumption? Occasional [email or web address] Information not available 12/02/2024 What type of noise exposure are you exposed to? noExposureToExcessiveNoise [email or web address] Infor mation not available 12/02/2024 Mental Status None recorded. Family History Nothing Reported. Medical History Condition Response Allergies/Hayfever Y Heart Problems N Anxiety N Tonsil Infections N Emphysema N Migraines N Thyroid Problems N COPD N Depression N Developmental Delay N Glaucoma N Nasal or Sinus Problems Y Anemia N Immune System Disorder N Anesthesia Complications N Heart Attack ([place]) N Other Skin Condition N Diabetes N [...] ICD10 Code Diagnosis IMO Codes Diagnosis Note [id number] AMY CARREON MD [facility] [address] [address] 12/02/2024 10:00:16 12/02/2024 10:46:17 Acute recurrent sialoadenitis 4704352096 912456 K11.22 Central pe rforation of left tympanic membrane 2456420373 523178 H72.02 History of malignant neoplasm of pharynx 1340894272 9107 Z85.819 Health Concerns Section Related Observation LastModified by Organization Detai ls LastModified Time None Recorded Concern Status LastModified by Organization Details LastModified Time None Recorded Payers Encounter Date Sequence Insurance Name Policy Number Policy Cervantes Covered Member ID Cervantes Member ID Guarantor Name 12/02/2024 1 [facility] (MEDICARE REPLACEMENT/ ADVANTAGE - PPO) [id number] 1 Rashida Whitmore [id number] Rashida Whitmore Notes Date Note Type Note Provider Name and Address Organization Details Recorded Time 12/02/2024 text/html ROS as noted in the HPI History of allergy, chronic sinusitis and combined modality therapy for tonsil cancer. Had another vitamin stuck in throat. 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 Completed therapy [id number] right tonsil History of cleft palate and pharyngeal flap.Using [employer] and less coffee helped her reflux Recent left otorrhea-resolved .Stress test and cardiac work up pending.Having fatigue--thyroid labs ok AMY HENDRICKS MD [address] [place] [address], [place], [address], [place] [facility] 12/02/2024 10:47:27 OBGyn Episode No OBEpisode recorded.
== END 2024-12-25 13:27 | disposition home or self-care (01) ==
LOC: HO.HMCFM 12:55
PROVIDERS: PCP Physician Assistant; Visit Provider Physician Assistant
DX: R53.83 Other fatigue (principal); M25.50 Pain in unspecified joint; R07.9 Chest pain, unspecified

== ENCOUNTER → 2025-01-01 07:48 | Outpatient (REF) | payer MEDICARE, SELFPAY ==
--- NOTE | 2025-01-01 07:51 | CA_ITS ---
Transthoracic Echocardiogram Patient (Last, First, Middle): Rashida Whitmore G Gender: F Date of : 1955 Age: 69 Procedure Date: 01/01/2025 Procedure Type: Transthoracic Echocardiogram Location: OP Height: 154.94 cm Weight: 71.67 kg BSA: 1.71 m2 Heart Rate: bpm BP: 138 / 96 mmHg Customer Care Agent: TO Referring MD: Nely Mora PA-C Symptoms: R07.9 - Chest pain, unspecified Study Quality: Adequate with contrast ECG Rhythm: Sinus Conclusions: - The left ventricular systolic function is low normal. The visually estimated ejection fraction is between 50-55%. - No obvious valvular pathology seen on this study. Findings Procedure Information Contrast agent, definity, is being given per protocol without apparent complications. Left Ventricle Normal left ventricular cavity size. The left ventricular systolic function is low normal. The visually estimated ejection fraction is between 50-55%. There is no evidence of regional wall motion abnormalities. Evidence suggests grade I (mild) diastolic dysfunction. There is mild septal and mild basal asymmetric hypertrophy. Right Ventricle Normal right ventricular cavity size and systolic function. Atria The left atrium is mildly dilated. The right atrium is normal in size. Aortic Valve There is a normal trileaflet aortic valve. There is mild calcification of the aortic valve. There is no aortic valve stenosis. Mitral Valve There is mild mitral annular calcification. There is trace mitral valve regurgitation. There is no mitral valve stenosis. Pulmonic Valve The pulmonic valve is likely normal. Tricuspid Valve There is trace tricuspid valve regurgitation. There is no evidence of pulmonary hypertension. Great Vessels The asc aorta is normal in size. Venous The inferior vena cava is normal in size and collapses greater than 50% with inspiration. Pericardium/Pleural There is no evidence of pericardial effusion. Prior Study Comparison No prior study available for comparison. Recommendations, Care & Conclusions No obvious valvular pathology seen on this study. Measurements 2D Linear Measurements IVSd: 1.04 0.6-0.9/0.6-1.0 cm LVIDd: 3.36 3.9-5.3/4.2-5.9 cm LVIDd Index: 1.96 2.4-3.2/2.2-3.1 cm/m2 LVIDs: 2.43 2.0-3.6 cm LVPWd: 1.00 0.7-1.1 cm LA Diam: 3.10 2.7-3.8/3.0-4.0 cm LAIDs Index: 1.81 1.5-2.3 cm/m2 LV Mass: 124.31 67-162/88-224 g LV Mass Index: 72.70 43-95/49-115 g/m2 LVOT Diam: 2.00 3.0+(-)1.3 cm 2D Systolic Function EF 4C: 45.70 >55% EF 2C: 52.80 >55% EF BiP: 48.20 >55% Mitral Valve MV Pk E: 0.57 MV PK A: 1.05 MV Decel Time: 177.00 E/A: 0.50 E'Lateral: 6.09 E'Medial: 4.24 E/E' Med: 13.30 E/E' Lat: 9.30 PHT: 52.00 MVA PHT: 4.23 Decel Converse: 3.19 Aortic Valve AoV Pk Brannon: 1.29 AoV Mn Brannon: 0.86 AoV VTI: 0.26 AoV Pk Grad: 7.00 Aov Mn Grad: 4.00 CHARLIE Cont.VTI: 1.94 LVOT LVOT Pk Brannon: 0.82 LVOT Mn Brannon: 0.58 LVOT VTI: 0.16 LVOT Pk Grad: 3.00 LVOT Mn Grad: 2.00 LVOT Diam: 2.00 LVOT Area: 3.14 Diastolic Function MV Pk E: 0.57 MV Pk A: 1.05 E/A: 0.50 E'Medial: 4.24 E/E' Med: 13.30 E' Laterial: 6.09 E/E' Lat: 9.30 Right Ventricle TAPSE (mm): 18.00 TVS' Brannon: 10.70 Tricuspid Valve RA Press: 3.00 Great Vessels Aorta Sinus of Valsalva: 3.21 2.0-3.[address] Ridge: 2.54 1.7-3.4 cm Ao Asc: 3.60 2.1-3.4 cm Ao Arch: 3.10 Updated in Other Vendor System with Status of Final Damian Aguilar MD electronically signed on 01/02/2025 10:37:47 AM with status of Final
--- OUTSIDE RECORDS SUMMARY | 2025-01-01 15:21 | XMS_ITS | Data Portability ---
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 Procedures None recorded. Surgeries None recorded. Imaging None recorded. Medication Orders doxycycli ne hyclate 100 mg tablet 2024 025 [id number], [address] [place], [address], 06/10/2024 14:55:36 ciproflox acin 0.3 %-dexamet hasone 0.1 % ear drops,rola pension 2023 025 [email or web address] 32 [facility]/Ph[facility] #[id number], [address] [employer] [place], [place], [address], 12/02/2024 10:08:19 Patient TargetsNo targets recorded. Patient InstructionsNo instructions recorded. Reason for Referral None Reported. Results Created Date Observation Date Name Description Value Unit Range Abnormal Flag Note LastModifiedBy Organization Detail LastModifiedTime 12/04/19 24 12/05/2023 TSH+F REE T4 TSH 3.880 uIU/m L 0.450- 4.500 normal Not Available [facility] ([facility]) [address] [place], [address], 12/05/2023 08:18:27 12/04/19 24 12/05/2023 TSH+F REE T4 T4,free(dire ct) 1.25 NG/dL 0.82-1 .77 normal Not Available [facility] ([facility]) [address] [facility], [place], [address], 12/05/2023 08:18:27 Result Notes None recorded. Problems Name Problem SNOMED Code Status Onset Date Resolution Date Notes Provider Name and Address Organization Details Recorded Time Conducti ve hearing loss, bilatera l 155527856 Active 2014 Conducti ve hearing loss, bilatera l; Note: Date Diagnose d: 5 5:06 PM (389.06) Not Available [facility] 4 02:42:49 History of malignan t neoplasm of pharynx 68234960306 107 Active 2014 Personal history of malignan t neoplasm : Other and unspecif ied oral cavity and pharynx; Note: Date Diagnose d: 5 5:06 PM (V10.02) Not Available [facility] 4 02:42:45 Neck pain 92904417 Active 2014 Other disorder s of cervical region: Cervical eitan; Note: Date Diagnose d: 5 4:18 PM (723.1) ; Start Date : 09/11/19 15 Cervi calgia; Note: Date Diagnose d: 5 3:18 PM (M54.2) [mapped from ICD9 code: 723.1] Not Available [facility] 4 02:42:45 History of malignan t neoplasm of oral cavity 558132925 Active 2014 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, oral cavity, and pharynx; Note: Date Diagnose d: 5 3:18 PM (Z85.818 ) [mapped from ICD9 code: V10.02] Not Available [facility] 4 02:42:46 Mixed conducti ve and sensorin eural hearing loss, bilatera l 744862155 Active 2014 Mixed HL, bilatera l; Note: Date Diagnose d: 5 4:52 PM (389.22) ; Start Date : 09/11/19 15 Mixed conducti ve and sensorin eural hearing loss, bilatera l; Note: Date Diagnose d: 5 3:18 PM (H90.6) [mapped from ICD9 code: 389.22] Not Available [facility] 4 02:42:50 Chronic nasophar yngitis 63439354 Active 2014 Nasophar yngitis, chronic; Note: Date Diagnose d: 5 5:06 PM (472.2) ; Start Date : 03/05/19 15 Chron ic nasophar yngitis; Note: Date Diagnose d: 5 3:18 PM (J31.1) [mapped from ICD9 code: 472.2] Not Available [facility] 4 02:42:54 Chronic rhinitis 87737978 Active 2015 Chronic rhinitis ; Note: Date Diagnose d: 04/17/2015 3:09 PM (J31.0) Not Available [facility] 4 02:42:51 Pain of right temporom andibula r joint 08237532202 734550 Active 2017 Arthralg ia of right temporom andibula r joint; Note: Date Diagnose d: 03/16/2017 3:31 PM (M26.621 ) Not Available [facility] 4 02:42:52 Otalgia of right ear 8364104861 Active 2017 Otalgia, right ear; Note: Date Diagnose d: 03/16/2017 3:31 PM (H92.01) Not Available [facility] 4 02:42:48 Posterio r rhinorrh ea 71983427 Active 2017 Postnasa l drip; Note: Date Diagnose d: 8 2:30 PM (R09.82) Not Available [facility] 4 02:42:51 Bilatera l temporom andibula r joint pain 84610673549 006914 Active 2017 Arthralg ia of bilatera l temporom andibula r joint; Note: Date Diagnose d: 8 2:30 PM (M26.623 ) Not Available [facility] 4 02:42:52 Perforat ion of left tympanic membrane 74018362238 84760 Active 2017 Unspecif ied perforat ion of tympanic membrane , left ear; Note: Date Diagnose d: 8 1:49 PM (H72.92) Not Available [facility] 4 02:42:52 Acute sialoade nitis 952540034 Active 2017 Acute sialoade nitis; Location : left Not e: Changed from K11.2 to K11.21 ( 9 12:00 PM) , Date Diagnose d: 8 11:32 AM (K11.2) Not Available [facility] 4 02:42:45 Headache 04174948 Active 2018 Headache , unspecif ied; Note: Changed from R51 to R51.9 (08/13/19 21 10:51 AM) , Date Diagnose d: 03/21/2018 12:03 PM (R51) Not Available [facility] 4 02:42:50 Oral cyst 53055171860 93786 Active 2018 Other cysts of oral region, not elsewher e classifi ed; Note: Date Diagnose d: 06/20/2018 2:59 PM (K09.8) Not Available [facility] 4 02:42:50 Acute upper respirat ory infectio n 59945121 Active 2018 Acute upper respirat ory infectio n, unspecif ied; Note: Date Diagnose d: 06/20/2018 2:59 PM (J06.9) Not Available [facility] 4 02:42:54 Disturba nce of salivary secretio n 20474950 Active 2018 Xerostom ia; Note: Date Diagnose d: 06/20/2018 3:00 PM (K11.7) Not Available [facility] 4 02:42:53 Disorder of right tympanic membrane 16344082014 99583 Active 2018 Other specifie d disorder s of tympanic membrane , right ear; Note: Date Diagnose d: 06/20/2018 3:01 PM (H73.891 ) Not Available [facility] 4 02:42:49 Bilatera l disorder of Eustachi an tubes 55250197005 24928 Active 2018 Other specifie d disorder s of Eustachi an tube, bilatera l; Note: Date Diagnose d: 09/21/2018 1:53 PM (H69.83) Not Available [facility] 4 02:42:51 Total perforat ion of bilatera l tympanic membrane s 31499538625 Active 2018 Total perforat ions of tympanic membrane , bilatera l; Note: Date Diagnose d: 09/21/2018 1:53 PM (H72.823 ) Not Available [facility] 4 02:42:47 Otorrhea of left ear 06273929080 03823 Completed 202009/15/2023 Otorrhea , left ear; Note: Date Diagnose d: 1 2:55 PM (H92.12) Otorrh ea, left ear; Note: Date Diagnose d: 01/01/20 15 2:47 PM (H92.12) ; Start Date : 01/01/20 15 Not Available [facility] 4 02:42:46 Otorrhea of bilatera l ears 15730487131 69516 Active 2020 Otorrhea , bilatera l; Note: Date Diagnose d: 12/31/19 21 3:10 PM (H92.13) Not Available [facility] 4 02:42:48 Otorrhea of right ear 69634009376 28686 Active 2021 Otorrhea , right ear; Note: Date Diagnose d: 03/18/2021 2:44 PM (H92.11) Not Available [facility] 4 02:42:51 Central perforat ion of left tympanic membrane 16974208452 13677 Active 2021 Central perforat ion of tympanic membrane , left ear; Note: Date Diagnose d: 06/21/2021 9:07 AM (H72.02) Not Available [facility] 4 02:42:45 Acute recurren t sialoade nitis 72590072485 Active 2022 Acute recurren t sialoade nitis; Note: Date Diagnose d: 06/20/2022 1:26 PM (K11.22) Not Available [facility] 4 02:42:49 Pharynge al dysphagi a 97611696494 105 Active 2022 Dysphagi a, pharynge al phase; Note: Date Diagnose d: 06/20/2022 1:26 PM (R13.13) Not Available [facility] 4 02:42:55 Orophary ngeal dysphagi a 98012207 Active 2022 Dysphagi a, orophary ngeal phase; Note: Date Diagnose d: 3 12:23 PM (R13.12) Not Available [facility] 4 02:42:54 Spasm 98568447 Active 2022 Cramp and spasm; Note: Date Diagnose d: 3 12:47 PM (R25.2) Not Available [facility] 4 02:42:55 Impacted cerumen in right ear 40605008367 34373 Active 2022 Impacted cerumen, right ear; Note: Date Diagnose d: 12/14/19 23 1:16 PM (H61.21) Not Available [facility] 4 02:42:54 Acute maxillar y sinusiti s 78916706 Active 2023 Acute maxillar y sinusiti s, unspecif ied; Note: Date Diagnose d: 4 1:35 PM (J01.00) Not Available [facility] 4 02:42:53 Gastroes ophageal reflux disease without esophagi tis 873134853 Active 2023 AMY CARREON MD [address], [place], [address] , [place] - [facility] 4 10:25:31 Acute myringit is of left ear 30776955533 40205 Active 2023 AMY CARREON MD [address] [facility],[address], [place], [address] , [place] - [facility] 4 10:27:39 Feeling of lump in throat 397127103 Active 2024 AMY CARREON MD [address] [facility],[address], [place], [address] , [place] - [facility] 5 15:29:01 Allergic rhinitis 43047280 Active 2024 AMY CARREON MD [address] [facility] [address], [place], [address] , [place] [facility] 5 15:29:18 Dysfunct ion of eustachi an tube 67026002 Active 2024 AMY CARREON MD [address] [facility],[place] [address], [place], [address] , [place] - [facility] 5 15:29:24 Problem Notes None recorded. Procedures Surgical History Date Name Laterality Status Provider Name and Address Organization Details Recorded Time 12/03/19 25 Fiberoptic Laryngoscopy (Comprehensive) completed AMY HENDRICKS MD [address] [facility],[address] [facility], [place], [address], [facility] - [facility] 12/02/2024 10:47:08 06/11/19 25 Fiberoptic Laryngoscopy (Comprehensive) completed AMY HENDRICKS MD [address] [facility],[place] [facility], [place], [address], [place] [facility] 06/10/2024 15:24:37 12/04/19 24 Fiberoptic Laryngoscopy (Comprehensive) completed AMY HENDRICKS MD [address] [facility],[place] [facility], [place], [address], [facility] - [facility] 12/04/2023 10:27:59 repair of cleft lip completed AMY HENDRICKS MD [address], [address], [facility] 12/03/2023 20:05:01 repair of cleft palate completed AMY HENDRICKS MD [address] [place] [address], [address], [facility] 12/03/2023 20:05:13 Imaging Results None recorded. Procedure Notes None recorded. Medical Equipment None Reported. Allergies Allergen ID Allergen Name Allergen Category Reaction Reaction Severity Criticality Documentation Date Start Date Code Code System Note Provider Name and Address Organization Details Recorded Time 673617 tree and shrub pollen environme nt,medica tion eye redness Not available Not available 03/05/20242009 Mari cisse [facility] 09:07:54 Medications Name Sig Start Date Stop Date Status Note LastModified by Organization Details LastModified Time clotrimaz ole 10 mg yonas 1 yonas five times a day 12/30 completed Medicati on ID: [id number] D uration Value: 7 Brand Name: clotrima zole Sen d Method: E-Prescr ibed Sub s Allowed: subs OK Medic ationGen ericName : clotrima zole Not Available Not Available Not Available Augmentin 875 mg-125 mg tablet 1 tablet by mouth 12/03 completed Medicati on ID: 404413 D uration Value: 10 Prescri bed By [...] mg tablet 10/11 completed Medicati on ID: [id number] B rand Name: valsarta n Send Method: [...] mg tablet 01/25 completed Medicati on ID: [id number] D uration Value: 7 Reason: () Brand [...] a day 10/11 completed Medicati on ID: [id number] D uration Value: 10 Prescri bed By Name: Danuta Martínez nd Name: doxycycl ine monohydr ate Send Method: E-Prescr ibed Sub s Allowed: subs OK Medic ationGen ericName : doxycycl ine monohydr ate Not Available Not Available Not Available clotrimaz ole 1 % topical solution 12/03 completed Medicati on ID: [id number] D uration Value: 14 Brand Name: denise [...] by mouth 12/03 completed Medicati on ID: [id number] D uration Value: 1 Prescri bed By [...] both nostrils 2016 active Medicati on ID: 588708 D uration Value: 120 Prescri bed By [...] mg tablet 10/11 completed Medicati on ID: [id number] Br and Name: naproxen Send Method: E-Prescr [...] Vitamin D 12/02 completed Medicati on ID: 060224 B rand Name: Vitamin D Send Method: E-Prescr ibed Sub s Allowed: subs OK Medic ationGen ericName : Vitamin D Not Available Not Available Not Available magnesium 100 mg (as glycinate ) tablet Take by oral route. 11/29 completed Not Available Not Available Not Available melatonin 10 mg tablet 12/03 completed Medicati on ID: [id number] Br and Name: melatoni n Send Method: E-Prescr ibed Sub s Allowed: subs OK Medic ationGen ericName : melatoni n Not Available Not Available Not Available Vitals Date Recorded Body height Body weight Provider Name and Address Organization Details Last Updated DateTime 03/05/2024 154.94 cm 39609.56 g Mari Garcia [place] - [facility] 03/05/2024 09:07:36 Date Recorded Body height Body mass index (BMI) Body weight Provider Name and Address Organization Details Last Updated DateTime 06/10/2024 154.94 cm 29.9 kg/m2 70224.59 g Catrachita Bridges [place] - [facility] 06/10/2024 14:55:24 Date Recorded Body height Provider Name an d Address Organization Details Last Updated DateTime 12/02/2024 154.94 cm Mari Garcia [place] - [facility] 12/02/2024 10:07:53 Date Recorded Body height Body mass index (BMI) Body weight Provider Name and Address Organization Details Last Updated DateTime 12/04/2023 154.94 cm 30.8 kg/m2 10627.56 g Catrachita Bridges [place] - [facility] 12/04/2023 10:11:21 Social History Question Answer Notes LastModified by Organizat ion Details LastModified Time Tobacco Smoking Status Former Smoker Mari cisse [place] - [facility] 12/02/2024 10:08:06 How Many Years Have You Consumed Alcohol? 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 None [email or web address] Information not available 12/02/2024 How Many Alcoholic Drinks Do You Consume Per Day On Average? 2 [email or web address] Information not available 12/02/2024 When Did You Quit Smoking? 16+yearssinc elastcigaret te [email or web address] Information not available 12/02/2024 What Is Your Current Pack Years? 10packyears [email or web address] Information not available 12/02/2024 Do You Have Any Pets? Yes [email or web address] Information not available 12/02/2024 At What Age Did You Start Smoking Tobacco? 16 [email or web address] Information not available 12/02/2024 Are You Passively Exposed To Smoke? No [email or web address] Information not available 12/02/2024 Are There Any Smokers In Your House? No Information not available 12/02/2024 How Much Tobacco Do You Smoke? 0.5 PPD [email or web address] Information not available 12/02/2024 How Many Years Have You Smoked Tobacco? 10 Information not available 12/02/2024 Sex: Unknown Functional Status Question Answer Note LastModified by Organization Details LastModified Time How many times per week do you consume alcohol? 1-2 times per week [email or web address] Information not available 12/02/2024 Do you use any illicit or recreational drugs? No [email or web address] Information not available 12/02/2024 Do you or have you ever used any other forms of tobacco or nicotine? No [email or web address] Information not available 12/02/2024 What is your level of alcohol consumption? Occasional Information not available 12/02/2024 What type of noise exposure are you exposed to? noExposureToExcessiveNoise [email or web address] Infor mation not available 12/02/2024 Mental Status None recorded. Family History Nothing Reported. Medical History Condition Response Allergies/Hayfever Y Heart Problems N Anxiety N Tonsil Infections N Emphysema N Migraines N Thyroid Problems N Glaucoma N Depression N COPD N Developmental Delay N Nasal or Sinus Problems Y Anemia N Immune System Disorder N Anesthesia Complications N Heart Attack (AK) N Other Skin Condition N Diabetes N [...] ICD10 Code Diagnosis IMO Codes Diagnosis Note [id number] AMY CARREON MD [facility] [address] [address] 12/04/2023 09:56:12 12/04/2023 10:39:47 History of malignant neoplasm of digestive organ 1974440494 4304757 Z85.00 Gastroesop hageal reflux disease without esophagitis 397491202 K21.9 Consider GI eval. She will discuss with PCP Central pe rforation of left tympanic membrane 0522753666 153234 H72.02 Acute myri ngitis of left ear 5256311319 306208 H73.002 [id number] SILVA SMYTH PA-C [facility] [address] [address] 03/05/2024 09:02:35 03/05/2024 09:35:07 Acute maxillary sinusitis 22129353 J01.00 [id number] AMY CARREON MD [facility] [address] [address] 06/10/2024 14:44:01 06/10/2024 15:30:30 Feeling of lump in throat 504305569 R09.89 History of malignant neoplasm of oropharynx 7732864568 5502695 Z85.818 Dysfunctio n of eustachian tube 94941893 H69.93 Allergic rhinitis 587935 04 J30.9 [id number] AMY CARREON MD [facility] [address] [place] [address] 12/02/2024 10:00:16 12/02/2024 10:46:17 Acute recurrent sialoadenitis 4308136101 186485 K11.22 Central pe rforation of left tympanic membrane 0679668190 284874 H72.02 History of malignant neoplasm of pharynx 6425140031 9107 Z85.819 Health Concerns Section Related Observation LastModified by Organization Detai ls LastModified Time None Recorded Concern Status LastModified by Organization Details LastModified Time None Recorded Advance Directives Directive None Recorded Payers Insurance Date Sequence Insurance Name Policy Number Policy Cervantes Covered Member ID Cervantes Member ID Guarantor Name 12/04/[address] [facility] [id number] 1 Rashidaadal Owusu Myranda [id number] Rashida Whitmore 12/02/[address] 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 Completed therapy [id number] right tonsilHx of ETD with cleft lip [...] every other day AMY HENDRICKS MD [address] [address], [place], [address], [facility] - [facility] 12/04/2023 10:33:22 03/05/2024 text/html ROS as noted [...] not relieve symptoms. AMY HENDRICKS MD [address] [facility],[address], [address], [facility] - [facility] 03/05/2024 12:20:10 06/10/2024 text/html History of allergy, [...] combined modality chemo with XRT. Completed therapy [id number] right tonsil History of cleft palate and pharyngeal flap.Using Reflux Gourmet and less coffee helped her reflux AMY HENDRICKS MD [address] [facility],[address], [address], [facility] 06/10/2024 15:29:49 12/02/2024 text/html ROS as noted in the HPI History of allergy, chronic sinusitis and combined modality therapy for tonsil cancer. Had another vitamin stuck in throat. 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 Completed therapy [id number] right tonsil History of cleft palate and pharyngeal flap.Using Reflux Gourmet and less coffee helped her reflux Recent left otorrhea-resolved. Stress test and cardiac work up pending.Having fatigue--thyroid labs ok AMY HENDRICKS MD [address] [facility],[place] [address], [place], [address], [facility] 12/02/2024 10:47:27 OBGyn Episode No OBEpisode recorded.
--- OUTSIDE RECORDS SUMMARY | 2025-01-01 15:22 | XMS_ITS | Continuity of Care Document ---
Author Organization [place] - [facility], [facility] Address [address] [place] [address] Care Team Providers Care Window Glass Installer Name Role Phone JESUS WILLIS Primary Care [...] Time Conducti ve hearing loss, bilatera l [id number] Active 2014 Conducti ve hearing loss, bilatera l; Note: Date Diagnose d: 5 5:06 PM (389.06) Not Available [facility] 4 02:42:49 History of malignan t neoplasm of pharynx [id number] 107 Active 2014 Personal history of malignan t neoplasm : Other and unspecif ied oral cavity and pharynx; Note: Date Diagnose d: 5 5:06 PM (V10.02) Not Available [facility] 4 02:42:45 Neck pain 25067454 Active 2014 Other disorder s of cervical region: Cervical eitan; Note: Date Diagnose d: 5 4:18 PM (723.1) ; Start Date : 09/11/19 15 Cervi calgia; Note: Date Diagnose d: 3:18 PM (M54.2) [mapped from ICD9 code: 723.1] Not Available [facility] 4 02:42:45 History of malignan t neoplasm of oral cavity 458371088 Active 2014 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, oral cavity, and pharynx; Note: Date Diagnose d: 5 3:18 PM (Z85.818 ) [mapped from ICD9 code: V10.02] Not Available [facility] 4 02:42:46 Mixed conducti ve and sensorin eural hearing loss, bilatera l 544633752 Active 2014 Mixed HL, bilatera l; Note: Date Diagnose d: 5 4:52 PM (389.22) ; Start Date : 09/11/19 15 Mixed conducti ve and sensorin eural hearing loss, bilatera l; Note: Date Diagnose d: 5 3:18 PM (H90.6) [mapped from ICD9 code: 389.22] Not Available [facility] 4 02:42:50 Chronic nasophar yngitis 87112210 Active 2014 Nasophar yngitis, chronic; Note: Date Diagnose d: 5 5:06 PM (472.2) ; Start Date : 03/05/19 15 Chron ic nasophar yngitis; Note: Date Diagnose d: 5 3:18 PM (J31.1) [mapped from ICD9 code: 472.2] Not Available [facility] 4 02:42:54 Chronic rhinitis 46141558 Active 2015 Chronic rhinitis ; Note: Date Diagnose d: 04/17/2015 3:09 PM (J31.0) Not Available [facility] 4 02:42:51 Pain of right temporom andibula r joint 27981223922 896762 Active 2017 Arthralg ia of right temporom andibula r joint; Note: Date Diagnose d: 03/16/2017 3:31 PM (M26.621 ) Not Available [facility] 4 02:42:52 Otalgia of right ear 3554019295 Active 2017 Otalgia, right ear; Note: Date Diagnose d: 03/16/2017 3:31 PM (H92.01) Not Available [facility] 4 02:42:48 Posterio r rhinorrh ea 71176459 Active 2017 Postnasa l drip; Note: Date Diagnose d: 8 2:30 PM (R09.82) Not Available [facility] 4 02:42:51 Bilatera l temporom andibula r joint pain 94288312476 580626 Active 2017 Arthralg ia of bilatera l temporom andibula r joint; Note: Date Diagnose d: 8 2:30 PM (M26.623 ) Not Available [facility] 4 02:42:52 Perforat ion of left tympanic membrane 75514261986 24917 Active 2017 Unspecif ied perforat ion of tympanic membrane , left ear; Note: Date Diagnose d: 8 1:49 PM (H72.92) Not Available [facility] 4 02:42:52 Acute sialoade nitis 099671107 Active 2017 Acute sialoade nitis; Location : left Not e: Changed from K11.2 to K11.21 ( 9 12:00 PM) , Date Diagnose d: 8 11:32 AM (K11.2) Not Available [facility] 4 02:42:45 Headache 50139527 Active 2018 Headache , unspecif ied; Note: Changed from R51 to R51.9 (08/13/19 10:51 AM) , Date Diagnose d: 03/21/2018 12:03 PM (R51) Not Available [facility] 4 02:42:50 Oral cyst 00770982108 55651 Active 2018 Other cysts of oral region, not elsewher e classifi ed; Note: Date Diagnose d: 06/20/2018 2:59 PM (K09.8) Not Available [facility] 4 02:42:50 Acute upper respirat ory infectio n 45696225 Active 2018 Acute upper respirat ory infectio n, unspecif ied; Note: Date Diagnose d: 06/20/2018 2:59 PM (J06.9) Not Available [facility] 4 02:42:54 Disturba nce of salivary secretio n 63848005 Active 2018 Xerostom ia; Note: Date Diagnose d: 06/20/2018 3:00 PM (K11.7) Not Available [facility] 4 02:42:53 Disorder of right tympanic membrane 51644138642 65925 Active 2018 Other specifie d disorder s of tympanic membrane , right ear; Note: Date Diagnose d: 06/20/2018 3:01 PM (H73.891 ) Not Available [facility] 4 02:42:49 Bilatera l disorder of Eustachi an tubes 89267615272 91716 Active 2018 Other specifie d disorder s of Eustachi an tube, bilatera l; Note: Date Diagnose d: 09/21/2018 1:53 PM (H69.83) Not Available [facility] 4 02:42:51 Total perforat ion of bilatera l tympanic membrane s 47051958202 21169 Active 2018 Total perforat ions of tympanic membrane , bilatera l; Note: Date Diagnose d: 09/21/2018 1:53 PM (H72.823 ) Not Available [facility] 4 02:42:47 Otorrhea of left ear 07788090856 21297 Completed 202009/15/2023 Otorrhea , left ear; Note: Date Diagnose d: 1 2:55 PM (H92.12) Otorrh ea, left ear; Note: Date Diagnose d: 01/01/20 15 2:47 PM (H92.12) ; Start Date : 01/01/20 15 Not Available [facility] 4 02:42:46 Otorrhea of bilatera l ears 35558386717 90937 Active 2020 Otorrhea , bilatera l; Note: Date Diagnose d: 12/31/19 21 3:10 PM (H92.13) Not Available [facility] 4 02:42:48 Otorrhea of right ear 53623637788 01689 Active 2021 Otorrhea , right ear; Note: Date Diagnose d: 03/18/2021 2:44 PM (H92.11) Not Available [facility] 4 02:42:51 Central perforat ion of left tympanic membrane 62929733930 77577 Active 2021 Central perforat ion of tympanic membrane , left ear; Note: Date Diagnose d: 06/21/2021 9:07 AM (H72.02) Not Available [facility] 4 02:42:45 Acute recurren t sialoade nitis 80919668065 41696 Active 2022 Acute recurren t sialoade nitis; Note: Date Diagnose d: 06/20/2022 1:26 PM (K11.22) Not Available [facility] 4 02:42:49 Pharynge al dysphagi a 07958708274 105 Active 2022 Dysphagi a, pharynge al phase; Note: Date Diagnose d: 06/20/2022 1:26 PM (R13.13) Not Available [facility] 4 02:42:55 Orophary ngeal dysphagi a 00222034 Active 2022 Dysphagi a, orophary ngeal phase; Note: Date Diagnose d: 3 12:23 PM (R13.12) Not Available [facility] 4 02:42:54 Spasm 43562104 Active 2022 Cramp and spasm; Note: Date Diagnose d: 3 12:47 PM (R25.2) Not Available [facility] 4 02:42:55 Impacted cerumen in right ear 60129715149 75977 Active 2022 Impacted cerumen, right ear; Note: Date Diagnose d: 12/14/19 23 1:16 PM (H61.21) Not Available [facility] 4 02:42:54 Acute maxillar y sinusiti s 31938167 Active 2023 Acute maxillar y sinusiti s, unspecif ied; Note: Date Diagnose d: 4 1:35 PM (J01.00) Not Available [facility] 4 02:42:53 Gastroes ophageal reflux disease without esophagi tis 680354161 Active 2023 AMY CARREON MD [address] [facility] [address], [place], [address] , [place] - [facility] 4 10:25:31 Acute myringit is of left ear 11975679538 20292 Active 2023 AMY CARREON MD [address] [facility], [place], [address] , [place] [facility] 4 10:27:39 Feeling of lump in throat 810679184 Active 2024 AMY CARREON MD [address] [facility] [address], [place], [address] , [place] [facility] 5 15:29:01 Allergic rhinitis 64763787 Active 2024 AMY CARREON MD [address], [place], [address] , [place] [facility] 5 15:29:18 Dysfunct ion of eustachi an tube 81656621 Active 2024 AMY CARREON MD [address] [facility],[place] [address], [place], [address] , [facility] 15:29:24 Problem Notes None recorded. Procedures Surgical History Date Name Laterality Status Provider Name and Address Organization Details Recorded Time 12/03/19 25 Fiberoptic Laryngoscopy (Comprehensive) completed AMY HENDRICKS MD [address] [place] [address],[address], [address], [facility] 12/02/2024 10:47:08 06/11/19 25 Fiberoptic Laryngoscopy (Comprehensive) completed AMY HENDRICKS MD [address] [place] [address],[address], [address], [facility] 06/10/2024 15:24:37 12/04/19 24 Fiberoptic Laryngoscopy (Comprehensive) completed AMY HENDRICKS MD [address] [place] [address],[address], [address], [facility] 12/04/2023 10:27:59 repair of cleft lip completed AMY HENDRICKS MD [address] [place] [address],[address], [address], [facility] 12/03/2023 20:05:01 repair of cleft palate completed AMY HENDRICKS MD [address] [place] [address],[address], [address], [facility] 12/03/2023 20:05:13 Imaging Results None recorded. Procedure Notes None recorded. Medical Equipment None Reported. Allergies Allergen ID Allergen Name Allergen Category Reaction Reaction Severity Criticality Documentation Date Start Date Code Code System Note Provider Name and Address Organization Details Recorded Time 854247 tree and shrub pollen environme nt,medica tion eye redness Not available Not available 03/05/20242009 Mari cisse [facility] 09:07:54 Medications Name Sig Start Date Stop Date Status Note LastModified by Organization Details LastModified Time clotrimaz ole 10 mg yonas 1 yonas five times a day 12/30 completed Medicati on ID: [id number] D uration Value: 7 Brand Name: denise ferguson Sen d Method: E-Prescr ibed Sub s Allowed: subs OK Medic ationGen ericName : denise ferguson Not Available Not Available Not Available Augmentin 875 mg-125 mg tablet 1 tablet by mouth 12/03 completed Medicati on ID: [id number] D uration Value: 10 Prescri bed By [...] mg tablet 10/11 completed Medicati on ID: [id number] B rand Name: valsarta n Send Method: [...] mg tablet 01/25 completed Medicati on ID: [id number] D uration Value: 7 Reason: () Brand [...] a day 10/11 completed Medicati on ID: [id number] D uration Value: 10 Prescri bed By Name: Danuta Martínez nd Name: doxycycl ine monohydr ate Send Method: E-Prescr ibed Sub s Allowed: subs OK Medic ationGen ericName : doxycycl ine monohydr ate Not Available Not Available Not Available clotrimaz ole 1 % topical solution 12/03 completed Medicati on ID: [id number] D uration Value: 14 Brand Name: clotrima [...] by mouth 12/03 completed Medicati on ID: [id number] D uration Value: 1 Prescri bed By [...] both nostrils 2016 active Medicati on ID: 380152 D uration Value: 120 Prescri bed By [...] mg tablet 10/11 completed Medicati on ID: [id number] Br and Name: naproxen Send Method: E-Prescr [...] Vitamin D 12/02 completed Medicati on ID: [id number] B rand Name: Vitamin D Send Method: E-Prescr ibed Sub s Allowed: subs OK Medic ationGen ericName : Vitamin D Not Available Not Available Not Available magnesium 100 mg (as glycinate ) tablet Take by oral route. 11/29 completed Not Available Not Available Not Available melatonin 10 mg tablet 12/03 completed Medicati on ID: [id number] Br and Name: melatoni n Send Method: E-Prescr ibed Sub s Allowed: subs OK Medic ationGen ericName : surya bettencourt Not Available Not Available Not Available Vitals Date Recorded Body height Provider Name an d Address Organization Details Last Updated DateTime 12/02/2024 154.94 cm Mari Garcia [place] [facility] 12/02/2024 10:07:53 Social History Question Answer Notes LastModified by Organizat ion Details LastModified Time Tobacco Smoking Status Former Smoker Mari cisse [place] [facility] 12/02/2024 10:08:06 How Many Years Have You Consumed Alcohol? 40 [email or web address] Information not available 12/02/2024 What Type Of Director Investment Banking Do You Use? None Information not available 12/02/2024 How Many Alcoholic Drinks Do You Consume Per Day On Average? 2 Information not available 12/02/2024 When Did You Quit Smoking? 16+yearssinc elastcigaret te Information not available 12/02/2024 What Is Your Current Pack Years? 10packyears [email or web address] Information not available 12/02/2024 Do You Have Any Pets? Yes [email or web address] Information not available 12/02/2024 At What Age Did You Start Smoking Tobacco? 16 [email or web address] Information not available 12/02/2024 Are You Passively Exposed To Smoke? No [email or web address] Information not available 12/02/2024 Are There Any Smokers In Your House? No [email or web address] Information not available 12/02/2024 How Much Tobacco Do You Smoke? 0.5 PPD [email or web address] Information not available 12/02/2024 How Many Years Have You Smoked Tobacco? 10 [email or web address] Information not available 12/02/2024 Sex: Unknown Functional Status Question Answer Note LastModified by Organization Details LastModified Time How many times per week do you consume alcohol? 1-2 times per week [email or web address] Information not available 12/02/2024 Do you use any illicit or recreational drugs? No [email or web address] Information not available 12/02/2024 Do you or have you ever used any other forms of tobacco or nicotine? No [email or web address] Information not available 12/02/2024 What is your level of alcohol consumption? Occasional [email or web address] Information not available 12/02/2024 What type of noise exposure are you exposed to? noExposureToExcessiveNoise [email or web address] Infor mation not available 12/02/2024 Mental Status None recorded. Family History Nothing Reported. Medical History Condition Response Allergies/Hayfever Y Heart Problems N Anxiety N Tonsil Infections N Emphysema N Migraines N Thyroid Problems N Glaucoma N Developmental Delay N Depression N COPD N Nasal or Sinus Problems Y Anemia N Immune System Disorder N Anesthesia Complications N Heart Attack (DE) N Other Skin Condition N Diabetes N [...] ICD10 Code Diagnosis IMO Codes Diagnosis Note [id number] AMY CARERON MD [facility] [address] [address] 12/02/2024 10:00:16 12/02/2024 10:46:17 Acute recurrent sialoadenitis 5384071533 489463 K11.22 Central pe rforation of left tympanic membrane 2380039926 928505 H72.02 History of malignant neoplasm of pharynx 0226124568 9107 Z85.819 Health Concerns Section Related Observation LastModified by Organization Detai ls LastModified Time None Recorded Concern Status LastModified by Organization Details LastModified Time None Recorded Payers Encounter Date Sequence Insurance Name Policy Number Policy Cervantes Covered Member ID Cervantes Member ID Guarantor Name 12/02/2024 1 [facility] (MEDICARE REPLACEMENT/ ADVANTAGE - PPO) [id number] 1 Rashida Whitmore [id number] Rashida Whitmore Notes Date Note Type Note Provider Name and Address Organization Details Recorded Time 12/02/2024 text/html ROS as noted in the HPI History of allergy, chronic sinusitis and combined modality therapy for tonsil cancer. Had another vitamin stuck in throat. 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 Completed therapy [id number] right tonsil History of cleft palate and pharyngeal flap.Using Reflux [employer] and less coffee helped her reflux Recent left otorrhea-resolved .Stress test and cardiac work up pending.Having fatigue--thyroid labs ok AMY HENDRICKS MD [address] [place] [address], [place], [address], [place] [facility] 12/02/2024 10:47:27 OBGyn Episode No OBEpisode recorded.
--- OUTSIDE RECORDS SUMMARY | 2025-01-01 15:22 | XMS_ITS | Clinical Summary ---
Author Organization [facility] Address [address] [place] [address] Care Team Providers Care Bookkeeper Assistant Name Role Phone Jonny Llanes MD Primary Care Provider + Allergies No known active allergies Medications Medication Sig Dispensed Refills Start Date End Date Status Multiple Vitamin (MULTI VITAMIN PO) Take by mouth. 0 Ac tive Ftkfvlg-Nhdkjtmrw-Bssb min D (CALCIUM 500 PO) Take by [...] needed for pain. 0 Active nystatin (MYCOSTATIN) 026519 UNIT/ML suspension Take 5 mL (500,000 Units [...] age to complete this topic Care Teams Bookkeeper Assistant Relationship Specialty Start Date End Date Jonny Llanes MD [address] [place] [address] PCP - General Otolaryngology 10/02/18
== END ==
LOC: HO.CARD 07:48
PROVIDERS: PCP Physician Assistant; Visit Provider Physician Assistant
DX: I10 Essential (primary) hypertension (principal); R07.9 Chest pain, unspecified; M25.50 Pain in unspecified joint
CPT/HCPCS: 93306; Q9957

== ENCOUNTER → 2025-01-01 07:51 | Outpatient (BNV) | payer MEDICARE, SELFPAY | PROVIDERS: PCP Physician Assistant; Visit Provider Internal Medicine | DX: R07.9 Chest pain, unspecified (principal) | CPT/HCPCS: 93306 ==

== ENCOUNTER → 2025-01-03 08:12 | Outpatient (REF) | payer MEDICARE, SELFPAY ==
--- OUTSIDE RECORDS SUMMARY | 2025-01-03 08:14 | XMS_ITS | Data Portability ---
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 Procedures None recorded. Surgeries None recorded. Imaging None recorded. Medication Orders doxycycli ne hyclate 100 mg tablet 2024 025 [facility] #[id number], [address] [place], [address], 06/10/2024 14:55:36 ciproflox acin 0.3 %-dexamet hasone 0.1 % ear drops,rola pension 2023 025 arodrigues [address] [facility]/Pharmacy #[id number], [address], [place], [address], 12/02/2024 10:08:19 Patient TargetsNo targets recorded. Patient InstructionsNo instructions recorded. Reason for Referral None Reported. Results Created Date Observation Date Name Description Value Unit Range Abnormal Flag Note LastModifiedBy Organization Detail LastModifiedTime 12/04/19 24 12/05/2023 TSH+F REE T4 TSH 3.880 uIU/m L 0.450- 4.500 normal Not Available [facility] ([facility]) [address] [place], [address], 12/05/2023 08:18:27 12/04/19 24 12/05/2023 TSH+F REE T4 T4,free(dire ct) 1.25 NG/dL 0.82-1 .77 normal Not Available [facility] ([facility]) [address] [facility], [place], [address], 12/05/2023 08:18:27 Result Notes None recorded. Problems Name Problem SNOMED Code Status Onset Date Resolution Date Notes Provider Name and Address Organization Details Recorded Time Conducti ve hearing loss, bilatera l 543381159 Active 2014 Conducti ve hearing loss, bilatera l; Note: Date Diagnose d: 5 5:06 PM (389.06) Not Available [facility] 4 02:42:49 History of malignan t neoplasm of pharynx 69251749181 107 Active 2014 Personal history of malignan t neoplasm : Other and unspecif ied oral cavity and pharynx; Note: Date Diagnose d: 5 5:06 PM (V10.02) Not Available [facility] 4 02:42:45 Neck pain 11364253 Active 2014 Other disorder s of cervical region: Cervical eitan; Note: Date Diagnose d: 5 4:18 PM (723.1) ; Start Date : 09/11/19 15 Cervi calgia; Note: Date Diagnose d: 5 3:18 PM (M54.2) [mapped from ICD9 code: 723.1] Not Available [facility] 4 02:42:45 History of malignan t neoplasm of oral cavity 344837517 Active 2014 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, oral cavity, and pharynx; Note: Date Diagnose d: 5 3:18 PM (Z85.818 ) [mapped from ICD9 code: V10.02] Not Available [facility] 4 02:42:46 Mixed conducti ve and sensorin eural hearing loss, bilatera l 820552873 Active 2014 Mixed HL, bilatera l; Note: Date Diagnose d: 5 4:52 PM (389.22) ; Start Date : 09/11/19 15 Mixed conducti ve and sensorin eural hearing loss, bilatera l; Note: Date Diagnose d: 5 3:18 PM (H90.6) [mapped from ICD9 code: 389.22] Not Available [facility] 4 02:42:50 Chronic nasophar yngitis 01208533 Active 2014 Nasophar yngitis, chronic; Note: Date Diagnose d: 5 5:06 PM (472.2) ; Start Date : 03/05/19 15 Chron ic nasophar yngitis; Note: Date Diagnose d: 5 3:18 PM (J31.1) [mapped from ICD9 code: 472.2] Not Available [facility] 4 02:42:54 Chronic rhinitis 07247014 Active 2015 Chronic rhinitis ; Note: Date Diagnose d: 04/17/2015 3:09 PM (J31.0) Not Available [facility] 4 02:42:51 Pain of right temporom andibula r joint 91574566774 843849 Active 2017 Arthralg ia of right temporom andibula r joint; Note: Date Diagnose d: 03/16/2017 3:31 PM (M26.621 ) Not Available [facility] 4 02:42:52 Otalgia of right ear 6715438642 Active 2017 Otalgia, right ear; Note: Date Diagnose d: 03/16/2017 3:31 PM (H92.01) Not Available [facility] 4 02:42:48 Posterio r rhinorrh ea 42503604 Active 2017 Postnasa l drip; Note: Date Diagnose d: 8 2:30 PM (R09.82) Not Available [facility] 4 02:42:51 Bilatera l temporom andibula r joint pain 78866100791 525450 Active 2017 Arthralg ia of bilatera l temporom andibula r joint; Note: Date Diagnose d: 8 2:30 PM (M26.623 ) Not Available [facility] 4 02:42:52 Perforat ion of left tympanic membrane 25555196065 36477 Active 2017 Unspecif ied perforat ion of tympanic membrane , left ear; Note: Date Diagnose d: 8 1:49 PM (H72.92) Not Available [facility] 4 02:42:52 Acute sialoade nitis 847032852 Active 2017 Acute sialoade nitis; Location : left Not e: Changed from K11.2 to K11.21 ( 9 12:00 PM) , Date Diagnose d: 8 11:32 AM (K11.2) Not Available [facility] 4 02:42:45 Headache 22121004 Active 2018 Headache , unspecif ied; Note: Changed from R51 to R51.9 (08/13/19 21 10:51 AM) , Date Diagnose d: 03/21/2018 12:03 PM (R51) Not Available [facility] 4 02:42:50 Oral cyst 77083115741 77014 Active 2018 Other cysts of oral region, not elsewher e classifi ed; Note: Date Diagnose d: 06/20/2018 2:59 PM (K09.8) Not Available [facility] 4 02:42:50 Acute upper respirat ory infectio n 51255546 Active 2018 Acute upper respirat ory infectio n, unspecif ied; Note: Date Diagnose d: 06/20/2018 2:59 PM (J06.9) Not Available [facility] 4 02:42:54 Disturba nce of salivary secretio n 08866129 Active 2018 Xerostom ia; Note: Date Diagnose d: 06/20/2018 3:00 PM (K11.7) Not Available [facility] 4 02:42:53 Disorder of right tympanic membrane 73206123457 51523 Active 2018 Other specifie d disorder s of tympanic membrane , right ear; Note: Date Diagnose d: 06/20/2018 3:01 PM (H73.891 ) Not Available [facility] 4 02:42:49 Bilatera l disorder of Eustachi an tubes 63022667847 89005 Active 2018 Other specifie d disorder s of Eustachi an tube, bilatera l; Note: Date Diagnose d: 09/21/2018 1:53 PM (H69.83) Not Available [facility] 4 02:42:51 Total perforat ion of bilatera l tympanic membrane s 69332021286 Active 2018 Total perforat ions of tympanic membrane , bilatera l; Note: Date Diagnose d: 09/21/2018 1:53 PM (H72.823 ) Not Available [facility] 4 02:42:47 Otorrhea of left ear 47616921504 32869 Completed 202009/15/2023 Otorrhea , left ear; Note: Date Diagnose d: 1 2:55 PM (H92.12) Otorrh ea, left ear; Note: Date Diagnose d: 01/01/20 15 2:47 PM (H92.12) ; Start Date : 01/01/20 15 Not Available [facility] 4 02:42:46 Otorrhea of bilatera l ears 52428178593 39438 Active 2020 Otorrhea , bilatera l; Note: Date Diagnose d: 12/31/19 21 3:10 PM (H92.13) Not Available [facility] 4 02:42:48 Otorrhea of right ear 94224013054 01338 Active 2021 Otorrhea , right ear; Note: Date Diagnose d: 03/18/2021 2:44 PM (H92.11) Not Available [facility] 4 02:42:51 Central perforat ion of left tympanic membrane 21532273843 29891 Active 2021 Central perforat ion of tympanic membrane , left ear; Note: Date Diagnose d: 06/21/2021 9:07 AM (H72.02) Not Available [facility] 4 02:42:45 Acute recurren t sialoade nitis 37853293786 Active 2022 Acute recurren t sialoade nitis; Note: Date Diagnose d: 06/20/2022 1:26 PM (K11.22) Not Available [facility] 4 02:42:49 Pharynge al dysphagi a 45636955188 105 Active 2022 Dysphagi a, pharynge al phase; Note: Date Diagnose d: 06/20/2022 1:26 PM (R13.13) Not Available [facility] 4 02:42:55 Orophary ngeal dysphagi a 95691018 Active 2022 Dysphagi a, orophary ngeal phase; Note: Date Diagnose d: 3 12:23 PM (R13.12) Not Available [facility] 4 02:42:54 Spasm 03571006 Active 2022 Cramp and spasm; Note: Date Diagnose d: 3 12:47 PM (R25.2) Not Available [facility] 4 02:42:55 Impacted cerumen in right ear 23655322486 29024 Active 2022 Impacted cerumen, right ear; Note: Date Diagnose d: 12/14/19 23 1:16 PM (H61.21) Not Available [facility] 4 02:42:54 Acute maxillar y sinusiti s 59578390 Active 2023 Acute maxillar y sinusiti s, unspecif ied; Note: Date Diagnose d: 4 1:35 PM (J01.00) Not Available [facility] 4 02:42:53 Gastroes ophageal reflux disease without esophagi tis 522180684 Active 2023 AMY CARREON MD [address], [place], [address] , [place] - [facility] [place] [facility] 4 10:25:31 Acute myringit is of left ear 28945709602 43045 Active 2023 AMY CARREON MD [address] [facility], [place], [address] , [place] [facility] [place] [facility] 4 10:27:39 Feeling of lump in throat 229566511 Active 2024 AMY CARREON MD [address] [facility], [place], [address] , [place] [facility] 5 15:29:01 Allergic rhinitis 31584458 Active 2024 AMY CARREON MD [address] [facility] [address], [place], [address] , [place] [facility] 5 15:29:18 Dysfunct ion of eustachi an tube 57397044 Active 2024 AMY CARREON MD [address] [facility],[place] [address], [place], [address] , [place] [facility] 5 15:29:24 Problem Notes None recorded. Procedures Surgical History Date Name Laterality Status Provider Name and Address Organization Details Recorded Time 12/03/19 25 Fiberoptic Laryngoscopy (Comprehensive) completed AMY HENDRICKS MD [address] [facility],[address] [facility], [place], [address], [facility] - [facility] 12/02/2024 10:47:08 06/11/19 25 Fiberoptic Laryngoscopy (Comprehensive) completed AMY HENDRICKS MD [address] [facility],[address] [facility], [place], [address], [place] [facility] 06/10/2024 15:24:37 12/04/19 24 Fiberoptic Laryngoscopy (Comprehensive) completed AMY HENDRICKS MD [address] [facility] [facility], [place], [address], [facility] - [facility] 12/04/2023 10:27:59 repair of cleft lip completed AMY HENDRICKS MD [address], [address], [facility] 12/03/2023 20:05:01 repair of cleft palate completed AMY HENDRICKS MD [address] [place] [address], [address], [facility] 12/03/2023 20:05:13 Imaging Results None recorded. Procedure Notes None recorded. Medical Equipment None Reported. Allergies Allergen ID Allergen Name Allergen Category Reaction Reaction Severity Criticality Documentation Date Start Date Code Code System Note Provider Name and Address Organization Details Recorded Time [id number] tree and shrub pollen environme nt,medica tion eye redness Not available Not available 03/05/20242009 Mari cisse [facility] 09:07:54 Medications Name Sig Start Date Stop Date Status Note LastModified by Organization Details LastModified Time clotrimaz ole 10 mg yonas 1 yonas five times a day 12/30 completed Medicati on ID: [id number] D uration Value: 7 Brand Name: clotrima zole Sen d Method: E-Prescr ibed Sub s Allowed: subs OK Medic ationGen ericName : clotrima zole Not Available Not Available Not Available Augmentin 875 mg-125 mg tablet 1 tablet by mouth 12/03 completed Medicati on ID: [id number] D uration Value: 10 Prescri bed By [...] mg tablet 10/11 completed Medicati on ID: [id number] B rand Name: valsarta n Send Method: [...] mg tablet 01/25 completed Medicati on ID: [id number] D uration Value: 7 Reason: () Brand [...] a day 10/11 completed Medicati on ID: [id number] D uration Value: 10 Prescri bed By Name: Danuta Martínez nd Name: doxycycl ine monohydr ate Send Method: E-Prescr ibed Sub s Allowed: subs OK Medic ationGen ericName : doxycycl ine monohydr ate Not Available Not Available Not Available clotrimaz ole 1 % topical solution 12/03 completed Medicati on ID: [id number] D uration Value: 14 Brand Name: denise [...] by mouth 12/03 completed Medicati on ID: [id number] D uration Value: 1 Prescri bed By [...] both nostrils 2016 active Medicati on ID: [id number] D uration Value: 120 Prescri bed By [...] mg tablet 10/11 completed Medicati on ID: [id number] Br and Name: naproxen Send Method: E-Prescr [...] Vitamin D 12/02 completed Medicati on ID: [id number] B rand Name: Vitamin D Send Method: E-Prescr ibed Sub s Allowed: subs OK Medic ationGen ericName : Vitamin D Not Available Not Available Not Available magnesium 100 mg (as glycinate ) tablet Take by oral route. 11/29 completed Not Available Not Available Not Available melatonin 10 mg tablet 12/03 completed Medicati on ID: [id number] Br and Name: melatoni n Send Method: E-Prescr ibed Sub s Allowed: subs OK Medic ationGen ericName : melatoni n Not Available Not Available Not Available Vitals Date Recorded Body height Body weight Provider Name and Address Organization Details Last Updated DateTime 03/05/2024 154.94 cm 50203.56 g Mari Garcia [place] - [facility] 03/05/2024 09:07:36 Date Recorded Body height Body mass index (BMI) Body weight Provider Name and Address Organization Details Last Updated DateTime 06/10/2024 154.94 cm 29.9 kg/m2 65492.59 g Catrachita Bridges [place] - [facility] 06/10/2024 14:55:24 Date Recorded Body height Provider Name an d Address Organization Details Last Updated DateTime 12/02/2024 154.94 cm Mari Garcia [place] - [facility] 12/02/2024 10:07:53 Date Recorded Body height Body mass index (BMI) Body weight Provider Name and Address Organization Details Last Updated DateTime 12/04/2023 154.94 cm 30.8 kg/m2 93935.56 g Catrachita Bridges [place] - [facility] 12/04/2023 10:11:21 Social History Question Answer Notes LastModified by Organizat ion Details LastModified Time Tobacco Smoking Status Former Smoker Mari cisse [place] - [facility] 12/02/2024 10:08:06 How Many Years Have You Consumed Alcohol? 40 [email or web address] Information not available 12/02/2024 What Type Of Tool And Die Maker Apprentice Do You Use? None [email or web address] Information not available 12/02/2024 How Many Alcoholic Drinks Do You Consume Per Day On Average? 2 [email or web address] Information not available 12/02/2024 When Did You Quit Smoking? 16+yearssinc elastcigaret te [email or web address] Information not available 12/02/2024 What Is Your Current Pack Years? 10packyears [email or web address] Information not available 12/02/2024 Do You Have Any Pets? Yes [email or web address] Information not available 12/02/2024 At What Age Did You Start Smoking Tobacco? 16 [email or web address] Information not available 12/02/2024 Are You Passively Exposed To Smoke? No [email or web address] Information not available 12/02/2024 Are There Any Smokers In Your House? No [email or web address] Information not available 12/02/2024 How Much Tobacco Do You Smoke? 0.5 PPD [email or web address] Information not available 12/02/2024 How Many Years Have You Smoked Tobacco? 10 [email or web address] Information not available 12/02/2024 Sex: Unknown Functional Status Question Answer Note LastModified by Organization Details LastModified Time How many times per week do you consume alcohol? 1-2 times per week [email or web address] Information not available 12/02/2024 Do you use any illicit or recreational drugs? No [email or web address] Information not available 12/02/2024 Do you or have you ever used any other forms of tobacco or nicotine? No [email or web address] Information not available 12/02/2024 What is your level of alcohol consumption? Occasional [email or web address] Information not available 12/02/2024 What type of noise exposure are you exposed to? noExposureToExcessiveNoise [email or web address] Infor mation not available 12/02/2024 Mental Status None recorded. Family History Nothing Reported. Medical History Condition Response Allergies/Hayfever Y Heart Problems N Anxiety N Tonsil Infections N Emphysema N Migraines N Thyroid Problems N COPD N Depression N Developmental Delay N Glaucoma N Nasal or Sinus Problems Y Anemia N Immune System Disorder N Anesthesia Complications N Heart Attack (TN) N Other Skin Condition N Diabetes N [...] ICD10 Code Diagnosis IMO Codes Diagnosis Note [id number] AMY CARREON MD [facility] [address] [address] 12/04/2023 09:56:12 12/04/2023 10:39:47 History of malignant neoplasm of digestive organ 1101976850 6459923 Z85.00 Gastroesop hageal reflux disease without esophagitis 217748199 K21.9 Consider GI eval. She will discuss with PCP Central pe rforation of left tympanic membrane 8960747910 870649 H72.02 Acute myri ngitis of left ear 7918736661 943904 H73.002 [id number] SILVA SMYTH PA-C [facility] [address] [address] 03/05/2024 09:02:35 03/05/2024 09:35:07 Acute maxillary sinusitis 36637461 J01.00 [id number] AMY CARREON MD [facility] [address] [address] 06/10/2024 14:44:01 06/10/2024 15:30:30 Feeling of lump in throat 887664912 R09.89 History of malignant neoplasm of oropharynx 3692099459 6311961 Z85.818 Dysfunctio n of eustachian tube 52342996 H69.93 Allergic rhinitis 900941 04 J30.9 [id number] AMY CARREON MD [facility] [address] [place] [address] 12/02/2024 10:00:16 12/02/2024 10:46:17 Acute recurrent sialoadenitis 0220382586 241406 K11.22 Central pe rforation of left tympanic membrane 7986159800 275588 H72.02 History of malignant neoplasm of pharynx 7955043842 9107 Z85.819 Health Concerns Section Related Observation LastModified by Organization Detai ls LastModified Time None Recorded Concern Status LastModified by Organization Details LastModified Time None Recorded Advance Directives Directive None Recorded Payers Insurance Date Sequence Insurance Name Policy Number Policy Cervantes Covered Member ID Cervantes Member ID Guarantor Name 12/04/2023 1 [facility] [id number] 1 Rashidaadal Owusu Myranda [id number] Rashida Whitmore 12/02/2024 1 [facility] (MEDICARE REPLACEMENT/ ADVANTAGE - PPO) [id number] 1 Rashida Owusu [place] [id number] Rashida Francoise Myranda Notes Date Note Type Note Provider Name and Address Organization Details Recorded Time 12/04/2023 text/html 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 Completed therapy [id number] right tonsilHx of ETD with cleft lip [...] every other day AMY HENDRICKS MD [address] [address], [place], [address], [facility] - [facility] 12/04/2023 10:33:22 03/05/2024 text/html ROS as [...] relieve symptoms. AMY HENDRICKS MD 100 [facility],[address], [address], [facility] - [facility] 03/05/2024 12:20:10 06/10/2024 text/html History of [...] combined modality chemo with XRT. Completed therapy [id number] right tonsil History of cleft palate and pharyngeal flap.Using Reflux Gourmet and less coffee helped her reflux AMY HENDRICKS MD 100 [facility],[address], [address], [facility] 06/10/2024 15:29:49 12/02/2024 text/html ROS as noted in the HPI History of allergy, chronic sinusitis and combined modality therapy for tonsil cancer. Had another vitamin stuck in throat. 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 Completed therapy [id number] right tonsil History of cleft palate and pharyngeal flap.Using Reflux Gourmet and less coffee helped her reflux Recent left otorrhea-resolved. Stress test and cardiac work up pending.Having fatigue--thyroid labs ok AMY HENDRICKS MD [address] [facility] [address], [place], [address], [facility] 12/02/2024 10:47:27 OBGyn Episode No OBEpisode recorded.
--- NOTE | 2025-01-03 08:15 | CA_ITS ---
Acquisition Time: 2025-01-03 08:53:05 Total Exercise Time: 00:05:00 Test Indications: CP,Fatigue Medications: SEE EMAR/PRINT OUT Protocol: THOMAS Max HR: 151 BPM 99% of Pred: 152 BPM Max BP: 168/94 mmHG Max Work Load: 7.0 METS Exercise stress test with exercise 5 mins of Thomas Protcool, achieving 98% MPHR, with reports of SOB, no chest pain, with isolated PVCs, with normotensive reponse to exercise. Without any EKG changes meeting criteria for ischemia. In recovery, breathing improved to baseline. Test reviewed with Jeff Gamboa. Referred By: Nely Mora Electronically Signed By: Walt Joe
--- OUTSIDE RECORDS SUMMARY | 2025-01-03 08:15 | XMS_ITS | Continuity of Care Document ---
Author Organization [place] [facility], [facility] Address [address] [place] [address] Care Team Providers Care Spa Assistant Manager Name Role Phone JESUS WILLIS Primary [...] Time Conducti ve hearing loss, bilatera l [id number] Active 2014 Conducti ve hearing loss, bilatera l; Note: Date Diagnose d: 5 5:06 PM (389.06) Not Available [facility] 4 02:42:49 History of malignan t neoplasm of pharynx [id number] 107 Active 2014 Personal history of malignan t neoplasm : Other and unspecif ied oral cavity and pharynx; Note: Date Diagnose d: 5 5:06 PM (V10.02) Not Available [facility] 4 02:42:45 Neck pain 43531503 Active 2014 Other disorder s of cervical region: Cervical eitan; Note: Date Diagnose d: 5 4:18 PM (723.1) ; Start Date : 09/11/19 15 Cervi calgia; Note: Date Diagnose d: 3:18 PM (M54.2) [mapped from ICD9 code: 723.1] Not Available [facility] 4 02:42:45 History of malignan t neoplasm of oral cavity 840283413 Active 2014 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, oral cavity, and pharynx; Note: Date Diagnose d: 5 3:18 PM (Z85.818 ) [mapped from ICD9 code: V10.02] Not Available [facility] 4 02:42:46 Mixed conducti ve and sensorin eural hearing loss, bilatera l 506051241 Active 2014 Mixed HL, bilatera l; Note: Date Diagnose d: 5 4:52 PM (389.22) ; Start Date : 09/11/19 15 Mixed conducti ve and sensorin eural hearing loss, bilatera l; Note: Date Diagnose d: 5 3:18 PM (H90.6) [mapped from ICD9 code: 389.22] Not Available [facility] 4 02:42:50 Chronic nasophar yngitis 56806530 Active 2014 Nasophar yngitis, chronic; Note: Date Diagnose d: 5 5:06 PM (472.2) ; Start Date : 03/05/19 15 Chron ic nasophar yngitis; Note: Date Diagnose d: 5 3:18 PM (J31.1) [mapped from ICD9 code: 472.2] Not Available [facility] 4 02:42:54 Chronic rhinitis 22639237 Active 2015 Chronic rhinitis ; Note: Date Diagnose d: 04/17/2015 3:09 PM (J31.0) Not Available [facility] 4 02:42:51 Pain of right temporom andibula r joint 75424345521 739610 Active 2017 Arthralg ia of right temporom andibula r joint; Note: Date Diagnose d: 03/16/2017 3:31 PM (M26.621 ) Not Available [facility] 4 02:42:52 Otalgia of right ear 4326072662 Active 2017 Otalgia, right ear; Note: Date Diagnose d: 03/16/2017 3:31 PM (H92.01) Not Available [facility] 4 02:42:48 Posterio r rhinorrh ea 55230630 Active 2017 Postnasa l drip; Note: Date Diagnose d: 8 2:30 PM (R09.82) Not Available [facility] 4 02:42:51 Bilatera l temporom andibula r joint pain 68467057428 401698 Active 2017 Arthralg ia of bilatera l temporom andibula r joint; Note: Date Diagnose d: 8 2:30 PM (M26.623 ) Not Available [facility] 4 02:42:52 Perforat ion of left tympanic membrane 01855265608 13286 Active 2017 Unspecif ied perforat ion of tympanic membrane , left ear; Note: Date Diagnose d: 8 1:49 PM (H72.92) Not Available [facility] 4 02:42:52 Acute sialoade nitis 719864616 Active 2017 Acute sialoade nitis; Location : left Not e: Changed from K11.2 to K11.21 ( 9 12:00 PM) , Date Diagnose d: 8 11:32 AM (K11.2) Not Available [facility] 4 02:42:45 Headache 38601038 Active 2018 Headache , unspecif ied; Note: Changed from R51 to R51.9 (08/13/19 10:51 AM) , Date Diagnose d: 03/21/2018 12:03 PM (R51) Not Available [facility] 4 02:42:50 Oral cyst 02957964932 62971 Active 2018 Other cysts of oral region, not elsewher e classifi ed; Note: Date Diagnose d: 06/20/2018 2:59 PM (K09.8) Not Available [facility] 4 02:42:50 Acute upper respirat ory infectio n 53776341 Active 2018 Acute upper respirat ory infectio n, unspecif ied; Note: Date Diagnose d: 06/20/2018 2:59 PM (J06.9) Not Available [facility] 4 02:42:54 Disturba nce of salivary secretio n 54137353 Active 2018 Xerostom ia; Note: Date Diagnose d: 06/20/2018 3:00 PM (K11.7) Not Available [facility] 4 02:42:53 Disorder of right tympanic membrane 43575447061 68667 Active 2018 Other specifie d disorder s of tympanic membrane , right ear; Note: Date Diagnose d: 06/20/2018 3:01 PM (H73.891 ) Not Available [facility] 4 02:42:49 Bilatera l disorder of Eustachi an tubes 05760875287 72909 Active 2018 Other specifie d disorder s of Eustachi an tube, bilatera l; Note: Date Diagnose d: 09/21/2018 1:53 PM (H69.83) Not Available [facility] 4 02:42:51 Total perforat ion of bilatera l tympanic membrane s 64100930386 71128 Active 2018 Total perforat ions of tympanic membrane , bilatera l; Note: Date Diagnose d: 09/21/2018 1:53 PM (H72.823 ) Not Available [facility] 4 02:42:47 Otorrhea of left ear 98352906114 69117 Completed 202009/15/2023 Otorrhea , left ear; Note: Date Diagnose d: 1 2:55 PM (H92.12) Otorrh ea, left ear; Note: Date Diagnose d: 01/01/20 15 2:47 PM (H92.12) ; Start Date : 01/01/20 15 Not Available [facility] 4 02:42:46 Otorrhea of bilatera l ears 05751929406 61608 Active 2020 Otorrhea , bilatera l; Note: Date Diagnose d: 12/31/19 21 3:10 PM (H92.13) Not Available [facility] 4 02:42:48 Otorrhea of right ear 94339781015 13770 Active 2021 Otorrhea , right ear; Note: Date Diagnose d: 03/18/2021 2:44 PM (H92.11) Not Available [facility] 4 02:42:51 Central perforat ion of left tympanic membrane 72343781497 17007 Active 2021 Central perforat ion of tympanic membrane , left ear; Note: Date Diagnose d: 06/21/2021 9:07 AM (H72.02) Not Available [facility] 4 02:42:45 Acute recurren t sialoade nitis 64733057645 37865 Active 2022 Acute recurren t sialoade nitis; Note: Date Diagnose d: 06/20/2022 1:26 PM (K11.22) Not Available [facility] 4 02:42:49 Pharynge al dysphagi a 22548367644 105 Active 2022 Dysphagi a, pharynge al phase; Note: Date Diagnose d: 06/20/2022 1:26 PM (R13.13) Not Available [facility] 4 02:42:55 Orophary ngeal dysphagi a 05241852 Active 2022 Dysphagi a, orophary ngeal phase; Note: Date Diagnose d: 3 12:23 PM (R13.12) Not Available [facility] 4 02:42:54 Spasm 70248469 Active 2022 Cramp and spasm; Note: Date Diagnose d: 3 12:47 PM (R25.2) Not Available [facility] 4 02:42:55 Impacted cerumen in right ear 19816610340 60157 Active 2022 Impacted cerumen, right ear; Note: Date Diagnose d: 12/14/19 23 1:16 PM (H61.21) Not Available [facility] 4 02:42:54 Acute maxillar y sinusiti s 96326942 Active 2023 Acute maxillar y sinusiti s, unspecif ied; Note: Date Diagnose d: 4 1:35 PM (J01.00) Not Available [facility] 4 02:42:53 Gastroes ophageal reflux disease without esophagi tis 502023775 Active 2023 AMY CARREON MD [address] [facility] [place], [place], [address] , [place] [facility] 4 10:25:31 Acute myringit is of left ear 46499011172 41096 Active 2023 AMY CARREON MD [address] [facility] [place], [place], [address] , [place] [facility] 4 10:27:39 Feeling of lump in throat 847806958 Active 2024 AMY CARREON MD [address] [facility] [place], [place], [address] , [place] [facility] 5 15:29:01 Allergic rhinitis 92407195 Active 2024 AMY CARREON MD [address], [place], [address] , [place] [facility] 5 15:29:18 Dysfunct ion of eustachi an tube 30883937 Active 2024 AMY CARREON MD [address] [facility],[place] [address], [place], [address] , [facility] 15:29:24 Problem Notes None recorded. Procedures Surgical History Date Name Laterality Status Provider Name and Address Organization Details Recorded Time 12/03/19 25 Fiberoptic Laryngoscopy (Comprehensive) completed AMY HENDRICKS MD [address] [place] [address],[address], [address], [facility] 12/02/2024 10:47:08 06/11/19 25 Fiberoptic Laryngoscopy (Comprehensive) completed AMY HENDRICKS MD [address] [place] [address],[address], [address], [facility] 06/10/2024 15:24:37 12/04/19 24 Fiberoptic Laryngoscopy (Comprehensive) completed AMY HENDRICKS MD [address] [place] [address],[address], [address], [facility] 12/04/2023 10:27:59 repair of cleft lip completed AMY HENDRICKS MD [address] [place] [address],[address], [address], [facility] 12/03/2023 20:05:01 repair of cleft palate completed AMY HENDRICKS MD [address] [place] [address],[address], [address], [facility] 12/03/2023 20:05:13 Imaging Results None recorded. Procedure Notes None recorded. Medical Equipment None Reported. Allergies Allergen ID Allergen Name Allergen Category Reaction Reaction Severity Criticality Documentation Date Start Date Code Code System Note Provider Name and Address Organization Details Recorded Time [id number] tree and shrub pollen environme nt,medica tion eye redness Not available Not available 03/05/20242009 Mari cisse [facility] 09:07:54 Medications Name Sig Start Date Stop Date Status Note LastModified by Organization Details LastModified Time clotrimaz ole 10 mg yonas 1 yonas five times a day 12/30 completed Medicati on ID: [id number] D uration Value: 7 Brand Name: denise ferguson Sen d Method: E-Prescr ibed Sub s Allowed: subs OK Medic ationGen ericName : denise ferguson Not Available Not Available Not Available Augmentin 875 mg-125 mg tablet 1 tablet by mouth 12/03 completed Medicati on ID: [id number] D uration Value: 10 Prescri bed By [...] mg tablet 10/11 completed Medicati on ID: [id number] B rand Name: valsarta n Send Method: [...] mg tablet 01/25 completed Medicati on ID: [id number] D uration Value: 7 Reason: () Brand [...] a day 10/11 completed Medicati on ID: [id number] D uration Value: 10 Prescri bed By Name: Danuta Martínez nd Name: doxycycl ine monohydr ate Send Method: E-Prescr ibed Sub s Allowed: subs OK Medic ationGen ericName : doxycycl ine monohydr ate Not Available Not Available Not Available clotrimaz ole 1 % topical solution 12/03 completed Medicati on ID: [id number] D uration Value: 14 Brand Name: clotrima [...] by mouth 12/03 completed Medicati on ID: [id number] D uration Value: 1 Prescri bed By [...] both nostrils 2016 active Medicati on ID: [id number] D uration Value: 120 Prescri bed By [...] mg tablet 10/11 completed Medicati on ID: [id number] Br and Name: naproxen Send Method: E-Prescr [...] Vitamin D 12/02 completed Medicati on ID: [id number] B rand Name: Vitamin D Send Method: E-Prescr ibed Sub s Allowed: subs OK Medic ationGen ericName : Vitamin D Not Available Not Available Not Available magnesium 100 mg (as glycinate ) tablet Take by oral route. 11/29 completed Not Available Not Available Not Available melatonin 10 mg tablet 12/03 completed Medicati on ID: [id number] Br and Name: melatoni n Send Method: E-Prescr ibed Sub s Allowed: subs OK Medic ationGen ericName : surya bettencourt Not Available Not Available Not Available Vitals Date Recorded Body height Provider Name an d Address Organization Details Last Updated DateTime 12/02/2024 154.94 cm Mari Garcia [place] [facility] 12/02/2024 10:07:53 Social History Question Answer Notes LastModified by Organizat ion Details LastModified Time Tobacco Smoking Status Former Smoker Mari cisse [place] [facility] 12/02/2024 10:08:06 How Many Years Have You Consumed Alcohol? 40 [email or web address] Information not available 12/02/2024 What Type Of Coal Passer Do You Use? None [email or web address] Information not available 12/02/2024 How Many Alcoholic Drinks Do You Consume Per Day On Average? 2 [email or web address] Information not available 12/02/2024 When Did You Quit Smoking? 16+yearssinc elastcigaret te [email or web address] Information not available 12/02/2024 What Is Your Current Pack Years? 10packyears [email or web address] Information not available 12/02/2024 Do You Have Any Pets? Yes [email or web address] Information not available 12/02/2024 At What Age Did You Start Smoking Tobacco? 16 [email or web address] Information not available 12/02/2024 Are You Passively Exposed To Smoke? No Information not available 12/02/2024 Are There Any Smokers In Your House? No [email or web address] Information not available 12/02/2024 How Much Tobacco Do You Smoke? 0.5 PPD [email or web address] Information not available 12/02/2024 How Many Years Have You Smoked Tobacco? 10 Information not available 12/02/2024 Sex: Unknown Functional Status Question Answer Note LastModified by Organization Details LastModified Time How many times per week do you consume alcohol? 1-2 times per week [email or web address] Information not available 12/02/2024 Do you use any illicit or recreational drugs? No [email or web address] Information not available 12/02/2024 Do you or have you ever used any other forms of tobacco or nicotine? No [email or web address] Information not available 12/02/2024 What is your level of alcohol consumption? Occasional [email or web address] Information not available 12/02/2024 What type of noise exposure are you exposed to? noExposureToExcessiveNoise [email or web address] Infor mation not available 12/02/2024 Mental Status None recorded. Family History Nothing Reported. Medical History Condition Response Allergies/Hayfever Y Heart Problems N Anxiety N Tonsil Infections N Emphysema N Migraines N Thyroid Problems N Glaucoma N Depression N COPD N Developmental Delay N Nasal or Sinus Problems Y Anemia N Immune System Disorder N Anesthesia Complications N Heart Attack ([place]) N Other Skin Condition N Diabetes N [...] ICD10 Code Diagnosis IMO Codes Diagnosis Note [id number] AMY CARREON MD [facility] [address] [address] 12/02/2024 10:00:16 12/02/2024 10:46:17 Acute recurrent sialoadenitis [id number] 693694 K11.22 Central pe rforation of left tympanic membrane 5462649012 598054 H72.02 History of malignant neoplasm of pharynx 6219995176 9107 Z85.819 Health Concerns Section Related Observation LastModified by Organization Detai ls LastModified Time None Recorded Concern Status LastModified by Organization Details LastModified Time None Recorded Payers Encounter Date Sequence Insurance Name Policy Number Policy Cervantes Covered Member ID Cervantes Member ID Guarantor Name 12/02/2024 1 [facility] (MEDICARE REPLACEMENT/ ADVANTAGE - PPO) [id number] 1 Rashida Whitmore [id number] Rashida Whitmore Notes Date Note Type Note Provider Name and Address Organization Details Recorded Time 12/02/2024 text/html ROS as noted in the HPI History of allergy, chronic sinusitis and combined modality therapy for tonsil cancer. Had another vitamin stuck in throat. 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 Completed therapy [id number] right tonsil History of cleft palate and pharyngeal flap.Using Reflux Gourmet and less coffee helped her reflux Recent left otorrhea-resolved .Stress test and cardiac work up pending.Having fatigue--thyroid labs ok AMY HENDRICKS MD [address] [place] [address], [place], [address], [place] [facility] 12/02/2024 10:47:27 OBGyn Episode No OBEpisode recorded.
--- OUTSIDE RECORDS SUMMARY | 2025-01-03 08:15 | XMS_ITS | Clinical Summary ---
Author Organization [facility] Address [address] [place] [address] Care Team Providers Care Escrow Agent Name Role Phone Jonny Llanes MD Primary Care Provider + Allergies No known active allergies Medications Medication Sig Dispensed Refills Start Date End Date Status Multiple Vitamin (MULTI VITAMIN PO) Take by mouth. 0 Ac tive Dxuzbgq-Uptwvaowr-Ixhx min D (CALCIUM 500 PO) Take by [...] needed for pain. 0 Active nystatin (MYCOSTATIN) 157842 UNIT/ML suspension Take 5 mL (500,000 Units [...] age to complete this topic Care Teams Escrow Agent Relationship Specialty Start Date End Date Jonny Llanes MD [address] [place] [address] PCP - General Otolaryngology 10/02/18
== END ==
LOC: HO.CARD 08:12
PROVIDERS: PCP Physician Assistant; Visit Provider Physician Assistant
DX: I10 Essential (primary) hypertension (principal); R07.9 Chest pain, unspecified; R53.83 Other fatigue
CPT/HCPCS: 93017

== ENCOUNTER → 2025-01-03 08:15 | Outpatient (BNV) | payer MEDICARE, SELFPAY | PROVIDERS: PCP Physician Assistant | DX: I49.3 Ventricular premature depolarization (principal); R06.02 Shortness of breath | CPT/HCPCS: 93016; 93018 ==

== ENCOUNTER 2025-01-07 08:44 | Day surgery (SDC) | payer MEDICARE, SELFPAY ==
--- OUTSIDE RECORDS SUMMARY | 2024-12-06 15:48 | XMS_ITS | Clinical Summary ---
Author Organization [facility] Address [address] [place] [address] Care Team Providers Care Dimension Warehouse Supervisor Name Role Phone Jonny Llanes MD Primary Care Provider + Allergies No known active allergies Medications Medication Sig Dispensed Refills Start Date End Date Status Multiple Vitamin (MULTI VITAMIN PO) Take by mouth. 0 Ac tive Sukbice-Rdvtpmwfh-Auhg min D (CALCIUM 500 PO) Take by [...] needed for pain. 0 Active nystatin (MYCOSTATIN) 837326 UNIT/ML suspension Take 5 mL (500,000 Units [...] age to complete this topic Care Teams Dimension Warehouse Supervisor Relationship Specialty Start Date End Date Jonny Llanes MD [address] [place] [address] PCP - General Otolaryngology 10/02/18
--- OUTSIDE RECORDS SUMMARY | 2024-12-06 15:48 | XMS_ITS | Data Portability ---
Author Organization [place] - [facility], Allergy Address [address] [address] Care Team Providers Care Local Delivery Driver Name Role Phone JESUS WILLIS Primary Care Provider Assessment Encounter Date Assessment [...] Go To The Location Of Their Choice, [address] 12/05/2023 08:18:28 Referral None recorded. Procedures None recorded. Surgeries None recorded. Imaging None recorded. Medication Orders doxycycli ne hyclate 100 mg tablet 2024 025 [id number], [address] [place], [address], 06/10/2024 14:55:36 ciproflox acin 0.3 %-dexamet hasone 0.1 % ear drops,rola pension 2023 025 arodrigues 32 [facility]/Pharmacy #[id number], [address], [place], [address], 12/02/2024 10:08:19 Patient TargetsNo targets recorded. Patient InstructionsNo instructions recorded. Reason for Referral None Reported. Results Created Date Observation Date Name Description Value Unit Range Abnormal Flag Note LastModifiedBy Organization Detail LastModifiedTime 12/04/19 24 12/05/2023 TSH+F REE T4 TSH 3.880 uIU/m L 0.450- 4.500 normal Not Available [facility] ([facility]) [address] [place], [address], 12/05/2023 08:18:27 12/04/19 24 12/05/2023 TSH+F REE T4 T4,free(dire ct) 1.25 NG/dL 0.82-1 .77 normal Not Available [facility] ([facility]) [address] [facility], [place], [address], 12/05/2023 08:18:27 Result Notes None recorded. Problems Name Problem SNOMED Code Status Onset Date Resolution Date Notes Provider Name and Address Organization Details Recorded Time Conducti ve hearing loss, bilatera l 392085909 Active 2014 Conducti ve hearing loss, bilatera l; Note: Date Diagnose d: 5 5:06 PM (389.06) Not Available [facility] 4 02:42:49 History of malignan t neoplasm of pharynx 90143709172 107 Active 2014 Personal history of malignan t neoplasm : Other and unspecif ied oral cavity and pharynx; Note: Date Diagnose d: 5 5:06 PM (V10.02) Not Available [facility] 4 02:42:45 Neck pain 50591776 Active 2014 Other disorder s of cervical region: Cervical eitan; Note: Date Diagnose d: 5 4:18 PM (723.1) ; Start Date : 09/11/19 15 Cervi calgia; Note: Date Diagnose d: 5 3:18 PM (M54.2) [mapped from ICD9 code: 723.1] Not Available [facility] 4 02:42:45 History of malignan t neoplasm of oral cavity 331640884 Active 2014 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, oral cavity, and pharynx; Note: Date Diagnose d: 5 3:18 PM (Z85.818 ) [mapped from ICD9 code: V10.02] Not Available [facility] 4 02:42:46 Mixed conducti ve and sensorin eural hearing loss, bilatera l 796107654 Active 2014 Mixed HL, bilatera l; Note: Date Diagnose d: 5 4:52 PM (389.22) ; Start Date : 09/11/19 15 Mixed conducti ve and sensorin eural hearing loss, bilatera l; Note: Date Diagnose d: 5 3:18 PM (H90.6) [mapped from ICD9 code: 389.22] Not Available [facility] 4 02:42:50 Chronic nasophar yngitis 54538436 Active 2014 Nasophar yngitis, chronic; Note: Date Diagnose d: 5 5:06 PM (472.2) ; Start Date : 03/05/19 15 Chron ic nasophar yngitis; Note: Date Diagnose d: 5 3:18 PM (J31.1) [mapped from ICD9 code: 472.2] Not Available [facility] 4 02:42:54 Chronic rhinitis 26646809 Active 2015 Chronic rhinitis ; Note: Date Diagnose d: 04/17/2015 3:09 PM (J31.0) Not Available [facility] 4 02:42:51 Pain of right temporom andibula r joint 95160217581 772794 Active 2017 Arthralg ia of right temporom andibula r joint; Note: Date Diagnose d: 03/16/2017 3:31 PM (M26.621 ) Not Available [facility] 4 02:42:52 Otalgia of right ear 8730447415 Active 2017 Otalgia, right ear; Note: Date Diagnose d: 03/16/2017 3:31 PM (H92.01) Not Available [facility] 4 02:42:48 Posterio r rhinorrh ea 34079550 Active 2017 Postnasa l drip; Note: Date Diagnose d: 8 2:30 PM (R09.82) Not Available [facility] 4 02:42:51 Bilatera l temporom andibula r joint pain 17194853619 492365 Active 2017 Arthralg ia of bilatera l temporom andibula r joint; Note: Date Diagnose d: 8 2:30 PM (M26.623 ) [facility] 4 02:42:52 Perforat ion of left tympanic membrane 28031244134 40491 Active 2017 Unspecif ied perforat ion of tympanic membrane , left ear; Note: Date Diagnose d: 8 1:49 PM (H72.92) Not Available [facility] 4 02:42:52 Acute sialoade nitis 774445227 Active 2017 Acute sialoade nitis; Location : left Not e: Changed from K11.2 to K11.21 ( 9 12:00 PM) , Date Diagnose d: 8 11:32 AM (K11.2) Not Available [facility] 4 02:42:45 Headache 16760859 Active 2018 Headache , unspecif ied; Note: Changed from R51 to R51.9 (08/13/19 21 10:51 AM) , Date Diagnose d: 03/21/2018 12:03 PM (R51) Not Available [facility] 4 02:42:50 Oral cyst 44052967020 43848 Active 2018 Other cysts of oral region, not elsewher e classifi ed; Note: Date Diagnose d: 06/20/2018 2:59 PM (K09.8) Not Available [facility] 4 02:42:50 Acute upper respirat ory infectio n 11178851 Active 2018 Acute upper respirat ory infectio n, unspecif ied; Note: Date Diagnose d: 06/20/2018 2:59 PM (J06.9) Not Available [facility] 4 02:42:54 Disturba nce of salivary secretio n 54038339 Active 2018 Xerostom ia; Note: Date Diagnose d: 06/20/2018 3:00 PM (K11.7) Not Available [facility] 4 02:42:53 Disorder of right tympanic membrane 19725115286 87435 Active 2018 Other specifie d disorder s of tympanic membrane , right ear; Note: Date Diagnose d: 06/20/2018 3:01 PM (H73.891 ) Not Available [facility] 4 02:42:49 Bilatera l disorder of Eustachi an tubes 67876854093 51925 Active 2018 Other specifie d disorder s of Eustachi an tube, bilatera l; Note: Date Diagnose d: 09/21/2018 1:53 PM (H69.83) Not Available [facility] 4 02:42:51 Total perforat ion of bilatera l tympanic membrane s 96497738888 Active 2018 Total perforat ions of tympanic membrane , bilatera l; Note: Date Diagnose d: 09/21/2018 1:53 PM (H72.823 ) Not Available [facility] 4 02:42:47 Otorrhea of left ear 47820476982 31266 Completed 202009/15/2023 Otorrhea , left ear; Note: Date Diagnose d: 1 2:55 PM (H92.12) Otorrh ea, left ear; Note: Date Diagnose d: 01/01/20 15 2:47 PM (H92.12) ; Start Date : 01/01/20 15 Not Available [facility] 4 02:42:46 Otorrhea of bilatera l ears 61784783513 04201 Active 2020 Otorrhea , bilatera l; Note: Date Diagnose d: 12/31/19 21 3:10 PM (H92.13) Not Available [facility] 4 02:42:48 Otorrhea of right ear 31025619225 53292 Active 2021 Otorrhea , right ear; Note: Date Diagnose d: 03/18/2021 2:44 PM (H92.11) Not Available [facility] 4 02:42:51 Central perforat ion of left tympanic membrane 19380797581 11093 Active 2021 Central perforat ion of tympanic membrane , left ear; Note: Date Diagnose d: 06/21/2021 9:07 AM (H72.02) Not Available [facility] 4 02:42:45 Acute recurren t sialoade nitis 71522525571 Active 2022 Acute recurren t sialoade nitis; Note: Date Diagnose d: 06/20/2022 1:26 PM (K11.22) Not Available [facility] 4 02:42:49 Pharynge al dysphagi a 52761792805 105 Active 2022 Dysphagi a, pharynge al phase; Note: Date Diagnose d: 06/20/2022 1:26 PM (R13.13) Not Available [facility] 4 02:42:55 Orophary ngeal dysphagi a 06391522 Active 2022 Dysphagi a, orophary ngeal phase; Note: Date Diagnose d: 3 12:23 PM (R13.12) Not Available [facility] 4 02:42:54 Spasm 86240700 Active 2022 Cramp and spasm; Note: Date Diagnose d: 3 12:47 PM (R25.2) Not Available [facility] 4 02:42:55 Impacted cerumen in right ear 89713686507 99535 Active 2022 Impacted cerumen, right ear; Note: Date Diagnose d: 12/14/19 23 1:16 PM (H61.21) Not Available [facility] 4 02:42:54 Acute maxillar y sinusiti s 65284793 Active 2023 Acute maxillar y sinusiti s, unspecif ied; Note: Date Diagnose d: 4 1:35 PM (J01.00) Not Available [facility] 4 02:42:53 Gastroes ophageal reflux disease without esophagi tis 471802473 Active 2023 AMY CARREON MD [address], [place], [address] , [place] - [facility] 4 10:25:31 Acute myringit is of left ear 11721013813 87805 Active 2023 AMY CARREON MD [address] [facility],[address], [place], [address] , [place] - [facility] 4 10:27:39 Feeling of lump in throat 793564991 Active 2024 AMY CARREON MD [address] [facility] [place],[address], [place], [address] , [place] - [facility] 5 15:29:01 Allergic rhinitis 67020310 Active 2024 AMY CARREON MD [address] [facility] [place] [address], [place], [address] , [place] - [facility] 5 15:29:18 Dysfunct ion of eustachi an tube 72770660 Active 2024 AMY CARREON MD [address] [facility],[place] [address], [place], [address] , [place] - [facility] 5 15:29:24 Problem Notes None recorded. Procedures Surgical History Date Name Laterality Status Provider Name and Address Organization Details Recorded Time 12/03/19 25 Fiberoptic Laryngoscopy (Comprehensive) completed AMY HENDRICKS MD [address] [facility] [place],[address] [facility], [place], [address], [facility] - [facility] 12/02/2024 10:47:08 06/11/19 25 Fiberoptic Laryngoscopy (Comprehensive) completed AMY HENDRICKS MD [address] [facility] [place],[address] [facility], [place], [address], [place] - [facility] 06/10/2024 15:24:37 12/04/19 24 Fiberoptic Laryngoscopy (Comprehensive) completed AMY HENDRICKS MD [address] [facility] [place],[address] [facility], [place], [address], [facility] - [facility] 12/04/2023 10:27:59 repair of cleft lip completed AMY HENDRICKS MD [address], [address], [facility] 12/03/2023 20:05:01 repair of cleft palate completed AMY HENDRICKS MD [address] [place] [address], [address], [facility] 12/03/2023 20:05:13 Imaging Results None recorded. Procedure Notes None recorded. Medical Equipment None Reported. Allergies Allergen ID Allergen Name Allergen Category Reaction Reaction Severity Criticality Documentation Date Start Date Code Code System Note Provider Name and Address Organization Details Recorded Time 495202 tree and shrub pollen environme nt,medica tion eye redness Not available Not available 03/05/20242009 Mari cisse [facility] 09:07:54 Medications Name Sig Start Date Stop Date Status Note LastModified by Organization Details LastModified Time clotrimaz ole 10 mg yonas 1 yonas five times a day 12/30 completed Medicati on ID: [id number] D uration Value: 7 Brand Name: clotrima zole Sen d Method: E-Prescr ibed Sub s Allowed: subs OK Medic ationGen ericName : clotrima zole Not Available Not Available Not Available Augmentin 875 mg-125 mg tablet 1 tablet by mouth 12/03 completed Medicati on ID: [id number] D uration Value: 10 Prescri bed By [...] mg tablet 10/11 completed Medicati on ID: [id number] B rand Name: valsarta n Send Method: [...] mg tablet 01/25 completed Medicati on ID: [id number] D uration Value: 7 Reason: () Brand [...] a day 10/11 completed Medicati on ID: [id number] D uration Value: 10 Prescri bed By Name: Danuta Martínez nd Name: doxycycl ine monohydr ate Send Method: E-Prescr ibed Sub s Allowed: subs OK Medic ationGen ericName : doxycycl ine monohydr ate Not Available Not Available Not Available clotrimaz ole 1 % topical solution 12/03 completed Medicati on ID: [id number] D uration Value: 14 Brand Name: denise [...] by mouth 12/03 completed Medicati on ID: [id number] D uration Value: 1 Prescri bed By [...] both nostrils 2016 active Medicati on ID: [id number] D uration Value: 120 Prescri bed By [...] mg tablet 10/11 completed Medicati on ID: [id number] Br and Name: naproxen Send Method: E-Prescr [...] Vitamin D 12/02 completed Medicati on ID: [id number] B rand Name: Vitamin D Send Method: E-Prescr ibed Sub s Allowed: subs OK Medic ationGen ericName : Vitamin D Not Available Not Available Not Available magnesium 100 mg (as glycinate ) tablet Take by oral route. 11/29 completed Not Available Not Available Not Available melatonin 10 mg tablet 12/03 [place]ati on ID: [id number] Br and Name: melatoni n Send Method: E-Prescr ibed Sub s Allowed: subs OK Medic ationGen ericName : melatoni n Not Available Not Available Not Available Vitals Date Recorded Body height Body weight Provider Name and Address Organization Details Last Updated DateTime 03/05/2024 154.94 cm 95949.56 g Mari Garcia [place] - [facility] 03/05/2024 09:07:36 Date Recorded Body height Body mass index (BMI) Body weight Provider Name and Address Organization Details Last Updated DateTime 06/10/2024 154.94 cm 29.9 kg/m2 24720.59 g Catrachita Bridges [place] - [facility] 06/10/2024 14:55:24 Date Recorded Body height Provider Name an d Address Organization Details Last Updated DateTime 12/02/2024 154.94 cm Mari Garcia [place] - [facility] 12/02/2024 10:07:53 Date Recorded Body height Body mass index (BMI) Body weight Provider Name and Address Organization Details Last Updated DateTime 12/04/2023 154.94 cm 30.8 kg/m2 29633.56 g Catrachita Bridges [place] - [facility] 12/04/2023 10:11:21 Social History Question Answer Notes LastModified by Organizat ion Details LastModified Time Tobacco Smoking Status Former Smoker Mari cisse [place] - [facility] 12/02/2024 10:08:06 How Many Years Have You Consumed Alcohol? 40 [email or web address] Information not available 12/02/2024 What Type Of Breeder Service Technician Do You Use? None [email or web address] Information not available 12/02/2024 How Many Alcoholic Drinks Do You Consume Per Day On Average? 2 [email or web address] Information not available 12/02/2024 When Did You Quit Smoking? 16+yearssinc elastcigaret te [email or web address] Information not available 12/02/2024 What Is Your Current Pack Years? 10packyears [email or web address] Information not available 12/02/2024 Do You Have Any Pets? Yes Information not available 12/02/2024 At What Age Did You Start Smoking Tobacco? 16 [email or web address] Information not available 12/02/2024 Are You Passively Exposed To Smoke? No Information not available 12/02/2024 Are There Any Smokers In Your House? No [email or web address] Information not available 12/02/2024 How Much Tobacco Do You Smoke? 0.5 PPD [email or web address] Information not available 12/02/2024 How Many Years Have You Smoked Tobacco? 10 [email or web address] Information not available 12/02/2024 Sex: Unknown Functional Status Question Answer Note LastModified by Organization Details LastModified Time How many times per week do you consume alcohol? 1-2 times per week [email or web address] Information not available 12/02/2024 Do you use any illicit or recreational drugs? No [email or web address] Information not available 12/02/2024 Do you or have you ever used any other forms of tobacco or nicotine? No [email or web address] Information not available 12/02/2024 What is your level of alcohol consumption? Occasional Information not available 12/02/2024 What type of noise exposure are you exposed to? noExposureToExcessiveNoise [email or web address] Infor mation not available 12/02/2024 Mental Status None recorded. Family History Nothing Reported. Medical History Condition Response Allergies/Hayfever Y Heart Problems N Anxiety N Tonsil Infections N Emphysema N Migraines N Thyroid Problems N Depression N COPD N Developmental Delay N Glaucoma N Nasal or Sinus Problems Y Anemia N Immune System Disorder N Anesthesia Complications N Heart Attack (SC) N Other Skin Condition N Diabetes N [...] ICD10 Code Diagnosis IMO Codes Diagnosis Note [id number] AMY CARREON MD [facility] [address] [address] 12/04/2023 09:56:12 12/04/2023 10:39:47 History of malignant neoplasm of digestive organ 6532507697 8858593 Z85.00 Gastroesop hageal reflux disease without esophagitis 491787326 K21.9 Consider GI eval. She will discuss with PCP Central pe rforation of left tympanic membrane 0823421830 930036 H72.02 Acute myri ngitis of left ear 0249607729 572198 H73.002 [id number] SILVA SMYTH PA-C [facility] [address] [address] 03/05/2024 09:02:35 03/05/2024 09:35:07 Acute maxillary sinusitis 43347502 J01.00 [id number] AMY CARREON MD [facility] [address] [address] 06/10/2024 14:44:01 06/10/2024 15:30:30 Feeling of lump in throat 624662540 R09.89 History of malignant neoplasm of oropharynx 6002064022 1501111 Z85.818 Dysfunctio n of eustachian tube 06169038 H69.93 Allergic rhinitis 008434 04 J30.9 [id number] AMY CARREON MD [facility] [address] [place] [address] 12/02/2024 10:00:16 12/02/2024 10:46:17 Acute recurrent sialoadenitis 7038154926 048788 K11.22 Central pe rforation of left tympanic membrane 9262485009 313467 H72.02 History of malignant neoplasm of pharynx 2661187472 9107 Z85.819 Health Concerns Section Related Observation LastModified by Organization Detai ls LastModified Time None Recorded Concern Status LastModified by Organization Details LastModified Time None Recorded Advance Directives Directive None Recorded Payers Insurance Date Sequence Insurance Name Policy Number Policy Cervantes Covered Member ID Cervantes Member ID Guarantor Name 12/04/2023 1 [facility] [id number] 1 Rashidaadal Owusu Myranda [id number] Rashida Whitmore 12/02/2024 1 [facility] (MEDICARE REPLACEMENT/ ADVANTAGE - PPO) [id number] 1 Rashida Owusu Hannacroix [id number] Rashida Francoise Myranda Notes Date Note Type Note Provider Name and Address Organization Details Recorded Time 12/04/2023 text/html 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 Completed therapy [id number] right tonsilHx of ETD with cleft lip [...] every other day AMY HENDRICKS MD [address] [place] [address], [place], [address], [facility] - [facility] 12/04/2023 10:33:22 03/05/2024 text/html ROS as noted [...] not relieve symptoms. AMY HENDRICKS MD 100 [facility],[address], [address], [facility] - [facility] 03/05/2024 12:20:10 06/10/2024 text/html History of allergy, [...] combined modality chemo with XRT. Completed therapy [id number] right tonsil History of cleft palate and pharyngeal flap.Using Reflux Gourmet and less coffee helped her reflux AMY HENDRICKS MD 100 [facility],[address], [address], [facility] 06/10/2024 15:29:49 12/02/2024 text/html ROS as noted in the HPI History of allergy, chronic sinusitis and combined modality therapy for tonsil cancer. Had another vitamin stuck in throat. 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 Completed therapy [id number] right tonsil History of cleft palate and pharyngeal flap.Using Reflux Gourmet and less coffee helped her reflux Recent left otorrhea-resolved. Stress test and cardiac work up pending.Having fatigue--thyroid labs ok AMY HENDRICKS MD [address] [facility] [place] [address], [place], [address], [facility] 12/02/2024 10:47:27 OBGyn Episode No OBEpisode recorded.
--- OUTSIDE RECORDS SUMMARY | 2024-12-06 15:48 | XMS_ITS | Continuity of Care Document ---
Author Organization [place] - [facility], [facility] Address [address] [place] [address] Care Team Providers Care Marina Manager Name Role Phone JESUS WILLIS Primary Care [...] soft diet and massage for the parotitis. [email or web address] Not available 12/02/2024 10:45:59 Plan of Treatment [...] Time Conducti ve hearing loss, bilatera l [id number] Active 2014 Conducti ve hearing loss, bilatera l; Note: Date Diagnose d: 5 5:06 PM (389.06) Not Available [facility] 4 02:42:49 History of malignan t neoplasm of pharynx [id number] 107 Active 2014 Personal history of malignan t neoplasm : Other and unspecif ied oral cavity and pharynx; Note: Date Diagnose d: 5 5:06 PM (V10.02) Not Available [facility] 4 02:42:45 Neck pain 34383991 Active 2014 Other disorder s of cervical region: Cervical eitan; Note: Date Diagnose d: 5 4:18 PM (723.1) ; Start Date : 09/11/19 15 Cervi calgia; Note: Date Diagnose d: 3:18 PM (M54.2) [mapped from ICD9 code: 723.1] Not Available [facility] 4 02:42:45 History of malignan t neoplasm of oral cavity 843288056 Active 2014 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, oral cavity, and pharynx; Note: Date Diagnose d: 5 3:18 PM (Z85.818 ) [mapped from ICD9 code: V10.02] Not Available [facility] 4 02:42:46 Mixed conducti ve and sensorin eural hearing loss, bilatera l 395550196 Active 2014 Mixed HL, bilatera l; Note: Date Diagnose d: 5 4:52 PM (389.22) ; Start Date : 09/11/19 15 Mixed conducti ve and sensorin eural hearing loss, bilatera l; Note: Date Diagnose d: 5 3:18 PM (H90.6) [mapped from ICD9 code: 389.22] Not Available [facility] 4 02:42:50 Chronic nasophar yngitis 71464782 Active 2014 Nasophar yngitis, chronic; Note: Date Diagnose d: 5 5:06 PM (472.2) ; Start Date : 03/05/19 15 Chron ic nasophar yngitis; Note: Date Diagnose d: 5 3:18 PM (J31.1) [mapped from ICD9 code: 472.2] Not Available [facility] 4 02:42:54 Chronic rhinitis 94056833 Active 2015 Chronic rhinitis ; Note: Date Diagnose d: 04/17/2015 3:09 PM (J31.0) Not Available [facility] 4 02:42:51 Pain of right temporom andibula r joint 56929027129 092945 Active 2017 Arthralg ia of right temporom andibula r joint; Note: Date Diagnose d: 03/16/2017 3:31 PM (M26.621 ) Not Available [facility] 4 02:42:52 Otalgia of right ear 9111292512 Active 2017 Otalgia, right ear; Note: Date Diagnose d: 03/16/2017 3:31 PM (H92.01) Not Available [facility] 4 02:42:48 Posterio r rhinorrh ea 95850423 Active 2017 Postnasa l drip; Note: Date Diagnose d: 8 2:30 PM (R09.82) Not Available [facility] 4 02:42:51 Bilatera l temporom andibula r joint pain 77574818876 675163 Active 2017 Arthralg ia of bilatera l temporom andibula r joint; Note: Date Diagnose d: 8 2:30 PM (M26.623 ) Not Available [facility] 4 02:42:52 Perforat ion of left tympanic membrane 98122402421 10946 Active 2017 Unspecif ied perforat ion of tympanic membrane , left ear; Note: Date Diagnose d: 8 1:49 PM (H72.92) Not Available [facility] 4 02:42:52 Acute sialoade nitis 380587551 Active 2017 Acute sialoade nitis; Location : left Not e: Changed from K11.2 to K11.21 ( 9 12:00 PM) , Date Diagnose d: 8 11:32 AM (K11.2) Not Available [facility] 4 02:42:45 Headache 35235972 Active 2018 Headache , unspecif ied; Note: Changed from R51 to R51.9 (08/13/19 10:51 AM) , Date Diagnose d: 03/21/2018 12:03 PM (R51) Not Available [facility] 4 02:42:50 Oral cyst 98828939778 87093 Active 2018 Other cysts of oral region, not elsewher e classifi ed; Note: Date Diagnose d: 06/20/2018 2:59 PM (K09.8) Not Available [facility] 4 02:42:50 Acute upper respirat ory infectio n 22871084 Active 2018 Acute upper respirat ory infectio n, unspecif ied; Note: Date Diagnose d: 06/20/2018 2:59 PM (J06.9) Not Available [facility] 4 02:42:54 Disturba nce of salivary secretio n 20177939 Active 2018 Xerostom ia; Note: Date Diagnose d: 06/20/2018 3:00 PM (K11.7) Not Available [facility] 4 02:42:53 Disorder of right tympanic membrane 78670319144 91750 Active 2018 Other specifie d disorder s of tympanic membrane , right ear; Note: Date Diagnose d: 06/20/2018 3:01 PM (H73.891 ) Not Available [facility] 4 02:42:49 Bilatera l disorder of Eustachi an tubes 21449787733 54862 Active 2018 Other specifie d disorder s of Eustachi an tube, bilatera l; Note: Date Diagnose d: 09/21/2018 1:53 PM (H69.83) Not Available [facility] 4 02:42:51 Total perforat ion of bilatera l tympanic membrane s 92144627149 62020 Active 2018 Total perforat ions of tympanic membrane , bilatera l; Note: Date Diagnose d: 09/21/2018 1:53 PM (H72.823 ) Not Available [facility] 4 02:42:47 Otorrhea of left ear 20009994491 40287 Completed 202009/15/2023 Otorrhea , left ear; Note: Date Diagnose d: 1 2:55 PM (H92.12) Otorrh ea, left ear; Note: Date Diagnose d: 01/01/20 15 2:47 PM (H92.12) ; Start Date : 01/01/20 15 Not Available [facility] 4 02:42:46 Otorrhea of bilatera l ears 67516403931 04038 Active 2020 Otorrhea , bilatera l; Note: Date Diagnose d: 12/31/19 21 3:10 PM (H92.13) Not Available [facility] 4 02:42:48 Otorrhea of right ear 58703853095 87906 Active 2021 Otorrhea , right ear; Note: Date Diagnose d: 03/18/2021 2:44 PM (H92.11) Not Available [facility] 4 02:42:51 Central perforat ion of left tympanic membrane 47854612439 71823 Active 2021 Central perforat ion of tympanic membrane , left ear; Note: Date Diagnose d: 06/21/2021 9:07 AM (H72.02) Not Available [facility] 4 02:42:45 Acute recurren t sialoade nitis 50056772244 04563 Active 2022 Acute recurren t sialoade nitis; Note: Date Diagnose d: 06/20/2022 1:26 PM (K11.22) Not Available [facility] 4 02:42:49 Pharynge al dysphagi a 79993375669 105 Active 2022 Dysphagi a, pharynge al phase; Note: Date Diagnose d: 06/20/2022 1:26 PM (R13.13) Not Available [facility] 4 02:42:55 Orophary ngeal dysphagi a 76965259 Active 2022 Dysphagi a, orophary ngeal phase; Note: Date Diagnose d: 3 12:23 PM (R13.12) Not Available [facility] 4 02:42:54 Spasm 55301730 Active 2022 Cramp and spasm; Note: Date Diagnose d: 3 12:47 PM (R25.2) Not Available [facility] 4 02:42:55 Impacted cerumen in right ear 11684640053 62668 Active 2022 Impacted cerumen, right ear; Note: Date Diagnose d: 12/14/19 23 1:16 PM (H61.21) Not Available [facility] 4 02:42:54 Acute maxillar y sinusiti s 65996613 Active 2023 Acute maxillar y sinusiti s, unspecif ied; Note: Date Diagnose d: 4 1:35 PM (J01.00) Not Available [facility] 4 02:42:53 Gastroes ophageal reflux disease without esophagi tis 998485979 Active 2023 AMY CARREON MD [address] [facility] [address], [place], [address] , [place] - [facility] 4 10:25:31 Acute myringit is of left ear 01267022941 10028 Active 2023 AMY CARREON MD [address] [facility] [address], [place], [address] , [place] [facility] 4 10:27:39 Feeling of lump in throat 561945747 Active 2024 AMY CARREON MD [address] [facility] [address], [place], [address] , [place] [facility] 5 15:29:01 Allergic rhinitis 20842234 Active 2024 AMY CARREON MD [address], [place], [address] , [place] [facility] 5 15:29:18 Dysfunct ion of eustachi an tube 42529926 Active 2024 AMY CARREON MD [address] [facility] [address], [place], [address] , [facility] 15:29:24 Problem Notes None recorded. Procedures Surgical History Date Name Laterality Status Provider Name and Address Organization Details Recorded Time 12/03/19 25 Fiberoptic Laryngoscopy (Comprehensive) completed AMY HENDRICKS MD [address] [place] [address],[address], [address], [facility] 12/02/2024 10:47:08 06/11/19 25 Fiberoptic Laryngoscopy (Comprehensive) completed AMY HENDRICKS MD [address] [place] [address],[address], [address], [facility] 06/10/2024 15:24:37 12/04/19 24 Fiberoptic Laryngoscopy (Comprehensive) completed AMY HENDRICKS MD [address] [place] [address],[address], [address], [facility] 12/04/2023 10:27:59 repair of cleft lip completed AMY HENDRICKS MD [address] [place] [address],[address], [address], [facility] 12/03/2023 20:05:01 repair of cleft palate completed AMY HENDRICKS MD [address] [place] [address],[address], [address], [facility] 12/03/2023 20:05:13 Imaging Results None recorded. Procedure Notes None recorded. Medical Equipment None Reported. Allergies Allergen ID Allergen Name Allergen Category Reaction Reaction Severity Criticality Documentation Date Start Date Code Code System Note Provider Name and Address Organization Details Recorded Time 888817 tree and shrub pollen environme nt,medica tion eye redness Not available Not available 03/05/20242009 Mari cisse [facility] 09:07:54 Medications Name Sig Start Date Stop Date Status Note LastModified by Organization Details LastModified Time clotrimaz ole 10 mg yonas 1 yonas five times a day 12/30 completed Medicati on ID: [id number] D uration Value: 7 Brand Name: denise ferguson Sen d Method: E-Prescr ibed Sub s Allowed: subs OK Medic ationGen ericName : denise ferguson Not Available Not Available Not Available Augmentin 875 mg-125 mg tablet 1 tablet by mouth 12/03 completed Medicati on ID: [id number] D uration Value: 10 Prescri bed By [...] mg tablet 10/11 completed Medicati on ID: [id number] B rand Name: valsarta n Send Method: [...] mg tablet 01/25 completed Medicati on ID: [id number] D uration Value: 7 Reason: () Brand [...] a day 10/11 completed Medicati on ID: [id number] D uration Value: 10 Prescri bed By Name: Danuta Martínez nd Name: doxycycl ine monohydr ate Send Method: E-Prescr ibed Sub s Allowed: subs OK Medic ationGen ericName : doxycycl ine monohydr ate Not Available Not Available Not Available clotrimaz ole 1 % topical solution 12/03 completed Medicati on ID: [id number] D uration Value: 14 Brand Name: clotrima [...] by mouth 12/03 completed Medicati on ID: [id number] D uration Value: 1 Prescri bed By [...] both nostrils 2016 active Medicati on ID: [id number] D uration Value: 120 Prescri bed By [...] mg tablet 10/11 completed Medicati on ID: [id number] Br and Name: naproxen Send Method: E-Prescr [...] Vitamin D 12/02 completed Medicati on ID: [id number] B rand Name: Vitamin D Send Method: E-Prescr ibed Sub s Allowed: subs OK Medic ationGen ericName : Vitamin D Not Available Not Available Not Available magnesium 100 mg (as glycinate ) tablet Take by oral route. 11/29 completed Not Available Not Available Not Available melatonin 10 mg tablet 12/03 completed Medicati on ID: [id number] Br and Name: melatoni n Send Method: E-Prescr ibed Sub s Allowed: subs OK Medic ationGen ericName : surya bettencourt Not Available Not Available Not Available Vitals Date Recorded Body height Provider Name an d Address Organization Details Last Updated DateTime 12/02/2024 154.94 cm Mari Garcia [place] [facility] 12/02/2024 10:07:53 Social History Question Answer Notes LastModified by Organizat ion Details LastModified Time Tobacco Smoking Status Former Smoker Mari cisse [place] [facility] 12/02/2024 10:08:06 How Many Years Have You Consumed Alcohol? 40 [email or web address] Information not available 12/02/2024 What Type Of Diesel [employer] Construction Do You Use? None Information not available 12/02/2024 How Many Alcoholic Drinks Do You Consume Per Day On Average? 2 [email or web address] Information not available 12/02/2024 When Did You Quit Smoking? 16+yearssinc elastcigaret te [email or web address] Information not available 12/02/2024 What Is Your Current Pack Years? 10packyears [email or web address] Information not available 12/02/2024 Do You Have Any Pets? Yes [email or web address] Information not available 12/02/2024 At What Age Did You Start Smoking Tobacco? 16 [email or web address] Information not available 12/02/2024 Are You Passively Exposed To Smoke? No [email or web address] Information not available 12/02/2024 Are There Any Smokers In Your House? No [email or web address] Information not available 12/02/2024 How Much Tobacco Do You Smoke? 0.5 PPD [email or web address] Information not available 12/02/2024 How Many Years Have You Smoked Tobacco? 10 [email or web address] Information not available 12/02/2024 Sex: Unknown Functional Status Question Answer Note LastModified by Organization Details LastModified Time How many times per week do you consume alcohol? 1-2 times per week [email or web address] Information not available 12/02/2024 Do you use any illicit or recreational drugs? No [email or web address] Information not available 12/02/2024 Do you or have you ever used any other forms of tobacco or nicotine? No [email or web address] Information not available 12/02/2024 What is your level of alcohol consumption? Occasional [email or web address] Information not available 12/02/2024 What type of noise exposure are you exposed to? noExposureToExcessiveNoise [email or web address] Infor mation not available 12/02/2024 Mental Status None recorded. Family History Nothing Reported. Medical History Condition Response Allergies/Hayfever Y Heart Problems N Anxiety N Tonsil Infections N Emphysema N Migraines N Thyroid Problems N COPD N Depression N Developmental Delay N Glaucoma N Nasal or Sinus Problems Y Anemia N Immune System Disorder N Anesthesia Complications N Heart Attack (VT) N Other Skin Condition N Diabetes N [...] ICD10 Code Diagnosis IMO Codes Diagnosis Note [id number] AMY CARREON MD [facility] [address] [address] 12/02/2024 10:00:16 12/02/2024 10:46:17 Acute recurrent sialoadenitis 2816253350 553194 K11.22 Central pe rforation of left tympanic membrane 4891641404 685588 H72.02 History of malignant neoplasm of pharynx 8242802969 9107 Z85.819 Health Concerns Section Related Observation LastModified by Organization Detai ls LastModified Time None Recorded Concern Status LastModified by Organization Details LastModified Time None Recorded Payers Encounter Date Sequence Insurance Name Policy Number Policy [employer] Covered Member ID Cervantes Member ID Guarantor Name 12/02/2024 1 [facility] (MEDICARE REPLACEMENT/ ADVANTAGE - PPO) [id number] 1 Rashida Whitmore [id number] Rashida Whitmore Notes Date Note Type Note Provider Name and Address Organization Details Recorded Time 12/02/2024 text/html ROS as noted in the HPI History of allergy, chronic sinusitis and combined modality therapy for tonsil cancer. Had another vitamin stuck in throat. 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 Completed therapy [id number] right tonsil History of cleft palate and pharyngeal flap.Using [employer] and less coffee helped her reflux Recent left otorrhea-resolved .Stress test and cardiac work up pending.Having fatigue--thyroid labs ok AMY EHNDRICKS MD [address] [place] [address], [place], [address], [place] [facility] 12/02/2024 10:47:27 OBGyn Episode No OBEpisode recorded.
[2025-01-07] MEDS: Lactated Ringers 1,000 ML 100 ML IVCONT (09:38)
[2025-01-07 09:47] VITALS: BMI 29.9
--- NOTE | 2025-01-07 09:52 | MHC.SHP ---
Pre-Procedural Eval Section A - 24 Hr Update-Section A only Date of Service: 01/07/25 Section B - Complete if H&P > 30 days Chief Complaint: Esophagitis,dysphagia,gerd, Details of Present Illness: Thrush, oral Hx of ectopic Tonsillar tumor History of neck radiation Cleft palate Neuropathy Shingles Hiatal hernia Acid reflux Osteoporosis High blood pressure Sinusitis Surgical History Hx of colonoscopy History of salpingectomy Present Medications: see Short Stay Collaborative assessment Allergies: Allergies Allergy/AdvReac Type Severity Reaction Status Date / Time dog hair Allergy Mild Runny Nose Uncoded 01/07/25 09:48 tree pollen Allergy Mild Runny Nose Uncoded 01/07/25 09:48 Review of Systems Review of Systems Comment: Ten point ROS negative Exam Exam Comment: Gen appear: No acute distress HEENT: no icterus Chest: No overt resp distress Abd: soft, nontender, nondistended Psych: Stable affect, answering questions appropriately Neuro: A/Ox3 noted to move all extremities spontaneously Ext: no peripheral edema Plan Diagnosis/Plan: Unchanged I have reviewed the history and physical and performed a pertinent physical examination on my patient. No changes have occurred unless specified. Time Spent With Patient Time: Total time managing care of this patient today ____ minutes.
--- NOTE | 2025-01-07 09:56 | P.CONAN_ITS ---
Documented by User: Marisa Toney NP 01/06/25 12:00 HPI - Anesthesia Eval Consult details Narrative: 69 yr old female for upper EGD Saw PCP Nov & Dec 2024, had reported occasional chest pain, PCP ordered echo & stress test, completed (*see below), both unremarkable. [facility] Active Problems Active Problems: All Active Problems Hematuria (Acute) Chest pain (Acute) Polyarthralgia (Acute) Fatigue (Acute) Seasonal allergies (Acute) Colon cancer screening declined (Acute) Thrush, oral (Acute) Excessive daytime sleepiness (Acute) Well woman exam (Acute) Generalized joint pain (Acute) Benign head tremor (Acute) Tremor of right hand (Acute) Loud snoring (Acute) Fatigue due to sleep pattern disturbance (Acute) Obesity (BMI 30-39.9) (Acute) Hard of hearing (Acute) Dysphagia (Acute) Esophagitis (Acute) Laboratory tests ordered as part of a complete physical exam (CPE) (Acute) Sleep apnea (Acute) Breast cancer screening by mammogram (Acute) Pap smear for cervical cancer screening (Acute) Hiatal hernia (Acute) Acid reflux (Acute) Osteoporosis (Acute) High blood pressure (Acute) Normal physical examination, routine (Acute) Past Medical History Medical History Colon cancer screening declined Thrush, oral Hx of ectopic Tonsillar tumor Cleft palate Neuropathy Shingles Hiatal hernia Acid reflux Osteoporosis High blood pressure Sinusitis Family History Family History Brother Alcohol abuse FH: mental illness Mother High cholesterol Diabetes Cervical cancer Father Diabetes Cardiovascular disease Paternal Grandmother Diabetes Sister Thyroid disorder Maternal Grandfather Stomach cancer Maternal Aunt Uterine cancer Surgical History Surgical History Hx of colonoscopy History of salpingectomy Social History Social History Housing: House Alcohol intake: current Patient Tobacco Use Status: Former Tobacco user Cigarette Packs Per Day: 1 Cigarettes Per Day: 10 Years Smoked: 20 e-Cigarette/Vaping Use: Never Used Second Hand Smoke Exposure: No Advance Directives: No Advance Directives Information Provided: Yes service: No Current occupational status: retired Current occupational exposures/hazards: No Cognitive needs: No Hearing needs: Yes Vision needs: Yes Meds Allergies Allergy/AdvReac Type Severity Reaction Status Date / Time dog hair Allergy Mild Runny Nose Uncoded 01/07/25 09:48 tree pollen Allergy Mild Runny Nose Uncoded 01/07/25 09:48 Home Medications ?Medication ?Instructions ?Recorded ?Confirmed ?Last Taken ?Type multivitamin 1 tab PO DAILY 06/24/2412/15 Unknown History Exam Pertinent Lab Results Pertinent Lab Results: Laboratory Tests 11/20/24 14:07 WBC 5.2 RBC 4.27 Hgb 13.7 Hct 39.3 Plt Count 195 Sodium 140 Potassium 3.7 BUN 14 Creatinine 0.59 Narrative Narrative: Stress Test 01/03/25 Exercise stress test with exercise 5 mins of Thomas Protcool, achieving 98% MPHR, with reports of SOB, no chest pain, with isolated PVCs, with normotensive reponse to exercise. Without any EKG changes meeting criteria for ischemia. In recovery, breathing improved to baseline. Test reviewed with Jeff Gamboa. ECHO 12/2024 Conclusions: - The left ventricular systolic function is low normal. The visually estimated ejection fraction is between 50-55%. - No obvious valvular pathology seen on this study. EKG 11/2024 NSR rate 68 Documented by User: Lolis Lr DO 01/07/25 09:58 [facility] Past Medical History Medical History Colon cancer screening declined Thrush, oral Hx of ectopic Tonsillar tumor Cleft palate Neuropathy Shingles Hiatal hernia Acid reflux Osteoporosis High blood pressure Sinusitis Family History Family History Brother Alcohol abuse FH: mental illness Mother High cholesterol Diabetes Cervical cancer Father Diabetes Cardiovascular disease Paternal Grandmother Diabetes Sister Thyroid disorder Maternal Grandfather Stomach cancer Maternal Aunt Uterine cancer Family history of problems with anesthesia: No Surgical History Surgical History Hx of colonoscopy History of salpingectomy History of Problems with Anesthesia: No Social History Social History Housing: House Alcohol intake: current Patient Tobacco Use Status: Former Tobacco user Cigarette Packs Per Day: 1 Cigarettes Per Day: 10 Years Smoked: 20 e-Cigarette/Vaping Use: Never Used Second Hand Smoke Exposure: No Advance Directives: No Advance Directives Information Provided: Yes service: No Current occupational status: retired Current occupational exposures/hazards: No Cognitive needs: No Hearing needs: Yes Vision needs: Yes Meds Allergies Allergy/AdvReac Type Severity Reaction Status Date / Time dog hair Allergy Mild Runny Nose Uncoded 01/07/25 09:48 tree pollen Allergy Mild Runny Nose Uncoded 01/07/25 09:48 Home Medications ?Medication ?Instructions ?Recorded ?Confirmed ?Last Taken ?Type multivitamin 1 tab PO DAILY 06/24/2412/15 Unknown History Exam Exam Date and Time: 01/07/25 0955 Height,Weight and Vital Signs: Height 5 ft 1 in Weight 71.8 kg Airway Mallampati Class: I TM Dist: >3cm Neck ROM: Full Loose/Missing/Broken Teeth: No (patient denies any loose or broken teeth) Heart: S1S2 Lungs: CTAB Assessment and Plan Assessment Anesthesia Assessment: Anesthesia Plan Discussed and Chart Reviewed Final Anesthetic Review Family History of Problems with Anesthesia: No History of Problems with Anesthesia: No NPO: Yes ASA Class: II Final Preanesthetic Review: No Changes in Pt Med Stat, Meds/Allgs Chart Reviewed, Consent Obtained/Reviewed and Anes Risks/Benef Reviewed Patient Risk: Low Procedure Risk: Low Anesthetic Plan Anesthetic Plan: MAC: and Agree w/ Assess. and Plan Disposition: Standard PACU
[2025-01-07 10:12] VITALS: BP 152/92; PULSE 68; RESP 18; TEMP 36.7; O2SAT 97
--- NOTE | 2025-01-07 11:07 | P.OP_ITS ---
Operative Note Operative Note Date of Service: 01/07/25 Narrative: Procedure: Esophagogastroduodenoscopy Endoscopist: Flor Sanchez MD Indication: Dysphagia Anesthesia Provider: [facility] CRNA Anesthesia Type: MAC ?? EGD Procedure:?? The procedure, indications, preparation and potential complications were reviewed with the patient, who indicated understanding and gave written informed consent to proceed. A physical exam was performed. The endoscope was introduced through the mouth, and advanced to the second part of duodenum. The mucosa was carefully examined on slow withdrawal of the endoscope. The patient tolerated the procedure well. There were no immediate complications.? ? EGD Findings:? * Esophagus:? Linear ulcerations extending from GE junction to 34 cm involving 2/3rd of the circumference. Cold forceps biopsies were takes from middle and lower esophagus to r/o EoE. * Stomach:? Normal mucosa was noted in the stomach. Numerous polyps measuring 2-7 mm noted in the fundus and body of the stomach. Cold forceps polypectomy was performed for a few of these polyps. Retroflexion was performed in the cardia. * Duodenum:? Erythema, edema and erosions in the duodenal bulb and 1st portion the duodenum. Cold forceps biopsies were taken for histology. ? EGD Impressions:? * Grade C esophagitis (biopsy) * Gastric polyps (biopsy) * Duodenitis (biopsy) ?? Recommendations:?? * Follow biopsy results. Our office will call or send a letter with results within 7-10 days. * Start omeprazole 20 BID * Avoid NSAIDs. * Repeat EGD will be scheduled in a few months to ensure healing and to rule out underlying Ferreira's esophagus. Above has been reviewed with the patient.
[2025-01-07 11:08] VITALS: BP 130/77; PULSE 72; RESP 12; TEMP 36.1; O2SAT 100
[2025-01-07 11:23] VITALS: BP 132/84; PULSE 65; RESP 12; TEMP 36.1; O2SAT 96
== END 2025-01-07 12:05 | disposition home or self-care (01) ==
PROVIDERS: PCP Physician Assistant; Visit Provider Internal Medicine
PROC: 0DJ08ZZ Inspection of Upper Intestinal Tract, Via Natural or Artificial Opening Endoscopic (ICD-10-PCS; CPT 43235; principal; 2025-01-07 11:10)
DX: R13.10 Dysphagia, unspecified (principal); K31.7 Polyp of stomach and duodenum; B37.0 Candidal stomatitis; K22.10 Ulcer of esophagus without bleeding; K29.80 Duodenitis without bleeding
CPT/HCPCS: 43239; 88305; 88313; 88342; J2003; J2704

== ENCOUNTER → 2025-01-07 08:44 | Outpatient (BNV) | payer MEDICARE, SELFPAY | PROVIDERS: PCP Physician Assistant; Visit Provider Internal Medicine | DX: R13.10 Dysphagia, unspecified (principal); K20.90 Esophagitis, unspecified without bleeding; K31.7 Polyp of stomach and duodenum; K29.80 Duodenitis without bleeding | CPT/HCPCS: 43239 ==